=== PATIENT | male | born 1980 | race African-American/Black ===

== ENCOUNTER 2016-05-26 17:02 | Inpatient (IN) | payer OTHER ==
[~2016-05-26] VITALS: Ht 180.3 cm; Wt 86.1 kg
[~2016-05-26 17:02] MED LIST: ALBU6.7H INH
[2016-05-26 17:09] VITALS: BP 123/69; PULSE 118; RESP 18; TEMP 100.9; O2SAT 99
[2016-05-26] MEDS ORDERED: ALBU6.7H INH (17:20)
--- NOTE | 2016-05-26 17:27 | PD ---
HPI Chief Complaint: Injury Time Seen by Provider: 17:26 Travel History International Travel<30 days: No Contact w/Intl Traveler<30days: No Traveled to known affect area: No History of Present Illness HPI 35-year-old male presents to the emergency Department under [place] act by local police. According to the [place] act, the patient has been hallucinating and refuses to get care for his broken right arm. Patient left the hospital yesterday AGAINST MEDICAL ADVICE. He was in rhabdomyolysis with a CK of 9,146, troponin was 0.06. Patient was going to have surgery on the right humerus by Dr. Sams. However, Dr. Sams was waiting for medical clearance. The patient has a fever upon arrival in the emergency department. He is unaware that he has been running a fever. He denies any chest pain or shortness of breath. He does complain of chronic low back pain. He denies any current abdominal pain. No vomiting. Patient does report history of seizures, asthma, bipolar disorder , schizophrenia. He states his only current medication is albuterol. Patient states that he does not usually hallucinate. He has been talking to people that aren't there. During my exam, he states he believes he is smoking a cigarette when he is not. However, he does answer questions appropriately. Patient does say he had a sore throat last week. PFSH Past Medical History Asthma: Yes Bipolar Disorder: Yes (non compliant with meds) Anxiety: No Depression: No Cancer: No Cardiovascular Problems: No Chemotherapy: No Diminished Hearing: No Endocrine: No Genitourinary: No Neurologic: Yes (head injury and bleed 2016) Psychiatric: Yes Reproductive: No Respiratory: Yes Radiation Therapy: No Schizophrenia: Yes Seizures: Yes Past Surgical History Thoracic Surgery: Yes (LEFT INGUNIAL HERNIA) Social History Alcohol Use: Yes Tobacco Use: Yes Substance Use: No Allergies-Medications (Allergen,Severity, Reaction): Coded Allergies: No Known Allergies (Verified , 05/26/16) Reported Meds & Prescriptions Reported Meds & Active Scripts Active Proventil Hfa (Albuterol Sulfate) 6.7 Gm Aero 2 Puff INH Q4HR NEEDED FOR SHORTNESS OF BREATH Reported Proventil Hfa 6.7 GM Inh (Albuterol Sulfate) 90 Mcg/Act Aer 2 Puff INH Q4-6H PRN Review of Systems Except as stated in HPI: all other systems reviewed are Neg Physical Exam Narrative GENERAL: Well-developed well-nourished male patient, temp of 100.9. SKIN: Warm and dry. Large ecchymosis and swelling noted to the right shoulder down to the right mid forearm. Patient also has ecchymosis noted to the anterior chest. HEAD: Normocephalic. Atraumatic. ENT: Mucosa pink and moist. Erythema but no exudates. No uvular edema. No uvular , palatal, or tonsillar deviation. Airway patent. Nasal turbinates appear normal without nasal blood, purulent drainage or septal hematoma. Bilateral tympanic membranes are clear without erythema or perforation. EYES: No scleral icterus. No injection or drainage. NECK: Supple, trachea midline. No JVD or lymphadenopathy. CARDIOVASCULAR: Regular rate and rhythm without murmurs, gallops, or rubs. Right radial pulse is 2+. RESPIRATORY: Breath sounds equal bilaterally. No accessory muscle use. Lungs sound clear to auscultation. GASTROINTESTINAL: Abdomen soft, non-tender, nondistended. MUSCULOSKELETAL: No cyanosis. BACK: Nontender without obvious deformity. No CVA tenderness. Data Data Last Documented VS Vital Signs Date Time Temp Pulse Resp B/P Pulse Ox O2 Delivery O2 Flow Rate FiO2 05/26/16 18:19 97 Room Air 05/26/16 17:09 100.9 118 18 123/69 Orders Comprehensive Metabolic Panel (05/26/16 17:08) Troponin I (05/26/16 17:08) Creatine Kinase (Cpk) (05/26/16 17:08) Electrocardiogram (05/26/16 17:23) Complete Blood Count With Diff (05/26/16 17:23) Lactic Acid Sepsis Protocol (05/26/16 17:23) Urinalysis - C+S If Indicated (05/26/16 17:23) Influenzae A/B Antigen (05/26/16 17:23) Blood Culture (05/26/16 17:23) Chest, Single Ap (05/26/16 17:23) Blood Glucose (05/26/16 17:23) Ecg Monitoring (05/26/16 17:23) Iv Access Insert/Monitor (05/26/16 17:23) Oximetry (05/26/16 17:23) Oxygen Administration (05/26/16 17:23) Acetaminophen (Tylenol) (05/26/16 17:30) Us Arm Venous Doppler (05/26/16 ) Sodium Chlor 0.9% 1000 Ml Inj (Ns 1000 M (05/26/16 17:30) Drug Screen, Random Urine (05/26/16 17:26) Group A Rapid Strep Screen (05/26/16 17:38) Alcohol (Ethanol) (05/26/16 17:08) Magnesium (Mg) (05/26/16 17:08) Strep Culture (Group A) (05/26/16 17:51) CKMB (05/26/16 17:30) CKMB% (05/26/16 17:30) Sodium Chlor 0.9% 1... W/Sodium Bicarbon (05/26/16 18:45) Sodium Chlor 0.9% 1000 Ml Inj (Ns 1000 M (05/26/16 18:45) Support Splint (05/26/16 18:40) Consult Orthopedic (05/26/16 ) (Hub Use Only)Inp Phy Cons/Ref (05/26/16 ) Labs Laboratory Tests Test 05/26/16 05/26/16 05/26/16 17:30 17:31 17:51 Sodium Level 136 MEQ/L Potassium Level 3.7 MEQ/L Chloride Level 100 MEQ/L Carbon Dioxide Level 24.2 MEQ/L Anion Gap 12 MEQ/L Blood Urea Nitrogen 17 MG/DL Creatinine 1.00 MG/DL Estimat Glomerular Filtration 102 ML/MIN Rate Random Glucose 85 MG/DL Calcium Level 8.6 MG/DL Magnesium Level 1.5 MG/DL Total Bilirubin 1.6 MG/DL Aspartate Amino Transf 226 U/L (AST/SGOT) Alanine Aminotransferase 106 U/L (ALT/SGPT) Alkaline Phosphatase 78 U/L Total Creatine Kinase 30128 U/L Creatine Kinase MB 7.2 NG/ML Creatine Kinase MB % 0.1 % Troponin I 0.08 NG/ML Total Protein 7.9 GM/DL Albumin 3.6 GM/DL Ethyl Alcohol Level LESS THAN 3 MG/DL White Blood Count 9.0 TH/MM3 Red Blood Count 2.56 MIL/MM3 Hemoglobin 8.7 GM/DL Hematocrit 24.8 % Mean Corpuscular Volume 96.8 FL Mean Corpuscular Hemoglobin 34.1 PG Mean Corpuscular Hemoglobin 35.2 % Concent Red Cell Distribution Width 15.2 % Platelet Count 171 TH/MM3 Mean Platelet Volume 7.3 FL Neutrophils (%) (Auto) 74.0 % Lymphocytes (%) (Auto) 10.1 % Monocytes (%) (Auto) 15.6 % Eosinophils (%) (Auto) 0.1 % Basophils (%) (Auto) 0.2 % Neutrophils # (Auto) 6.6 TH/MM3 Lymphocytes # (Auto) 0.9 TH/MM3 Monocytes # (Auto) 1.4 TH/MM3 Eosinophils # (Auto) 0.0 TH/MM3 Basophils # (Auto) 0.0 TH/MM3 CBC Comment DIFF FINAL Differential Comment Lactic Acid Level 0.7 mmol/L Urine Color YELLOW Urine Turbidity CLEAR Urine pH 5.5 Urine Specific [place] 1.020 Urine Protein 30 mg/dL Urine Glucose (UA) NEG mg/dL Urine Ketones 40 mg/dL Urine Occult Blood SMALL Urine Nitrite NEG Urine Bilirubin NEG Urine Urobilinogen 4.0 MG/DL Urine Leukocyte Esterase NEG Urine RBC LESS THAN 1 /hpf Urine WBC LESS THAN 1 /hpf Urine Squamous Epithelial 1 /hpf Cells Urine Hyaline Casts 11 /lpf Urine Mucus FEW /lpf Microscopic Urinalysis Comment CULT NOT INDICATED Urine Opiates Screen NEG Urine Barbiturates Screen NEG Urine Amphetamines Screen NEG Urine Benzodiazepines Screen NEG Urine Cocaine Screen NEG Urine Cannabinoids Screen NEG MDM Medical Decision Making Medical Screen Exam Complete: Yes Emergency Medical Condition: Yes Medical Record Reviewed: Yes Interpretation(s) Chest x-ray - CONCLUSION: No evidence of acute cardiopulmonary disease. Differential Diagnosis Rhabdomyolysis versus ACS versus pericarditis versus humeral fracture versus electrolyte abnormality versus sepsis Narrative Course 35-year-old male presents to the emergency department under [place] act. Patient has a fever upon arrival of 100.9. EKG is ordered and pending. CBC, CMP, magnesium, CK, troponin, lactic acid, alcohol level, urine drug screen, UA, influenza, strep, blood cultures 2, lactic acid are ordered and pending. Chest x-ray is ordered and pending. Venous Doppler ultrasound of the right upper extremity is ordered and pending. EKG shows sinus rhythm, heart rate 94, no acute ST changes. CBC shows normal WBC count of 9.0, hemoglobin 8.7, hematocrit 24.8. CMP shows elevated AST, LT of 226/106. Magnesium is 1.5. CK is 12,279. Troponin is 0.08. Lactic acid is 0.7. Alcohol level is less than 3. UDS is negative. UA shows no acute infection. Influenza is negative. Strep is negative. Chest x-ray shows no evidence of acute cardiopulmonary disease. US [-]. [facility] is paged for admission. Dr. Pepe accepted admission. Diagnosis Primary Impression: Rhabdomyolysis Qualified Code: T79.6XXA - Traumatic rhabdomyolysis, initial encounter Additional Impression: Right humeral fracture Qualified Code: S42.201D - Closed fracture of proximal end of right humerus with routine healing, unspecified fracture morphology, subsequent encounter Admitting Information Admitting Physician Requests: Admit Aziza Briscoe May 26, 2016 17:27
[2016-05-26] MEDS ORDERED: ACETAMINOPHEN 325 MG TAB PO ONE (17:30)
[2016-05-26] MEDS ORDERED: SODIUM CHLOR 0.9% 1000 ML INJ 1,000 ML IV ONE ×2 (17:30→18:45)
--- NOTE | 2016-05-26 17:37 | PD ---
Data Data Last Documented VS Vital Signs Date Time Temp Pulse Resp B/P Pulse Ox O2 Delivery O2 Flow Rate FiO2 05/26/16 18:19 97 Room Air 05/26/16 17:09 100.9 118 18 123/69 Orders Comprehensive Metabolic Panel (05/26/16 17:08) Troponin I (05/26/16 17:08) Creatine Kinase (Cpk) (05/26/16 17:08) Electrocardiogram (05/26/16 17:23) Complete Blood Count With Diff (05/26/16 17:23) Lactic Acid Sepsis Protocol (05/26/16 17:23) Urinalysis - C+S If Indicated (05/26/16 17:23) Influenzae A/B Antigen (05/26/16 17:23) Blood Culture (05/26/16 17:23) Chest, Single Ap (05/26/16 17:23) Blood Glucose (05/26/16 17:23) Ecg Monitoring (05/26/16 17:23) Iv Access Insert/Monitor (05/26/16 17:23) Oximetry (05/26/16 17:23) Oxygen Administration (05/26/16 17:23) Acetaminophen (Tylenol) (05/26/16 17:30) Us Arm Venous Doppler (05/26/16 ) Sodium Chlor 0.9% 1000 Ml Inj (Ns 1000 M (05/26/16 17:30) Drug Screen, Random Urine (05/26/16 17:26) Group A Rapid Strep Screen (05/26/16 17:38) Alcohol (Ethanol) (05/26/16 17:08) Magnesium (Mg) (05/26/16 17:08) Strep Culture (Group A) (05/26/16 17:51) CKMB (05/26/16 17:30) CKMB% (05/26/16 17:30) Labs Laboratory Tests Test 05/26/16 05/26/16 05/26/16 17:30 17:31 17:51 Sodium Level 136 MEQ/L Potassium Level 3.7 MEQ/L Chloride Level 100 MEQ/L Carbon Dioxide Level 24.2 MEQ/L Anion Gap 12 MEQ/L Blood Urea Nitrogen 17 MG/DL Creatinine 1.00 MG/DL Estimat Glomerular Filtration 102 ML/MIN Rate Random Glucose 85 MG/DL Calcium Level 8.6 MG/DL Magnesium Level 1.5 MG/DL Total Bilirubin 1.6 MG/DL Aspartate Amino Transf 226 U/L (AST/SGOT) Alanine Aminotransferase 106 U/L (ALT/SGPT) Alkaline Phosphatase 78 U/L Total Creatine Kinase 40051 U/L Troponin I 0.08 NG/ML Total Protein 7.9 GM/DL Albumin 3.6 GM/DL Ethyl Alcohol Level LESS THAN 3 MG/DL White Blood Count 9.0 TH/MM3 Red Blood Count 2.56 MIL/MM3 Hemoglobin 8.7 GM/DL Hematocrit 24.8 % Mean Corpuscular Volume 96.8 FL Mean Corpuscular Hemoglobin 34.1 PG Mean Corpuscular Hemoglobin 35.2 % Concent Red Cell Distribution Width 15.2 % Platelet Count 171 TH/MM3 Mean Platelet Volume 7.3 FL Neutrophils (%) (Auto) 74.0 % Lymphocytes (%) (Auto) 10.1 % Monocytes (%) (Auto) 15.6 % Eosinophils (%) (Auto) 0.1 % Basophils (%) (Auto) 0.2 % Neutrophils # (Auto) 6.6 TH/MM3 Lymphocytes # (Auto) 0.9 TH/MM3 Monocytes # (Auto) 1.4 TH/MM3 Eosinophils # (Auto) 0.0 TH/MM3 Basophils # (Auto) 0.0 TH/MM3 CBC Comment DIFF FINAL Differential Comment Lactic Acid Level 0.7 mmol/L Urine Color YELLOW Urine Turbidity CLEAR Urine pH 5.5 Urine Specific [place] 1.020 Urine Protein 30 mg/dL Urine Glucose (UA) NEG mg/dL Urine Ketones 40 mg/dL Urine Occult Blood SMALL Urine Nitrite NEG Urine Bilirubin NEG Urine Urobilinogen 4.0 MG/DL Urine Leukocyte Esterase NEG Urine RBC LESS THAN 1 /hpf Urine WBC LESS THAN 1 /hpf Urine Squamous Epithelial 1 /hpf Cells Urine Hyaline Casts 11 /lpf Urine Mucus FEW /lpf Microscopic Urinalysis Comment CULT NOT INDICATED Urine Opiates Screen NEG Urine Barbiturates Screen NEG Urine Amphetamines Screen NEG Urine Benzodiazepines Screen NEG Urine Cocaine Screen NEG Urine Cannabinoids Screen NEG MDM Supervised Visit with MELISSA: Yes Narrative Course I, Dr. Whitaker, have reviewed the advance practice practioner's documentation and am in agreement, met with the patient face to face, made the diagnosis, and the medical decision making was done by me. *My assessment and Findings: Patient is a 35-year-old male presents the emergency department for hallucinations. Patient has history of seizure disorder and apparently had a seizure recently resulting in a right proximal humerus fracture. Patient was hospitalized. During this hospitalization he was due to have orthopedic evaluation but had rhabdomyolysis, felt to be from his seizures. His CPK and troponin were actually still uptrending when he signed out AMA yesterday. He had not yet had his operative intervention of his humerus fracture but is not medically cleared for surgery. Patient apparently has been doing poorly since he's been home and has been having visual hallucinations, talking people that are not there. Apparently this is new and he has not had this from his underlying psychiatric disorders previously. No documented fevers at home, but patient is febrile here and tachycardic. On exam his neurologic exam is nonfocal but is limited due to evaluation of the right upper extremity. Patient has ecchymotic area and warmth from the glenohumeral joint to the elbow. There is no obvious fluctuance. No track bedolla to suggest IV drug abuse. Differential includes rhabdomyolysis, elevated troponin, dehydration, electrolyte abnormality, renal dysfunction, alcohol intoxication, delirium, pneumonia, UTI, influenza, bacteremia, right upper extremity DVT, psychosis, drug-induced mood disorder, schizophrenia. Laboratory results show CPK continues to increase to 12,000+. Troponin still slightly increasing, I suspect that this is from his rhabdomyolysis. He was given 2 L normal saline bolus as well as sodium bicarbonate for renal protection. Thankfully his renal function continues to remain normal. Shortly admitted for further IV fluid resuscitation and management of her's rhabdomyolysis pending ultrasound of the right upper extremity. His examination shows soft compartments in his pain is certainly not out of proportion to exam. This is not consistent with compartment syndrome. Diagnosis Primary Impression: Rhabdomyolysis Qualified Code: T79.6XXA - Traumatic rhabdomyolysis, initial encounter Additional Impressions: Fracture dislocation of right shoulder joint Qualified Code: S42.91XA - Fracture dislocation of right shoulder joint, closed, initial encounter Hallucinations Admitting Information Admitting Physician Requests: Admit Florecita Whitaker MD May 26, 2016 17:37
[2016-05-26 17:48] LABS: AUTOMATED NEUTROPHIL # 6.6 TH/MM3 (1.8-7.7); BASOPHIL % 0.2 % (0.0-2.0); EOSINOPHIL % 0.1 % (0.0-4.0); HEMATOCRIT 24.8 % (39.0-51.0); HEMO FLAGS DIFF FINAL; LYMPH % 10.1 % (9.0-44.0); LYMPHOCYTE # 0.9 TH/MM3 (1.0-4.8); MEAN CELL VOLUME 96.8 FL (80.0-100.0); MEAN CORPUSCULAR HEMOGLOBIN 34.1 PG (27.0-34.0); MEAN CORPUSCULAR HGB CONC 35.2 % (32.0-36.0); MONO % 15.6 % (0.0-8.0); PLATELET COUNT 171 TH/MM3 (150-450); RED BLOOD COUNT 2.56 MIL/MM3 (4.50-5.90); RED CELL DISTRIBUTION WIDTH 15.2 % (11.6-17.2)
--- NOTE | 2016-05-26 17:53 | RADRPT ---
EXAM DATE/TIME: 05/26/2016 17:36 [facility] COMPARISON: No previous studies available for comparison. INDICATIONS : Fever MEDICAL HISTORY : Seizures. SURGICAL HISTORY : Inguinal hernia repair. ENCOUNTER: Initial ACUITY: 1 day PAIN SCORE: 0/10 LOCATION: Bilateral chest FINDINGS: A single view of the chest demonstrates the lungs to be symmetrically aerated without evidence of mas s, infiltrate or effusion. The cardiomediastinal contours are unremarkable. Osseous structures are intact. CONCLUSION: No evidence of acute cardiopulmonary disease. Van Johnston MD on May 26, 2016 at 17:51 Board Certified Radiologist. This report was verified electronically.
[2016-05-26 18:06] LABS: ANION GAP 12 MEQ/L (5-15); AST (GOT) 226 U/L (15-37); BICARBONATE 24.2 MEQ/L (21.0-32.0); BLOOD UREA NITROGEN 17 MG/DL (7-18); CHLORIDE 100 MEQ/L (98-107); GLOMERULAR FILTRATION RATE 102 ML/MIN (>89); MAGNESIUM 1.5 MG/DL (1.5-2.5); POTASSIUM 3.7 MEQ/L (3.5-5.1); SODIUM (NA) 136 MEQ/L (136-145)
[2016-05-26 18:08] LABS: BLOOD, URINE SMALL (NEG); COMMENT (UR) CULT NOT INDICATED; CULTURE IF INDICATED CULT NOT INDICATED; GLUCOSE,URINE NEG (NEG); HYALINE CAST, URINE 11 /lpf (RARE); KETONE, URINE 40 mg/dL (NEG); MUCUS URINE FEW /lpf (OCC); NITRITE,URINE NEG (NEG); PH, URINE 5.5 (5.0-8.5); SQUAMOUS EPITHELIAL CELL URINE 1 /hpf (0-5); URINE COLOR YELLOW (YELLW/STRAW)
[2016-05-26 18:12] LABS: AMPHETAMINE, URINE NEG (NEG); BARBITURATES, URINE NEG (NEG); COCAINE, URINE NEG (NEG)
[2016-05-26 18:19] VITALS: O2SAT 97
[2016-05-26 18:33] LABS: ALKALINE PHOSPHATASE 78 U/L (45-117); ALT (GPT) 106 U/L (12-78); CREATINE KINASE 12279 U/L (39-308); TOTAL BILIRUBIN ADULT 1.6 MG/DL (0.2-1.0)
[2016-05-26 18:46] LABS: CKMB 7.2 NG/ML (0.5-3.6)
[2016-05-26] MEDS: SODIUM BICARBONATE 8.4% INJ 100 MEQ in SODIUM CHLOR 0.9% 1000 ML INJ 1,000 ML IV SCH (19:10)
[2016-05-26] MEDS ORDERED: LORazepam 2 MG/ML VIAL IV PUSH PRN (19:30)
[2016-05-26] MEDS ORDERED: SODIUM CHLORIDE 0.9% FLUSH 5 ML FLUSH FLUSH PRN (19:30)
[2016-05-26] MEDS ORDERED: MORPHINE SULFATE 4 MG/ML INJ IV PRN (19:30)
[2016-05-26] MEDS ORDERED: BISACODYL 10 MG SUPP PR PRN (19:30)
[2016-05-26] MEDS ORDERED: ONDANSETRON HCL 4 MG/2 ML VIAL IVP PRN (19:30)
--- NOTE | 2016-05-26 19:31 | HHI.HP ---
[facility] No Primary Care Physician Admission Diagnosis rhabdomyolysis, right proximal humerus fracture dislocation Diagnoses: (1) Right humeral fracture Diagnosis: Principal (2) Rhabdomyolysis Diagnosis: Principal (3) Elevated troponin Diagnosis: Principal (4) Hallucinations Diagnosis: Principal (5) Seizure disorder Diagnosis: Principal (6) Alcohol abuse Diagnosis: Principal (7) Tobacco abuse Diagnosis: Principal Travel History International Travel<30 Days: No Contact w/Intl Traveler <30 Da: No Traveled to Known Affected Are: No History of Present Illness This is a 35 female with a PMH of Bipolar Disorder, Alcohol Abuse, Alcohol Related Seizure, h/o SDH and Tobacco Abuse who was brought to the ER by Police under [place] Act for hallucinations and refusing medical attention for right arm fracture. Recent admit 05/24/16 for Fall, suspected Seizure Activity and Right Proximal Humerus Fx, found to have rhabdomyolysis and elevated trop 0.06. S/p eval by Ortho w/ surgical intervention planned pending medical clearance, however pt left AMA on 05/26/16. Mother called EMS today as pt w/ hallucinations and not caring for himself. On arrival, BP 123/69, HR 118, O2 sat 99% on RA, Temp 100.9. CBC unremarkable. Chemistry at baseline. LFTs mildly increased from previous. CPK 12,279, previously 9146 on 05/25/16. Troponin 0.08. Urine Drug Screen negative. Alcohol negative. UA negative. CXR with no acute findings. Review of Systems Other ROS: 14 point review of systems otherwise negative. Past Family Social History Past Medical History PMH: Bipolar Disorder, Alcohol Abuse, Alcohol Related Seizure, h/o SDH and Tobacco Abuse Past Surgical History PAST SURGICAL HISTORY: Left Inguinal Hernia Allergies: Coded Allergies: No Known Allergies (Verified , 05/26/16) Family History PAST FAMILY HISTORY: Reviewed. No h/o DM or CAD Social History PAST SOCIAL HISTORY: Positive for alcohol abuse. Smokes 1ppd. Negative for drugs. Physical Exam Vital Signs Vital Signs Date Time Temp Pulse Resp B/P Pulse Ox O2 Delivery O2 Flow Rate FiO2 05/26/16 18:19 97 Room Air 05/26/16 18:19 99 Room Air 05/26/16 17:09 100.9 118 18 123/69 99 Physical Exam PE: GENERAL: Middle-aged black male in no acute distress. Responding to internal stimuli. + active hallucinations HEENT: PERRLA, EOMI. No scleral icterus or conjunctival pallor. No lid lag or facial droop. CARDIOVASCULAR: Regular rate and rhythm. No obvious murmurs to auscultation. No chest tenderness to palpation. RESPIRATORY: No obvious rhonchi or wheezing. Clear to auscultation. Breath sounds equal bilaterally. GASTROINTESTINAL: Abdomen soft, non-tender, nondistended. BS normal. MUSCULOSKELETAL: Extremities without clubbing, cyanosis, or edema. No obvious deformities. RUE in sling, +ecchymosis/edema. NEUROLOGICAL: Awake, alert and oriented x4. No focal neurologic deficits. Moving both upper and lower extremities spontaneously. Laboratory Laboratory Tests Test 05/26/16 05/26/16 05/26/16 17:30 17:31 17:51 Sodium Level 136 Potassium Level 3.7 Chloride Level 100 Carbon Dioxide Level 24.2 Anion Gap 12 Blood Urea Nitrogen 17 Creatinine 1.00 Estimat Glomerular Filtration 102 Rate Random Glucose 85 Calcium Level 8.6 Magnesium Level 1.5 Total Bilirubin 1.6 Aspartate Amino Transf 226 (AST/SGOT) Alanine Aminotransferase 106 (ALT/SGPT) Alkaline Phosphatase 78 Total Creatine Kinase 80399 Creatine Kinase MB 7.2 Creatine Kinase MB % 0.1 Troponin I 0.08 Total Protein 7.9 Albumin 3.6 Ethyl Alcohol Level LESS THAN 3 White Blood Count 9.0 Red Blood Count 2.56 Hemoglobin 8.7 Hematocrit 24.8 Mean Corpuscular Volume 96.8 Mean Corpuscular Hemoglobin 34.1 Mean Corpuscular Hemoglobin 35.2 Concent Red Cell Distribution Width 15.2 Platelet Count 171 Mean Platelet Volume 7.3 Neutrophils (%) (Auto) 74.0 Lymphocytes (%) (Auto) 10.1 Monocytes (%) (Auto) 15.6 Eosinophils (%) (Auto) 0.1 Basophils (%) (Auto) 0.2 Neutrophils # (Auto) 6.6 Lymphocytes # (Auto) 0.9 Monocytes # (Auto) 1.4 Eosinophils # (Auto) 0.0 Basophils # (Auto) 0.0 CBC Comment DIFF FINAL Differential Comment Lactic Acid Level 0.7 Urine Color YELLOW Urine Turbidity CLEAR Urine pH 5.5 Urine Specific [place] 1.020 Urine Protein 30 Urine Glucose (UA) NEG Urine Ketones 40 Urine Occult Blood SMALL Urine Nitrite NEG Urine Bilirubin NEG Urine Urobilinogen 4.0 Urine Leukocyte Esterase NEG Urine RBC LESS THAN 1 Urine WBC LESS THAN 1 Urine Squamous Epithelial 1 Cells Urine Hyaline Casts 11 Urine Mucus FEW Microscopic Urinalysis Comment CULT NOT INDICATED Urine Opiates Screen NEG Urine Barbiturates Screen NEG Urine Amphetamines Screen NEG Urine Benzodiazepines Screen NEG Urine Cocaine Screen NEG Urine Cannabinoids Screen NEG Date/Time Procedure Status Source Growth 05/26/16 18:00 Influenza Types A,B Antigen ([facility]) - Final Complete Nasal Aspirate NEGATIVE FOR FLU A AND B ANTIGEN.... 05/26/16 17:51 Group A Streptococcus Screen ([facility]) - Final Complete Throat 05/26/16 17:51 Group A Streptococcus Screen Received Throat Pending 05/26/16 15:57 Aerobic Blood Culture Received Blood Peripheral Pending 05/26/16 15:57 Anaerobic Blood Culture Received Blood Peripheral Pending Result Diagram: 05/26/16 1731 05/26/16 1730 Assessment and Plan Problem List: (1) Right humeral fracture ICD Code: S42.301A Status: Acute (2) Rhabdomyolysis ICD Code: M62.82 Status: Acute (3) Elevated troponin ICD Code: R79.89 Status: Acute (4) Hallucinations ICD Code: R44.3 Status: Acute (5) Seizure disorder ICD Code: G40.909 Status: Acute (6) Alcohol abuse ICD Code: F10.10 Status: Chronic (7) Tobacco abuse ICD Code: Z72.0 Status: Acute Assessment and Plan A/P: 1. Right Prox Humerus Fx: s/p injury after suspected seizure, recent admit for same, plan for surgical intervention pending medical clearance, however pt left AMA. Dr. Sams consulted by ER physician, plan is for surgical intervention in am. NPO, IVF, analgesics/antiemetics as needed. 2. Elevated Trop: Trop 0.08, EKG w/ no acute changes. Check serial cardiac enzymes for trend. 3. Hallucinations: Auditory/Visual hallucinations, brought to ER under [place] Act. Consult Psych 4. Seizure Disorder: Alcohol-Related. Seen by Dr. Morgan on last admit, however pt left AMA. Will re-consult. Seizure Precautions. 5. Alcohol Abuse: Drinks daily. Seizure Precautions, Ativan, MVT/Thiamine/ Folate 6. Tobacco Abuse: Counselled. Ativan prn. 7. DVT Prophylaxis: SCD/Teds. 8. Social work for d/c planning as needed. 9. Case discussed w/ ER physician at length. Physician Certification 2 Midnight Certification Type: Admission for Inpatient Services Order for Inpatient Services The services are ordered in accordance with Medicare regulations or non- Medicare payer requirements, as applicable. In the case of services not specified as inpatient-only, they are appropriately provided as inpatient services in accordance with the 2-midnight benchmark. Estimated LOS (days): 2 days is the estimated time the patient will need to remain in the hospital, assuming treatment plan goals are met and no additional complications. Post-Hospital Plan: Not yet determined Problem Qualifiers (1) Right humeral fracture: Qualified Code: S42.201D - Closed fracture of proximal end of right humerus with routine healing, unspecified fracture morphology, subsequent encounter (2) Rhabdomyolysis: Qualified Code: T79.6XXA - Traumatic rhabdomyolysis, initial encounter Melly Pepe MD May 26, 2016 19:31
--- NOTE | 2016-05-26 19:35 | RADRPT ---
EXAM DATE/TIME: 05/26/2016 18:02 [facility] COMPARISON: No previous studies available for comparison. INDICATIONS : Right arm swelling and pain. MEDICAL HISTORY : Head injury. Seizures. Asthma. Schizophrenia. Bipolar disorder. Fractured right humerus. SURGICAL HISTORY : Left inguinal hernia repair. ENCOUNTER: Initial ACUITY: 2 day PAIN SCORE: 5/10 LOCATION: Right arm. FINDINGS: There is spontaneous flow documented in the brachial, basilic, cephalic, axillary, and subclavian vei ns. The vessels are compressible and augmentation response is documented. No filling defects are se en. The flow is phasic with respiration. Direction of flow in the jugular vein is caudal. CONCLUSION: No DVT right upper extremity. Van Johnston MD on May 26, 2016 at 19:33 Board Certified Radiologist. This report was verified electronically.
[2016-05-26 19:58] VITALS: BP 145/77; PULSE 102; RESP 18; TEMP 98.9; O2SAT 98
[2016-05-26] MEDS: SODIUM CHLOR 0.9% 1000 ML INJ 1,000 ML IV SCH (20:00)
[2016-05-26 20:43] VITALS: BP 151/68; PULSE 103; RESP 18; O2SAT 98
[2016-05-26] MEDS ORDERED: SODIUM CHLORIDE 0.9% FLUSH 5 ML FLUSH FLUSH SCH (21:00)
[2016-05-26] MEDS: THIAMINE INJ 100 MG in SODIUM CHLORIDE 0.9% INJ 100 ML IV SCH (21:41)
[2016-05-26 22:00] VITALS: BP 153/85; PULSE 92; RESP 19; TEMP 98.6; O2SAT 99
[2016-05-26] MEDS: MULTIVITAMIN INJ 10 ML, FOLIC ACID INJ 1 MG in SODIUM CHLORID 0.9% 500 ML INJ 500 ML IV SCH (22:56)
[2016-05-27 01:23] LABS: CKMB 4.7 NG/ML (0.5-3.6)
[2016-05-27] MEDS: SODIUM BICARBONATE 8.4% INJ 100 MEQ in SODIUM CHLOR 0.9% 1000 ML INJ 1,000 ML IV SCH ×3 (02:05→18:37)
[2016-05-27] MEDS ORDERED: HALOPERIDOL LACTATE 5 MG/ML AMP IM ONE (04:45)
[2016-05-27] MEDS: SODIUM CHLOR 0.9% 1000 ML INJ 1,000 ML IV SCH ×2 (06:00→16:54)
--- NOTE | 2016-05-27 07:10 | PD.ORT.PN ---
Subjective Subjective Remarks s/p right shoulder injury. left AMA previously,. history of bipolar schizophrenia. quezada acted. restraints Objective Vitals Vital Signs Date Time Temp Pulse Resp B/P Pulse Ox O2 Delivery O2 Flow Rate FiO2 05/26/16 22:00 98.6 92 19 153/85 99 05/26/16 20:43 103 18 151/68 98 Room Air 05/26/16 19:58 98.9 102 18 145/77 98 Room Air 05/26/16 18:19 97 Room Air 05/26/16 18:19 99 Room Air 05/26/16 17:09 100.9 118 18 123/69 99 Result Diagram: 05/26/16 1731 05/26/16 1730 Imaging Last 24 hours Impressions Chest X-Ray 05/26/16 1723 Signed Impressions: Service Date/Time: Thursday, May 26, 2016 17:36 - CONCLUSION: No evidence of acute cardiopulmonary disease. Van Johnston MD Objective Remarks RUE: 3+ swelling of shoulder and arm. NVI. Assessment & Plan Assessment and Plan 1) Right proximal humerus fx dislocation -npo -consents -due to dislocation of shoulder, patient needs surgery today Steven Hui May 27, 2016 07:09
[2016-05-27] MEDS ORDERED: LORazepam 2 MG/ML VIAL IM/IV PRN (07:30)
[2016-05-27 08:00] VITALS: BP 136/87; PULSE 94; RESP 24; TEMP 99.4; O2SAT 100
--- NOTE | 2016-05-27 08:14 | RADRPT ---
EXAM DATE/TIME: 05/27/2016 07:47 [facility] COMPARISON: CTA UPPER EXTREMITY RIGHT W 3D RECON, May 24, 2016, 16:11. HUMERUS RIGHT (MIN 2VWS), April 272015, 15:07. INDICATIONS : Right shoulder pain, trauma. RADIATION DOSE: 24.18 CTDIvol (mGy) MEDICAL HISTORY : Seizures. SURGICAL HISTORY : None. ENCOUNTER: Initial ACUITY: 1 day PAIN SCALE: Non-responsive LOCATION: Right shoulder TECHNIQUE: Volumetric scanning of the shoulder was performed. Using automated exposure control and adjustment o f the mA and/or kV according to patient size, radiation dose was kept as low as reasonably achievable to obtain optimal diagnostic quality images. FINDINGS: There is a heavily undisplaced fracture of the right proximal humerus at the level of the humeral hea d which is dislocated posteriorly and abutting the posterior aspect of the glenoid, fracture involvin g the greater and lesser tuberosities, lesser tuberosity fragment displaced medially and fracture ext ending into the neck of the humerus. There is some amorphous calcific density in and about the fractu re sites. There are no other fractures seen. There is subcutaneous stranding identified. CONCLUSION: 1. Fracture dislocation at the shoulder as above. Jesus Peraza MD on May 27, 2016 at 8:10 Board Certified Radiologist. This report was verified electronically.
[2016-05-27] MEDS ORDERED: INSULIN HUMAN REGULAR 1,000 UNITS/10 ML VIAL SQ PRN (10:45)
[2016-05-27] MEDS ORDERED: METOPROLOL TARTRATE 25 MG TAB PO PRN (10:45)
[2016-05-27] MEDS: SODIUM CHLORID 0.9% 500 ML IV SCH (10:45)
[2016-05-27] MEDS ORDERED: ceFAZolin 2 GM PREMIX 50 ML ONE (11:10)
[2016-05-27] MEDS ORDERED: GENTAMICIN SULFATE 80 MG/2 ML VIAL ONE (11:10)
[2016-05-27] MEDS ORDERED: SODIUM CHLOR 0.9% 250 ML INJ 250 ML ONE (11:11)
[2016-05-27] MEDS ORDERED: KETAMINE HCL 500 MG/5 ML VIAL ONE (11:11)
[2016-05-27] MEDS ORDERED: VANCOMYCIN HCL 1000 MG VIAL ONE (11:11)
[2016-05-27] MEDS ORDERED: fentaNYL CITRATE 250 MCG/5 ML AMP ONE (11:12)
[2016-05-27] MEDS ORDERED: HYDROmorphone HCL PF 2 MG/ML VIAL ONE (11:12)
[2016-05-27] MEDS ORDERED: DEXMEDETOMIDINE INJ 50 ML ONE (11:47)
[2016-05-27] MEDS ORDERED: PHENYLEPH/NS 1000 MCG/10 ML SYR IV ONE (12:00)
[2016-05-27] MEDS ORDERED: LACTATED RINGER'S 1000 ML INJ 2,000 ML IV ONE (12:00)
[2016-05-27] MEDS ORDERED: PROPOFOL 200 MG/20 ML AMP IV ONE (12:00)
[2016-05-27] MEDS ORDERED: NEOSTIGMINE METHYLSULFATE 10 MG/10 ML VIAL IV PUSH ONE (12:00)
[2016-05-27] MEDS ORDERED: NORMOSOL R INJ 1,000 ML IV ONE (12:00)
[2016-05-27] MEDS ORDERED: KETOROLAC TROMETHAMINE 60 MG/2 ML (IM) VIAL IM ONE (12:00)
[2016-05-27] MEDS ORDERED: ONDANSETRON HCL 4 MG/2 ML VIAL IV PUSH ONE (12:00)
--- NOTE | 2016-05-27 12:04 | MB ---
cc: LUBA DUQUE M.D. DATE OF CONSULTATION: 05/27/2016 The patient was just seen by Dr. Morgan yesterday and then he left AMA. He has a long history of alcohol abuse. HISTORY OF PRESENT ILLNESS A 35-year-old man who is bipolar with alcohol abuse, alcohol-related seizure history, subdural hematoma, tobacco use, who came in with right arm pain after a tongue-biting seizure and fall. He had a seizure in November. He has had several seizures alcohol-related and alcohol withdrawal seizures, has been taking Keppra on and off but not regularly. Sounds like a grand mal seizure according to his friend from Dr. Morgan's notes. PAST MEDICAL HISTORY As above. ALLERGIES No known drug allergies. SOCIAL HISTORY Drinks every day. Smokes a pack of cigarettes a day. Denied any drug use to Dr. Morgan. PHYSICAL EXAMINATION On exam this morning he is moving all four extremities in bed. His toes are downgoing bilaterally. He awakens, is mumbling a lot but does tell me his name and follows some commands, others not. Neck was supple. He is afebrile. 92, 19, 153/85. MEDICATIONS Current medications: 1. Thiamine orally. 2. Ativan p.r.n., which was given at 6:00 this morning. 3. Multivitamin. 4. Zofran. 5. PRN morphine. 6. Roxicodone, given some yesterday due to a humerus fracture when he had his seizure. LABORATORY DATA Hematocrit 25. He has some chronic anemia. Platelet count 171,000. Urine drug screen was negative. Alcohol was less than 3, though his alcohol has been as high as 500 in November of this year. UA was negative. Basic metabolic profile normal. AST 226, ALT 106. CPK is 10,000. Troponin was negative. Albumin normal. TSH earlier this year was normal. IMAGING DATA Upper extremity CAT scan heavily undisplaced fracture of the right proximal humerus at the level of the humeral head. Chest x-ray negative. CT scan of the brain was read as normal. I reviewed those films and is essentially unremarkable. IMPRESSION/RECOMMENDATIONS Alcohol-related seizures. At this point no use putting him on a seizure med. I would have the med team treat him for alcohol withdrawal and continue the use of Librium or Ativan. Check an EEG and an MRI of the brain, some additional blood work, although it is likely that his seizures are from the alcohol. MD KARINE Newman/MORENO /9:24 AM /11:53 AM
--- NOTE | 2016-05-27 12:28 | MB ---
cc: TOSIN BURKS DATE OF CONSULTATION: 05/27/2016 REASON FOR CONSULTATION Right proximal humerus fracture-dislocation. HISTORY OF PRESENT ILLNESS Matthew is a 35-year-old male who has multiple medical problems. He has a history of bipolar disorder, possible schizophrenia, alcohol abuse, alcohol-related seizures and tobacco abuse. The patient initially had a seizure on 05/24/2016. He presented to the emergency room where x-rays revealed a fracture-dislocation of his right shoulder. The patient left against medical advice before being seen by orthopedics. He returned today for his right shoulder. He presents as a Solano Act for hallucinations and refusing medical attention. He is currently awake on the orthopedic floor. He is mildly combative. He does not appear to understand the severity of the injury to his arm. He complains of right shoulder pain. Pain is worse with movement. PAST MEDICAL HISTORY ILLNESSES 1. Bipolar disorder. 2. Alcohol abuse. 3. Seizure disorder. 4. Substance abuse. SURGERIES Left inguinal hernia repair. ALLERGIES None. MEDICATIONS Please see EMR for complete list of inpatient medications. FAMILY HISTORY Unobtainable. SOCIAL HISTORY Positive for alcohol and drug use. REVIEW OF SYSTEMS Unobtainable secondary to confusion. PHYSICAL EXAMINATION GENERAL: The patient is a well-developed, well-nourished 35-year-old male in no acute distress. He is awake and alert. He is alert and oriented x3. VITAL SIGNS: Temperature 98.6, pulse 92, respirations 18, blood pressure 153/85, O2 sat is 99% on room air. HEAD: The patient is normocephalic. Pupils are equal. NECK: Soft, nontender. Trachea is midline. ABDOMEN: Soft, nontender, nondistended. EXTREMITIES: Examination of the right upper extremity reveals significant swelling around the shoulder. He has pain with any shoulder motion. He has no pain with elbow, wrist or hand motion. Skin is intact. He has good capillary refill in his fingers. Radial pulse is palpable. Examination of the left arm reveals no obvious pain or deformity with shoulder, elbow or wrist motion. Skin is intact. Radial pulse is palpable. Examination of the bilateral lower extremities reveals no significant pain with hip, knee or ankle motion bilaterally. Skin is intact. Dorsalis pedis pulses are palpable. X-RAYS X-rays of the right shoulder were reviewed. The patient has a proximal humerus fracture. There is posterior dislocation of the humeral head. IMPRESSION 1. Alcohol abuse. 2. Bipolar disorder. 3. Seizure disorder. 4. Fracture-dislocation of right proximal humerus. PLAN At this point the patient will need surgical intervention for his right shoulder for attempted closed reduction versus open reduction, internal fixation. The risks of surgery include bleeding, infection, injuries to arteries, nerves and blood vessels, nonunion, malunion, recurrent dislocations as well as medical complications including blood clot, stroke, heart attack and . At this point the patient does not fully understand the severity of his injury. Because of his delay in care secondary to the fact that he left the hospital previously against medical advice, the surgery will be more difficult to get the shoulder reduced. The patient likely has a large defect of the humeral head and may have recurrent dislocations. A mid-level provider in my office, nurse practitioner or PA, may see this patient on a follow-up basis and continue to implement the objective of this plan including: Starting or adjusting medications, injections of muscle, tendon, bursa or joints, cast application, orthotic or brace application, physical therapy, further radiographic studies including x-ray, MRI, CT, ultrasounds or bone scan, vascular studies, neurologic studies, or other specialist consultations, and proceeding with surgical management as appropriate. MD GEORGE Piper/MORENO /10:13 AM /9:30 AM
[2016-05-27] MEDS ORDERED: ACETAMINOPHEN/HYDROcodone 325 MG/10 MG TAB PO PRN (14:30)
[2016-05-27] MEDS ORDERED: HYDROmorphone HCL PF 2 MG/ML VIAL IV PUSH PRN (14:30)
[2016-05-27] MEDS ORDERED: diphenhydrAMINE HCL 25 MG CAP PO PRN (14:30)
--- NOTE | 2016-05-27 15:16 | PD.CONS ---
Provisional Diagnosis Admission Date May 26, 2016 at 19:15 History of Present Illness Service Psychiatry Consult Requested By Primary Care Physician No Primary Care Physician Past Family Social History Coded Allergies: No Known Allergies (Verified , 05/26/16) Active Scripts Albuterol Sulfate (Proventil Hfa)6.7 Gm Aero2 Puff INH Q4HR #1 BOX NEEDED FOR SHORTNESS OF BREATH Prov:Yunier Cordova MD 12/17/15 Reported Medications Albuterol 6.7 GM Inh (Proventil Hfa 6.7 GM Inh)90 Mcg/Act Aer2 Puff INH Q4-6H PRN (SHORTNESS OF BREATH) #1 INHALER Ref 0 05/26/16 Current Medications Medications (Trade) Dose Ordered Sig/Nader Route Start Time Stop Time Status Last Admin Sodium Bicarbonate 100 meq/Sodium Chloride 1,100 ml @ 150 mls/hr Q7H20M IV 05/26/16 18:45 05/26/16 19:10 (NS 1000 ml Inj) 1,000 ml @ 100 mls/hr Q10H IV 05/26/16 20:00 (NS Flush) 2 ml UNSCH PRN FLUSH 05/26/16 19:30 (NS Flush) 2 ml BID FLUSH 05/26/16 21:00 (Zofran Inj) 4 mg Q6H PRN IVP 05/26/16 19:30 (Dulcolax Supp) 10 mg DAILY PRN WV 05/26/16 19:30 Acetaminophen 650 mg 650 mg Q6H PRN PO 05/26/16 19:30 Multivitamins 10 ml/Folic Acid 1 mg/Sodium Chloride 510.2 ml @ 125 mls/hr Q24H IV 05/26/16 20:00 05/31/16 19:59 05/26/16 22:56 (Thiamine Inj/NS Inj) 101 ml @ 100 mls/hr Q24H IV 05/26/16 21:00 05/29/16 20:59 05/26/16 21:41 (Vitamin B1) 100 mg DAILY PO 05/30/16 09:00 Lorazepam 1 mg 1 mg Q3H PRN IM/IV 05/27/16 07:30 05/27/16 06:36 Lactated Ringer's 1,000 ml @ 30 mls/hr Q24H IV 05/27/16 10:45 (NS 500 ml Inj) 500 ml @ 30 mls/hr [id number] IV 05/27/16 10:45 05/28/16 10:44 (NS Flush) 2 ml UNSCH PRN IVF 05/27/16 14:30 IV Flush 2 ml 2 ml BID IVF 05/27/16 21:00 (Ancef 2 Gm Premix) 50 ml @ 100 mls/hr Q8H IV 05/27/16 20:00 05/28/16 12:29 ([place] 10-325 Mg) 1 tab Q3H PRN PO 05/27/16 14:30 ([place] 10-325 Mg) 2 tab Q6H PRN PO 05/27/16 14:30 (Oscal-D 250-125) 250 mg TID PO 05/27/16 18:00 (Benadryl) 25 mg Q6H PRN PO 05/27/16 14:30 (Dilaudid Pf Inj) 2 mg Q2H PRN IV PUSH 05/27/16 14:30 Physical Exam Vital Signs Vital Signs Date Time Temp Pulse Resp B/P Pulse Ox O2 Delivery O2 Flow Rate FiO2 05/27/16 08:00 99.4 94 24 136/87 100 05/26/16 20:43 Room Air Assessment & Plan Problem List: (1) Hallucinations Assessment & Plan: Patient was unable to be seen because he was having surgery , he will be revisited tomorrow for psychiatric evaluation. ICD Code: R44.3 Assessment & Plan Estimated LOS: Дмитрий Jose MD May 27, 2016 15:15
[2016-05-27] MEDS ORDERED: DO NOT ADM ANY ANTICOAGULANT DRUGS XX PRN (15:30)
[2016-05-27 16:00] VITALS: BP 112/67; PULSE 82; RESP 20; TEMP 96.8; O2SAT 97
[2016-05-27] MEDS: SODIUM CHLORIDE 0.9% FLUSH 5 ML FLUSH IVF PRN ×2 (16:53→18:37)
--- NOTE | 2016-05-27 17:28 | MP ---
cc: LIAM BURKS DATE OF SURGERY: 05/27/2016 PREOPERATIVE DIAGNOSIS: Comminuted right proximal humerus fracture-dislocation. POSTOPERATIVE DIAGNOSIS: Comminuted right proximal humerus fracture-dislocation. SURGEON: Liam Burks MD. COATING MACHINE HELPER: JAIME Clark PAC. The surgical procedure was assisted by my physician assistants. My PAs presence was necessary throughout this case for the manipulation and positioning of the surgical extremity. My PAs were assisting me throughout the duration of this procedure. The skill set of a physician patent legal assistant was medically necessary to complete this procedure. During the surgical case the surgical technologist was working at the back table and the physician patent legal assistant was directly assisting me. PROCEDURE 1. Open treatment of right shoulder dislocation. 2. Open reduction fixation of right proximal humerus fracture. ESTIMATED BLOOD LOSS 600 cc ANESTHESIA General. PLAN OF ACTIVITY: Abduction, external rotation orthosis to right arm at all times. No internal rotation of right shoulder. INDICATIONS FOR PROCEDURE: Matthew is a 35-year male who had an injury several days ago resulting in right proximal humerus fracture-dislocation. He initially left the hospital against medical advice. He returned back to the hospital under Solano Act. Informed consent was obtained both secondary to patient's psychiatric history and confusion. No other history or family was available. At this point the case was medically necessary and medically urgent due to the nature of the dislocation of his shoulder. I discussed this with Dr. Ordoñez of anesthesia. We both agreed that this was medically necessary as well as medically urgent to proceed with surgery. DETAILS OF PROCEDURE: He was brought to the operating room, placed on the OR table. He was given IV sedation and GETA. The right arm and shoulder were prepped with alcohol, followed by Hibiclens, prepped and draped in the usual sterile fashion. He received IV antibiotics. Time-out procedure was performed. The procedure began with an 8-inch incision over the anterior shoulder. Subcutaneous tissue was dissected with Bovie. He did have moderate to severe swelling of the shoulder. The deltopectoral interval was opened. A standard anterior approach to the shoulder was utilized. At this point the proximal humerus was visualized. #5 FiberWire sutures were placed in the greater tuberosity and lesser tuberosity fragments. The joint was distracted. The humeral head was dislocated posteriorly. At this point attention was turned to reduction of the humeral head to the glenoid. This was extremely difficult. There was fracture callous formation. This appeared to be a subacute fracture-dislocation. At this point the glenohumeral joint was visualized. The head was visualized posteriorly. Three Steinmann pins were now placed into the humeral head. A joker elevator was placed between the glenoid and the humeral head. The humeral head was manipulated. Multiple manipulations were required to eventually achieve reduction of the humeral joint. At this point the humeral head was pinned to the glenoid with K-wires. Fluoroscopy confirmed that the glenohumeral joint was reduced. Attention was turned to the proximal humerus fracture. The proximal humeral shaft was reduced to the humeral head. Fracture was manipulated to achieve appropriate reduction. Multiple K-wires were used to hold provisional fixation. Next the greater and lesser tuberosities were reduced. Fluoroscopy confirmed well-aligned fractures. A Synthes proximal humerus plate was selected. The plate was provisionally held with K-wires, 3.5 cortical screws used to compress plate to bone. Next multiple 3.5 locking screws were placed in the humeral head. All screws were pre-drilled and measured for appropriate lengths. The FiberWire sutures were passed through the plate. The tuberosities were now sutured down to the plate. Final fluoroscopy revealed well-aligned fracture with well-placed hardware. Incision was thoroughly irrigated. Fascia was closed with #1 Vicryl. Subcutaneous tissue was closed with 3-0 Vicryl. Skin was closed with maryan. Sterile dressings were applied. Attention was turned to a shoulder orthosis. He was maintained at approximately 5 degrees of external rotation of the shoulder. The patient was transferred to recovery in stable condition. MD GEORGE Piper/CHANELLE /2:23 PM /5:11 PM
--- NOTE | 2016-05-27 17:54 | RADRPT ---
EXAM DATE/TIME: 05/27/2016 14:04 [facility] COMPARISON: CT SHOULDER RIGHT W/O CONTRAST, May 27, 2016, 7:47. INDICATIONS : Right proximal humerus fracture repair. OR. MEDICAL HISTORY : Seizures. SURGICAL HISTORY : None. ENCOUNTER: Initial ACUITY: 1 day PAIN SCORE: Non-responsive. LOCATION: Right proximal humerus FINDINGS: The extremely comminuted tuberosity and neck fracture of the right humerus has undergone open reducti on internal fixation. There is a lateral plate with multiple screws. There is a mildly angulated padmini ply fracture fragment of the medial neck region and a mildly superiorly displaced fracture of the gre ater tuberosity. Otherwise, near-anatomic alignment CONCLUSION: Interim screw and plate fixation of the proximal humeral fracture as above. Major fracture fragments are in near-anatomic alignment. Van Johnston MD on May 27, 2016 at 17:51 Board Certified Radiologist. This report was verified electronically.
[2016-05-27] MEDS: CALCIUM/VITAMIN D 250 MG/125 U TAB PO SCH (18:00)
[2016-05-27 18:23] VITALS: O2SAT 96
--- NOTE | 2016-05-27 18:24 | EKG ---
Date Performed: 05/26/2016 Time Performed: 17:56:24 PTAGE: 35 years EKG: Sinus rhythm POSSIBLE RIGHT VENTRICULAR CONDUCTION DELAY Since previous tracing, no significant change noted [facility] ECG PREVIOUS TRACING : 05/26/2016 17.45 DOCTOR: Rosa Isela Rivas Interpretating Date/Time 05/27/2016 18:22:49
--- NOTE | 2016-05-27 18:24 | EKG ---
Date Performed: 05/26/2016 Time Performed: 17:45:44 PTAGE: 35 years EKG: Sinus rhythm POSSIBLE RIGHT VENTRICULAR CONDUCTION DELAY NONSPECIFIC ST ELEVATION Since previous tracing, no sign ificant change noted BORDERLINE ECG PREVIOUS TRACING : 05/24/2016 14.17 DOCTOR: Rosa Isela Rivas Interpretating Date/Time 05/27/2016 18:22:23
[2016-05-27 20:00] VITALS: BP 125/80; PULSE 107; RESP 18; TEMP 100.7; O2SAT 94
[2016-05-27] MEDS: ceFAZolin 2 GM PREMIX 50 ML IV SCH (20:20)
[2016-05-27] MEDS: SODIUM CHLORIDE 0.9% FLUSH 5 ML FLUSH IVF SCH (21:00)
[2016-05-27] MEDS: MULTIVITAMIN INJ 10 ML, FOLIC ACID INJ 1 MG in SODIUM CHLORID 0.9% 500 ML INJ 500 ML IV SCH (23:16)
[2016-05-27] MEDS: THIAMINE INJ 100 MG in SODIUM CHLORIDE 0.9% INJ 100 ML IV SCH (23:17)
[2016-05-27] MEDS: ACETAMINOPHEN/HYDROcodone 325 MG/10 MG TAB PO PRN (23:17)
[2016-05-28] VITALS (12 sets, daily range): BP systolic 110–155; BP diastolic 56–94; PULSE 64–109; RESP 16–20; TEMP 97.4–101.7; O2SAT 95–100
[2016-05-28] MEDS: ACETAMINOPHEN 325 MG TAB PO PRN ×2 (01:44→13:13)
[2016-05-28] MEDS: SODIUM CHLOR 0.9% 1000 ML INJ 1,000 ML IV SCH ×2 (02:00→12:00)
--- NOTE | 2016-05-28 02:05 | HHI.PR ---
Subjective Remarks Late entry patient seen earlier at 7:50 pm on 05/27/16 after surgical procedure tried to see earlier but patient out to OR Patient is sp surgical procedures patient is lethargic but arousable still on soft restraints patient denies cp/sob stable vital signs Objective Vitals Vital Signs Date Time Temp Pulse Resp B/P Pulse Ox O2 Delivery O2 Flow Rate FiO2 05/28/16 01:36 101.7 64 16 118/64 98 05/27/16 20:00 100.7 107 18 125/80 94 05/27/16 18:23 96 21 05/27/16 16:10 Room Air 05/27/16 16:00 97.8 74 16 103/76 96 Room Air 05/27/16 16:00 96.8 82 20 112/67 97 05/27/16 15:45 78 16 104/70 95 Room Air 05/27/16 15:30 79 16 99/68 94 Room Air 05/27/16 15:15 80 16 100/69 99 Simple Mask 8 05/27/16 15:05 98.3 84 15 106/65 97 Simple Mask 8 05/27/16 08:00 99.4 94 24 136/87 100 I/O 05/27/16 05/27/16 05/27/16 05/28/16 05/28/16 05/28/16 07:00 15:00 23:00 07:00 15:00 23:00 Intake Total 0 ml 2924 ml Output Total 1000 ml 900 ml Balance -1000 ml 2024 ml Intake Oral 0 ml 480 ml IV Total 444 ml Other 2000 ml Output Urine Total 1000 ml 300 ml Estimated Blood Loss 600 ml # Voids 2 3 1 # Bowel Movements 1 0 Result Diagram: 05/26/16 1731 05/26/16 1730 Imaging Last Impressions Upper Extremity CT 05/27/16 0527 Signed Impressions: Service Date/Time: Friday, May 27, 2016 07:47 - CONCLUSION: 1. Fracture dislocation at the shoulder as above. Jesus Peraza MD Chest X-Ray 05/26/16 1723 Signed Impressions: Service Date/Time: Thursday, May 26, 2016 17:36 - CONCLUSION: No evidence of acute cardiopulmonary disease. Van Johnston MD Upper Extremity Ultrasound 05/26/16 0000 Signed Impressions: Service Date/Time: Thursday, May 26, 2016 18:02 - CONCLUSION: No DVT right upper extremity. Van Johnston MD Objective Remarks GENERAL: Middle-aged black male in no acute distress. Responding to internal stimuli. + active hallucinations HEENT: PERRLA, EOMI. No scleral icterus or conjunctival pallor. No lid lag or facial droop. CARDIOVASCULAR: Regular rate and rhythm. No obvious murmurs to auscultation. No chest tenderness to palpation. RESPIRATORY: No obvious rhonchi or wheezing. Clear to auscultation. Breath sounds equal bilaterally. GASTROINTESTINAL: Abdomen soft, non-tender, nondistended. BS normal. MUSCULOSKELETAL: Extremities without clubbing, cyanosis, or edema. No obvious deformities. RUE in sling, +ecchymosis/edema. NEUROLOGICAL: Awake, alert and oriented x4. No focal neurologic deficits. Moving both upper and lower extremities spontaneously. Medications and IVs Current Medications Medications (Trade) Dose Ordered Sig/Nader Route Start Time Stop Time Status Last Admin Sodium Bicarbonate 100 meq/Sodium Chloride 1,100 ml @ 150 mls/hr Q7H20M IV 05/26/16 18:45 05/27/16 18:37 (NS 1000 ml Inj) 1,000 ml @ 100 mls/hr Q10H IV 05/26/16 20:00 05/27/16 16:54 (Zofran Inj) 4 mg Q6H PRN IVP 05/26/16 19:30 (Dulcolax Supp) 10 mg DAILY PRN MD 05/26/16 19:30 Acetaminophen 650 mg 650 mg Q6H PRN PO 05/26/16 19:30 05/28/16 01:44 Multivitamins 10 ml/Folic Acid 1 mg/Sodium Chloride 510.2 ml @ 125 mls/hr Q24H IV 05/26/16 20:00 05/31/16 19:59 05/27/16 23:16 (Thiamine Inj/NS Inj) 101 ml @ 100 mls/hr Q24H IV 05/26/16 21:00 05/29/16 20:59 05/27/16 23:17 (Vitamin B1) 100 mg DAILY PO 05/30/16 09:00 Lorazepam 1 mg 1 mg Q3H PRN IM/IV 05/27/16 07:30 05/27/16 06:36 Lactated Ringer's 1,000 ml @ 30 mls/hr Q24H IV 05/27/16 10:45 (NS 500 ml Inj) 500 ml @ 30 mls/hr [id number] IV 05/27/16 10:45 05/28/16 10:44 (NS Flush) 2 ml UNSCH PRN IVF 05/27/16 14:30 05/27/16 18:37 IV Flush 2 ml 2 ml BID IVF 05/27/16 21:00 (Ancef 2 Gm Premix) 50 ml @ 100 mls/hr Q8H IV 05/27/16 20:00 05/28/16 12:29 05/27/16 20:20 ([place] 10-325 Mg) 1 tab Q3H PRN PO 05/27/16 14:30 ([place] 10-325 Mg) 2 tab Q6H PRN PO 05/27/16 14:30 05/27/16 23:17 (Oscal-D 250-125) 250 mg TID PO 05/27/16 18:00 (Benadryl) 25 mg Q6H PRN PO 05/27/16 14:30 (Dilaudid Pf Inj) 2 mg Q2H PRN IV PUSH 05/27/16 14:30 Miscellaneous Information ALL NURSING DEPARTME... UNSCH PRN XX 05/27/16 15:30 05/28/16 15:29 A/P Problem List: (1) Right humeral fracture ICD Code: S42.301A Status: Acute (2) Rhabdomyolysis ICD Code: M62.82 Status: Acute (3) Elevated troponin ICD Code: R79.89 Status: Acute (4) Hallucinations ICD Code: R44.3 Status: Acute (5) Seizure disorder ICD Code: G40.909 Status: Acute (6) Alcohol abuse ICD Code: F10.10 Status: Chronic (7) Tobacco abuse ICD Code: Z72.0 Status: Acute Assessment and Plan A/P: 1. Right Prox Humerus Fx: s/p injury after suspected seizure, recent admit for same, plan for surgical intervention pending medical clearance, however pt left AMA. Dr. Sams consulted by ER physician. 05/27/16 Patient is sp ORIF of the proximal humerus fracture. Continue pain control. 2. Elevated Trop: Trop 0.08, EKG w/ no acute changes likely due to traumatic rhabdomyolysis.Check serial cardiac enzymes for trend. 3. Hallucinations: Auditory/Visual hallucinations, brought to ER under Solano Act. Consult Psych 4. Seizure Disorder: Alcohol-Related. Seen by Dr. Morgan on last admit, however pt left AMA. Neurology reconsulted. 5. Alcohol Abuse: Drinks daily. Seizure Precautions, Ativan, MVT/Thiamine/ Folate. CIWA Protocol. 6. Tobacco Abuse: Counselled. Ativan prn. 7. DVT Prophylaxis: SCD/Teds. 8. Rhabdomyolysis: Secondary to seizure episode and traumatism. Continue IV fluids, CK trending down. 9. Social work for d/c planning as needed. Problem Qualifiers (1) Right humeral fracture: Qualified Code: S42.201D - Closed fracture of proximal end of right humerus with routine healing, unspecified fracture morphology, subsequent encounter (2) Rhabdomyolysis: Qualified Code: T79.6XXA - Traumatic rhabdomyolysis, initial encounter Deric Atwood MD May 28, 2016 02:05
[2016-05-28] MEDS: SODIUM CHLORID 0.9% 500 ML IV SCH (03:25)
[2016-05-28] MEDS: ceFAZolin 2 GM PREMIX 50 ML IV SCH ×2 (04:17→12:51)
[2016-05-28 06:39] LABS: AUTOMATED NEUTROPHIL # 3.6 TH/MM3 (1.8-7.7); BASOPHIL % 0.7 % (0.0-2.0); EOSINOPHIL # 0.1 TH/MM3 (0-0.4); EOSINOPHIL % 0.9 % (0.0-4.0); LYMPH % 19.6 % (9.0-44.0); LYMPHOCYTE # 1.2 TH/MM3 (1.0-4.8); MEAN CELL VOLUME 97.9 FL (80.0-100.0); MEAN CORPUSCULAR HEMOGLOBIN 34.3 PG (27.0-34.0); MEAN CORPUSCULAR HGB CONC 35.1 % (32.0-36.0); MONO % 18.4 % (0.0-8.0); NEUT % 60.4 % (16.0-70.0); PLATELET COUNT 209 TH/MM3 (150-450); RED BLOOD COUNT 1.98 MIL/MM3 (4.50-5.90); RED CELL DISTRIBUTION WIDTH 14.9 % (11.6-17.2)
[2016-05-28 06:46] LABS: HEMO FLAGS AUTO DIFF
[2016-05-28 06:52] LABS: HEMATOCRIT 19.4 % (39.0-51.0)
--- NOTE | 2016-05-28 06:58 | PD.ORT.PN ---
Subjective Subjective Remarks POD 1 s/p ORIF right proximal humerus doing well. resting comfortably. sitter at bedside reports he was stable and calm all night patient reports that brace is uncomfortable Objective Vitals Vital Signs Date Time Temp Pulse Resp B/P Pulse Ox O2 Delivery O2 Flow Rate FiO2 05/28/16 04:00 98.8 101 17 110/69 95 05/28/16 02:44 16 05/28/16 01:36 101.7 64 16 118/64 98 05/27/16 20:00 100.7 107 18 125/80 94 05/27/16 18:23 96 21 05/27/16 16:10 Room Air 05/27/16 16:00 97.8 74 16 103/76 96 Room Air 05/27/16 16:00 96.8 82 20 112/67 97 05/27/16 15:45 78 16 104/70 95 Room Air 05/27/16 15:30 79 16 99/68 94 Room Air 05/27/16 15:15 80 16 100/69 99 Simple Mask 8 05/27/16 15:05 98.3 84 15 106/65 97 Simple Mask 8 05/27/16 08:00 99.4 94 24 136/87 100 I/O 05/27/16 05/27/16 05/27/16 05/28/16 05/28/16 05/28/16 07:00 15:00 23:00 07:00 15:00 23:00 Intake Total 0 ml 3644 ml 480 ml Output Total 1000 ml 900 ml Balance -1000 ml 2744 ml 480 ml Intake Oral 0 ml 1200 ml 480 ml IV Total 444 ml Other 2000 ml Output Urine Total 1000 ml 300 ml Estimated Blood Loss 600 ml # Voids 2 3 2 1 # Bowel Movements 1 0 0 Result Diagram: 05/28/16 0557 05/26/16 1730 Imaging Last 24 hours Impressions Chest X-Ray 05/26/16 1723 Signed Impressions: Service Date/Time: Thursday, May 26, 2016 17:36 - CONCLUSION: No evidence of acute cardiopulmonary disease. Van Johnston MD Objective Remarks RUE: dressing clean and dry. intact. NVI distally. +gunslinger brace Assessment & Plan Assessment and Plan 1) Right proximal humerus fx dislocation s/p ORIF - POD 1 -NWB -maintain gunslinger brace at all times -daily dressing changes POD 2 Steven Hui May 28, 2016 06:58
[2016-05-28] MEDS ORDERED: HYDR-3366 PO (07:01)
[2016-05-28 07:18] LABS: BICARBONATE 26.6 MEQ/L (21.0-32.0); CALCIUM-PROTEIN CORRECTED 8.2 MG/DL (8.5-10.1); MAGNESIUM 1.6 MG/DL (1.5-2.5); POTASSIUM 3.3 MEQ/L (3.5-5.1); TOTAL BILIRUBIN ADULT 0.7 MG/DL (0.2-1.0)
[2016-05-28 07:33] LABS: CKMB 2.1 NG/ML (0.5-3.6)
--- NOTE | 2016-05-28 08:04 | HHI.PR ---
Objective Vital Signs Date Time Temp Pulse Resp B/P Pulse Ox O2 Delivery O2 Flow Rate FiO2 05/28/16 04:00 98.8 101 17 110/69 95 05/28/16 02:44 16 05/28/16 01:36 101.7 64 16 118/64 98 05/27/16 20:00 100.7 107 18 125/80 94 05/27/16 18:23 96 21 05/27/16 16:10 Room Air 05/27/16 16:00 97.8 74 16 103/76 96 Room Air 05/27/16 16:00 96.8 82 20 112/67 97 05/27/16 15:45 78 16 104/70 95 Room Air 05/27/16 15:30 79 16 99/68 94 Room Air 05/27/16 15:15 80 16 100/69 99 Simple Mask 8 05/27/16 15:05 98.3 84 15 106/65 97 Simple Mask 8 I/O 05/27/16 05/27/16 05/27/16 05/28/16 05/28/16 05/28/16 07:00 15:00 23:00 07:00 15:00 23:00 Intake Total 0 ml 3644 ml 480 ml Output Total 1000 ml 900 ml Balance -1000 ml 2744 ml 480 ml Intake Oral 0 ml 1200 ml 480 ml IV Total 444 ml Other 2000 ml Output Urine Total 1000 ml 300 ml Estimated Blood Loss 600 ml # Voids 2 3 2 1 # Bowel Movements 1 0 0 Result Diagram: 05/28/16 0557 05/28/16 0557 Objective Remarks awake alert moves all well x rue in brace speech clear vff face sym Assessment and Plan Assessment and Plan imp etoh sz fu mri and eeg labs ok so far needs dc etoh no aed while drinking ?detox? Mario Hutchison MD May 28, 2016 08:04
[2016-05-28 08:29] LABS: PLATELET ESTIMATE SMEAR NORMAL (NORMAL); PLATELET MORPHOLOGY NORMAL (NORMAL); POLYCHROMASIA 2.3 % (0.0-1.9); SCAN/DIFF AUTO DIFF CONFIRMED
[2016-05-28] MEDS: SODIUM CHLORIDE 0.9% FLUSH 5 ML FLUSH IVF SCH ×2 (09:00→21:00)
[2016-05-28] MEDS: CALCIUM/VITAMIN D 250 MG/125 U TAB PO SCH ×3 (09:44→18:30)
[2016-05-28] MEDS: LACTATED RINGER'S 1000 ML IV SCH (10:45)
[2016-05-28 10:59] LABS: RAPID PLASMA REAGIN SCREEN NON-REACTIVE (NON-REACTVE)
--- NOTE | 2016-05-28 11:57 | PD.CONS ---
Provisional Diagnosis Admission Date May 26, 2016 at 19:15 Stanton I. Unspecified psychosis Stanton II. Deferred Stanton III. Right proximal humeral fracture Stanton IV. History of incarcerations, alcohol use disorder Stanton V. 55 History of Present Illness Service Psychiatry Consult Requested By Primary Care Physician No Primary Care Physician HPI The patient is a 35-year-old man, domiciled with a friend in [place], single, unemployed, without any previous psychiatric history, no previous psychiatric hospitalizations, no previous suicide attempts, history of incarcerations, alcohol use disorder, who presents to the emergency Department under [place] act by local police. According to the [place] act, the patient was hallucinating and refuses to get care for his broken right arm. Initially the patient refuses medical care, and left the hospital against his medical advice. Patient yesterday had surgery of his humeral fracture. Patient was consulted to psychiatry due to visual hallucinations and disorganized behavior. Chart was reviewed, case discussed with nurse in charge, no collateral information available, patient was seen and evaluated at bedside in the medical floor. On evaluation patient was calm, cooperative, irritable at the beginning, reticent and oppositional to provide information for the psychiatric assessment, but redirectable. Patient is states that in the last 6 months he has had about 3 or 4 episodes of visual hallucinations, he describes these hallucinations as seeing people talking and interacting among themself. He is unable to hear them. These hallucinations are never distressing to him. He had no have any visual hallucinations since last Friday. This hallucinations happens usually at night and mostly under the influence of alcohol. Patient states that he drinks alcohol everyday, usually 6-10 beers, he denies history of withdrawal. He denies the use of illicit drugs, such as heroine, cocaine, marijuana and others. At this moment the patient denies depressive symptoms, denies anxiety, denies nancy, denies perceptual disturbances, denies suicidal or homicidal. Patient is fully oriented 3. No deficits in attention or fluctuation of consciousness observed. Review of Systems Constitutional: DENIES: Diaphoretic episodes, Fatigue, Fever, Weight gain, Weight loss, Chills, Dizziness, Change in appetite, Night Sweats Endocrine: DENIES: Heat/cold intolerance, Polydipsia, Polyuria, Polyphagia Eyes: DENIES: Blurred vision, Diplopia, Eye inflammation, Eye pain, Vision loss , Photosensitivity, Double Vision Respiratory: DENIES: Apneas, Cough, Snoring, Wheezing, Hemoptysis, Sputum production, Shortness of breath Cardiovascular: DENIES: Chest pain, Palpitations, Syncope, Dyspnea on Exertion , PND, Lower Extremity Edema, Orthopnea, Claudication Gastrointestinal: DENIES: Abdominal pain, Black stools, Bloody stools, Constipation, Diarrhea, Nausea, Vomiting, Difficulty Swallowing, Anorexia Musculoskeletal: COMPLAINS OF: Joint pain, Muscle aches Integumentary: DENIES: Abnormal pigmentation, Nail changes, Pruritus, Rash Neurologic: DENIES: Abnormal gait, Headache, Localized weakness, Paresthesias, Seizures, Speech Problems, Tremor, Poor Balance Psychiatric: DENIES: Anxiety, Confusion, Mood changes, Depression, Hallucinations, Agitation, Suicidal Ideation, Homicidal Ideation, Delusions Past Family Social History Coded Allergies: No Known Allergies (Verified , 05/26/16) Active Scripts Hydrocodone-Acetaminophen ([place])10-325 Mg Tab1 Tab PO Q4H PRN (PAIN) #60 TAB Ref 0 Prov:Steven Hui 05/28/16 Albuterol Sulfate (Proventil Hfa)6.7 Gm Aero2 Puff INH Q4HR #1 BOX NEEDED FOR SHORTNESS OF BREATH Prov:Yunier Cordova MD 12/17/15 Reported Medications Albuterol 6.7 GM Inh (Proventil Hfa 6.7 GM Inh)90 Mcg/Act Aer2 Puff INH Q4-6H PRN (SHORTNESS OF BREATH) #1 INHALER Ref 0 05/26/16 Current Medications Medications (Trade) Dose Ordered Sig/Nader Route Start Time Stop Time Status Last Admin (NS 1000 ml Inj) 1,000 ml @ 100 mls/hr Q10H IV 05/26/16 20:00 05/27/16 16:54 (Zofran Inj) 4 mg Q6H PRN IVP 05/26/16 19:30 (Dulcolax Supp) 10 mg DAILY PRN GA 05/26/16 19:30 Acetaminophen 650 mg 650 mg Q6H PRN PO 05/26/16 19:30 05/28/16 01:44 Multivitamins 10 ml/Folic Acid 1 mg/Sodium Chloride 510.2 ml @ 125 mls/hr Q24H IV 05/26/16 20:00 05/31/16 19:59 05/27/16 23:16 (Thiamine Inj/NS Inj) 101 ml @ 100 mls/hr Q24H IV 05/26/16 21:00 05/29/16 20:59 05/27/16 23:17 (Vitamin B1) 100 mg DAILY PO 05/30/16 09:00 Lorazepam 1 mg 1 mg Q3H PRN IM/IV 05/27/16 07:30 05/27/16 06:36 (Lr 1000 ml Inj) 1,000 ml @ 30 mls/hr Q24H IV 05/27/16 10:45 (NS Flush) 2 ml UNSCH PRN IVF 05/27/16 14:30 05/27/16 18:37 IV Flush 2 ml 2 ml BID IVF 05/27/16 21:00 (Ancef 2 Gm Premix) 50 ml @ 100 mls/hr Q8H IV 05/27/16 20:00 05/28/16 12:29 05/28/16 04:17 ([place] 10-325 Mg) 1 tab Q3H PRN PO 05/27/16 14:30 ([place] 10-325 Mg) 2 tab Q6H PRN PO 05/27/16 14:30 05/27/16 23:17 (Oscal-D 250-125) 250 mg TID PO 05/27/16 18:00 05/28/16 09:44 (Benadryl) 25 mg Q6H PRN PO 05/27/16 14:30 (Dilaudid Pf Inj) 2 mg Q2H PRN IV PUSH 05/27/16 14:30 Miscellaneous Information ALL NURSING DEPARTME... UNSCH PRN XX 05/27/16 15:30 05/28/16 15:29 (Zosyn 4.5 Gm Premix) 100 ml @ 200 mls/hr Q8H IV 05/28/16 11:00 (KCl) 30 meq ONCE ONCE PO 05/28/16 12:00 05/28/16 12:01 (SEROquel) 50 mg BID PO 05/28/16 21:00 UNV Family History He denies Social History Patient was born and raised in [place], he lives with a friend, he is single, he is unemployed, he has been incarcerated about 6 time for different reasons, his highest level of education is high school Physical Exam Vital Signs Vital Signs Date Time Temp Pulse Resp B/P Pulse Ox O2 Delivery O2 Flow Rate FiO2 05/28/16 10:15 96 21 05/28/16 08:08 97.4 96 19 155/94 05/27/16 16:10 Room Air 05/27/16 15:15 8 I/O 05/27/16 05/27/16 05/28/16 08:00 16:00 00:00 Intake Total 2100 ml 1544 ml Output Total 1900 ml Balance 200 ml 1544 ml Mental Status Examination Appearance athletic man, age appearing, good hygiene, cooperative, but irritable and distant Speech: Unremarkable Orientation: x3 Memory: Unremarkable Thought Process: Logical Thought Content: Unremarkable Hallucination Type: None Suicidal Ideation: No Previous Suicide Attempts: No Homicidal Ideation: No Previous Homicide Attempts: No Insight: Fair Affect: Irritable Mood: Irritable Motor Activity: Normal gait Assessment & Plan Problem List: (1) Hallucinations ICD Code: R44.3 (2) Alcohol-induced psychosis Assessment & Plan: Psychiatric evaluation today patient is superficially cooperative, irritable, but redirectable. He reports 3-4 episodes of visual hallucinations in the last months mostly in the context of acute alcohol intoxication. He is able to describe this hallucination has people talking and interacting among themself. These visual hallucinations are never anxiety provoking or distressing to the patient. He denies auditory hallucinations. He denies depressive symptoms, he denies anxiety, he denies psychosis. Patient denies suicidal or homicidal ideation. No gross cognitive impairment, attention deficit, fluctuation of consciousness is observed or reported. Is highly probable that these reported visual hallucinations are secondary to alcohol intoxication and maybe other drugs that the patient is denying at this moment. At the time of this evaluation the patient does not meet criteria for psychiatric admission. We will start Seroquel 50 mg twice a day to prevent visual hallucinations and to help the patient with sleep and irritability. [place] act will be lifted. We will follow-up. ICD Code: F10.959 Assessment & Plan Estimated LOS: Дмитрий Jose MD May 28, 2016 11:57
[2016-05-28] MEDS ORDERED: POTASSIUM CHLORIDE 10 MEQ CONTROLLED RELEASE TAB PO ONE (12:00)
[2016-05-28] MEDS: PIPERACIL-TAZO 4.5 GM PREMIX 100 ML IV SCH ×2 (12:50→23:56)
--- NOTE | 2016-05-28 14:31 | HHI.PR ---
Subjective Remarks low potassium patient had fever of 101.7 tachycardic patient more awake, following commands not agitated patient denies cp/sob (+) coughing low calcium hemoglobin 6.8 Objective Vitals Vital Signs Date Time Temp Pulse Resp B/P Pulse Ox O2 Delivery O2 Flow Rate FiO2 05/28/16 11:33 100.8 103 18 133/76 96 05/28/16 10:15 96 21 05/28/16 08:08 97.4 96 19 155/94 97 05/28/16 04:00 98.8 101 17 110/69 95 05/28/16 02:44 16 05/28/16 01:36 101.7 64 16 118/64 98 05/27/16 20:00 100.7 107 18 125/80 94 05/27/16 18:23 96 21 05/27/16 16:10 Room Air 05/27/16 16:00 97.8 74 16 103/76 96 Room Air 05/27/16 16:00 96.8 82 20 112/67 97 05/27/16 15:45 78 16 104/70 95 Room Air 05/27/16 15:30 79 16 99/68 94 Room Air 05/27/16 15:15 80 16 100/69 99 Simple Mask 8 05/27/16 15:05 98.3 84 15 106/65 97 Simple Mask 8 I/O 05/27/16 05/27/16 05/27/16 05/28/16 05/28/16 05/28/16 07:00 15:00 23:00 07:00 15:00 23:00 Intake Total 0 ml 3644 ml 480 ml Output Total 1000 ml 900 ml Balance -1000 ml 2744 ml 480 ml Intake Oral 0 ml 1200 ml 480 ml IV Total 444 ml Other 2000 ml Output Urine Total 1000 ml 300 ml Estimated Blood Loss 600 ml # Voids 2 3 2 1 # Bowel Movements 1 0 0 Result Diagram: 05/28/16 0557 05/28/16 0557 Imaging Last Impressions Upper Extremity CT 05/27/1627 Signed Impressions: Service Date/Time: Friday, May 27, 2016 07:47 - CONCLUSION: 1. Fracture dislocation at the shoulder as above. Jesus Peraza MD Shoulder X-Ray 05/27/16 0000 Signed Impressions: Service Date/Time: Friday, May 27, 2016 14:04 - CONCLUSION: Interim screw and plate fixation of the proximal humeral fracture as above. Major fracture fragments are in near-anatomic alignment. Van Johnston MD Chest X-Ray 05/26/16 1723 Signed Impressions: Service Date/Time: Thursday, May 26, 2016 17:36 - CONCLUSION: No evidence of acute cardiopulmonary disease. Van Johnston MD Upper Extremity Ultrasound 05/26/16 0000 Signed Impressions: Service Date/Time: Thursday, May 26, 2016 18:02 - CONCLUSION: No DVT right upper extremity. Van Johnston MD Objective Remarks GENERAL: Middle-aged black male in no acute distress. Responding to internal stimuli. + active hallucinations HEENT: PERRLA, EOMI. No scleral icterus or conjunctival pallor. No lid lag or facial droop. CARDIOVASCULAR: Regular rate and rhythm. No obvious murmurs to auscultation. No chest tenderness to palpation. RESPIRATORY: No obvious rhonchi or wheezing. Clear to auscultation. Breath sounds equal bilaterally. GASTROINTESTINAL: Abdomen soft, non-tender, nondistended. BS normal. MUSCULOSKELETAL: Extremities without clubbing, cyanosis, or edema. No obvious deformities. RUE in sling, +ecchymosis/edema. NEUROLOGICAL: Awake, alert and oriented x4. No focal neurologic deficits. Moving both upper and lower extremities spontaneously. Procedures sp RAGHAVENDRA right proximal humerus fracture sp opentreatment of right shoulder dislocation Medications and IVs Current Medications Medications (Trade) Dose Ordered Sig/Nader Route Start Time Stop Time Status Last Admin (NS 1000 ml Inj) 1,000 ml @ 100 mls/hr Q10H IV 05/26/16 20:00 05/27/16 16:54 (Zofran Inj) 4 mg Q6H PRN IVP 05/26/16 19:30 (Dulcolax Supp) 10 mg DAILY PRN [place] 05/26/16 19:30 Acetaminophen 650 mg 650 mg Q6H PRN PO 05/26/16 19:30 05/28/16 13:13 Multivitamins 10 ml/Folic Acid 1 mg/Sodium Chloride 510.2 ml @ 125 mls/hr Q24H IV 05/26/16 20:00 05/31/16 19:59 05/27/16 23:16 (Thiamine Inj/NS Inj) 101 ml @ 100 mls/hr Q24H IV 05/26/16 21:00 05/29/16 20:59 05/27/16 23:17 (Vitamin B1) 100 mg DAILY PO 05/30/16 09:00 Lorazepam 1 mg 1 mg Q3H PRN IM/IV 05/27/16 07:30 05/27/16 06:36 (Lr 1000 ml Inj) 1,000 ml @ 30 mls/hr Q24H IV 05/27/16 10:45 (NS Flush) 2 ml UNSCH PRN IVF 05/27/16 14:30 05/27/16 18:37 (NS Flush) 2 ml BID IVF 05/27/16 21:00 ([place] 10-325 Mg) 1 tab Q3H PRN PO 05/27/16 14:30 ([place] 10-325 Mg) 2 tab Q6H PRN PO 05/27/16 14:30 05/27/16 23:17 (Oscal-D 250-125) 250 mg TID PO 05/27/16 18:00 05/28/16 18:30 (Benadryl) 25 mg Q6H PRN PO 05/27/16 14:30 Hydromorphone HCl 2 mg 2 mg Q2H PRN IV PUSH 05/27/16 14:30 (Zosyn 4.5 Gm Premix) 100 ml @ 200 mls/hr Q8H IV 05/28/16 11:00 05/28/16 23:56 (SEROquel) 50 mg BID PO 05/28/16 21:00 05/28/16 21:00 Urinary Catheter: No Vascular Central Line Catheter: No A/P Problem List: (1) Right humeral fracture ICD Code: S42.301A Status: Acute (2) Rhabdomyolysis ICD Code: M62.82 Status: Acute (3) Elevated troponin ICD Code: R79.89 Status: Acute (4) Hallucinations ICD Code: R44.3 Status: Acute (5) Seizure disorder ICD Code: G40.909 Status: Acute (6) Alcohol abuse ICD Code: F10.10 Status: Chronic (7) Tobacco abuse ICD Code: Z72.0 Status: Acute (8) SIRS (systemic inflammatory response syndrome) ICD Code: R65.10 Status: Acute (9) Sepsis ICD Code: A41.9 Status: Acute Assessment and Plan A/P: 1. Right Prox Humerus Fx: s/p injury after suspected seizure, recent admit for same, plan for surgical intervention pending medical clearance, however pt left AMA. Dr. Sams consulted by ER physician. 05/27/16 Patient is sp ORIF of the proximal humerus fracture. Continue pain control. 2. Elevated Trop: Trop 0.08, EKG w/ no acute changes likely due to traumatic rhabdomyolysis.Check serial cardiac enzymes for trend. 05/28/16 last trop trending down to 0.04. 3. Hallucinations: Auditory/Visual hallucinations, brought to ER under [place] Act. Consult Psych appreciated. Patient does not meet criteria for inpatient admission. Patient has been started on Seroquel. [place] act lifted. 4. Seizure Disorder: Alcohol-Related. Seen by Dr. Morgan on last admit, however pt left AMA. Neurology reconsulted. 5. Alcohol Abuse: Drinks daily. Seizure Precautions, Ativan, MVT/Thiamine/ Folate. [place] Protocol. 6. Tobacco Abuse: Counselled. Ativan prn. 7. DVT Prophylaxis: SCD/Teds. 8. Rhabdomyolysis: Secondary to seizure episode and traumatism. Continue IV fluids, CK trending down. 9. Sepsis: Present on admission, patient meets SIRS criteria temp of 100.6 and heart rate of 118. ua negative, cxr no acute disease, possible aspiration pna after seizure episode. Start the patient on IV zosyn, continue Iv fluids and continue to monitor vital signs. 10. Hypocalcemia: Replace with Calcium Chlorida and monitor. 11. Hypokalemia: replace and monitor. 12. Anemia: acute postop anemia. Suspect for acute blood loss. Transfuse 2 untis of PRBC's now. 9. Social work for d/c planning as needed. Discharge Planning Continue to monitor in the medical floor. Problem Qualifiers (1) Right humeral fracture: Qualified Code: S42.201D - Closed fracture of proximal end of right humerus with routine healing, unspecified fracture morphology, subsequent encounter (2) Rhabdomyolysis: Qualified Code: T79.6XXA - Traumatic rhabdomyolysis, initial encounter Deric Atwood MD May 28, 2016 14:31
[2016-05-28] MEDS: QUEtiapine FUMARATE 25 MG TAB PO SCH (21:00)
[2016-05-28] MEDS: THIAMINE INJ 100 MG in SODIUM CHLORIDE 0.9% INJ 100 ML IV SCH (21:00)
[2016-05-29] VITALS (10 sets, daily range): BP systolic 74–139; BP diastolic 11–92; PULSE 78–109; RESP 16–20; TEMP 97.7–102.3; O2SAT 97–100
[2016-05-29] MEDS: MULTIVITAMIN INJ 10 ML, FOLIC ACID INJ 1 MG in SODIUM CHLORID 0.9% 500 ML INJ 500 ML IV SCH (01:15)
[2016-05-29] MEDS ORDERED: CALCIUM CHLORIDE INJ 2 GM in SODIUM CHLORIDE 0.9% INJ 100 ML IV ONE (01:30)
[2016-05-29] MEDS: ACETAMINOPHEN/HYDROcodone 325 MG/10 MG TAB PO PRN ×2 (03:39→20:27)
[2016-05-29] MEDS: PIPERACIL-TAZO 4.5 GM PREMIX 100 ML IV SCH ×3 (05:19→19:00)
--- NOTE | 2016-05-29 06:51 | PD.ORT.PN ---
Subjective Subjective Remarks POD 2 s/p ORIF right proximal humerus doing well. resting comfortably. sitting at bedside. states that gunslinger brace is very uncomfortable Objective Vitals Vital Signs Date Time Temp Pulse Resp B/P Pulse Ox O2 Delivery O2 Flow Rate FiO2 05/29/16 03:52 101.2 05/29/16 03:51 102.3 100 20 74/ 98 05/29/16 01:04 97 21 05/29/16 00:02 97.9 109 20 123/66 99 05/28/16 23:15 98.9 109 20 123/66 99 05/28/16 20:30 99.7 101 18 124/73 98 05/28/16 19:35 99.7 101 18 124/73 98 05/28/16 19:20 101.1 108 18 124/77 99 05/28/16 16:00 99.2 99 18 129/69 99 05/28/16 15:24 100.2 98 18 112/63 99 05/28/16 15:00 100.8 100 18 114/56 100 05/28/16 11:33 100.8 103 18 133/76 96 05/28/16 10:15 96 21 05/28/16 08:08 97.4 96 19 155/94 97 I/O 05/28/16 05/28/16 05/28/16 05/29/16 05/29/16 05/29/16 07:00 15:00 23:00 07:00 15:00 23:00 Intake Total 480 ml 3120 ml 840 ml 1160 ml Output Total 1000 ml 500 ml 1500 ml Balance 480 ml 2120 ml 340 ml -340 ml Intake Oral 480 ml 960 ml 840 ml 1160 ml IV Total 2160 ml Output Urine Total 1000 ml 500 ml 1500 ml # Voids 1 1 # Bowel Movements 0 1 Result Diagram: 05/28/16 0557 05/28/16 0557 Imaging Last 24 hours Impressions Chest X-Ray 05/26/16 3253 Signed Impressions: Service Date/Time: Thursday, May 26, 2016 17:36 - CONCLUSION: No evidence of acute cardiopulmonary disease. Van Johnston MD Objective Remarks RUE: dressing clean and dry. intact. NVI distally. +gunslinger brace. Assessment & Plan Assessment and Plan 1) Right proximal humerus fx dislocation s/p ORIF - POD 2 -NWB -maintain gunslinger brace at all times -daily dressing changes -CM for rehab vs home with HHC -plan for possible discharge tomorrow -[employer] to adjust gunslinger brace today Steven Hui May 29, 2016 06:50
[2016-05-29 07:11] LABS: AUTOMATED NEUTROPHIL # 6.1 TH/MM3 (1.8-7.7); BASOPHIL # 0.1 TH/MM3 (0-0.2); EOSINOPHIL # 0.1 TH/MM3 (0-0.4); EOSINOPHIL % 1.2 % (0.0-4.0); HEMATOCRIT 26.9 % (39.0-51.0); HEMO FLAGS DIFF FINAL; LYMPH % 18.9 % (9.0-44.0); LYMPHOCYTE # 1.7 TH/MM3 (1.0-4.8); MEAN CELL VOLUME 94.8 FL (80.0-100.0); MEAN CORPUSCULAR HGB CONC 34.8 % (32.0-36.0); MONO % 12.5 % (0.0-8.0); NEUT % 66.4 % (16.0-70.0); PLATELET COUNT 328 TH/MM3 (150-450); RED BLOOD COUNT 2.84 MIL/MM3 (4.50-5.90); RED CELL DISTRIBUTION WIDTH 17.4 % (11.6-17.2); WHITE BLOOD COUNT 9.2 TH/MM3 (4.0-11.0)
[2016-05-29 07:44] LABS: ALKALINE PHOSPHATASE 54 U/L (45-117); ALT (GPT) 68 U/L (12-78); ANION GAP 8 MEQ/L (5-15); AST (GOT) 82 U/L (15-37); BICARBONATE 28.8 MEQ/L (21.0-32.0); BLOOD UREA NITROGEN 5 MG/DL (7-18); CHLORIDE 104 MEQ/L (98-107); GLOMERULAR FILTRATION RATE 114 ML/MIN (>89); MAGNESIUM 1.6 MG/DL (1.5-2.5); POTASSIUM 3.3 MEQ/L (3.5-5.1); SODIUM (NA) 141 MEQ/L (136-145); TOTAL BILIRUBIN ADULT 0.8 MG/DL (0.2-1.0)
[2016-05-29] MEDS: SODIUM CHLOR 0.9% 1000 ML INJ 1,000 ML IV SCH ×2 (08:00→18:00)
[2016-05-29] MEDS: CALCIUM/VITAMIN D 250 MG/125 U TAB PO SCH ×3 (08:17→18:00)
[2016-05-29] MEDS: QUEtiapine FUMARATE 25 MG TAB PO SCH ×2 (08:17→20:26)
[2016-05-29] MEDS: SODIUM CHLORIDE 0.9% FLUSH 5 ML FLUSH IVF SCH ×2 (08:22→20:27)
--- NOTE | 2016-05-29 08:28 | HHI.PR ---
Objective Vital Signs Date Time Temp Pulse Resp B/P Pulse Ox O2 Delivery O2 Flow Rate FiO2 05/29/16 08:04 97.7 80 16 122/86 99 05/29/16 03:52 101.2 05/29/16 03:51 102.3 100 20 74/ 98 05/29/16 01:04 97 21 05/29/16 00:02 97.9 109 20 123/66 99 05/28/16 23:15 98.9 109 20 123/66 99 05/28/16 20:30 99.7 101 18 124/73 98 05/28/16 19:35 99.7 101 18 124/73 98 05/28/16 19:20 101.1 108 18 124/77 99 05/28/16 16:00 99.2 99 18 129/69 99 05/28/16 15:24 100.2 98 18 112/63 99 05/28/16 15:00 100.8 100 18 114/56 100 05/28/16 11:33 100.8 103 18 133/76 96 05/28/16 10:15 96 21 I/O 05/28/16 05/28/16 05/28/16 05/29/16 05/29/16 05/29/16 07:00 15:00 23:00 07:00 15:00 23:00 Intake Total 480 ml 3120 ml 840 ml 1160 ml Output Total 1000 ml 500 ml 1500 ml Balance 480 ml 2120 ml 340 ml -340 ml Intake Oral 480 ml 960 ml 840 ml 1160 ml IV Total 2160 ml Output Urine Total 1000 ml 500 ml 1500 ml # Voids 1 1 # Bowel Movements 0 1 Result Diagram: 05/29/16 0647 05/29/16 0647 Objective Remarks awake alert moves all well x rue in brace speech clear vff face sym no tremor nad Assessment and Plan Assessment and Plan imp etoh sz fu mri cannot do with surgery ideally would get o/p in two months ct neg 05/24/16 and eeg pend labs ok so far needs dc etoh and sems ok w that no aed while drinking ?detox? i will sign off and fu labs and eeg Mario Hutchison MD May 29, 2016 08:28
--- NOTE | 2016-05-29 09:52 | MG ---
cc: LAUREL MONTANO Lab No: 17-10 Date: 05/28/2016 Age: __ Sex: M Race: __ TECHNIQUE 17 channel EEG. DESCRIPTION The background rhythm reveals a symmetrical alpha rhythm. The frequency is roughly 8-9 Hz and the amplitude is 10-20 microvolts. There is some slowing in the theta range as well probably related to drowsiness. There are some sleep spindles identified related to normal sleep. No lateralizing features are seen. No epileptic features are seen. There is some muscle artifact as well as eye movement artifact. Photic results in a normal driving response. Hyperventilation was not done. INTERPRETATION Normal EEG. MD CARMEN Page/DARA /9:36 AM /9:49 AM
[2016-05-29] MEDS: LACTATED RINGER'S 1000 ML IV SCH (10:45)
[2016-05-29] MEDS ORDERED: POTASSIUM CHLORIDE 10 MEQ CONTROLLED RELEASE TAB PO ONE (12:30)
--- NOTE | 2016-05-29 12:38 | HHI.PR ---
Subjective Remarks Follow-up hallucinations. No further hallucinations. He also denies depression and suicidal ideations. He wants to go home states his brother and aunt will be available to assist him. Discussed with RN and case management Objective Vitals Vital Signs Date Time Temp Pulse Resp B/P Pulse Ox O2 Delivery O2 Flow Rate FiO2 05/29/16 08:04 97.7 80 16 122/86 99 05/29/16 03:52 101.2 05/29/16 03:51 102.3 100 20 74/ 98 05/29/16 01:04 97 21 05/29/16 00:02 97.9 109 20 123/66 99 05/28/16 23:15 98.9 109 20 123/66 99 05/28/16 20:30 99.7 101 18 124/73 98 05/28/16 19:35 99.7 101 18 124/73 98 05/28/16 19:20 101.1 108 18 124/77 99 05/28/16 16:00 99.2 99 18 129/69 99 05/28/16 15:24 100.2 98 18 112/63 99 05/28/16 15:00 100.8 100 18 114/56 100 I/O 05/28/16 05/28/16 05/28/16 05/29/16 05/29/16 05/29/16 07:00 15:00 23:00 07:00 15:00 23:00 Intake Total 480 ml 3120 ml 840 ml 1160 ml Output Total 1000 ml 500 ml 1500 ml Balance 480 ml 2120 ml 340 ml -340 ml Intake Oral 480 ml 960 ml 840 ml 1160 ml IV Total 2160 ml Output Urine Total 1000 ml 500 ml 1500 ml # Voids 1 1 # Bowel Movements 0 1 Result Diagram: 05/29/16 0647 05/29/16 0647 Objective Remarks GENERAL: Well-developed, well-nourished in no distress SKIN: Warm and dry. HEAD: Atraumatic. Normocephalic. EYES: Pupils equal and round. No scleral icterus. No injection or drainage. ENT: No nasal bleeding or discharge. Mucous membranes pink and moist. NECK: Trachea midline. No JVD. CARDIOVASCULAR: Regular rate and rhythm. RESPIRATORY: No accessory muscle use. Clear to auscultation. Breath sounds equal bilaterally. GASTROINTESTINAL: Abdomen soft, non-tender, nondistended. MUSCULOSKELETAL: Extremities without clubbing, cyanosis, or edema. No obvious deformities. Right upper extremity in a gunslinger NEUROLOGICAL: Awake and alert. No obvious cranial nerve deficits. Motor grossly within normal limits. Five out of 5 muscle strength in the arms and legs. Normal speech. PSYCHIATRIC: Appropriate mood and affect; insight and judgment normal. Procedures sp ORIF right proximal humerus fracture sp open treatment of right shoulder dislocation A/P Problem List: (1) Right humeral fracture ICD Code: S42.301A Status: Acute (2) Rhabdomyolysis ICD Code: M62.82 Status: Acute (3) Elevated troponin ICD Code: R79.89 Status: Acute (4) Hallucinations ICD Code: R44.3 Status: Resolved (5) Seizure disorder ICD Code: G40.909 Status: Acute (6) Alcohol abuse ICD Code: F10.10 Status: Chronic (7) Tobacco abuse ICD Code: Z72.0 Status: Acute (8) SIRS (systemic inflammatory response syndrome) ICD Code: R65.10 Status: Resolved (9) Sepsis ICD Code: A41.9 Status: Resolved Assessment and Plan 1. Right Prox Humerus Fx: s/p injury after suspected seizure s/p ORIF of the proximal humerus fracture. Continue pain control. Stable continue postoperative care 2. Elevated Trop: Trop 0.08, EKG w/ no acute changes likely due to traumatic rhabdomyolysis. 3. Hallucinations: Auditory/Visual hallucinations, brought to ER under [place]. Consult Psych appreciated. Patient does not meet criteria for inpatient admission. Patient has been started on Seroquel. [place] act lifted. Improved 4. Seizure Disorder: Alcohol-Related. Seen by Dr. Morgan on last admit, however pt left AMA. Neurology reconsulted and cleared patient for discharge. EEG negative 5. Alcohol Abuse: Drinks daily. Seizure Precautions, Ativan, MVT/Thiamine/ Folate. CIWA Protocol. 6. Tobacco Abuse: Counselled. Ativan prn. 7. DVT Prophylaxis: SCD/Teds. 8. Rhabdomyolysis: Secondary to seizure episode and traumatism. Continue IV fluids, CK trending down. 9. Sepsis: Present on admission, patient meets SIRS criteria temp of 100.6 and heart rate of 118. ua negative, cxr no acute disease, possible aspiration pna after seizure episode. Still with fever continue IV zosyn switch to oral Levaquin in the morning 10. Hypocalcemia: Replace with Calcium Chlorida and monitor. 11. Hypokalemia: replace and monitor. 12. Anemia: acute postop anemia. Suspect for acute blood loss. Transfuse as needed. Improved Problem Qualifiers (1) Right humeral fracture: Qualified Code: S42.201D - Closed fracture of proximal end of right humerus with routine healing, unspecified fracture morphology, subsequent encounter (2) Rhabdomyolysis: Qualified Code: T79.6XXA - Traumatic rhabdomyolysis, initial encounter Kyle Escalante MD May 29, 2016 12:38
[2016-05-29] MEDS ORDERED: VITA100T2 PO (12:40)
[2016-05-29] MEDS ORDERED: QUET1TAB7 PO (12:40)
[2016-05-29] MEDS ORDERED: LEVA750T PO (12:40)
[2016-05-29] MEDS ORDERED: OYST250T4 PO (12:40)
--- NOTE | 2016-05-29 12:41 | HHI.DCPOC ---
Discharge Care Plan Diagnosis: (1) Sepsis (2) Hallucinations (3) Alcohol-induced psychosis Your Health Problems Are: Difficulty with ADL Exercise Tolerance Goals to Promote Your Health * To prevent worsening of your condition and complications * To maintain your health at the optimal level Directions to Meet Your Goals Take your medications as prescribed Follow your dietary instruction Follow activity as directed Keep your appointments as scheduled Take your immunizations and boosters as scheduled If your symptoms worsen call your PCP, if no PCP go to Urgent Care Center or Emergency Room Smoking is Dangerous to Your Health. Avoid second hand smoke Call the 24-hour hour crisis hotline for domestic abuse at Kyle Escalante MD May 29, 2016 12:40
[2016-05-29] MEDS: FOLIC ACID 1 MG TAB PO SCH (14:37)
[2016-05-29] MEDS: MULTIVITAMIN TAB PO SCH (14:37)
[2016-05-29 15:09] LABS: ANA SCREEN NEG (NEG)
[2016-05-30] MEDS: ACETAMINOPHEN/HYDROcodone 325 MG/10 MG TAB PO PRN ×2 (03:57→10:52)
[2016-05-30] MEDS: PIPERACIL-TAZO 4.5 GM PREMIX 100 ML IV SCH (03:57)
[2016-05-30] MEDS: SODIUM CHLOR 0.9% 1000 ML INJ 1,000 ML IV SCH (04:00)
[2016-05-30 04:10] VITALS: BP 144/69; PULSE 90; RESP 16; TEMP 97.5; O2SAT 100
--- NOTE | 2016-05-30 06:32 | PD.ORT.PN ---
Subjective Subjective Remarks No new complaints. Resting comfortably Objective Vitals Vital Signs Date Time Temp Pulse Resp B/P Pulse Ox O2 Delivery O2 Flow Rate FiO2 05/30/16 04:10 97.5 90 16 144/69 100 05/29/16 23:06 99.7 85 20 131/73 97 05/29/16 20:42 99.3 88 20 139/92 100 05/29/16 18:21 21 05/29/16 16:35 98.5 78 18 115/62 98 05/29/16 13:00 98.7 05/29/16 12:00 101.3 80 18 120/11 99 05/29/16 08:04 97.7 80 16 122/86 99 I/O 05/29/16 05/29/16 05/29/16 05/30/16 05/30/16 05/30/16 07:00 15:00 23:00 07:00 15:00 23:00 Intake Total 1160 ml 1080 ml 480 ml 240 ml Output Total 1500 ml Balance -340 ml 1080 ml 480 ml 240 ml Intake Oral 1160 ml 1080 ml 480 ml 240 ml Output Urine Total 1500 ml # Voids 4 3 4 # Bowel Movements 1 Result Diagram: 05/29/16 0647 05/29/16 0647 Imaging Last 24 hours Impressions Chest X-Ray 05/26/16 1723 Signed Impressions: Service Date/Time: Thursday, May 26, 2016 17:36 - CONCLUSION: No evidence of acute cardiopulmonary disease. Van Johnston MD Objective Remarks RUE: dressing clean and dry. intact. NVI distally. +gunslinger brace. Assessment & Plan Assessment and Plan 1) Right proximal humerus fx dislocation s/p ORIF - POD 3 -NWB -maintain gunslinger brace at all times -daily dressing changes -CM for rehab vs home with [facility] -plan for possible discharge tomorrow -orthotech to adjust gunslinger brace today J LUIS SIMMONS PA-C May 30, 2016 06:32
[2016-05-30 07:41] VITALS: BP 127/80; PULSE 76; RESP 16; TEMP 96.1; O2SAT 98
[2016-05-30] MEDS ORDERED: THIAMINE HCL 100 MG TAB PO SCH (09:00)
[2016-05-30] MEDS: CALCIUM/VITAMIN D 250 MG/125 U TAB PO SCH (09:16)
[2016-05-30] MEDS: QUEtiapine FUMARATE 25 MG TAB PO SCH (09:16)
[2016-05-30] MEDS: MULTIVITAMIN TAB PO SCH (09:16)
[2016-05-30] MEDS: FOLIC ACID 1 MG TAB PO SCH (09:16)
[2016-05-30] MEDS: SODIUM CHLORIDE 0.9% FLUSH 5 ML FLUSH IVF SCH (09:17)
--- NOTE | 2016-05-30 11:54 | HHI.DS ---
Discharge Summary Admission Date May 26, 2016 at 19:15 Discharge Date: May 30, 2016 Admitting Diagnosis rhabdomyolysis, right proximal humerus fracture dislocation (1) Right humeral fracture ICD Code: S42.301A Diagnosis: Principal (2) Rhabdomyolysis ICD Code: M62.82 Diagnosis: Principal (3) Elevated troponin ICD Code: R79.89 Diagnosis: Principal (4) Hallucinations ICD Code: R44.3 Diagnosis: Principal (5) Seizure disorder ICD Code: G40.909 (6) Alcohol abuse ICD Code: F10.10 Diagnosis: Principal (7) Tobacco abuse ICD Code: Z72.0 Diagnosis: Principal (8) SIRS (systemic inflammatory response syndrome) ICD Code: R65.10 Diagnosis: Principal (9) Sepsis ICD Code: A41.9 Diagnosis: Principal Procedures sp ORIF right proximal humerus fracture sp open treatment of right shoulder dislocation Brief History - From Admission This is a 35 female with a PMH of Bipolar Disorder, Alcohol Abuse, Alcohol Related Seizure, h/o SDH and Tobacco Abuse who was brought to the ER by Police under [place] for hallucinations and refusing medical attention for right arm fracture. Recent admit 05/24/16 for Fall, suspected Seizure Activity and Right Proximal Humerus Fx, found to have rhabdomyolysis and elevated trop 0.06. S/p eval by Ortho w/ surgical intervention planned pending medical clearance, however pt left AMA on 05/26/16. Mother called EMS today as pt w/ hallucinations and not caring for himself. On arrival, BP 123/69, HR 118, O2 sat 99% on RA, Temp 100.9. CBC unremarkable. Chemistry at baseline. LFTs mildly increased from previous. CPK 12,279, previously 9146 on 05/25/16. Troponin 0.08. Urine Drug Screen negative. Alcohol negative. UA negative. CXR with no acute findings. CBC/BMP: 05/29/16 0647 05/29/16 0647 Significant Findings Laboratory Tests Test 05/28/16 05/29/16 05/29/16 05:57 06:47 14:38 Red Blood Count 1.98 MIL/MM3 2.84 MIL/MM3 (4.50-5.90) (4.50-5.90) Hemoglobin 6.8 GM/DL 9.4 GM/DL (13.0-17.0) (13.0-17.0) Hematocrit 19.4 % 26.9 % (39.0-51.0) (39.0-51.0) Mean Corpuscular Hemoglobin 34.3 PG (27.0-34.0) Mean Platelet Volume 6.9 FL 6.8 FL (7.0-11.0) (7.0-11.0) Monocytes (%) (Auto) 18.4 % 12.5 % (0.0-8.0) (0.0-8.0) Monocytes # (Auto) 1.1 TH/MM3 1.1 TH/MM3 (0-0.9) (0-0.9) Polychromasia 2.3 % (0.0-1.9) Erythrocyte Sedimentation Rate 78 mm/hr (0-15) Sodium Level 135 MEQ/L (136-145) Potassium Level 3.3 MEQ/L 3.3 MEQ/L (3.5-5.1) (3.5-5.1) Random Glucose 118 MG/DL 126 MG/DL (74-106) (74-106) Calcium Level 7.4 MG/DL 8.4 MG/DL (8.5-10.1) (8.5-10.1) Protein Corrected Calcium 8.2 MG/DL (8.5-10.1) Aspartate Amino Transf 97 U/L (15-37) 82 U/L (15-37) (AST/SGOT) Total Creatine Kinase 3645 U/L 1352 U/L (39-308) (39-308) Total Protein 5.7 GM/DL (6.4-8.2) Albumin 2.4 GM/DL 2.3 GM/DL (3.4-5.0) (3.4-5.0) Red Cell Distribution Width 17.4 % (11.6-17.2) Blood Urea Nitrogen 5 MG/DL (7-18) Imaging Last Impressions Upper Extremity CT 05/27/16 0527 Signed Impressions: Service Date/Time: Friday, May 27, 2016 07:47 - CONCLUSION: 1. Fracture dislocation at the shoulder as above. Jesus Peraza MD Shoulder X-Ray 05/27/16 0000 Signed Impressions: Service Date/Time: Friday, May 27, 2016 14:04 - CONCLUSION: Interim screw and plate fixation of the proximal humeral fracture as above. Major fracture fragments are in near-anatomic alignment. Van Johnston MD Chest X-Ray 05/26/16 1723 Signed Impressions: Service Date/Time: Thursday, May 26, 2016 17:36 - CONCLUSION: No evidence of acute cardiopulmonary disease. Van Johnston MD Upper Extremity Ultrasound 05/26/16 0000 Signed Impressions: Service Date/Time: Thursday, May 26, 2016 18:02 - CONCLUSION: No DVT right upper extremity. Van Johnston MD PE at Discharge GENERAL: Well-developed, well-nourished in no distress SKIN: Warm and dry. HEAD: Atraumatic. Normocephalic. EYES: Pupils equal and round. No scleral icterus. No injection or drainage. ENT: No nasal bleeding or discharge. Mucous membranes pink and moist. NECK: Trachea midline. No JVD. CARDIOVASCULAR: Regular rate and rhythm. RESPIRATORY: No accessory muscle use. Clear to auscultation. Breath sounds equal bilaterally. GASTROINTESTINAL: Abdomen soft, non-tender, nondistended. MUSCULOSKELETAL: Extremities without clubbing, cyanosis, or edema. No obvious deformities. Right upper extremity in a gunslinger NEUROLOGICAL: Awake and alert. No obvious cranial nerve deficits. Motor grossly within normal limits. Five out of 5 muscle strength in the arms and legs. Normal speech. PSYCHIATRIC: Appropriate mood and affect; insight and judgment normal. Hospital Course 1. Right Prox Humerus Fx: s/p injury after suspected seizure s/p ORIF of the proximal humerus fracture. Continue pain control. Stable continue postoperative care 2. Elevated Trop: Trop 0.08, EKG w/ no acute changes likely due to traumatic rhabdomyolysis. 3. Hallucinations: Auditory/Visual hallucinations, brought to ER under [place]. Consult Psych appreciated. Patient does not meet criteria for inpatient admission. Patient has been started on Seroquel. [place] act lifted. Improved 4. Seizure Disorder: Alcohol-Related. Seen by Dr. Morgan on last admit, however pt left AMA. Neurology reconsulted and cleared patient for discharge. EEG negative 5. Alcohol Abuse: Drinks daily. Seizure Precautions, Ativan, MVT/Thiamine/ Folate. [place] Protocol. 6. Tobacco Abuse: Counselled. Ativan prn. 7. DVT Prophylaxis: SCD/Teds. 8. Rhabdomyolysis: Secondary to seizure episode and traumatism. Continue IV fluids, CK trending down. 9. Sepsis: Present on admission, patient meets SIRS criteria temp of 100.6 and heart rate of 118. ua negative, cxr no acute disease, possible aspiration pna after seizure episode. Still with fever continue IV zosyn switch to oral Levaquin in the morning 10. Hypocalcemia: Replace with Calcium Chlorida and monitor. 11. Hypokalemia: replace and monitor. 12. Anemia: acute postop anemia. Suspect for acute blood loss. Transfuse as needed. Improved Pt Condition on Discharge: Stable Discharge Disposition: Discharge Home Discharge Time: <= 30 minutes Discharge Instructions DIET: Follow Instructions for: As Tolerated, No Restrictions Activities you can perform: Regular-No Restrictions, Non Weight Bearing Activities to Avoid: Driving Other Activity Instructions: ZACK ROSA Follow up Referrals: Orthopedics - 06/11/16 @ [facility] with Liam Rivera MD PCP Follow-up - 1 Week New Medications: Hydrocodone-Acetaminophen ([place]) 10-325 Mg Tab 1 TAB PO Q4H PRN PAIN #60 Ref 0 TAB Levofloxacin (Levaquin) 750 Mg Tab 750 MG PO DAILY Infection #7 Ref 0 TAB Calcium Carbonate-Cholecalciferol (Oyster Shell Calcium/Vitamin D) 250-125 Mg- Unit Tab 250 MG PO TID Electrolyte Replacement #90 TAB Quetiapine (Quetiapine) 25 Mg Tab 50 MG PO BID hallucinations #60 TAB Thiamine (Vitamin B-1) 100 Mg Tab 100 MG PO DAILY Alcohol Detox #30 TAB Continued Medications: Albuterol 6.7 GM Inh (Proventil Hfa 6.7 GM Inh) 90 Mcg/Act Aer 2 PUFF INH Q4-6H PRN SHORTNESS OF BREATH #1 Ref 0 INHALER Albuterol Sulfate (Proventil Hfa) 6.7 Gm Aero 2 PUFF INH Q4HR NEEDED FOR SHORTNESS OF BREATH Shortness of Breath #1 Kyle Cheney MD May 30, 2016 11:54
== END 2016-05-30 11:09 | disposition home or self-care (01) | DRG 492 ==
LOC: NEPC 17:02 → NEDA 19:15 → N06B 21:57 → N06A 05-28 17:40
PROVIDERS: ADMIT Internal Medicine; ATTEND Internal Medicine
PROC: 0PSC04Z Reposition Right Humeral Head with Internal Fixation Device, Open Approach (ICD-10-PCS; principal; 2016-05-27 11:31)
PROC: 30233N1 Transfusion of Nonautologous Red Blood Cells into Peripheral Vein, Percutaneous Approach (ICD-10-PCS; 2016-05-28)
DX: S42.201D Unspecified fracture of upper end of right humerus, subsequent encounter for fracture with routine healing (principal); A41.9 Sepsis, unspecified organism; J69.0 Pneumonitis due to inhalation of food and vomit; D62 Acute posthemorrhagic anemia; E83.51 Hypocalcemia; F10.239 Alcohol dependence with withdrawal, unspecified; F10.259 Alcohol dependence with alcohol-induced psychotic disorder, unspecified; S43.004D Unspecified dislocation of right shoulder joint, subsequent encounter; F20.9 Schizophrenia, unspecified; T79.6XXD Traumatic ischemia of muscle, subsequent encounter; X58.XXXD Exposure to other specified factors, subsequent encounter; F31.9 Bipolar disorder, unspecified; Z91.14 Patient's other noncompliance with medication regimen; J45.909 Unspecified asthma, uncomplicated; G40.909 Epilepsy, unspecified, not intractable, without status epilepticus; F17.210 Nicotine dependence, cigarettes, uncomplicated; R74.8 Abnormal levels of other serum enzymes; E87.6 Hypokalemia
CPT/HCPCS: 36430; 71010; 73030; 73200; 76000; 76937; 80053; 80307; 80320; 81001; 82550; 82552; 82607; 83605; 83735; 84100; 84425; 84484; 85025; 85652; 86038; 86592; 86850; 86900; 86901; 86920; 87040; 87081; 87804; 87880; 93005; 93971; 95819; 96374; C1713; C9399; J0690; J1170; J1580; J1630; J1885; J2060; J2370; J2405; J2543; J2710; J3010; J3370; J3411; J7030; J7040; J7050; J7120; P9016

== ENCOUNTER 2016-06-07 15:20 | Emergency (ER) | payer OTHER ==
[~2016-06-07] VITALS: Ht 180.3 cm; Wt 80.0 kg
[~2016-06-07 15:20] MED LIST changes: +HYDR-3366 PO; +LEVA750T PO; +OYST250T4 PO; +QUET1TAB7 PO; +VITA100T2 PO
[2016-06-07 15:24] VITALS: BP 169/89; PULSE 84; RESP 16; TEMP 98.3; O2SAT 99
--- NOTE | 2016-06-07 16:04 | PD ---
HPI Chief Complaint: Pain: Acute or Chronic Time Seen by Provider: 16:01 Travel History International Travel<30 days: No Contact w/Intl Traveler<30days: No Traveled to known affect area: No History of Present Illness HPI 36-year-old Afro-[place] male coming in status post seizure with right humeral fracture with open reduction and internal fixation by Dr. Newman. Surgery was on May 27, the patient was discharged home on May 30 with a prescription for oxycodone 10 #60 which he filled on May 31, 2016. Patient states he is having some drainage from the wound site, but she complains of pain, and he is requesting refill of his oxycodone. Patient denies fever, chills or other symptoms patient performing wound dressing changes once a day. Patient has been wearing his splint as prescribed. Patient has a follow with Dr. Newman scheduled for June 11. The patient has no known drug allergies. PFSH Past Medical History Asthma: Yes Bipolar Disorder: Yes (non compliant with meds) Anxiety: No Depression: No Cancer: No Cardiovascular Problems: No Chemotherapy: No Diminished Hearing: No Endocrine: No Genitourinary: No Neurologic: Yes (head injury and bleed 2016) Psychiatric: Yes Reproductive: No Respiratory: Yes Radiation Therapy: No Schizophrenia: Yes Seizures: Yes Past Surgical History Thoracic Surgery: Yes (LEFT INGUNIAL HERNIA) Social History Alcohol Use: Yes Tobacco Use: Yes Substance Use: No Allergies-Medications (Allergen,Severity, Reaction): Coded Allergies: No Known Allergies (Verified , 05/26/16) Reported Meds & Prescriptions Reported Meds & Active Scripts Active Levaquin (Levofloxacin) 750 Mg Tab 750 Mg PO DAILY Vitamin B-1 (Thiamine HCl) 100 Mg Tab 100 Mg PO DAILY Quetiapine (Quetiapine Fumarate) 25 Mg Tab 50 Mg PO BID Oyster Shell Calcium/Vitamin D (Calcium Carbonate-Cholecalciferol) 250-125 Mg- Unit Tab 250 Mg PO TID [place] (Hydrocodone-Acetaminophen) 10-325 Mg Tab 1 Tab PO Q4H PRN Proventil Hfa (Albuterol Sulfate) 6.7 Gm Aero 2 Puff INH Q4HR NEEDED FOR SHORTNESS OF BREATH Reported Proventil Hfa 6.7 GM Inh (Albuterol Sulfate) 90 Mcg/Act Aer 2 Puff INH Q4-6H PRN Review of Systems Except as stated in HPI: all other systems reviewed are Neg General / Constitutional: No: Fever Eyes: No: Visual changes HENT: No: Headaches Cardiovascular: No: Chest Pain or Discomfort Respiratory: No: Shortness of Breath Gastrointestinal: No: Abdominal Pain Genitourinary: No: Dysuria Musculoskeletal: No: Pain Skin: No Rash Neurologic: No: Weakness Psychiatric: No: Depression Endocrine: No: Polydipsia Hematologic/Lymphatic: No: Easy Bruising Physical Exam Narrative GENERAL: Patient appears in mild distress. SKIN: Warm and dry. Normal color. Normal turgor. Wound site appears well healing with mild serous drainage noted. There is no erythema, warmth, or lymphangitis. There is no wound dehiscence. Wound recover with a bulky bandage. HEAD: Atraumatic. Normocephalic. EYES: Pupils equal and round. No scleral icterus. No injection or drainage. ENT: No nasal bleeding or discharge. Mucous membranes pink and moist. NECK: Trachea midline. No JVD. CARDIOVASCULAR: Regular rate and rhythm. RESPIRATORY: No accessory muscle use. Clear to auscultation. Breath sounds equal bilaterally. MUSCULOSKELETAL: Extremities without clubbing, cyanosis, or edema. No obvious deformities. NEUROLOGICAL: Awake and alert. No obvious cranial nerve deficits. Motor grossly within normal limits. Five out of 5 muscle strength in the arms and legs. Normal speech. PSYCHIATRIC: Appropriate mood and affect; insight and judgment normal. Data Data Last Documented VS Vital Signs Date Time Temp Pulse Resp B/P Pulse Ox O2 Delivery O2 Flow Rate FiO2 06/07/16 15:24 98.3 84 16 169/89 99 Room Air MDM Medical Decision Making Medical Screen Exam Complete: Yes Emergency Medical Condition: No Differential Diagnosis Status post right humeral fracture. Wound check. Pain. Requesting refill. Narrative Course Patient is felt to be medically stable at time of exam. Wound site appears to be well healing with no signs of wound dehiscence or cellulitis. Patient is recommended frequent icing to the area which she has not been doing. Explained the patient that he needs to call Dr. Newman's office for any further pain management refills. No further medical treatment is felt warranted at this time. Diagnosis Primary Impression: Right humeral fracture Qualified Code: S42.201D - Closed fracture of proximal end of right humerus with routine healing, unspecified fracture morphology, subsequent encounter Additional Impression: Encounter for postoperative wound check Referrals: Liam Newman MD Patient Instructions: General Instructions Med/Other Pt SpecificInfo: Wound Care Disposition: 01 DISCHARGE HOME Condition: Maurilio Roca Jun 07, 2016 16:04
== END 2016-06-07 17:00 | disposition home or self-care (01) ==
LOC: NEPE 15:20
DX: S42.201D Unspecified fracture of upper end of right humerus, subsequent encounter for fracture with routine healing (principal); Z72.0 Tobacco use; X58.XXXA Exposure to other specified factors, initial encounter
CPT/HCPCS: 99283

== ENCOUNTER 2016-08-01 18:46 | Emergency (ER) | payer OTHER ==
[~2016-08-01] VITALS: Ht 182.9 cm; Wt 85.0 kg
[~2016-08-01 18:46] MED LIST changes: -HYDR-3366 PO; -LEVA750T PO; -OYST250T4 PO; -QUET1TAB7 PO; -VITA100T2 PO
[2016-08-01 18:55] VITALS: BP 130/77; PULSE 83; RESP 18; TEMP 97.7; O2SAT 98
[2016-08-01] MEDS ORDERED: SODIUM CHLOR 0.9% 1000 ML INJ 1,000 ML IV ONE (19:00)
[2016-08-01] MEDS ORDERED: LORazepam 2 MG/ML VIAL IV PUSH ONE (19:00)
[2016-08-01] MEDS ORDERED: FOSPHENYTOIN INJ 1,000 MGPE in SODIUM CHLORIDE 0.9% INJ 50 ML IV ONE (19:00)
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
--- NOTE | 2016-08-01 19:48 | RADRPT ---
EXAM DATE/TIME: 08/01/2016 19:18 [facility] COMPARISON: CHEST SINGLE AP, January 13, 2016, 21:37. INDICATIONS : [place] in the park unresponsive. RADIATION DOSE: 56.36 CTDIvol (mGy) MEDICAL HISTORY : Seizures.Head injury in 2005 SURGICAL HISTORY : None. ENCOUNTER: Initial ACUITY: 1 day PAIN SCALE: 0/10 LOCATION: cranial TECHNIQUE: Multiple contiguous axial images were obtained of the head. Using automated exposure control and adj ustment of the mA and/or kV according to patient size, radiation dose was kept as low as reasonably a chievable to obtain optimal diagnostic quality images. FINDINGS: No intracranial hemorrhage or hematoma. No mass, mass effect or midline shift. No evidence of an acut e ischemic event. 19 mm low density lesion seen in the left maxillary air cell, most likely a mucocele. It is erod ing through the lateral wall, series 301 image 2. CONCLUSION: 1. No bleed or other acute intracranial abnormality. 2. 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 Van Johnston MD on August 01, 2016 at 19:44 Board Certified Radiologist. This report was verified electronically.
[2016-08-01 21:10] VITALS: BP 134/78; PULSE 110; RESP 18; O2SAT 97
[2016-08-01 21:29] LABS: BASOPHIL % 0.8 % (0.0-2.0); EOSINOPHIL % 0.3 % (0.0-4.0); HEMATOCRIT 40.2 % (39.0-51.0); LYMPH % 10.4 % (9.0-44.0); LYMPHOCYTE # 0.5 TH/MM3 (1.0-4.8); MEAN CELL VOLUME 97.1 FL (80.0-100.0); MONO % 6.9 % (0.0-8.0); NEUT % 81.6 % (16.0-70.0); PLATELET COUNT 78 TH/MM3 (150-450); RED BLOOD COUNT 4.14 MIL/MM3 (4.50-5.90); RED CELL DISTRIBUTION WIDTH 14.2 % (11.6-17.2); WHITE BLOOD COUNT 4.9 TH/MM3 (4.0-11.0)
[2016-08-01 21:32] LABS: HEMO FLAGS AUTO DIFF
[2016-08-01 21:37] LABS: ALKALINE PHOSPHATASE 90 U/L (45-117); ALT (GPT) 140 U/L (12-78); ANION GAP 15 MEQ/L (5-15); AST (GOT) 155 U/L (15-37); BICARBONATE 22.4 MEQ/L (21.0-32.0); BLOOD UREA NITROGEN 8 MG/DL (7-18); CHLORIDE 104 MEQ/L (98-107); GLOMERULAR FILTRATION RATE 86 ML/MIN (>89); POTASSIUM 4.3 MEQ/L (3.5-5.1); SODIUM (NA) 141 MEQ/L (136-145); TOTAL BILIRUBIN ADULT 0.3 MG/DL (0.2-1.0)
[2016-08-01] MEDS ORDERED: PHEN100C PO (21:46)
[2016-08-01 21:58] LABS: PLATELET ESTIMATE SMEAR LOW (NORMAL); PLATELET MORPHOLOGY NORMAL (NORMAL); SCAN/DIFF AUTO DIFF CONFIRMED; TEARDROP RBCS 1+ (NORMAL)
== END 2016-08-01 22:09 | disposition home or self-care (01) ==
LOC: NEPA 18:46
DX: G40.501 Epileptic seizures related to external causes, not intractable, with status epilepticus (principal); J45.909 Unspecified asthma, uncomplicated; F17.210 Nicotine dependence, cigarettes, uncomplicated
CPT/HCPCS: 70450; 80053; 85025; 96361; 96365; 96375; 99285; J2060; J7030; Q2009

== ENCOUNTER 2016-10-07 16:34 | Emergency (ER) | payer SELFPAY ==
[~2016-10-07 16:34] MED LIST changes: +PHEN100C PO
[2016-10-07 16:35] VITALS: BP 153/100; PULSE 72; RESP 20; TEMP 98.4; O2SAT 98
--- NOTE | 2016-10-07 21:57 | PD ---
HPI Chief Complaint: Medical Clearance Time Seen by Provider: 21:56 Travel History International Travel<30 days: No Contact w/Intl Traveler<30days: No Traveled to known affect area: No History of Present Illness HPI 36-year-old male came to the emergency room with history of multiple unrelated complains. At first he said he has history of chest pain and headache that has been going on since 8:00 this morning. Upon asking he said he has had these complains in the past and been seen in the emergency room. I looked up at his past medical record in [place] he was seen for similar complains in July and had a head CT done which was within normal limits. And patient said that he ran out of his seizure medications which is Keppra. He hasn't taken it in past 2 months. He does not have a primary care and is waiting for patient assistance. Vital signs were stable in triage. Patient is an alcoholic and he drank last 8 hours ago he said. He does not appear to be in any distress currently. [facility] Past Medical History Narrative Medical List of his past medical, surgical, social and family history from the nursing note. Asthma: Yes Bipolar Disorder: Yes (non compliant with meds) Anxiety: No Depression: No Cancer: No Cardiovascular Problems: No Chemotherapy: No Cerebrovascular Accident: No (SEIZURES) Diminished Hearing: No Endocrine: No Gastrointestinal Disorders: No Genitourinary: No Implanted Vascular Access Dvce: No Neurologic: Yes (head injury and bleed 2016, seizures) Psychiatric: Yes Reproductive: No Respiratory: Yes Radiation Therapy: No Schizophrenia: Yes Seizures: Yes Past Surgical History Thoracic Surgery: Yes (LEFT INGUNIAL HERNIA) Social History Alcohol Use: Yes (daily) Tobacco Use: Yes (1/2 ppd) Substance Use: No Allergies-Medications (Allergen,Severity, Reaction): Coded Allergies: No Known Allergies (Verified , 10/07/16) Comments No known drug allergies. Reported Meds & Prescriptions Reported Meds & Active Scripts Active Keppra (Levetiracetam) 500 Mg Tab 500 Mg PO BID Phenytoin Extended 100 Mg Cap 100 Mg PO TID Reported Proventil Hfa 6.7 GM Inh (Albuterol Sulfate) 90 Mcg/Act Aer 2 Puff INH Q4-6H PRN Narrative Medication List of his home medications reviewed from the nursing note. Review of Systems Except as stated in HPI: all other systems reviewed are Neg Physical Exam Narrative GENERAL: Awake, alert, no obvious distress SKIN: Focused skin assessment warm/dry. HEAD: Atraumatic. Normocephalic. EYES: Pupils equal and round. No scleral icterus. No injection or drainage. ENT: No nasal bleeding or discharge. Mucous membranes pink and moist. NECK: Trachea midline. No JVD. CARDIOVASCULAR: Regular rate and rhythm. No murmur appreciated. RESPIRATORY: No accessory muscle use. Clear to auscultation. Breath sounds equal bilaterally. GASTROINTESTINAL: Abdomen soft, non-tender, nondistended. Hepatic and splenic margins not palpable. MUSCULOSKELETAL: No obvious deformities. No clubbing. No cyanosis. No edema. NEUROLOGICAL: Awake and alert. No obvious cranial nerve deficits. Motor grossly within normal limits. Normal speech. PSYCHIATRIC: Appropriate mood and affect; insight and judgment normal. Data Data Last Documented VS Vital Signs Date Time Temp Pulse Resp B/P Pulse Ox O2 Delivery O2 Flow Rate FiO2 10/07/16 16:35 98.4 72 20 153/100 98 Room Air Orders Levetiracetam (Keppra) (10/07/16 22:15) MDM Medical Decision Making Medical Screen Exam Complete: Yes Emergency Medical Condition: Yes Medical Record Reviewed: Yes Differential Diagnosis Prescription refill Narrative Course 10:08 PM patient was given a dose of by mouth Keppra in the ER any prescription to go home with. I've encouraged him to find a primary care for himself who can refer him to a neurologist for proper outpatient care of his seizure disorder. Procedures EKG Prior to Arrival: No Diagnosis Primary Impression: Medication refill Referrals: Primary Care Physician 1 week Additional Instructions: Done to the ER if the condition worsens. You need to find a primary care for yourselves who can refer you to a neurologist. You need to be on your seizure medications on a regular basis. Not be driving. Med/Other Pt SpecificInfo: Prescription(s) given Scripts Levetiracetam (Keppra)500 Mg Lyp635 Mg PO BID #60 TAB Ref 0 Prov:Mayo Le MD 10/07/16 Disposition: 01 DISCHARGE HOME Condition: Stable Mayo Le MD October 07, 2016 21:56
[2016-10-07] MEDS ORDERED: LEVE500 PO (22:05)
[2016-10-07] MEDS ORDERED: levETIRAcetam 500 MG TAB PO ONE (22:15)
== END 2016-10-07 22:24 | disposition home or self-care (01) ==
LOC: NEPD 16:34
DX: R51 Headache (principal); F20.9 Schizophrenia, unspecified; F31.9 Bipolar disorder, unspecified; R56.9 Unspecified convulsions; Z91.14 Patient's other noncompliance with medication regimen
CPT/HCPCS: 99283

== ENCOUNTER 2016-12-04 05:30 | Emergency (ER) | payer SELFPAY ==
[~2016-12-04] VITALS: Ht 182.9 cm; Wt 80.0 kg
[~2016-12-04 05:30] MED LIST changes: +LEVE500 PO
[2016-12-04 05:31] VITALS: BP 126/89; PULSE 120; RESP 16; TEMP 98.5; O2SAT 99
[2016-12-04] MEDS ORDERED: LEVE500 PO (05:47)
--- NOTE | 2016-12-04 05:56 | PD ---
HPI Chief Complaint: Seizure Time Seen by Provider: 05:50 Travel History International Travel<30 days: No Contact w/Intl Traveler<30days: No Traveled to known affect area: No History of Present Illness HPI 36-year-old black male presents to emergency department requesting refill of his Keppra. He states that he does not have a primary care doctor. He typically comes to the ER to get his refills. Patient has a history of recurrent seizure disorder and alcohol abuse. He has been out of his medication now for the last 2 months. He had a breakthrough seizure today. He also has been drinking alcohol. He denies any injury from the seizure. Patient denies any fever or chills. No chest pain or shortness of breath. No nausea vomiting. No focal extremity injury PFSH Past Medical History Asthma: Yes Bipolar Disorder: Yes (non compliant with meds) Anxiety: No Depression: No Cancer: No Cardiovascular Problems: No Chemotherapy: No Cerebrovascular Accident: No (SEIZURES) Diminished Hearing: No Endocrine: No Gastrointestinal Disorders: No Genitourinary: No Implanted Vascular Access Dvce: No Neurologic: Yes (head injury and bleed 2016, seizures) Psychiatric: Yes Reproductive: No Respiratory: Yes Radiation Therapy: No Schizophrenia: Yes Seizures: Yes Past Surgical History Thoracic Surgery: Yes (LEFT INGUNIAL HERNIA) Social History Alcohol Use: Yes (EVERY OTHER DAY) Tobacco Use: Yes (1/2-1 ppd) Substance Use: No Allergies-Medications (Allergen,Severity, Reaction): Coded Allergies: No Known Allergies (Verified , 12/04/16) Reported Meds & Prescriptions Reported Meds & Active Scripts Active Keppra (Levetiracetam) 500 Mg Tab 500 Mg PO BID Phenytoin Extended 100 Mg Cap 100 Mg PO TID Reported Proventil Hfa 6.7 GM Inh (Albuterol Sulfate) 90 Mcg/Act Aer 2 Puff INH Q4-6H PRN Physical Exam Narrative GENERAL: Well-developed, well-nourished in no apparent distress. Nontoxic appearing. Smells of EtOH HEAD: Normocephalic, atraumatic. EYES: Pupils equal round and reactive. Extraocular motions intact. No scleral icterus. No injection or drainage. ENT: Nose clear. Throat without erythema, tonsillar hypertrophy or exudate. Uvula midline. Airway patent. NECK: Trachea midline. Supple, nontender, moves head freely. No central bony tenderness or spasm. CARDIOVASCULAR: Regular rate and rhythm without murmurs, gallops, or rubs. RESPIRATORY: Clear to auscultation. Breath sounds equal bilaterally. No wheezes , rales, or rhonchi. GASTROINTESTINAL: Abdomen soft, non-tender, nondistended. No hepato-splenomegaly , or palpable masses. No guarding. EXTREMITIES: No clubbing, cyanosis, or edema. No joint tenderness. BACK: Nontender without deformity. No flank tenderness. NEUROLOGICAL: Awake, alert and oriented x 3 .Cranial nerves grossly intact. Motor and sensory grossly within normal limits. Normal speech. Data Data Last Documented VS Vital Signs Date Time Temp Pulse Resp B/P Pulse Ox O2 Delivery O2 Flow Rate FiO2 12/04/16 05:31 98.5 120 16 126/89 99 Room Air Orders Levetiracetam (Keppra) (12/04/16 06:00) Lorazepam (Ativan) (12/04/16 06:00) [facility] Medical Decision Making Medical Screen Exam Complete: Yes Emergency Medical Condition: Yes Medical Record Reviewed: Yes Differential Diagnosis Differential diagnoses: Noncompliance, seizure disorder, breakthrough seizure, electrolyte abnormality Narrative Course The patient is resting comfortable in examination room. He smells of EtOH. He has not had his Keppra and some time now. He is given a dose of Keppra this evening. He is also given 1 mg of Ativan by mouth Diagnosis Primary Impression: Seizure disorder Additional Impressions: Medication refill Alcohol abuse Patient Instructions: General Instructions Additional Instructions: Rest. Increase fluids. Avoid alcohol. Avoid illegal substances. Take her medications as directed. Follow-up with [facility] for detox. Do not operate a car or any heavy machinery under the influence of alcohol or drugs. Follow-up with a medical doctor this week. Return to the ER for emergencies Med/Other Pt SpecificInfo: Prescription(s) given Scripts Levetiracetam (Keppra)500 Mg Qfp374 Mg PO BID #60 TAB Ref 0 Prov:Rashaad Sharma MD 12/04/16 Disposition: 03 DISCHARGE TO SNF Condition: Stable Lg Boyle Dec 04, 2016 05:56
[2016-12-04] MEDS ORDERED: LORazepam 1 MG TAB PO ONE (06:00)
[2016-12-04] MEDS ORDERED: levETIRAcetam 500 MG TAB PO ONE (06:00)
== END 2016-12-04 06:41 ==
LOC: NEPD 05:30
DX: G40.909 Epilepsy, unspecified, not intractable, without status epilepticus (principal); F10.10 Alcohol abuse, uncomplicated; F20.9 Schizophrenia, unspecified; J45.909 Unspecified asthma, uncomplicated; F31.9 Bipolar disorder, unspecified; Z76.0 Encounter for issue of repeat prescription; Z79.899 Other long term (current) drug therapy
CPT/HCPCS: 99283

== ENCOUNTER 2017-01-19 17:55 | Inpatient (IN) | payer SELFPAY ==
[~2017-01-19] VITALS: Ht 180.3 cm; Wt 85.7 kg
[2017-01-19 17:59] VITALS: BP 177/111; PULSE 86; RESP 24; TEMP 99.9; O2SAT 98
[2017-01-19 18:00] VITALS: BP 164/108
[2017-01-19] MEDS ORDERED: SODIUM CHLOR 0.9% 1000 ML INJ 1,000 ML IV ONE (19:18)
[2017-01-19] MEDS ORDERED: SODIUM CHLORIDE 0.9% FLUSH 10 ML FLUSH IVF PRN (19:30)
[2017-01-19] MEDS ORDERED: LORazepam 2 MG/ML VIAL IVS ONE (19:30)
--- NOTE | 2017-01-19 19:32 | PD ---
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 His half brother states that usually he recovers back to baseline by now but he has not. Patient admits she has been trying to cut down on alcohol but did have a drink this morning. He denies any fevers, vomiting, or any other symptoms. However, he admits to active hallucinations. He denies any homicidal or suicidal ideation. Modifying Factors: None Associated Signs & Symptoms: Hallucinations, disorientation, seizure Risk Factors: History of alcohol abuse, seizures, TBI PFSH Past Medical History Asthma: Yes Bipolar Disorder: Yes (non compliant with meds) Anxiety: No Depression: No Cancer: No Cardiovascular Problems: No Chemotherapy: No Cerebrovascular Accident: No (SEIZURES) Diminished Hearing: No Endocrine: No Gastrointestinal Disorders: No Genitourinary: No Implanted Vascular Access Dvce: No Neurologic: Yes (head injury and bleed 2016, seizures) Psychiatric: Yes Reproductive: No Respiratory: Yes Radiation Therapy: No Schizophrenia: Yes Seizures: Yes ?: Not Past Surgical History Thoracic Surgery: Yes (LEFT INGUNIAL HERNIA) Social History Alcohol Use: Yes (7-8 beers weekly) Tobacco Use: Yes (1 PPD) Substance Use: No Allergies-Medications (Allergen,Severity, Reaction): Coded Allergies: No Known Allergies (Verified , 01/19/17) Reported Meds & Prescriptions Reported Meds & Active Scripts Active Keppra (Levetiracetam) 500 Mg Tab 500 Mg PO BID Reported Proventil Hfa 6.7 GM Inh (Albuterol Sulfate) 90 Mcg/Act Aer 2 Puff INH Q4-6H PRN Review of Systems Except as stated in HPI: all other systems reviewed are Neg Physical Exam Narrative GENERAL: Well-developed middle age -[place] male patient currently mild distress. Awake, alert, oriented 3. SKIN: Focused skin assessment warm/diaphoretic. HEAD: Atraumatic. Normocephalic. EYES: Pupils equal and round. No scleral icterus. No injection or drainage. ENT: No nasal bleeding or discharge. Mucous membranes pink and moist. NECK: Trachea midline. No JVD. CARDIOVASCULAR: Regular rate and rhythm. No murmur appreciated. RESPIRATORY: No accessory muscle use. Clear to auscultation. Breath sounds equal bilaterally. GASTROINTESTINAL: Abdomen soft, non-tender, nondistended. Hepatic and splenic margins not palpable. MUSCULOSKELETAL: No obvious deformities. No clubbing. No cyanosis. No edema. NEUROLOGICAL: Awake and alert. No obvious cranial nerve deficits. Motor grossly within normal limits. Normal speech. PSYCHIATRIC: Appropriate mood and affect; insight and judgment normal. Data Data Last Documented VS Vital Signs Date Time Temp Pulse Resp B/P (MAP) Pulse Ox O2 Delivery O2 Flow Rate FiO2 01/19/17 19:42 74 16 180/100 (126) 100 Room Air 01/19/17 17:59 99.9 Orders Orders Complete Blood Count With Diff (01/19/17 19:18) Alcohol (Ethanol) (01/19/17 19:18) Drug Screen, Random Urine (01/19/17 19:18) Electrocardiogram (01/19/17 ) Ct Brain W/O Iv Contrast(Rout) (01/19/17 ) Blood Glucose (01/19/17 19:18) Ecg Monitoring (01/19/17 19:18) Iv Access Insert/Monitor (01/19/17 19:18) Oximetry (01/19/17 19:18) Comprehensive Metabolic Panel (01/19/17 19:18) Sodium Chlor 0.9% 1000 Ml Inj (Ns 1000 M (01/19/17 19:18) Sodium Chloride 0.9% Flush (Ns Flush) (01/19/17 19:30) Lorazepam Inj (Ativan Inj) (01/19/17 19:30) Lorazepam Inj (Ativan Inj) (01/19/17 20:45) Admit Order (Ed Use Only) (01/19/17 20:52) Labs Laboratory Tests Test 01/19/17 19:30 White Blood Count 7.0 TH/MM3 Red Blood Count 3.60 MIL/MM3 Hemoglobin 12.4 GM/DL Hematocrit 36.4 % Mean Corpuscular Volume 101.2 FL Mean Corpuscular Hemoglobin 34.5 PG Mean Corpuscular Hemoglobin Concent 34.1 % Red Cell Distribution Width 12.4 % Platelet Count 120 TH/MM3 Mean Platelet Volume 8.4 FL Neutrophils (%) (Auto) 75.2 % Lymphocytes (%) (Auto) 14.6 % Monocytes (%) (Auto) 9.8 % Eosinophils (%) (Auto) 0.1 % Basophils (%) (Auto) 0.3 % Neutrophils # (Auto) 5.3 TH/MM3 Lymphocytes # (Auto) 1.0 TH/MM3 Monocytes # (Auto) 0.7 TH/MM3 Eosinophils # (Auto) 0.0 TH/MM3 Basophils # (Auto) 0.0 TH/MM3 CBC Comment DIFF FINAL Differential Comment Blood Urea Nitrogen 8 MG/DL Creatinine 0.69 MG/DL Random Glucose 73 MG/DL Total Protein 8.1 GM/DL Albumin 3.7 GM/DL Calcium Level 8.4 MG/DL Alkaline Phosphatase 86 U/L Aspartate Amino Transf (AST/SGOT) 31 U/L Alanine Aminotransferase (ALT/SGPT) 30 U/L Total Bilirubin 0.6 MG/DL Sodium Level 131 MEQ/L Potassium Level 3.5 MEQ/L Chloride Level 95 MEQ/L Carbon Dioxide Level 23.3 MEQ/L Anion Gap 13 MEQ/L Estimat Glomerular Filtration Rate 156 ML/MIN Ethyl Alcohol Level LESS THAN 3 MG/DL MDM Medical Decision Making Medical Screen Exam Complete: Yes Emergency Medical Condition: Yes Medical Record Reviewed: Yes Interpretation(s) EKG shows NSR, no ST elevation or depression, and no arrhythmias. No significant T-wave inversions. Laboratory Tests Test 01/19/17 19:30 Red Blood Count 3.60 MIL/MM3 (4.50-5.90) Hemoglobin 12.4 GM/DL (13.0-17.0) Hematocrit 36.4 % (39.0-51.0) Mean Corpuscular Volume 101.2 FL (80.0-100.0) Mean Corpuscular Hemoglobin 34.5 PG (27.0-34.0) Platelet Count 120 TH/MM3 (150-450) Neutrophils (%) (Auto) 75.2 % (16.0-70.0) Monocytes (%) (Auto) 9.8 % (0.0-8.0) Random Glucose 73 MG/DL (74-106) Calcium Level 8.4 MG/DL (8.5-10.1) Sodium Level 131 MEQ/L (136-145) Chloride Level 95 MEQ/L (98-107) Last [address] 01/19/17 0000 Signed Impressions: Service Date/Time: Thursday, January 19, 2017 19:38 - CONCLUSION: No acute disease. Arsen Briseno MD Differential Diagnosis Seizure, disorientation, hallucinations: Breakthrough seizures versus acute intracranial injuries versus metabolic issues versus DTs Narrative Course EKG did not show dysrhythmias. Lab work did not show significant metabolic issues. CT of the brain was unremarkable. Symptoms are worrisome for underlying DTs. Ativan was given in the ER. Patient remains fairly disoriented intermittently. At this point, my plan would be to admit the patient for further treatment and evaluation. Case was discussed with Dr. Pepe for admission. Diagnosis Primary Impression: Seizure disorder Additional Impression: Alcohol withdrawal Admitting Information Admitting Physician Requests: Admit Laith Perez MD Jan 19, 2017 19:32
[2017-01-19 19:42] VITALS: BP 180/100; PULSE 74; RESP 16; O2SAT 100
--- NOTE | 2017-01-19 19:49 | RADRPT ---
EXAM DATE/TIME: 01/19/2017 19:38 [facility] COMPARISON: CT BRAIN W/O CONTRAST, August 01, 2016, 19:18. INDICATIONS : Altered mental status. Possible seizure yesterday. RADIATION DOSE: 34.35 CTDIvol (mGy) MEDICAL HISTORY : Seizures. Hernia, inguinal. SURGICAL HISTORY : Hernia surgery. ENCOUNTER: Initial ACUITY: 1 day PAIN SCALE: 0/10 LOCATION: cranial TECHNIQUE: Multiple contiguous axial images were obtained of the head. Using automated exposure control and adj ustment of the mA and/or kV according to patient size, radiation dose was kept as low as reasonably a chievable to obtain optimal diagnostic quality images. DICOM format image data is available electro nically for review and comparison. FINDINGS: CEREBRUM: The ventricles are normal for age. No evidence of midline shift, mass lesion, hemorrhage or acute in farction. No extra-axial fluid collections are seen. POSTERIOR FOSSA: The cerebellum and brainstem are intact. The 4th ventricle is midline. The cerebellopontine angle i s unremarkable. EXTRACRANIAL: The visualized portion of the orbits is intact. SKULL: The calvaria is intact. No evidence of skull fracture. CONCLUSION: No acute disease. Arsen Briseno MD on January 19, 2017 at 19:46 Board Certified Radiologist. This report was verified electronically.
[2017-01-19 19:51] LABS: AUTOMATED NEUTROPHIL # 5.3 TH/MM3 (1.8-7.7); BASOPHIL % 0.3 % (0.0-2.0); EOSINOPHIL % 0.1 % (0.0-4.0); HEMATOCRIT 36.4 % (39.0-51.0); HEMO FLAGS DIFF FINAL; LYMPH % 14.6 % (9.0-44.0); MEAN CELL VOLUME 101.2 FL (80.0-100.0); MEAN CORPUSCULAR HEMOGLOBIN 34.5 PG (27.0-34.0); MEAN CORPUSCULAR HGB CONC 34.1 % (32.0-36.0); MONO % 9.8 % (0.0-8.0); NEUT % 75.2 % (16.0-70.0); PLATELET COUNT 120 TH/MM3 (150-450); RED CELL DISTRIBUTION WIDTH 12.4 % (11.6-17.2)
[2017-01-19 20:00] LABS: ALT (GPT) 30 U/L (12-78); ANION GAP 13 MEQ/L (5-15); BICARBONATE 23.3 MEQ/L (21.0-32.0); BLOOD UREA NITROGEN 8 MG/DL (7-18); CHLORIDE 95 MEQ/L (98-107); GLOMERULAR FILTRATION RATE 156 ML/MIN (>89); POTASSIUM 3.5 MEQ/L (3.5-5.1); SODIUM (NA) 131 MEQ/L (136-145)
[2017-01-19 20:04] LABS: ALKALINE PHOSPHATASE 86 U/L (45-117); AST (GOT) 31 U/L (15-37); TOTAL BILIRUBIN ADULT 0.6 MG/DL (0.2-1.0)
[2017-01-19 20:05] LABS: ALCOHOL LESS THAN 3 MG/DL (0-5)
[2017-01-19] MEDS ORDERED: LORazepam 2 MG/ML VIAL IV PUSH ONE (20:45)
[2017-01-19] MEDS ORDERED: MAGNESIUM HYDROXIDE SUSP 30 ML CUP PO PRN (21:00)
[2017-01-19] MEDS ORDERED: LORazepam 2 MG/ML VIAL IV PUSH PRN ×2 (21:00→21:30)
[2017-01-19] MEDS ORDERED: ACETAMINOPHEN 325 MG TAB PO PRN (21:00)
[2017-01-19] MEDS ORDERED: levETIRAcetam 500 MG TAB PO SCH (21:00)
[2017-01-19] MEDS ORDERED: levETIRAcetam INJ 500 MG in SODIUM CHLORIDE 0.9% INJ 100 ML IV ONE (21:00)
[2017-01-19] MEDS ORDERED: SODIUM CHLORIDE 0.9% FLUSH 10 ML FLUSH IV FLUSH PRN (21:00)
[2017-01-19] MEDS: SODIUM CHLORIDE 0.9% FLUSH 10 ML FLUSH IV FLUSH SCH (21:00)
[2017-01-19] MEDS ORDERED: LACTULOSE SYRUP 20 GM/30 ML CUP PO PRN (21:00)
[2017-01-19] MEDS ORDERED: FLUMAZENIL 0.5 MG/5 ML VIAL IV PUSH PRN (21:00)
[2017-01-19] MEDS ORDERED: BISACODYL 10 MG SUPP RECTAL PRN (21:00)
[2017-01-19] MEDS ORDERED: ONDANSETRON HCL 4 MG/2 ML VIAL IVP PRN (21:00)
[2017-01-19] MEDS ORDERED: THIAMINE HCL 100 MG TAB PO SCH (21:00)
[2017-01-19] MEDS ORDERED: LORazepam 2 MG TAB PO PRN (21:00)
[2017-01-19] MEDS ORDERED: SENNOSIDES 8.6 MG TAB PO PRN (21:00)
[2017-01-19] MEDS: DOCUSATE SODIUM 50 MG/SENNA 8.6 MG TAB PO SCH (21:00)
--- NOTE | 2017-01-19 21:36 | HHI.HP ---
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 Per brother, pt w/ episode of seizure last night. Today, brother noted him to be increasingly confused and having hallucinations. On Keppra 500mg po bid, reports compliance w/ meds however has no PCP or Neurology follow up, obtains prescriptions in the ER. Normally drinks 8-10 beers/day, had only 1 beer today per patient. On arrival, BP 177/111, HR 86, O2 sat 98% on RA, Temp 99.9. CBC essentially at baseline. Platelets 120, previously 78 on 08/01/16. Chemistry essentially unremarkable. Urine Drug Screen pending. Alcohol less than 3. CT Evidence acute findings. S /p Ativan IV in ER x2 w/ some improvement. Review of Systems Except as stated in HPI: all other systems reviewed are Neg ROS: 14 point review of systems otherwise negative. Past Family Social History Past Medical History PMH: Alcohol Abuse, Seizure Disorder, h/o TBI Past Surgical History PAST SURGICAL HISTORY: Left Inguinal Hernia Allergies: Coded Allergies: No Known Allergies (Verified , 01/19/17) Family History PAST FAMILY HISTORY: Reviewed. No h/o DM or CAD Social History PAST SOCIAL HISTORY: Drinks 8-10 beers per day. Smokes 1ppd. Denies drug use. Physical Exam Vital Signs Vital Signs Date Time Temp Pulse Resp B/P (MAP) Pulse Ox O2 Delivery O2 Flow Rate FiO2 01/19/17 19:42 74 16 180/100 (126) 100 Room Air 01/19/17 18:00 164/108 (126) 01/19/17 17:59 99.9 86 24 177/111 (133) 98 Room Air Physical Exam PE: GENERAL: Pleasant young black male in no acute distress. Brother at bedside. HEENT: PERRLA, EOMI. No scleral icterus or conjunctival pallor. No lid lag or facial droop. CARDIOVASCULAR: Regular rate and rhythm. No obvious murmurs to auscultation. No chest tenderness to palpation. RESPIRATORY: No obvious rhonchi or wheezing. Clear to auscultation. Breath sounds equal bilaterally. GASTROINTESTINAL: Abdomen soft, non-tender, nondistended. BS normal. MUSCULOSKELETAL: Extremities without clubbing, cyanosis, or edema. No obvious deformities. NEUROLOGICAL: Mildly lethargic but alert and oriented x4. No focal neurologic deficits. Moving both upper and lower extremities spontaneously. Laboratory Laboratory Tests Test 01/19/17 19:30 01/19/17 20:55 White Blood Count 7.0 Red Blood Count 3.60 Hemoglobin 12.4 Hematocrit 36.4 Mean Corpuscular Volume 101.2 Mean Corpuscular Hemoglobin 34.5 Mean Corpuscular Hemoglobin Concent 34.1 Red Cell Distribution Width 12.4 Platelet Count 120 Mean Platelet Volume 8.4 Neutrophils (%) (Auto) 75.2 Lymphocytes (%) (Auto) 14.6 Monocytes (%) (Auto) 9.8 Eosinophils (%) (Auto) 0.1 Basophils (%) (Auto) 0.3 Neutrophils # (Auto) 5.3 Lymphocytes # (Auto) 1.0 Monocytes # (Auto) 0.7 Eosinophils # (Auto) 0.0 Basophils # (Auto) 0.0 CBC Comment DIFF FINAL Differential Comment Blood Urea Nitrogen 8 Creatinine 0.69 Random Glucose 73 Total Protein 8.1 Albumin 3.7 Calcium Level 8.4 Alkaline Phosphatase 86 Aspartate Amino Transf (AST/SGOT) 31 Alanine Aminotransferase (ALT/SGPT) 30 Total Bilirubin 0.6 Sodium Level 131 Potassium Level 3.5 Chloride Level 95 Carbon Dioxide Level 23.3 Anion Gap 13 Estimat Glomerular Filtration Rate 156 Ethyl Alcohol Level LESS THAN 3 Result Diagram: 01/19/17192901/19/171929 Caprini VTE Risk Assessment Caprini VTE Risk Assessment: No/Low Risk (score <= 1) Caprini Risk Assessment Model Point Value = 1 Point Value = 2 Point Value = 3 Point Value = 5 Age 41-60 Minor surgery BMI > 25 kg/m2 Swollen legs Varicose veins or History of unexplained or recurrent spontaneous Oral contraceptives or hormone replacement Sepsis (< 1 month) Serious lung disease, including pneumonia (< 1 month) Abnormal pulmonary function Acute myocardial infarction Congestive heart failure (< 1 month) History of inflammatory bowel disease Medical patient at bed rest Age 61-74 Arthroscopic surgery Major open surgery (> 45 min) Laparoscopic surgery (> 45 min) Malignancy Confined to bed (> 72 hours) Immobilizing plaster cast Central venous access Age >= 75 History of VTE Family history of VTE Factor V Leiden Prothrombin [id number] Lupus anticoagulant Anticardiolipin antibodies Elevated serum homocysteine Heparin-induced thrombocytopenia Other congenital or acquired thrombophilia Stroke (< 1 month) Elective arthroplasty Hip, pelvis, or leg fracture Acute spinal cord injury (< 1 month) Prophylaxis Regimen Total Risk Factor Score Risk Level Prophylaxis Regimen 0-1 Low Early ambulation 2 Moderate Order ONE of the following: *Sequential Compression Device (SCD) *Heparin 5000 units SQ BID 3-4 Higher Order ONE of the following medications: *Heparin 5000 units SQ TID *Enoxaparin/Lovenox 40 mg SQ daily (WT < 150 kg, CrCl > 30 mL/min) *Enoxaparin/Lovenox 30 mg SQ daily (WT < 150 kg, CrCl > 10-29 mL/min) *Enoxaparin/Lovenox 30 mg SQ BID (WT < 150 kg, CrCl > 30 mL/min) AND/OR *Sequential Compression Device (SCD) 5 or more Highest Order ONE of the following medications: *Heparin 5000 units SQ TID (Preferred with Epidurals) *Enoxaparin/Lovenox 40 mg SQ daily (WT < 150 kg, CrCl > 30 mL/min) *Enoxaparin/Lovenox 30 mg SQ daily (WT < 150 kg, CrCl > 10-29 mL/min) *Enoxaparin/Lovenox 30 mg SQ BID (WT < 150 kg, CrCl > 30 mL/min) AND *Sequential Compression Device (SCD) Assessment and Plan Problem List: (1) Alcohol abuse ICD Code: F10.10 - Alcohol abuse, uncomplicated Status: Chronic (2) Seizure disorder ICD Code: G40.909 - Epilepsy, unspecified, not intractable, without status epilepticus Status: Acute (3) Thrombocytopenia ICD Code: D69.6 - Thrombocytopenia, unspecified (4) HTN (hypertension) ICD Code: I10 - Essential (primary) hypertension (5) Tobacco abuse ICD Code: Z72.0 - Tobacco use Status: Acute Assessment and Plan A/P: 1. Alcohol Abuse: w/ Acute Alcohol Withdrawal, normally drinks 8-10 beers/day , today had only 1 beer in attempts to quit. Alcohol negative. S/p Ativan IV x2 in ER w/ some improvement, start CIWA, Seizure Precautions, MVT/Thiamine/ Folate replacement. 2. Seizure Disorder: Likely combination of Alcohol -Related Seizure and h/o TBI from Head Trauma, on Keppra 500mg po bid, reports compliance w/ meds, no PCP /Neurology follow up-pending referrals per Brother, obtains scripts via ER. CT Head w/ no acute findings, images reviewed by me. Continue w/ home Keppra, Ativan prn, Neurology for further eval. 3. Thrombocytopenia: Chronic. Platelets 120, previously 78 on 08/01/16. No active bleeding. Will monitor. Repeat labs in am. 4. HTN: BP 160-180's systolic, likely related to Alcohol Withdrawal, start Clonidine PO, monitor BP. 5. Tobacco Abuse: Pt counselled. Ativan/NicoDerm prn if needed. 6. DVT Prophylaxis: SCD/Teds. 7. Social work for d/c planning as needed. 8. Case discussed w/ ER physician at length. Physician Certification 2 Midnight Certification Type: Admission for Inpatient Services Order for Inpatient Services The services are ordered in accordance with Medicare regulations or non- Medicare payer requirements, as applicable. In the case of services not specified as inpatient-only, they are appropriately provided as inpatient services in accordance with the 2-midnight benchmark. Estimated LOS (days): 2 days is the estimated time the patient will need to remain in the hospital, assuming treatment plan goals are met and no additional complications. Post-Hospital Plan: Not yet determined Melly Pepe MD Jan 19, 2017 21:36
[2017-01-19] MEDS: cloNIDine HCL 0.2 MG TAB PO SCH (22:00)
[2017-01-19] MEDS ORDERED: METOPROLOL TARTRATE 5 MG/5 ML VIAL IV PUSH ONE (22:15)
[2017-01-19 22:17] VITALS: BP 192/112; PULSE 100; RESP 20; O2SAT 98
[2017-01-19] MEDS: SODIUM CHLOR 0.9% 1000 ML INJ 1,000 ML IV SCH (22:27)
[2017-01-19] MEDS: LORazepam 2 MG/ML VIAL IV PUSH PRN ×2 (22:28→23:33)
[2017-01-19] MEDS: HALOPERIDOL LACTATE 5 MG/ML AMP IM PRN (23:02)
[2017-01-19] MEDS: THIAMINE INJ 100 MG in SODIUM CHLORIDE 0.9% INJ 100 ML IV SCH (23:02)
[2017-01-19 23:22] VITALS: BP 167/89; PULSE 65; RESP 18; O2SAT 96
[2017-01-19 23:49] VITALS: BP 165/89; PULSE 65; RESP 16; O2SAT 95
[2017-01-20] MEDS: LORazepam 2 MG/ML VIAL IV PUSH PRN (02:12)
[2017-01-20 02:54] VITALS: BP 164/94; PULSE 64; RESP 18; TEMP 96.8; O2SAT 100
[2017-01-20 04:39] VITALS: BP 169/67; PULSE 61; RESP 18; TEMP 97.9; O2SAT 100
[2017-01-20] MEDS: cloNIDine HCL 0.2 MG TAB PO SCH ×3 (05:38→20:19)
[2017-01-20] MEDS: SODIUM CHLOR 0.9% 1000 ML INJ 1,000 ML IV SCH ×2 (05:41→16:56)
[2017-01-20 08:37] VITALS: BP 143/83; PULSE 56; RESP 18; TEMP 97.8; O2SAT 98
[2017-01-20] MEDS: DOCUSATE SODIUM 50 MG/SENNA 8.6 MG TAB PO SCH ×2 (09:00→20:19)
[2017-01-20] MEDS ORDERED: levETIRAcetam 500 MG TAB PO SCH (09:00)
[2017-01-20] MEDS: SODIUM CHLORIDE 0.9% FLUSH 10 ML FLUSH IV FLUSH SCH ×2 (10:59→20:19)
[2017-01-20] MEDS: MULTIVITAMINS/MINERALS THERAPEUTIC TAB PO SCH (10:59)
[2017-01-20] MEDS: FOLIC ACID 1 MG TAB PO SCH (10:59)
--- NOTE | 2017-01-20 11:37 | MB ---
cc: SATISH TARANGO M.D. DATE OF CONSULTATION 01/20/2017 HISTORY OF PRESENT ILLNESS He is [id number] with a history of apparent traumatic brain injury 3 months ago, seizures, alcohol abuse and he was brought in by his family members apparently with a seizure on the night before last and yesterday he was more confused with hallucinations and brought to the hospital. The patient reportedly had 1 beer yesterday while he normally drinks 10 beers per day but was trying to quit. The exam shows a poor historian, a gentleman who is resting and did not seem to want to participate on the exam. He was in no distress. Ocular movements and visual smith grossly intact. No facial weakness. He moves all four extremities on the bedside exam with the reflexes being 1-2+. Plantar responses flexor. The CT head was negative for acute abnormality. WBCs 7.0, hemoglobin 12.4, platelets 120. Sodium 131, potassium 3.5, BUN and creatinine normal with glucose 73. Negative urine toxicology. ASSESSMENT 1. Seizure recurrence, apparently the day before yesterday along with alcohol withdrawal syndrome. 2. History of a previous traumatic brain injury, though details on this as not promptly available. I am going to check and see about previous medical records here. He normally takes Keppra 750 mg twice a day as per the patient though the H&P the indicates 500 twice a day and the patient says he has been taking the medication. DISCHARGE INSTRUCTIONS 1. Continue on thiamine, folic acid, vitamins. 2. Keppra 500 twice a day will be increased to 1000 mg twice a day for the time being. 3. P.r.n. Lorazepam. I will follow the neurological course. Thank you for asking us to assist in his care. Satish Tarango MD [facility]/SS[facility] /10:14 AM /11:27 AM
--- NOTE | 2017-01-20 11:59 | HHI.PR ---
Subjective Remarks Follow-up for possible seizures Patient found sitting in bed talking on the phone. He stated that he was talking to his brother. Patient stated that he has no complaints. When I asked patient if he knew why he was here he stated that due to seizures. Patient has had no witness seizure while hospitalized. Early on he was agitated but he is not agitated now. Patient seems to be as baseline. When I asked patient to sit up he started adjusting his bed. When I asked patient that he need to lean forward so that I can listen to his lungs he did not lean forward. When I was on my way leaving the bed he leaned forward to adjust himself in the bed. Objective Vitals Vital Signs Date Time Temp Pulse Resp B/P (MAP) Pulse Ox O2 Delivery O2 Flow Rate FiO2 01/20/17 08:37 97.8 56 18 143/83 (103) 98 01/20/17 04:39 97.9 61 18 169/67 (101) 100 01/20/17 02:54 96.8 64 18 164/94 (117) 100 01/20/17 02:20 01/19/17 23:49 65 16 165/89 (114) 95 Room Air 01/19/17 23:22 65 18 167/89 (115) 96 Room Air 01/19/17 22:17 100 20 192/112 (138) 98 Room Air 01/19/17 19:42 74 16 180/100 (126) 100 Room Air 01/19/17 18:00 164/108 (126) 01/19/17 17:59 99.9 86 24 177/111 (133) 98 Room Air I/O 01/19/17 01/19/17 01/19/17 01/20/17 01/20/17 01/20/17 07:00 15:00 23:00 07:00 15:00 23:00 Intake Total 1000 ml 926 ml Output Total 500 ml Balance 1000 ml 426 ml Intake Oral 0 ml IV Total 1000 ml 926 ml Output Urine Total 500 ml # Bowel Movements 0 Result Diagram: 01/19/17192901/19/171929 Objective Remarks GENERAL: in NAD and laying in bed. SKIN: Warm and dry. HEAD: Normocephalic. EYES: No scleral icterus. No injection or drainage. NECK: Supple, trachea midline. No JVD or lymphadenopathy. CARDIOVASCULAR: Regular rate and rhythm without murmurs, gallops, or rubs. RESPIRATORY: Breath sounds equal bilaterally. No accessory muscle use. GASTROINTESTINAL: Abdomen soft, non-tender, nondistended. MUSCULOSKELETAL: No cyanosis, or edema. BACK: Nontender without obvious deformity. No CVA tenderness. Medications and IVs Current Medications Sodium Chloride 1,000 ml @ 1,000 mls/hr Q1H ONCE IV Last administered on 19:41; Start 01/19/17 at 19:18; Stop 01/19/17 at 20:17; Status DC Sodium Chloride (NS Flush) 2 ml UNSCH PRN IVF FLUSH AFTER USING IV ACCESS; Start 01/19/17 at 19:30 Lorazepam (Ativan Inj) 1 mg ONCE ONCE IVS Last administered on 01/19/17 19:42 ; Start 01/19/17 at 19:30; Stop 01/19/17 at 19:31; Status DC Lorazepam (Ativan Inj) 1 mg ONCE ONCE IV PUSH Last administered on 01/19/17 21:22; Start 01/19/17 at 20:45; Stop 01/19/17 at 20:46; Status DC Folic Acid (Folate) 1 mg DAILY PO Last administered on 01/20/17 10:59; Start 01/20/17 at 09:00; Stop 01/25/17 at 08:59 Thiamine HCl (Vitamin B1) 100 mg DAILY PO ; Start 01/19/17 at 21:00; Stop at 22:14; Status DC Multivitamins/ Minerals Therapeutic (Theragran M Tab) 1 tab DAILY PO Last administered on 01/20/17 10:59; Start 01/20/17 at 09:00; Stop 01/25/17 at 08:59 Flumazenil (Romazicon Inj) 0.2 mg Q1M PRN IV PUSH SEE LABEL COMMENTS; Start at 21:00 Lorazepam (Ativan) 1 mg Q4H PRN PO CIWA 8 - 10; Start 01/19/17 at 21:00 Lorazepam (Ativan Inj) 1 mg Q4H PRN IV PUSH CIWA 8 - 10; Start 01/19/17 at 21: 00 Lorazepam (Ativan) 2 mg Q2H PRN PO CIWA 11-14; Start 01/19/17 at 21:00 Lorazepam (Ativan Inj) 2 mg Q2H PRN IV PUSH CIWA 11-14 Last administered on 02:12; Start 01/19/17 at 21:00 Lorazepam (Ativan Inj) 2 mg Q1H PRN IV PUSH CIWA 15-20 Last administered on 23:33; Start 01/19/17 at 21:00 Lorazepam (Ativan Inj) 2 mg Q15M PRN IV PUSH CIWA > 20; Start 01/19/17 at 21:00 Haloperidol Lactate (Haldol Inj) 2 mg Q15M PRN IM SEE LABEL COMMENTS Last administered on 01/19/17 23:02; Start 01/19/17 at 21:00 Levetriacetam 500 mg/Sodium Chloride 105 ml @ 420 mls/hr BOLUS ONCE IV Last administered on 01/19/17 22:27; Start 01/19/17 at 21:00; Stop 01/19/17 at 21:14 ; Status DC Sodium Chloride 1,000 ml @ 100 mls/hr Q10H IV Last administered on 01/20/17 05:41; Start 01/19/17 at 20:56 Sodium Chloride (NS Flush) 2 ml UNSCH PRN IV FLUSH FLUSH AFTER USING IV ACCESS ; Start 01/19/17 at 21:00 Sodium Chloride (NS Flush) 2 ml BID IV FLUSH Last administered on 01/20/17 10: 59; Start 01/19/17 at 21:00 Ondansetron HCl (Zofran Inj) 4 mg Q6H PRN IVP NAUSEA OR VOMITING; Start at 21:00 Acetaminophen (Tylenol) 650 mg Q6H PRN PO FEVER; Start 01/19/17 at 21:00 Oxycodone HCl (Roxicodone) 10 mg Q4H PRN PO PAIN SCALE 6 TO 10; Start 01/19/17 at 21:00 Oxycodone HCl (Roxicodone) 5 mg Q4H PRN PO PAIN SCALE 3 TO 5; Start 01/19/17 at 21:00 Senna/Docusate Sodium (Jonna-Colace) 1 tab BID PO ; Start 01/19/17 at 21:00 Magnesium Hydroxide (Milk Of Magnesia Liq) 30 ml Q12H PRN PO MILD - MODERATE CONSTIPATION; Start 01/19/17 at 21:00 Sennosides (Senokot) 17.2 mg Q12H PRN PO MODERATE - SEVERE CONSTIPATION; Start 01/19/17 at 21:00 Bisacodyl (Dulcolax Supp) 10 mg DAILY PRN RECTAL SEVERE CONSITIPATION; Start at 21:00 Lactulose (Lactulose Liq) 30 ml DAILY PRN PO SEVERE CONSITIPATION; Start at 21:00 Levetriacetam (Keppra) 500 mg BID PO ; Start 01/19/17 at 21:00; Status Cancel Clonidine (Catapres) 0.2 mg Q8HR PO Last administered on 01/20/17 05:38; Start 01/19/17 at 22:00 Levetriacetam (Keppra) 500 mg BID PO ; Start 01/20/17 at 09:00; Stop 01/20/17 at 10:19; Status DC Lorazepam (Ativan Inj) 1 mg Q5M PRN IV PUSH SEIZURE; Start 01/19/17 at 21:30 Metoprolol Tartrate (Lopressor Inj) 5 mg ONCE ONCE IV PUSH Last administered on 01/19/17 23:02; Start 01/19/17 at 22:15; Stop 01/19/17 at 22:21; Status DC Thiamine HCl 100 mg/Sodium Chloride 101 ml @ 100 mls/hr Q24H IV Last administered on 01/19/17 23:02; Start 01/19/17 at 22:45; Stop 01/22/17 at 22:44 Thiamine HCl (Vitamin B1) 100 mg DAILY PO ; Start 01/22/17 at 09:00 Levetriacetam (Keppra) 1,000 mg BID PO ; Start 01/20/17 at 21:00 A/P Problem List: (1) Alcohol abuse ICD Code: F10.10 - Alcohol abuse, uncomplicated Status: Chronic (2) Seizure disorder ICD Code: G40.909 - Epilepsy, unspecified, not intractable, without status epilepticus Status: Acute (3) Thrombocytopenia ICD Code: D69.6 - Thrombocytopenia, unspecified (4) HTN (hypertension) ICD Code: I10 - Essential (primary) hypertension (5) Tobacco abuse ICD Code: Z72.0 - Tobacco use Status: Acute Assessment and Plan Alcohol Abuse: - w/ Acute Alcohol Withdrawal, normally drinks 8-10 beers/day, today had only 1 beer in attempts to quit. Alcohol negative. S/p Ativan IV x2 in ER w/ some improvement, start CIWA, Seizure Precautions, MVT/Thiamine/Folate replacement. -At the moment no signs withdrawals. 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 CT Head w/ no acute findings. Continue w/ home Keppra, Ativan prn. -Most likely secondary to alcoholism. -Neurologist consulted and following and increase his Keppra. Continue to monitor. Thrombocytopenia: Chronic. Platelets 120, previously 78 on 08/01/16. No active bleeding. -Need to stop drinking if he does not want this to worsen. Patient aware. HTN: BP 160-180's systolic, likely related to Alcohol Withdrawal, -Continue clonidine. Tobacco Abuse: Pt counselled. Ativan/NicoDerm prn if needed. DVT Prophylaxis: SCD/Teds. Discharge Planning Once cleared by neurologist patient can be discharged to home. Leah Goodson MD Jan 20, 2017 11:59
[2017-01-20 12:00] VITALS: BP 130/75; PULSE 82; RESP 17; TEMP 97.7; O2SAT 98
--- NOTE | 2017-01-20 15:13 | EKG ---
Date Performed: 01/19/2017 Time Performed: 19:31:43 PTAGE: 36 years EKG: Sinus rhythm MODERATE INTRAVENTRICULAR CONDUCTION DELAY ST ELEVATION CONSISTENT WITH INJURY, PERICARDITIS, OR EAR LY REPOLARIZATION ABNORMAL ECG PREVIOUS TRACING : 05/26/2016 17.56 Since previous tracing, no significant change noted DOCTOR: Tripp Morrison Interpretating Date/Time 01/20/2017 15:11:16
[2017-01-20 16:00] VITALS: BP 157/100; PULSE 66; RESP 18; TEMP 99.2; O2SAT 98
[2017-01-20 20:15] VITALS: BP 153/96; PULSE 65; RESP 18; TEMP 97.1; O2SAT 99
[2017-01-20] MEDS: levETIRAcetam 500 MG TAB PO SCH (20:19)
[2017-01-21] VITALS (7 sets, daily range): BP systolic 129–199; BP diastolic 77–115; PULSE 50–89; RESP 17–18; TEMP 96.3–98.3; O2SAT 96–100
[2017-01-21] MEDS: THIAMINE INJ 100 MG in SODIUM CHLORIDE 0.9% INJ 100 ML IV SCH ×2 (01:53→22:09)
[2017-01-21] MEDS: LORazepam 2 MG/ML VIAL IV PUSH PRN ×2 (01:54→18:23)
[2017-01-21] MEDS: SODIUM CHLOR 0.9% 1000 ML INJ 1,000 ML IV SCH ×3 (02:56→22:56)
[2017-01-21] MEDS: cloNIDine HCL 0.2 MG TAB PO SCH (05:32)
[2017-01-21] MEDS: DOCUSATE SODIUM 50 MG/SENNA 8.6 MG TAB PO SCH ×2 (09:00→20:25)
[2017-01-21] MEDS: SODIUM CHLORIDE 0.9% FLUSH 10 ML FLUSH IV FLUSH SCH ×2 (09:00→20:24)
[2017-01-21] MEDS: MULTIVITAMINS/MINERALS THERAPEUTIC TAB PO SCH (09:51)
[2017-01-21] MEDS: FOLIC ACID 1 MG TAB PO SCH (09:51)
[2017-01-21] MEDS: levETIRAcetam 500 MG TAB PO SCH ×2 (09:52→20:25)
--- NOTE | 2017-01-21 13:48 | HHI.PR ---
Subjective Remarks Follow-up for seizure and hypertension Patient continues to be hypertensive. No seizure activity since patient was hospitalized. His brothers at the bedside. Patient does not have a primary care physician. He stated that he could not take his Keppra because it cost too much. His brother at the bedside stated that they're trying to obtain Keppra. Patient stated that he has never seen a PCP. [facility] Objective Vitals Vital Signs Date Time Temp Pulse Resp B/P (MAP) Pulse Ox O2 Delivery O2 Flow Rate FiO2 01/21/17 12:00 97.9 50 18 184/108 (133) 97 01/21/17 08:00 96.3 67 18 129/87 (101) 96 01/21/17 04:30 98.1 56 17 186/105 (132) 98 01/21/17 01:00 199/109 (139) 01/21/17 00:20 98.3 17 196/115 (142) 98 01/20/17 20:15 97.1 65 18 153/96 (115) 99 01/20/17 16:00 99.2 66 18 157/100 (119) 98 I/O 01/20/17 01/20/17 01/20/17 01/21/17 01/21/17 01/21/17 07:00 15:00 23:00 07:00 15:00 23:00 Intake Total 926 ml 240 ml 480 ml 480 ml Output Total 500 ml Balance 426 ml 240 ml 480 ml 480 ml Intake Oral 0 ml 240 ml 480 ml 480 ml IV Total 926 ml Output Urine Total 500 ml # Voids 3 3 6 # Bowel Movements 0 2 1 1 Result Diagram: 01/19/17192901/19/171929 Objective Remarks GENERAL: in NAD and laying in bed. CARDIOVASCULAR: Regular rate and rhythm without murmurs, gallops, or rubs. RESPIRATORY: Breath sounds equal bilaterally. No accessory muscle use. GASTROINTESTINAL: Abdomen soft, non-tender, nondistended. MUSCULOSKELETAL: No cyanosis, or edema. BACK: Nontender without obvious deformity. No CVA tenderness. NEURO: AAO X 3. Motor and sensation grossly intact. Medications and IVs Current Medications Sodium Chloride 1,000 ml @ 1,000 mls/hr Q1H ONCE IV Last administered on t 19:41; Start 01/19/17 at 19:18; Stop 01/19/17 at 20:17; Status DC Sodium Chloride (NS Flush) 2 ml UNSCH PRN IVF FLUSH AFTER USING IV ACCESS; Start 01/19/17 at 19:30 Lorazepam (Ativan Inj) 1 mg ONCE ONCE IVS Last administered on 01/19/17 19:42 ; Start 01/19/17 at 19:30; Stop 01/19/17 at 19:31; Status DC Lorazepam (Ativan Inj) 1 mg ONCE ONCE IV PUSH Last administered on 01/19/17 21:22; Start 01/19/17 at 20:45; Stop 01/19/17 at 20:46; Status DC Folic Acid (Folate) 1 mg DAILY PO Last administered on 01/21/17 09:51; Start 01/20/17 at 09:00; Stop 01/25/17 at 08:59 Thiamine HCl (Vitamin B1) 100 mg DAILY PO ; Start 01/19/17 at 21:00; Stop at 22:14; Status DC Multivitamins/ Minerals Therapeutic (Theragran M Tab) 1 tab DAILY PO Last administered on 01/21/17 09:51; Start 01/20/17 at 09:00; Stop 01/25/17 at 08:59 Flumazenil (Romazicon Inj) 0.2 mg Q1M PRN IV PUSH SEE LABEL COMMENTS; Start at 21:00 Lorazepam (Ativan) 1 mg Q4H PRN PO CIWA 8 - 10; Start 01/19/17 at 21:00 Lorazepam (Ativan Inj) 1 mg Q4H PRN IV PUSH CIWA 8 - 10 Last administered on 01:54; Start 01/19/17 at 21:00 Lorazepam (Ativan) 2 mg Q2H PRN PO CIWA 11-14; Start 01/19/17 at 21:00 Lorazepam (Ativan Inj) 2 mg Q2H PRN IV PUSH CIWA 11-14 Last administered on 02:12; Start 01/19/17 at 21:00 Lorazepam (Ativan Inj) 2 mg Q1H PRN IV PUSH CIWA 15-20 Last administered on 23:33; Start 01/19/17 at 21:00 Lorazepam (Ativan Inj) 2 mg Q15M PRN IV PUSH CIWA > 20; Start 01/19/17 at 21:00 Haloperidol Lactate (Haldol Inj) 2 mg Q15M PRN IM SEE LABEL COMMENTS Last administered on 01/19/17 23:02; Start 01/19/17 at 21:00 Levetriacetam 500 mg/Sodium Chloride 105 ml @ 420 mls/hr BOLUS ONCE IV Last administered on 01/19/17 22:27; Start 01/19/17 at 21:00; Stop 01/19/17 at 21:14 ; Status DC Sodium Chloride 1,000 ml @ 100 mls/hr Q10H IV Last administered on 01/20/17 05:41; Start 01/19/17 at 20:56 Sodium Chloride (NS Flush) 2 ml UNSCH PRN IV FLUSH FLUSH AFTER USING IV ACCESS ; Start 01/19/17 at 21:00 Sodium Chloride (NS Flush) 2 ml BID IV FLUSH Last administered on 01/21/17 09: 00; Start 01/19/17 at 21:00 Ondansetron HCl (Zofran Inj) 4 mg Q6H PRN IVP NAUSEA OR VOMITING; Start at 21:00 Acetaminophen (Tylenol) 650 mg Q6H PRN PO FEVER; Start 01/19/17 at 21:00 Oxycodone HCl (Roxicodone) 10 mg Q4H PRN PO PAIN SCALE 6 TO 10; Start 01/19/17 at 21:00 Oxycodone HCl (Roxicodone) 5 mg Q4H PRN PO PAIN SCALE 3 TO 5 Last administered on 01/21/17 11:28; Start 01/19/17 at 21:00 Senna/Docusate Sodium (Jonna-Colace) 1 tab BID PO Last administered on 20:19; Start 01/19/17 at 21:00 Magnesium Hydroxide (Milk Of Magnesia Liq) 30 ml Q12H PRN PO MILD - MODERATE CONSTIPATION; Start 01/19/17 at 21:00 Sennosides (Senokot) 17.2 mg Q12H PRN PO MODERATE - SEVERE CONSTIPATION; Start 01/19/17 at 21:00 Bisacodyl (Dulcolax Supp) 10 mg DAILY PRN RECTAL SEVERE CONSITIPATION; Start at 21:00 Lactulose (Lactulose Liq) 30 ml DAILY PRN PO SEVERE CONSITIPATION; Start at 21:00 Levetriacetam (Keppra) 500 mg BID PO ; Start 01/19/17 at 21:00; Status Cancel Clonidine (Catapres) 0.2 mg Q8HR PO Last administered on 01/21/17 05:32; Start 01/19/17 at 22:00; Status Future Hold Levetriacetam (Keppra) 500 mg BID PO ; Start 01/20/17 at 09:00; Stop 01/20/17 at 10:19; Status DC Lorazepam (Ativan Inj) 1 mg Q5M PRN IV PUSH SEIZURE; Start 01/19/17 at 21:30 Metoprolol Tartrate (Lopressor Inj) 5 mg ONCE ONCE IV PUSH Last administered on 01/19/17 23:02; Start 01/19/17 at 22:15; Stop 01/19/17 at 22:21; Status DC Thiamine HCl 100 mg/Sodium Chloride 101 ml @ 100 mls/hr Q24H IV Last administered on 01/21/17 01:53; Start 01/19/17 at 22:45; Stop 01/22/17 at 22:44 Thiamine HCl (Vitamin B1) 100 mg DAILY PO ; Start 01/22/17 at 09:00 Levetriacetam (Keppra) 1,000 mg BID PO Last administered on 01/21/17 09:52; Start 01/20/17 at 21:00 Amlodipine Besylate (Norvasc) 10 mg DAILY PO ; Start 01/21/17 at 14:00 Enalaprilat (Vasotec Inj) 1.25 mg Q6H PRN IV PUSH SBP>180 or DBP>100; Start at 14:00 A/P Problem List: (1) Alcohol abuse ICD Code: F10.10 - Alcohol abuse, uncomplicated Status: Chronic (2) Seizure disorder ICD Code: G40.909 - Epilepsy, unspecified, not intractable, without status epilepticus Status: Acute (3) Thrombocytopenia ICD Code: D69.6 - Thrombocytopenia, unspecified (4) HTN (hypertension) ICD Code: I10 - Essential (primary) hypertension (5) Tobacco abuse ICD Code: Z72.0 - Tobacco use Status: Acute Assessment and Plan Alcohol Abuse: - w/ Acute Alcohol Withdrawal, normally drinks 8-10 beers/day, today had only 1 beer in attempts to quit. Alcohol negative. S/p Ativan IV x2 in ER w/ some improvement, start CIWA, Seizure Precautions, MVT/Thiamine/Folate replacement. -At the moment no signs withdrawals. 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 CT Head w/ no acute findings. Continue w/ home Keppra, Ativan prn. -Most likely secondary to alcoholism. -Neurologist consulted and following and increase his Keppra. Continue to monitor. -Patient is noncompliant. He stated that he could not afford his Keppra. Dealt with case management in regards to patient receiving some chronic financial support in obtaining his medication. Thrombocytopenia: Chronic. Platelets 120, previously 78 on 08/01/16. No active bleeding. -Need to stop drinking if he does not want this to worsen. Patient aware. HTN urgency: -Continues to be elevated. Will start amlodipine. Will stop clonidine since heart rates went down to the 50s. Continue to monitor and adjust accordingly. Tobacco Abuse: Pt counselled. Ativan/NicoDerm prn if needed. DVT Prophylaxis: SCD/Teds. Discharge Planning Will need better control blood pressure for discharge. Anticipate discharge tomorrow. Leah Goodson MD Jan 21, 2017 13:48
[2017-01-21] MEDS ORDERED: ENALAPRILAT 1.25 MG/ML VIAL IV PUSH PRN (14:00)
[2017-01-22 00:30] VITALS: BP 151/100; PULSE 87; RESP 19; TEMP 98.6; O2SAT 100
[2017-01-22] MEDS: LORazepam 1 MG TAB PO PRN ×2 (00:57→05:18)
[2017-01-22 01:15] VITALS: BP 167/87
[2017-01-22 05:03] LABS: AUTOMATED NEUTROPHIL # 2.7 TH/MM3 (1.8-7.7); BASOPHIL % 0.7 % (0.0-2.0); EOSINOPHIL # 0.1 TH/MM3 (0-0.4); HEMATOCRIT 35.1 % (39.0-51.0); HEMO FLAGS DIFF FINAL; LYMPH % 33.5 % (9.0-44.0); LYMPHOCYTE # 1.8 TH/MM3 (1.0-4.8); MEAN CELL VOLUME 100.1 FL (80.0-100.0); MEAN CORPUSCULAR HEMOGLOBIN 35.1 PG (27.0-34.0); MEAN CORPUSCULAR HGB CONC 35.1 % (32.0-36.0); MONO % 12.1 % (0.0-8.0); NEUT % 51.7 % (16.0-70.0); PLATELET COUNT 146 TH/MM3 (150-450); RED BLOOD COUNT 3.51 MIL/MM3 (4.50-5.90); RED CELL DISTRIBUTION WIDTH 12.5 % (11.6-17.2); WHITE BLOOD COUNT 5.3 TH/MM3 (4.0-11.0)
[2017-01-22 05:29] LABS: ALKALINE PHOSPHATASE 77 U/L (45-117); TOTAL BILIRUBIN ADULT 0.3 MG/DL (0.2-1.0)
[2017-01-22 05:30] LABS: ALT (GPT) 34 U/L (12-78); ANION GAP 10 MEQ/L (5-15); AST (GOT) 30 U/L (15-37); BICARBONATE 25.5 MEQ/L (21.0-32.0); BLOOD UREA NITROGEN 5 MG/DL (7-18); CHLORIDE 102 MEQ/L (98-107); GLOMERULAR FILTRATION RATE 147 ML/MIN (>89); POTASSIUM 3.1 MEQ/L (3.5-5.1); SODIUM (NA) 137 MEQ/L (136-145)
[2017-01-22 08:00] VITALS: BP 142/94; PULSE 84; RESP 18; TEMP 98; O2SAT 99
[2017-01-22] MEDS: SODIUM CHLOR 0.9% 1000 ML INJ 1,000 ML IV SCH (08:56)
[2017-01-22] MEDS: SODIUM CHLORIDE 0.9% FLUSH 10 ML FLUSH IV FLUSH SCH ×2 (09:00→22:16)
[2017-01-22] MEDS: levETIRAcetam 500 MG TAB PO SCH ×2 (09:22→19:35)
[2017-01-22] MEDS: THIAMINE HCL 100 MG TAB PO SCH (09:23)
[2017-01-22] MEDS: DOCUSATE SODIUM 50 MG/SENNA 8.6 MG TAB PO SCH ×2 (09:23→21:00)
[2017-01-22] MEDS: MULTIVITAMINS/MINERALS THERAPEUTIC TAB PO SCH (09:23)
[2017-01-22] MEDS: FOLIC ACID 1 MG TAB PO SCH (09:23)
[2017-01-22] MEDS: LISINOPRIL 10 MG TAB PO SCH (09:30)
[2017-01-22] MEDS ORDERED: POTASSIUM CHLORIDE 20 MEQ CONTROLLED RELEASE TAB PO ONE (10:45)
[2017-01-22] MEDS ORDERED: AMLO10 PO (11:08)
[2017-01-22] MEDS ORDERED: LISI10TA3 PO (11:08)
[2017-01-22] MEDS ORDERED: LEVE500 PO (11:08)
[2017-01-22] MEDS: LORazepam 2 MG/ML VIAL IV PUSH PRN ×3 (11:36→18:44)
[2017-01-22 12:00] VITALS: BP 142/97; PULSE 78; RESP 18; TEMP 98.1; O2SAT 100
--- NOTE | 2017-01-22 15:15 | HHI.PR ---
Subjective Remarks Follow-up for seizure disorder in hypertensive urgency Concerns for patient's nurse that he seems to be behaving oddly. She stated that last night and this morning he turned on all the sinks. He also thought that his food was in the shower. He shouldn't also seemed to have a little pressured speech during interview. He is able to tell me his name, location, date. He denies any depression, suicidal homicidal ideation. Deny any hallucination. When I asked about his food being in the shower he stated that he thought someone put it in the shower because he saw a plate so was wondering. Patient is able to have an appropriate conversation but does have some pressured speech. He did follow the nurse and I out of the room and stated that he needs his number updated to us. Patient does follow commands. Objective Vitals Vital Signs Date Time Temp Pulse Resp B/P (MAP) Pulse Ox O2 Delivery O2 Flow Rate FiO2 01/22/17 08:00 98.0 84 18 142/94 (110) 99 01/22/17 01:15 167/87 (113) 01/22/17 00:30 98.6 87 19 151/100 (117) 100 01/21/17 19:20 97.9 89 18 142/86 (104) 98 01/21/17 16:00 97.0 78 18 140/77 (98) 100 I/O 01/21/17 01/21/17 01/21/17 01/22/17 01/22/17 01/22/17 07:00 15:00 23:00 07:00 15:00 23:00 Intake Total 480 ml 600 ml 480 ml 341 ml Balance 480 ml 600 ml 480 ml 341 ml Intake Oral 480 ml 600 ml 480 ml 240 ml IV Total 101 ml # Voids 6 3 4 1 # Bowel Movements 1 0 3 0 Result Diagram: 01/22/17 0400 01/22/17 0400 Objective Remarks GENERAL: in NAD CARDIOVASCULAR: Regular rate and rhythm without murmurs, gallops, or rubs. RESPIRATORY: Breath sounds equal bilaterally. No accessory muscle use. GASTROINTESTINAL: Abdomen soft, non-tender, nondistended. MUSCULOSKELETAL: No cyanosis, or edema. BACK: Nontender without obvious deformity. No CVA tenderness. NEURO: AAO X 3. Motor and sensation grossly intact. Psych: pressure speech Medications and IVs Current Medications Sodium Chloride 1,000 ml @ 1,000 mls/hr Q1H ONCE IV Last administered on 19:41; Start 01/19/17 at 19:18; Stop 01/19/17 at 20:17; Status DC Sodium Chloride (NS Flush) 2 ml UNSCH PRN IVF FLUSH AFTER USING IV ACCESS; Start 01/19/17 at 19:30 Lorazepam (Ativan Inj) 1 mg ONCE ONCE IVS Last administered on 01/19/17 19:42 ; Start 01/19/17 at 19:30; Stop 01/19/17 at 19:31; Status DC Lorazepam (Ativan Inj) 1 mg ONCE ONCE IV PUSH Last administered on 01/19/17 21:22; Start 01/19/17 at 20:45; Stop 01/19/17 at 20:46; Status DC Folic Acid (Folate) 1 mg DAILY PO Last administered on 01/22/17 09:23; Start 01/20/17 at 09:00; Stop 01/25/17 at 08:59 Thiamine HCl (Vitamin B1) 100 mg DAILY PO ; Start 01/19/17 at 21:00; Stop at 22:14; Status DC Multivitamins/ Minerals Therapeutic (Theragran M Tab) 1 tab DAILY PO Last administered on 01/22/17 09:23; Start 01/20/17 at 09:00; Stop 01/25/17 at 08:59 Flumazenil (Romazicon Inj) 0.2 mg Q1M PRN IV PUSH SEE LABEL COMMENTS; Start at 21:00 Lorazepam (Ativan) 1 mg Q4H PRN PO CIWA 8 - 10 Last administered on 01/22/17 05:18; Start 01/19/17 at 21:00 Lorazepam (Ativan Inj) 1 mg Q4H PRN IV PUSH CIWA 8 - 10 Last administered on 11:36; Start 01/19/17 at 21:00 Lorazepam (Ativan) 2 mg Q2H PRN PO CIWA 11-14; Start 01/19/17 at 21:00 Lorazepam (Ativan Inj) 2 mg Q2H PRN IV PUSH CIWA 11-14 Last administered on 02:12; Start 01/19/17 at 21:00 Lorazepam (Ativan Inj) 2 mg Q1H PRN IV PUSH CIWA 15-20 Last administered on 23:33; Start 01/19/17 at 21:00 Lorazepam (Ativan Inj) 2 mg Q15M PRN IV PUSH CIWA > 20; Start 01/19/17 at 21:00 Haloperidol Lactate (Haldol Inj) 2 mg Q15M PRN IM SEE LABEL COMMENTS Last administered on 01/19/17 23:02; Start 01/19/17 at 21:00 Levetriacetam 500 mg/Sodium Chloride 105 ml @ 420 mls/hr BOLUS ONCE IV Last administered on 01/19/17 22:27; Start 01/19/17 at 21:00; Stop 01/19/17 at 21:14 ; Status DC Sodium Chloride 1,000 ml @ 100 mls/hr Q10H IV Last administered on 01/20/17 05:41; Start 01/19/17 at 20:56; Stop 01/22/17 at 10:39; Status DC Sodium Chloride (NS Flush) 2 ml UNSCH PRN IV FLUSH FLUSH AFTER USING IV ACCESS ; Start 01/19/17 at 21:00 Sodium Chloride (NS Flush) 2 ml BID IV FLUSH Last administered on 01/22/17 09: 00; Start 01/19/17 at 21:00 Ondansetron HCl (Zofran Inj) 4 mg Q6H PRN IVP NAUSEA OR VOMITING; Start at 21:00 Acetaminophen (Tylenol) 650 mg Q6H PRN PO FEVER; Start 01/19/17 at 21:00 Oxycodone HCl (Roxicodone) 10 mg Q4H PRN PO PAIN SCALE 6 TO 10; Start 01/19/17 at 21:00 Oxycodone HCl (Roxicodone) 5 mg Q4H PRN PO PAIN SCALE 3 TO 5 Last administered on 01/22/17 04:01; Start 01/19/17 at 21:00 Senna/Docusate Sodium (Jonna-Colace) 1 tab BID PO Last administered on 09:23; Start 01/19/17 at 21:00 Magnesium Hydroxide (Milk Of Magnesia Liq) 30 ml Q12H PRN PO MILD - MODERATE CONSTIPATION; Start 01/19/17 at 21:00 Sennosides (Senokot) 17.2 mg Q12H PRN PO MODERATE - SEVERE CONSTIPATION; Start 01/19/17 at 21:00 Bisacodyl (Dulcolax Supp) 10 mg DAILY PRN RECTAL SEVERE CONSITIPATION; Start at 21:00 Lactulose (Lactulose Liq) 30 ml DAILY PRN PO SEVERE CONSITIPATION; Start at 21:00 Levetriacetam (Keppra) 500 mg BID PO ; Start 01/19/17 at 21:00; Status Cancel Clonidine (Catapres) 0.2 mg Q8HR PO Last administered on 01/21/17 05:32; Start 01/19/17 at 22:00; Status Future Hold Levetriacetam (Keppra) 500 mg BID PO ; Start 01/20/17 at 09:00; Stop 01/20/17 at 10:19; Status DC Lorazepam (Ativan Inj) 1 mg Q5M PRN IV PUSH SEIZURE; Start 01/19/17 at 21:30 Metoprolol Tartrate (Lopressor Inj) 5 mg ONCE ONCE IV PUSH Last administered on 01/19/17 23:02; Start 01/19/17 at 22:15; Stop 01/19/17 at 22:21; Status DC Thiamine HCl 100 mg/Sodium Chloride 101 ml @ 100 mls/hr Q24H IV Last administered on 01/21/17 22:09; Start 01/19/17 at 22:45; Stop 01/22/17 at 22:44 Thiamine HCl (Vitamin B1) 100 mg DAILY PO Last administered on 01/22/17 09:23 ; Start 01/22/17 at 09:00 Levetriacetam (Keppra) 1,000 mg BID PO Last administered on 01/22/17 09:22; Start 01/20/17 at 21:00 Amlodipine Besylate (Norvasc) 10 mg DAILY PO Last administered on 01/22/17 09: 22; Start 01/21/17 at 14:00 Enalaprilat (Vasotec Inj) 1.25 mg Q6H PRN IV PUSH SBP>180 or DBP>100; Start at 14:00 Lisinopril (Prinivil) 10 mg DAILY PO Last administered on 01/22/17 09:30; Start 01/22/17 at 09:00 Potassium Chloride (KCl) 40 meq ONCE ONCE PO Last administered on 01/22/17 11 :34; Start 01/22/17 at 10:45; Stop 01/22/17 at 11:10; Status DC A/P Problem List: (1) Alcohol abuse ICD Code: F10.10 - Alcohol abuse, uncomplicated Status: Chronic (2) Seizure disorder ICD Code: G40.909 - Epilepsy, unspecified, not intractable, without status epilepticus Status: Acute (3) Thrombocytopenia ICD Code: D69.6 - Thrombocytopenia, unspecified (4) HTN (hypertension) ICD Code: I10 - Essential (primary) hypertension (5) Tobacco abuse ICD Code: Z72.0 - Tobacco use Status: Acute Assessment and Plan Alcohol Abuse: - w/ Acute Alcohol Withdrawal, normally drinks 8-10 beers/day, today had only 1 beer in attempts to quit. Alcohol negative. S/p Ativan IV x2 in ER w/ some improvement, start CIWA, Seizure Precautions, MVT/Thiamine/Folate replacement. -At the moment no signs withdrawals. Continue current regimen Odd behavior/pressure speech -Unsure if patient has a psych disorder. He is AAO X 4. He does not display any signs or symptoms of any harm to himself or others and denies this. He is able to understands my directions and he is able to follow them. -will consult psych, but at the moment he does not meet [place] criteria. 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 CT Head w/ no acute findings. Continue w/ home Keppra, Ativan prn. -Most likely secondary to alcoholism. -Neurologist consulted and following and increase his Keppra. Continue to monitor. -Patient is noncompliant. He stated that he could not afford his Keppra. Patient qualify for blue car so Keppra is covered. Thrombocytopenia: Chronic. Platelets 120, previously 78 on 08/01/16. No active bleeding. -Need to stop drinking if he does not want this to worsen. Patient aware. HTN urgency: -Improved with amlodipine. Lisinopril added this morning. Tobacco Abuse: Pt counselled. Ativan/NicoDerm prn if needed. DVT Prophylaxis: SCD/Teds. Dealt with patient's nurse. Leah Goodson MD Jan 22, 2017 15:15
[2017-01-22] MEDS: NICOTINE 21 MG/24 HR PATCH T-DERMAL SCH (15:30)
[2017-01-22 16:00] VITALS: BP 129/76; PULSE 107; RESP 18; TEMP 96.8; O2SAT 100
[2017-01-22] MEDS: HALOPERIDOL LACTATE 5 MG/ML AMP IM PRN ×2 (16:36→19:38)
[2017-01-22] MEDS ORDERED: HALOPERIDOL LACTATE 5 MG/ML AMP IV PUSH ONE (19:30)
[2017-01-22] MEDS ORDERED: LORazepam 2 MG/ML VIAL IV PUSH ONE (19:30)
[2017-01-22 20:45] VITALS: BP_SYST 128; BP_SYST 154; BP_DIAS 62; BP_DIAS 97; PULSE 74; PULSE 79; RESP 18; TEMP 97.2; TEMP 97.8; O2SAT 98; O2SAT 99
[2017-01-22] MEDS ORDERED: REMOVE OLD PATCH T-DERMAL SCH (21:00)
[2017-01-23 01:30] VITALS: BP 164/92; PULSE 85; RESP 18; TEMP 97.4; O2SAT 98
[2017-01-23 08:00] VITALS: BP 157/98; PULSE 72; RESP 18; TEMP 97.5; O2SAT 100
[2017-01-23] MEDS: NICOTINE 21 MG/24 HR PATCH T-DERMAL SCH (08:37)
[2017-01-23] MEDS: MULTIVITAMINS/MINERALS THERAPEUTIC TAB PO SCH (08:37)
[2017-01-23] MEDS: FOLIC ACID 1 MG TAB PO SCH (08:37)
[2017-01-23] MEDS: LORazepam 1 MG TAB PO PRN ×2 (08:37→18:36)
[2017-01-23] MEDS: levETIRAcetam 500 MG TAB PO SCH (08:37)
[2017-01-23] MEDS: THIAMINE HCL 100 MG TAB PO SCH (08:37)
[2017-01-23] MEDS: SODIUM CHLORIDE 0.9% FLUSH 10 ML FLUSH IV FLUSH SCH (08:38)
[2017-01-23] MEDS: DOCUSATE SODIUM 50 MG/SENNA 8.6 MG TAB PO SCH (08:38)
[2017-01-23] MEDS: LISINOPRIL 10 MG TAB PO SCH (08:38)
[2017-01-23] MEDS ORDERED: LISINOPRIL 10 MG TAB PO ONE (10:45)
[2017-01-23] MEDS ORDERED: LISI-515 PO (10:58)
--- NOTE | 2017-01-23 11:00 | HHI.DS ---
Discharge Summary Admission Date Jan 19, 2017 at 20:54 Discharge Date: Jan 23, 2017 Admitting Diagnosis altered mental status/alcohol withdrawal/seizures (1) Delirium ICD Code: R41.0 - Disorientation, unspecified (2) Alcohol abuse ICD Code: F10.10 - Alcohol abuse, uncomplicated Diagnosis: Secondary Status: Chronic (3) Seizure disorder ICD Code: G40.909 - Epilepsy, unspecified, not intractable, without status epilepticus Status: Acute (4) Thrombocytopenia ICD Code: D69.6 - Thrombocytopenia, unspecified Diagnosis: Secondary (5) HTN (hypertension) ICD Code: I10 - Essential (primary) hypertension (6) Tobacco abuse ICD Code: Z72.0 - Tobacco use Status: Acute Procedures none Brief History - From Admission This is a 36-year-old male with a PMH of Alcohol Abuse, Seizure Disorder, h/o TBI after head trauma while intoxicated and Tobacco Abuse who was brought to the ER by his brother secondary to seizure. Per brother, pt w/ episode of seizure last night. Today, brother noted him to be increasingly confused and having hallucinations. On Keppra 500mg po bid, reports compliance w/ meds however has no PCP or Neurology follow up, obtains prescriptions in the ER. Normally drinks 8-10 beers/day, had only 1 beer today per patient. On arrival, BP 177/111, HR 86, O2 sat 98% on RA, Temp 99.9. CBC essentially at baseline. Platelets 120, previously 78 on 08/01/16. Chemistry essentially unremarkable. Urine Drug Screen pending. Alcohol less than 3. CT Evidence acute findings. S /p Ativan IV in ER x2 w/ some improvement. CBC/BMP: 01/22/17 0400 01/22/17 0400 Significant Findings Laboratory Tests Test 01/22/17 04:00 Red Blood Count 3.51 MIL/MM3 (4.50-5.90) Hemoglobin 12.3 GM/DL (13.0-17.0) Hematocrit 35.1 % (39.0-51.0) Mean Corpuscular Volume 100.1 FL (80.0-100.0) Mean Corpuscular Hemoglobin 35.1 PG (27.0-34.0) Platelet Count 146 TH/MM3 (150-450) Monocytes (%) (Auto) 12.1 % (0.0-8.0) Blood Urea Nitrogen 5 MG/DL (7-18) Potassium Level 3.1 MEQ/L (3.5-5.1) Imaging Last Impressions Head CT 01/19/17 0000 Signed Impressions: Service Date/Time: Thursday, January 19, 2017 19:38 - CONCLUSION: No acute disease. Arsen Briseno MD PE at Discharge GENERAL: in NAD laying in bed CARDIOVASCULAR: Regular rate and rhythm without murmurs, gallops, or rubs. RESPIRATORY: Breath sounds equal bilaterally. No accessory muscle use. GASTROINTESTINAL: Abdomen soft, non-tender, nondistended. MUSCULOSKELETAL: No cyanosis, or edema. BACK: Nontender without obvious deformity. No CVA tenderness. NEURO: AAO X 3. Motor and sensation grossly intact. Psych: seems to be tired. Pt update on day of discharge Follow-up for seizure and hypertension Overnight patient became more agitated and was hallucinating. Psychiatrist saw patient this morning and stated patient to be transferred to [facility]. He schedule Haldol. When I saw patient he was laying in bed. He was AAO 3. I asked patient if he remember what happened yesterday. He stated yes that he was sleeping all day. Otherwise he has no other complaints. 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 CT Head w/ no acute findings. Continue w/ home Keppra, Ativan prn. -Most likely secondary to alcoholism. -Neurologist consulted and his Keppra. -Patient is noncompliant. He stated that he could not afford his Keppra. Patient qualify for blue car so Keppra is covered. Alcohol Abuse: - w/ Acute Alcohol Withdrawal, normally drinks 8-10 beers/day, today had only 1 beer in attempts to quit. Alcohol negative. S/p Ativan IV x2 in ER w/ some improvement, start CIWA, Seizure Precautions, MVT/Thiamine/Folate replacement. -At the moment no signs withdrawals. Continue current regimen Delirium -Unsure if patient has a psych disorder versus DVT. Hallucination did worsen since yesterday. I just was consulted. Please refer to his note. Per psychiatrist patient will need to be [place] act and transfer to psych med. He also stated that symptoms could be due to side effects with Keppra and wants neurologist to consider changing patient anti-epileptic medication. Thrombocytopenia: Chronic. Platelets 120, previously 78 on 08/01/16. No active bleeding. -Need to stop drinking if he does not want this to worsen. Patient aware. HTN urgency: -Improved with amlodipine and lisinopril. Continue current regimen. Tobacco Abuse: Pt counselled. Ativan/NicoDerm prn if needed. Pt Condition on Discharge: Stable Discharge Disposition: Disc to Psych Care Fac Discharge Time: <= 30 minutes Discharge Instructions DIET: Follow Instructions for: Heart Healthy Diet Activities you can perform: Regular-No Restrictions Follow up Referrals: Neurology - 2 Weeks with Che Ortega MD PCP Follow-up - 1 Week New Medications: Amlodipine (Norvasc) 10 Mg Tab 10 MG PO DAILY for hypertension, #30 TAB 0 Refills Levetiracetam (Keppra) 500 Mg Tab 1000 MG PO BID for seizure, #60 TAB 0 Refills Lisinopril (Lisinopril) 20 Mg Tab 20 MG PO DAILY for hypertension, #30 TAB 0 Refills Continued Medications: Albuterol 6.7 GM Inh (Proventil Hfa 6.7 GM Inh) 90 Mcg/Act Aer 2 PUFF INH Q4-6H PRN for SHORTNESS OF BREATH, #1 INHALER 0 Refills Discontinued Medications: Levetiracetam (Keppra) 500 Mg Tab 500 MG PO BID for Control Seizures, #60 TAB 0 Refills Leah Goodson MD Jan 23, 2017 11:00
[2017-01-23 12:00] VITALS: BP 132/86; PULSE 74; RESP 18; TEMP 96.9; O2SAT 99
[2017-01-23] MEDS ORDERED: HALOPERIDOL LACTATE 5 MG/ML AMP IM PRN (12:15)
--- NOTE | 2017-01-23 12:33 | PD.PSY.CON ---
Provisional Diagnosis Admission Date Jan 19, 2017 at 20:54 [place] I. Unspecified psychosis [place] II. Deferred [place] III. 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 Per brother, pt w/ episode of seizure last night. Today , brother noted him to be increasingly confused and having hallucinations. On Keppra 500mg po bid, reports compliance w/ meds however has no PCP or Neurology follow up, obtains prescriptions in the ER. Normally drinks 8-10 beers/day, had only 1 beer today per patient. On arrival, BP 177/111, HR 86, O2 sat 98% on RA, Temp 99.9. CBC essentially at baseline. Platelets 120, previously 78 on 08/01/16. Chemistry essentially unremarkable. Urine Drug Screen pending. Alcohol less than 3. CT Evidence acute findings. S/p Ativan IV in ER x2 w/ some improvement. Patient was seen by neurology the increased Keppra 1000 mg twice a day. She was consulted to psychiatry due to odd behavior in the floor. As per nurses patient has been acting very bizarre since yesterday, talking to himself, walking in the floor, getting into others' patient unit stating that they are his family members. Internally preoccupied, at times agitating is stating that there are snakes in the floor. Nurse in charge stated that yesterday was a very difficult day with the patient, was very difficult to handle and had to be medicated several times with Ativan and Haldol to calm him down. Today a psychiatric evaluation patient continues to be confused, his oriented in person time and place. He seems to be internally preoccupied and guarded, but no agitation or aggressive behavior are evident. Patient reports good mood, denies depressive symptoms, he denies anhedonia, he denies helplessness, he denies hopelessness, denies problems with appetite or with concentration, he denies suicidal and homicidal ideation. He does report hearing voices "of people talking about me and against me"and also reports visual hallucinations of animals in the floor. Patient does not seems to be distressed by perceptual disturbances at this moment. Patient is oriented 3. No fluctuation of consciousness, no attention deficit present at this moment. He reports daily use of alcohol, he takes 5-8 beers per day. He denies the use of illicit drugs. Review of Systems Constitutional: DENIES: Diaphoretic episodes, Fatigue, Fever, Weight gain, Weight loss, Chills, Dizziness, Change in appetite, Night Sweats Endocrine: DENIES: Heat/cold intolerance, Polydipsia, Polyuria, Polyphagia Eyes: DENIES: Blurred vision, Diplopia, Eye inflammation, Eye pain, Vision loss , Photosensitivity, Double Vision Ears, nose, mouth, throat: DENIES: Tinnitus, Hearing loss, Vertigo, Nasal discharge, Oral lesions, Throat pain, Hoarseness, Ear Pain, Running Nose, Epistaxis, Sinus Pain, Toothache, Odynophagia Respiratory: DENIES: Apneas, Cough, Snoring, Wheezing, Hemoptysis, Sputum production, Shortness of breath Gastrointestinal: DENIES: Abdominal pain, Black stools, Bloody stools, Constipation, Diarrhea, Nausea, Vomiting, Difficulty Swallowing, Anorexia Musculoskeletal: DENIES: Joint pain, Muscle aches, Stiffness, Joint Swelling, Back pain, Neck pain Integumentary: DENIES: Abnormal pigmentation, Nail changes, Pruritus, Rash Hematologic/lymphatic: DENIES: Bruising, Lymphadenopathy Immunologic/allergic: DENIES: Eczema, Urticaria Neurologic: DENIES: Abnormal gait, Headache, Localized weakness, Paresthesias, Seizures, Speech Problems, Tremor, Poor Balance Psychiatric: COMPLAINS OF: Hallucinations, Agitation, Delusions, DENIES: Anxiety, Confusion, Mood changes, Depression, Suicidal Ideation, Homicidal Ideation Past Family Social History Coded Allergies: No Known Allergies (Verified , 01/19/17) Active Scripts Levetiracetam (Keppra) 500 Mg Tab, 1000 MG PO BID for seizure, #60 TAB 0 Refills Prov:Leah Goodson MD 01/22/17 Amlodipine (Norvasc) 10 Mg Tab, 10 MG PO DAILY for hypertension, #30 TAB 0 Refills Prov:Leah Goodson MD 01/22/17 Levetiracetam (Keppra) 500 Mg Tab, 500 MG PO BID for Control Seizures, #60 TAB 0 Refills Prov:Rashaad Sharma MD 12/04/16 Reported Medications Albuterol 6.7 GM Inh (Proventil Hfa 6.7 GM Inh) 90 Mcg/Act Aer, 2 PUFF INH Q4- 6H Y for SHORTNESS OF BREATH, #1 INHALER 0 Refills 05/26/16 Discontinued Scripts Phenytoin Extended (Phenytoin Extended) 100 Mg Cap, 100 MG PO TID for Control Seizures, #90 CAP 0 Refills Prov:Aixa Mckeon MD 08/01/16 Current Medications Medications (Trade) Dose Ordered Sig/Nader Route Start Time Stop Time Status Last Admin (NS Flush) 2 ml UNSCH PRN IVF 01/19/17 19:30 (Folate) 1 mg DAILY PO 01/20/17 09:00 01/25/17 08:59 01/23/17 08:37 (Theragran M Tab) 1 tab DAILY PO 01/20/17 09:00 01/25/17 08:59 01/23/17 08:37 (Romazicon Inj) 0.2 mg Q1M PRN IV PUSH 01/19/17 21:00 (Ativan) 1 mg Q4H PRN PO 01/19/17 21:00 01/23/17 08:37 (Ativan Inj) 1 mg Q4H PRN IV PUSH 01/19/17 21:00 01/22/17 11:36 (Ativan) 2 mg Q2H PRN PO 01/19/17 21:00 (Ativan Inj) 2 mg Q2H PRN IV PUSH 01/19/17 21:00 01/22/17 16:35 (Ativan Inj) 2 mg Q1H PRN IV PUSH 01/19/17 21:00 01/22/17 18:44 (Ativan Inj) 2 mg Q15M PRN IV PUSH 01/19/17 21:00 01/22/17 19:54 (Haldol Inj) 2 mg Q15M PRN IM 01/19/17 21:00 01/22/17 19:38 (NS Flush) 2 ml UNSCH PRN IV FLUSH 01/19/17 21:00 (NS Flush) 2 ml BID IV FLUSH 01/19/17 21:00 01/23/17 08:38 (Zofran Inj) 4 mg Q6H PRN IVP 01/19/17 21:00 (Tylenol) 650 mg Q6H PRN PO 01/19/17 21:00 (Roxicodone) 10 mg Q4H PRN PO 01/19/17 21:00 (Roxicodone) 5 mg Q4H PRN PO 01/19/17 21:00 01/22/17 04:01 (Jonna-Colace) 1 tab BID PO 01/19/17 21:00 01/23/17 08:38 (Milk Of Magnesia Liq) 30 ml Q12H PRN PO 01/19/17 21:00 (Senokot) 17.2 mg Q12H PRN PO 01/19/17 21:00 (Dulcolax Supp) 10 mg DAILY PRN RECTAL 01/19/17 21:00 (Lactulose Liq) 30 ml DAILY PRN PO 01/19/17 21:00 (Catapres) 0.2 mg Q8HR PO 01/19/17 22:00 Future Hold 01/21/17 05:32 (Ativan Inj) 1 mg Q5M PRN IV PUSH 01/19/17 21:30 (Vitamin B1) 100 mg DAILY PO 01/22/17 09:00 01/23/17 08:37 (Keppra) 1,000 mg BID PO 01/20/17 21:00 01/23/17 08:37 (Norvasc) 10 mg DAILY PO 01/21/17 14:00 01/23/17 08:38 (Vasotec Inj) 1.25 mg Q6H PRN IV PUSH 01/21/17 14:00 (Habitrol 21 Mg Patch.24 Hr) 1 patch DAILY T-DERMAL 01/22/17 15:30 01/23/17 08:37 Miscellaneous Information 1 HS T-DERMAL 01/22/17 21:00 01/22/17 21:00 (Prinivil) 20 mg DAILY PO 01/24/17 09:00 Family History Denies family psychiatric history Social History Patient was born and raised in [place], he lives with friends, he is unemployed, never , highest level of education is some college Patient's Strengths (min. 2) Verbal communication Physical Exam There is no tremors, no withdrawal symptoms, no psychomotor retardation or agitation at this moment, no pupillaries abnormalities, no EPS Vital Signs Vital Signs Date Time Temp Pulse Resp B/P (MAP) Pulse Ox O2 Delivery O2 Flow Rate FiO2 01/23/17 08:00 97.5 72 18 157/98 (117) 100 01/19/17 23:49 Room Air I/O 01/23/17 01/23/17 01/24/17 08:00 16:00 00:00 Intake Total 360 ml Output Total 1100 ml Balance -740 ml Lab Results Labs reviewed Result Diagram: 01/22/1739901/22/17399 Mental Status Examination Appearance man, disheveled, poor hygiene, poorly cooperative, guarded Speech: Hesitant, Slow Orientation: x3 Memory: Unremarkable Thought Process: Loose Association, Thought Blocking Thought Content: Bizarre thinking, Paranoid Language Limited due to level of psychosis Fund of Knowledge Limited due to level of psychosis Hallucination Type: Auditory, Visual Attention and Concentration: Good Suicidal Ideation: No Previous Suicide Attempts: No Homicidal Ideation: No Previous Homicide Attempts: No Insight: Fair Judgment: Impulsive Affect: Irritable, Oppositional Mood: Irritable Motor Activity: Normal gait Assessment & Plan Problem List: (1) Unspecified psychosis ICD Codes: F29 - Unspecified psychosis not due to a substance or known physiological condition Assessment & Plan: Patient presents with was seen to be new-onset progressive agitation, bizarre and aggressive behavior in the floor, internal preoccupation , visual and auditory hallucinations, confusion or disorientation, disorganized patient in the last 2 days. At this moment is unclear if current presentation is secondary to post ictal state after seizures, Keppra-induced aggressive behavior and psychosis, alcohol withdrawal or primary major psychiatric conditions. However, patient seems to be distressed by perceptual disturbances and he seems to represent an increased danger to self and others due to level of psychosis. Patient needs psychiatric hospitalization for stabilization. I will [place] act the patient for involuntary commitment. We'll start Haldol 5 mg twice a day. Haldol 5 mg IM every 8 hours when necessary aggressive behavior and agitation. Patient might benefit of switching Keppra to Depakote, but this is a neurology decision. Transfer patient to [facility]. Assessment & Plan Estimated LOS: Дмитрий Jose MD Jan 23, 2017 12:33
[2017-01-23] MEDS ORDERED: HALOPERIDOL 5 MG TAB PO SCH (14:00)
[2017-01-23 16:00] VITALS: BP 141/91; PULSE 81; RESP 18; TEMP 97.1; O2SAT 100
[2017-01-24] MEDS ORDERED: LISINOPRIL 20 MG TAB PO SCH (09:00)
== END 2017-01-23 19:51 | DRG 897 ==
LOC: NEPC 17:55 → NEDA 20:54 → N06A 01-20 02:30
PROVIDERS: ADMIT Family Medicine; ATTEND Family Medicine
DX: F10.231 Alcohol dependence with withdrawal delirium (principal); D69.6 Thrombocytopenia, unspecified; G40.909 Epilepsy, unspecified, not intractable, without status epilepticus; I10 Essential (primary) hypertension; T42.6X6A Underdosing of other antiepileptic and sedative-hypnotic drugs, initial encounter; I16.0 Hypertensive urgency; F29 Unspecified psychosis not due to a substance or known physiological condition; Y90.0 Blood alcohol level of less than 20 mg/100 ml; Z72.0 Tobacco use; Z87.820 Personal history of traumatic brain injury; Z91.120 Patient's intentional underdosing of medication regimen due to financial hardship; Z91.14 Patient's other noncompliance with medication regimen
CPT/HCPCS: 70450; 80053; 80307; 82948; 85025; 93005; 96361; 96374; J1630; J1953; J2060; J2405; J3411; J7030

== ENCOUNTER 2017-01-23 19:56 | Inpatient (IN) | payer SELFPAY ==
[2017-01-23 19:50] VITALS: BP 161/104; PULSE 73; RESP 18; TEMP 98.2; O2SAT 99
[~2017-01-23 19:56] MED LIST changes: +AMLO10 PO; +LISI-515 PO; +LISI10TA3 PO; -PHEN100C PO
--- NOTE | 2017-01-23 21:41 | PD.CONS ---
[facility] Service [facility] Consult Requested By Dr. Sánchez Reason for Consult Possible alcohol withdrawal Primary Care Physician No Primary Care Physician Diagnoses: History of Present Illness History from patient, nursing staff, and medical records. I was called stat by psychiatrist Dr. Sánchez to evaluate this patient as patient was having high blood pressure and tremors. Dr. Sánchez has not seen this patient previously and patient was admitted to psychiatry by his partner Dr. Melara from [facility] service in the afternoon. Per nursing staff, patient was having elevated blood pressure with systolic of 180s upon his arrival to med psych floor. He was also noted to be tremulous for which the nursing staff had initially contacted Dr. Sánchez. Chart reviewed. Came to see patient at the bedside. Patient is awake, alert, oriented. He was actually quite home and denies any feelings of palpitations. Denies visual hallucinations or auditory hallucinations. Denies any tremors at present although during the interview he is noted to have some tremors. I do also note this patient from prior nursing staff reports last night. He was noted to be walking around and entering other patient's rooms in the middle of the night on medical floor. He was medicated with Ativan 2 mg IV, and Haldol 2 mg IV last night when the nursing staff called me and he actually responded very well to this medication combination and was calm and slept. Prior to this though, because of his behavior, his neighboring patients were quite worried and complaining of their safety. Which was the reason why patient was transferred to med psych unit as his main issue is that of psychiatry/behavioral problem rather than actual delirium tremens. Patient denies any prior history of hypertension. He stated he was only told of high blood pressure during this hospitalization. He has been on clonidine 0.2 mg 3 times a day, with Norvasc 10 mg daily, with lisinopril 10 mg daily while on medical floors. He admits to drinking alcohol about 6 beers a day. He also recently lost his sister who from cerebral aneurysm rupture. He and his children's mom has also has lost custody of their children to the state. For all the reasons above, he has been drinking alcohol heavily. Patient reports of history of seizures which was diagnosed sometime this year after having had a head injury. He reports he is on Keppra and Lamictal for seizures. He reports compliance with his medications although he states he was running out on Keppra and Lamictal has been out for a while. Apparently he initially came to hospital because he has had witnessed seizure by his brother. He has had no evidence of seizures while on medical floor since admission. Apart from the above, patient denies any recent fevers/nausea/vomiting/diarrhea/ urinary burning or pain on urination. Denies any hematemesis/hematochezia/melena/hematuria. Denies any chest pain/palpitations/shortness of breath/focal weakness. Of note though, patient was having some nausea at the time of my examination. He just did not have it previously at home or on medical wards. Review of Systems Except as stated in HPI: all other systems reviewed are Neg Past Family Social History Allergies: Coded Allergies: No Known Allergies (Verified , 01/19/17) Past Medical History Asthma Seizure disorder Hypertension- newly diagnosed Past Surgical History Some kind of small orthopedic surgery Reported Medications Patient's medications from medical floor reviewed Family History Younger sister with cerebral aneurysm rupture Social History Smokes about a pack a day. Drinks about 6 beers a day. Denies any drug abuse. Physical Exam Vital Signs Vital Signs Date Time Temp Pulse Resp B/P (MAP) Pulse Ox O2 Delivery O2 Flow Rate FiO2 01/23/17 19:50 98.2 73 18 161/104 (123) 99 Physical Exam GENERAL: This is a well-nourished, well-developed patient, in no apparent distress. SKIN: No rashes, ecchymoses or lesions. Cool and dry. HEAD: Atraumatic. Normocephalic. No temporal or scalp tenderness. EYES: No scleral icterus. No injection or drainage. ENT: Nose without bleeding, purulent drainage or septal hematoma. Airway patent. NECK: Trachea midline. No JVD CARDIOVASCULAR: Regular rate and rhythm without murmurs, gallops, or rubs. RESPIRATORY: Clear to auscultation. Breath sounds equal bilaterally. No wheezes , rales, or rhonchi. GASTROINTESTINAL: Abdomen soft, non-tender, nondistended. No guarding. MUSCULOSKELETAL: Extremities without clubbing, cyanosis, or edema. No calf tenderness. NEUROLOGICAL: Awake and alert. No focal deficits noted. Mood is appropriate. Laboratory Patient's lab while on medical floorreviewed Imaging Prior imaging studiesreviewed. Head CTno evidence of acute infarct/hemorrhage/ edema. Assessment and Plan Assessment and Plan Impression: Adjustment disorder Seizure disorder- on initial presentation on January 19, 2017.. Suspects this is breakthrough seizures from medications noncompliance rather than alcohol withdrawal seizures. Alcohol withdrawal while in hospital Elevated blood pressure/headaches/initial presentation of seizure- in a patient with family history of cerebral aneurysm. We'll need to rule out cerebral aneurysms. Hypertension- uncontrolled. Secondary to missing his scheduled medications during transfer from one service to another. Plan: I do believe that this patient has more behavior/psychiatry issues at this point. He definitely has adjustment disorder which would need to be addressed with his psychiatrist. He definitely is in danger of going into more serious alcohol withdrawal while in hospital. However he has been receiving appropriate benzodiazepines to prevent these alcohol withdrawals. He is at this point calm with no visual or auditory hallucinations. No tachycardia. We will continue Ativan at 1 mg IV every 2 hours when necessary for withdrawal symptoms and will give one dose now. We'll start him on scheduled Librium doses at 10 mg by mouth every 8 hours. Seizure precautions. Resume his home medications for seizure. Thiamine. Folic acid supplementation. Resume prior antihypertensive therapy. Please Vasotec 2.5 mg IV every 6 hours when necessary for blood pressure greater than 160/90 despite his scheduled doses of antihypertensives. Would also obtain CTA of the brain in the neck to rule out cerebral aneurysm due to family history. DVT prophylaxis with ambulation. Patient is medically stable to remain under psychiatry service on [facility] floor. We will follow closely and manage the medical aspects. Discussed Condition With Patient, his nurse, Chelly Le MD Jan 23, 2017 21:41
[2017-01-23] MEDS ORDERED: LORazepam 2 MG/ML VIAL IV PUSH PRN (21:45)
[2017-01-23] MEDS: LORazepam 2 MG/ML VIAL IV PUSH PRN (22:11)
[2017-01-23] MEDS ORDERED: ONDANSETRON HCL 4 MG/2 ML VIAL IVP PRN (22:30)
[2017-01-23] MEDS ORDERED: ENALAPRILAT 2.5 MG/2 ML VIAL IV PUSH PRN (22:30)
[2017-01-23] MEDS ORDERED: NALOXONE HCL 0.4 MG/ML AMP IV PRN (22:30)
[2017-01-23] MEDS ORDERED: levETIRAcetam 500 MG TAB PO ONE (22:30)
[2017-01-23] MEDS ORDERED: SODIUM CHLORIDE 0.9% FLUSH 10 ML FLUSH IV FLUSH PRN (22:30)
[2017-01-24 00:55] VITALS: BP 146/96; PULSE 84; RESP 18; TEMP 98.2; O2SAT 100
[2017-01-24] MEDS ORDERED: IOHEXOL 350 MG/ML 10 ML VIAL (for RAD DIAG) IVCONTRAST ONE (01:50)
--- NOTE | 2017-01-24 02:15 | RADRPT ---
EXAM DATE/TIME: 01/24/2017 01:37 [facility] COMPARISON: CT BRAIN W/O CONTRAST, January 19, 2017, 19:38. INDICATIONS : Headaches and seizures. Possible aneurysm. IV CONTRAST: 90 cc Omnipaque 350 (iohexol) IV ; Cumulative dose for multiple exams. RADIATION DOSE: 28.54 CTDIvol (mGy) ; Combined studies MEDICAL HISTORY : Seizures. SURGICAL HISTORY : Inguinal hernia repair. ENCOUNTER: Initial ACUITY: 1 day PAIN SCALE: 0/10 LOCATION: cranial TECHNIQUE: Volumetric scanning was performed using a multi-row detector CT scanner. The data was post processed with a variety of visualization algorithms including full volume maximum intensity projection, multi -planar sliding thin slab reformation, curved planar reformation, and surface rendering techniques. Using automated exposure control and adjustment of the mA and/or kV according to patient size, radiat ion dose was kept as low as reasonably achievable to obtain optimal diagnostic quality images. DICO M format image data is available electronically for review and comparison. FINDINGS: Anterior circulation: The internal carotid arteries demonstrate no abnormality or atherosclerotic change. A1 segments and m ore distal anterior cerebral arteries are symmetric and within normal limits. The middle cerebral art alex branches demonstrate symmetric enhancement. No aneurysm or high-grade stenosis is identified. Posterior circulation: There are patent posterior cerebral arteries bilaterally. Vertebral arteries are codominant. The basi lar artery and posterior cerebral arteries demonstrate no significant stenosis or abnormality. No ane urysm is visualized. CONCLUSION: No acute intracranial vascular abnormality is identified. No aneurysm is visualized. Van Candelaria MD on January 24, 2017 at 2:11 Board Certified Radiologist. This report was verified electronically.
[2017-01-24] MEDS ORDERED: ALUMINUM/MAGNESIUM/SIMETH 30 ML CUP PO PRN (02:30)
[2017-01-24] MEDS ORDERED: ACETAMINOPHEN 325 MG TAB PO PRN (02:30)
[2017-01-24] MEDS: LORazepam 2 MG/ML VIAL IV PUSH PRN (02:30)
[2017-01-24] MEDS ORDERED: MAGNESIUM HYDROXIDE SUSP 30 ML CUP PO PRN (02:30)
--- NOTE | 2017-01-24 02:34 | RADRPT ---
EXAM DATE/TIME: 01/24/2017 01:37 [facility] COMPARISON: No previous studies available for comparison. INDICATIONS : Headaches and seizures. Possible anuersym. IV CONTRAST: 90 cc Omnipaque 350 (iohexol) IV ; Cumulative dose for multiple exams. RADIATION DOSE: 25.54 CTDIvol (mGy) ; Combined studies MEDICAL HISTORY : Seizures. SURGICAL HISTORY : Inguinal hernia repair. ENCOUNTER: Initial ACUITY: 1 day PAIN SCALE: 0/10 LOCATION: carotids Elevated flow velocities and ICA/CCA ratios have been found to correlate with increased degrees of vessel stenosis, calculated as percentage of diameter relative to a normal segment of distal ICA/CCA. TECHNIQUE: Volumetric scanning was performed using a multirow detector CT scanner. The data was post processed with a variety of visualization algorithms including full-volume maximum intensity projection, multip lanar sliding thin-slab reformation, curved-planar reformation, and surface-rendering techniques. Us ing automated exposure control and adjustment of the mA and/or kV according to patient size, radiatio n dose was kept as low as reasonably achievable to obtain optimal diagnostic quality images. DICOM f ormat image data is available electronically for review and comparison. FINDINGS: AORTIC ARCH: Within normal limits. RIGHT CAROTID: Common carotid artery is within normal limits. No atherosclerotic disease. Bifurcation is normal. Int ernal carotid artery demonstrates no significant narrowing. LEFT CAROTID: Common carotid artery is within normal limits. No atherosclerotic disease. Bifurcation is normal. Int ernal carotid artery demonstrates no significant narrowing. VERTEBRALS: Vertebral arteries demonstrate no significant abnormality. There is an incidental 8 mm hypodense right thyroid nodule. Lucency is present adjacent to one o f the left posterior mandibular molars. A mucous retention cyst measuring approximately 2 cm is prese nt in the left maxillary antrum and causes remodeling of the left posterior maxillary sinus wall. CONCLUSION: 1. The neck arterial vasculature demonstrates no abnormality. 2. Dental disease associated with one of the left posterior mandibular molars. Van Candelaria MD on January 24, 2017 at 2:28 Board Certified Radiologist. This report was verified electronically.
[2017-01-24 06:00] VITALS: BP 125/79; PULSE 79; RESP 18; TEMP 97.3; O2SAT 99
[2017-01-24] MEDS ORDERED: cloNIDine HCL 0.2 MG TAB PO SCH (06:00)
--- NOTE | 2017-01-24 08:58 | HHI.HP ---
Provisional Diagnosis Admission Date Jan 23, 2017 at 19:56 [place] I. Unspecified psychosis,r/o post ictal psychosis, history of bipolar disorder [place] II. Deferred [place] III. Seizures, hypertension, TBI Certification of Person's Competence To Provide Express and Informed Consent I have personally examined Matthew Ponce , a person being served at [facility] on, Jan 24, 2017 08:42. Express and informed consent means consent voluntarily given in writing, by a competent person, after sufficient explanation and disclosure of the subject matter involved to enable the person to make a knowing and willful decision without any element of force, fraud, deceit, duress, or other form of constraint or coercion. This person is 18 years of age or older, is not now known to be incompetent to consent to treatment with a guardian advocate, and does not have a health care surrogate or proxy currently making medical treatment decisions. I have found this person to be one of the following: [] Competent to provide express and informed consent, as defined above, for voluntary admission to this facility and is competent to provide express and informed consent for treatment. He/she has the consistent capacity to make well reasoned, willful, and knowing decisions concerning his or her medical or mental health treatment. The person fully and consistently understands the purpose of the admission for examination/placement and is fully capable of personally exercising all rights assured under [place] Incompetent to provide express and informed consent to voluntary admission, and this is incompetent to provide express and informed consent to treatment. The person must be transferred to involuntary status and a petition for a guardian advocate filed with the Circuit Court. [X] Refusing to provide express and informed consent to voluntary admission but is competent to provide express and informed consent for treatment. The person must be discharged or transferred to involuntary status. Form shall be completed within 24 hours of a person's arrival at the receiving facility and filed in the clinical record of each person: 1. Admitted on a voluntary basis 2. Permitted to provide express and informed consent to his/her own treatment 3. Allowed to transfer from involuntary to voluntary status 4. Prior to permitting a person to consent to his or her own treatment after having been previously found incompetent to consent to treatment. 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 Per brother, pt w/ episode of seizure last night. Today, brother noted him to be increasingly confused and having hallucinations. On Keppra 500mg po bid, reports compliance w/ meds however has no PCP or Neurology follow up, obtains prescriptions in the ER. Normally drinks 8-10 beers/day, had only 1 beer today per patient. On arrival, BP 177/ 111, HR 86, O2 sat 98% on RA, Temp 99.9. CBC essentially at baseline. Platelets 120, previously 78 on 08/01/16. Chemistry essentially unremarkable. Urine Drug Screen pending. Alcohol less than 3. CT Evidence acute findings. S /p Ativan IV in ER x2 w/ some improvement. Patient was seen by neurology the increased Keppra 1000 mg twice a day. She was consulted to psychiatry due to odd behavior in the floor. As per nurses patient has been acting very bizarre since yesterday, talking to himself, walking in the floor, getting into others' patient unit stating that they are his family members. Internally preoccupied, at times agitating is stating that there are snakes in the floor. Nurse in charge stated that yesterday was a very difficult day with the patient, was very difficult to handle and had to be medicated several times with Ativan and Haldol to calm him down. Today a psychiatric evaluation patient continues to be confused, his oriented in person time and place. He seems to be internally preoccupied and guarded, but no agitation or aggressive behavior are evident. Patient reports good mood, denies depressive symptoms, he denies anhedonia, he denies helplessness, he denies hopelessness, denies problems with appetite or with concentration, he denies suicidal and homicidal ideation. He does report hearing voices "of people talking about me and against me"and also reports visual hallucinations of animals in the floor. Patient does not seems to be distressed by perceptual disturbances at this moment. Patient is oriented 3. No fluctuation of consciousness, no attention deficit present at this moment. He reports daily use of alcohol, he takes 5-8 beers per day. He denies the use of illicit drugs. 01/24/2017 Patient is [facility] for [facility] along with nurse in charge Delisa, long term care social worker Alana, patient was sleeping, but easily arousable. Once awake, the patient explains that he feels much better. He was able to tell us where he is, the correct date, who was the public information relations manager, he was able to explain the reason of his hospitalization. Patient also says that the reason he is in the psychiatric unit is because in the last 2 days he has been having "very nasty visual hallucinations and paranoia, but I am much better now. He she explains that for the last 24 hours he has a half visual hallucinations, he has been with a clear mind, not feeling paranoid, he explains that he understand that he is in the hospital and people want to help him. At this moment the patient denies depressive symptoms, he denies anhedonia, he denies helplessness, hopelessness, he denies problems with concentration, sleeping or with energy. He denies suicidal and homicidal ideation. He denies visual and auditory hallucinations. No gross cognitive impairment is observed at this moment. No attention deficit, no fluctuation of consciousness. At times patient seems to be a little bit internally preoccupied and kind of guarded, but he definitely doesn't seem to be psychotic. Patient reports daily use of alcohol, he says 4-6 beers every day. He denies the use of illicit drugs. Review of Systems Constitutional: DENIES: Diaphoretic episodes, Fatigue, Fever, Weight gain, Weight loss, Chills, Dizziness, Change in appetite, Night Sweats Endocrine: DENIES: Heat/cold intolerance, Polydipsia, Polyuria, Polyphagia Eyes: DENIES: Blurred vision, Diplopia, Eye inflammation, Eye pain, Vision loss , Photosensitivity, Double Vision Ears, nose, mouth, throat: DENIES: Tinnitus, Hearing loss, Vertigo, Nasal discharge, Oral lesions, Throat pain, Hoarseness, Ear Pain, Running Nose, Epistaxis, Sinus Pain, Toothache, Odynophagia Cardiovascular: DENIES: Chest pain, Palpitations, Syncope, Dyspnea on Exertion , PND, Lower Extremity Edema, Orthopnea, Claudication Gastrointestinal: DENIES: Abdominal pain, Black stools, Bloody stools, Constipation, Diarrhea, Nausea, Vomiting, Difficulty Swallowing, Anorexia Musculoskeletal: DENIES: Joint pain, Muscle aches, Stiffness, Joint Swelling, Back pain, Neck pain Integumentary: DENIES: Abnormal pigmentation, Nail changes, Pruritus, Rash Hematologic/lymphatic: DENIES: Bruising, Lymphadenopathy Immunologic/allergic: DENIES: Eczema, Urticaria Neurologic: DENIES: Abnormal gait, Headache, Localized weakness, Paresthesias, Seizures, Speech Problems, Tremor, Poor Balance Substance Abuse History Drugs/Alcohol past 12 months 4-6 beers everyday Past Family Social History Coded Allergies: No Known Allergies (Verified , 01/19/17) Active Scripts Levetiracetam (Keppra) 500 Mg Tab, 1000 MG PO BID for seizure, #60 TAB 0 Refills Prov:Leah Goodson MD 01/22/17 Amlodipine (Norvasc) 10 Mg Tab, 10 MG PO DAILY for hypertension, #30 TAB 0 Refills Prov:Leah Goodson MD 01/22/17 Levetiracetam (Keppra) 500 Mg Tab, 500 MG PO BID for Control Seizures, #60 TAB 0 Refills Prov:Rashaad Sharma MD 12/04/16 Reported Medications Albuterol 6.7 GM Inh (Proventil Hfa 6.7 GM Inh) 90 Mcg/Act Aer, 2 PUFF INH Q4- 6H Y for SHORTNESS OF BREATH, #1 INHALER 0 Refills 05/26/16 Discontinued Scripts Phenytoin Extended (Phenytoin Extended) 100 Mg Cap, 100 MG PO TID for Control Seizures, #90 CAP 0 Refills Prov:Aixa Mckeon MD 08/01/16 Current Medications Medications (Trade) Dose Ordered Sig/Nader Route Start Time Stop Time Status Last Admin (Ativan Inj) 1 mg Q2H PRN IV PUSH 01/23/17 21:45 01/24/17 02:30 (Ativan Inj) 1 mg Q15M PRN IV PUSH 01/23/17 21:45 (Librium) 10 mg TID PO 01/24/17 09:00 (NS Flush) 2 ml UNSCH PRN IV FLUSH 01/23/17 22:30 (NS Flush) 2 ml BID IV FLUSH 01/24/17 09:00 01/24/17 08:37 (Zofran Inj) 4 mg Q6H PRN IVP 01/23/17 22:30 (Narcan Inj) 0.4 mg UNSCH PRN IV 01/23/17 22:30 (Prinivil) 20 mg DAILY PO 01/24/17 09:00 (Vasotec Inj) 2.5 mg Q6H PRN IV PUSH 01/23/17 22:30 (Norvasc) 10 mg DAILY PO 01/24/17 09:00 (Habitrol 21 Mg Patch.24 Hr) 1 patch DAILY T-DERMAL 01/24/17 09:00 Miscellaneous Information 1 DAILY T-DERMAL 01/24/17 09:00 (Vitamin B1) 100 mg DAILY PO 01/24/17 09:00 (Keppra) 1,000 mg Q12HR PO 01/24/17 09:00 (Folate) 1 mg DAILY PO 01/24/17 09:00 (Catapres) 0.2 mg Q8HR PO 01/24/17 06:00 01/24/17 06:34 (Tylenol) 650 mg Q4H PRN PO 01/24/17 02:30 (Milk Of Magnesia Liq) 30 ml DAILY PRN PO 01/24/17 02:30 (Mag-Al Plus Susp Liq) 30 ml Q6H PRN PO 01/24/17 02:30 Family History Patient denies family psychiatric history Social History Patient was born and raised in [place], he lives with friends, he is unemployed, never , highest level of education is some college Physical Exam Vital Signs Vital Signs Date Time Temp Pulse Resp B/P (MAP) Pulse Ox O2 Delivery O2 Flow Rate FiO2 01/24/17 06:00 97.3 79 18 125/79 (94) 99 Mental Status Examination Appearance man, disheveled, poor hygiene, calm, cooperative Speech: Unremarkable Orientation: x3 Memory: Unremarkable Thought Process: Logical Thought Content: Unremarkable Hallucination Type: None Attention and Concentration: Good Suicidal Ideation: No Previous Suicide Attempts: No Homicidal Ideation: No Previous Homicide Attempts: No Judgment: WNL Affect: Good Mood: Appropriate Motor Activity: Normal gait Assessment & Plan Problem List: (1) Unspecified psychosis ICD Codes: F29 - Unspecified psychosis not due to a substance or known physiological condition Assessment & Plan: At the moment of this evaluation the patient does not present any significant, acute, or concerning symptomatology of depression, nancy, anxiety or psychosis. Patient denies suicidal and homicidal ideation, patient denies visual and auditory hallucinations. In the last 24 hours no episodes of agitation, aggressive behavior, erratic behavior in the floor, hostility have been reported. Patient has been compliant with his medications, without significant side effects reported. Is my impression that the psychosis displayed in the medical floor was most probably secondary to post ictal state and no to a primary psychiatric illness decompensation. Patient was widely educated about the importance of avoiding alcohol and trying to keep sobriety. We will observe the patient for the morning, monitoring psychotic behavior, and most probably will discharge the patient this afternoon after safe discharge planning is coordinated. Case was discussed with nurse and long term care social worker. Patient seems to be in agreement with this plan. Assessment & Plan Estimated LOS: Дмитрий Jose MD Jan 24, 2017 08:58
[2017-01-24] MEDS ORDERED: NICOTINE 21 MG/24 HR PATCH T-DERMAL SCH (09:00)
[2017-01-24] MEDS ORDERED: REMOVE OLD PATCH T-DERMAL SCH (09:00)
[2017-01-24] MEDS ORDERED: THIAMINE HCL 100 MG TAB PO SCH (09:00)
[2017-01-24] MEDS ORDERED: SODIUM CHLORIDE 0.9% FLUSH 10 ML FLUSH IV FLUSH SCH (09:00)
[2017-01-24] MEDS ORDERED: FOLIC ACID 1 MG TAB PO SCH (09:00)
[2017-01-24] MEDS ORDERED: LISINOPRIL 20 MG TAB PO SCH (09:00)
[2017-01-24] MEDS ORDERED: levETIRAcetam 500 MG TAB PO SCH (09:00)
[2017-01-24 10:30] LABS: AUTOMATED NEUTROPHIL # 2.1 TH/MM3 (1.8-7.7); EOSINOPHIL # 0.2 TH/MM3 (0-0.4); EOSINOPHIL % 4.6 % (0.0-4.0); HEMATOCRIT 36.8 % (39.0-51.0); HEMO FLAGS DIFF FINAL; LYMPH % 34.5 % (9.0-44.0); LYMPHOCYTE # 1.4 TH/MM3 (1.0-4.8); MEAN CELL VOLUME 101.1 FL (80.0-100.0); MEAN CORPUSCULAR HEMOGLOBIN 34.8 PG (27.0-34.0); MEAN CORPUSCULAR HGB CONC 34.4 % (32.0-36.0); MONO % 10.9 % (0.0-8.0); PLATELET COUNT 209 TH/MM3 (150-450); RED BLOOD COUNT 3.64 MIL/MM3 (4.50-5.90); RED CELL DISTRIBUTION WIDTH 12.7 % (11.6-17.2); WHITE BLOOD COUNT 4.2 TH/MM3 (4.0-11.0)
[2017-01-24 11:01] LABS: BICARBONATE 27.2 MEQ/L (21.0-32.0); POTASSIUM 3.1 MEQ/L (3.5-5.1)
== END 2017-01-24 14:15 | disposition home or self-care (01) | DRG 885 ==
LOC: H4EA 19:56
PROVIDERS: ADMIT Psychiatry & Neurology Psychiatry; ATTEND Psychiatry & Neurology Psychiatry
DX: F29 Unspecified psychosis not due to a substance or known physiological condition (principal); G40.909 Epilepsy, unspecified, not intractable, without status epilepticus; I10 Essential (primary) hypertension; F17.210 Nicotine dependence, cigarettes, uncomplicated; J45.909 Unspecified asthma, uncomplicated; Z87.820 Personal history of traumatic brain injury
CPT/HCPCS: 70496; 70498; 80048; 85025; J2060; Q9967

== ENCOUNTER 2017-02-03 20:29 | Emergency (ER) | payer SELFPAY ==
[~2017-02-03] VITALS: Ht 177.8 cm; Wt 80.5 kg
[~2017-02-03 20:29] MED LIST changes: -LISI10TA3 PO
[2017-02-03 20:36] VITALS: BP 159/98; PULSE 120; RESP 16; TEMP 98.9; O2SAT 97
[2017-02-03 20:45] VITALS: PULSE 96
--- NOTE | 2017-02-03 20:45 | PD ---
HPI Chief Complaint: Medical Clearance Time Seen by Provider: 20:45 Travel History International Travel<30 days: No Contact w/Intl Traveler<30days: No Traveled to known affect area: No History of Present Illness HPI 36-year-old male presents to the emergency department by [facility] for evaluation of hiccups. Patient states he was having hiccups really bad this evening after drinking some beer. He called 911 because of hiccups would not go away and he has never had hiccups like that before. Prior to [facility] arriving, the patient vomited one time in the hiccups resolved. Patient states now he has no hiccups but would like to make sure he is okay. Denies any fever or chills. No recent illnesses. Does admit to drinking alcohol this evening. No abdominal pain. No chest pain or tightness. No other symptoms to report. History Past Medical Histgory Medical History: Denies Significant Hx Hx Cancer: No Hx Chemotherapy: No Hx Radiation Therapy: No Social History Alcohol Use: Yes (7-8 beers weekly) Tobacco Use: Yes (1 PPD) Allergies-Medications (Allergen,Severity, Reaction): Coded Allergies: No Known Allergies (Verified , 02/03/17) Reported Meds & Prescriptions Reported Meds & Active Scripts Active Review of Systems Except as stated in HPI: all other systems reviewed are Neg Physical Exam Narrative GENERAL: Well-nourished, well-developed male patient, ambulatory and in no acute distress SKIN: Focused skin assessment warm/dry. HEAD: Normocephalic. Atraumatic EYES: No scleral icterus. No injection or drainage. NECK: Supple, trachea midline. No JVD or lymphadenopathy. CARDIOVASCULAR: Regular rate and rhythm without murmurs, gallops, or rubs. RESPIRATORY: Breath sounds equal bilaterally. No accessory muscle use. GASTROINTESTINAL: Abdomen soft, non-tender, nondistended. MUSCULOSKELETAL: No cyanosis, or edema. BACK: Nontender without obvious deformity. No CVA tenderness. Data Data Last Documented VS Vital Signs Date Time Temp Pulse Resp B/P (MAP) Pulse Ox O2 Delivery O2 Flow Rate FiO2 02/03/17 20:47 02/03/17 20:45 96 02/03/17 20:36 98.9 16 97 Room Air MDM Medical Screen Exam Complete: Yes Emergency Medical Condition: No Differential Diagnosis hiccups; resolved Narrative Course 36-year-old male presents to emergency department for evaluation. Patient states that his hiccups have resolved after he vomited one time and that is why he called [facility] ambulance. He now has no nausea or vomiting. He is not having any hiccups. He appears well. He is tachycardic initially but his heart rate has normalized on its own after sitting in the chair. I have offered the patient reassurance but at this time there is no further need for medical intervention identified. A medical screening exam was performed: At the time of evaluation the presenting medical condition was determined not to be of an emergent nature. The patient was given the option of receiving additional care, but declined. Patient was given options for additional community resources from which to obtain care. The Patient Has Been advised to seek medical attention for their presenting complaint. The patient has been advised to return to the ER at any time if an emergent condition develops. Primary Impression: Encounter for medical screening examination Condition: Stable Ly Govea Feb 03, 2017 20:45
== END 2017-02-03 20:57 | disposition left against medical advice (07) ==
LOC: NETRI 20:29
DX: R06.6 Hiccough (principal); Z72.0 Tobacco use
CPT/HCPCS: 99281

== ENCOUNTER 2017-02-23 21:42 | Emergency (ER) | payer SELFPAY ==
[2017-02-23 22:00] VITALS: BP 152/90; PULSE 84; RESP 18; TEMP 98.1; O2SAT 98
[2017-02-23] MEDS ORDERED: KEPP10002 PO (22:32)
[2017-02-23 23:10] LABS: AUTOMATED NEUTROPHIL # 1.9 TH/MM3 (1.8-7.7); BASOPHIL % 0.6 % (0.0-2.0); EOSINOPHIL # 0.1 TH/MM3 (0-0.4); EOSINOPHIL % 2.1 % (0.0-4.0); HEMATOCRIT 40.3 % (39.0-51.0); HEMO FLAGS DIFF FINAL; LYMPH % 43.1 % (9.0-44.0); LYMPHOCYTE # 1.8 TH/MM3 (1.0-4.8); MEAN CORPUSCULAR HEMOGLOBIN 35.7 PG (27.0-34.0); MEAN CORPUSCULAR HGB CONC 35.3 % (32.0-36.0); MONO % 8.9 % (0.0-8.0); NEUT % 45.3 % (16.0-70.0); PLATELET COUNT 251 TH/MM3 (150-450); RED BLOOD COUNT 3.99 MIL/MM3 (4.50-5.90); RED CELL DISTRIBUTION WIDTH 13.5 % (11.6-17.2); WHITE BLOOD COUNT 4.1 TH/MM3 (4.0-11.0)
--- NOTE | 2017-02-23 23:17 | RADRPT ---
EXAM DATE/TIME: 02/23/2017 22:58 [place] COMPARISON: No previous studies available for comparison. INDICATIONS : Chest pain. Short of breath. MEDICAL HISTORY : None. SURGICAL HISTORY : None. ENCOUNTER: Initial ACUITY: 1 day PAIN SCORE: 0/10 LOCATION: Bilateral chest FINDINGS: A single view of the chest demonstrates the lungs to be symmetrically aerated without evidence of mas s, infiltrate or effusion. The cardiomediastinal contours are unremarkable. No acute bony abnormality demonstrated. There is an old fracture of the proximal right humerus status post screw and plate fixation with hypertrophic bone and degenerative changes of the glenohumeral nasir int. CONCLUSION: No evidence of acute cardiopulmonary disease. Van Johnston MD on February 23, 2017 at 23:14 Board Certified Radiologist. This report was verified electronically.
[2017-02-23 23:27] LABS: ANION GAP 6 MEQ/L (5-15); BICARBONATE 27.9 MEQ/L (21.0-32.0); BLOOD UREA NITROGEN 4 MG/DL (7-18); CHLORIDE 107 MEQ/L (98-107); GLOMERULAR FILTRATION RATE 118 ML/MIN (>89); SODIUM (NA) 141 MEQ/L (136-145)
[2017-02-23 23:30] LABS: CREATINE KINASE 415 U/L (39-308)
[2017-02-23 23:42] LABS: CKMB 2.1 NG/ML (0.5-3.6)
[2017-02-24 01:17] VITALS: BP 135/88; PULSE 71; RESP 16; O2SAT 100
--- NOTE | 2017-02-24 02:46 | PD ---
HPI Chief Complaint: Chest Pain Time Seen by Provider: 02:39 Travel History International Travel<30 days: No Contact w/Intl Traveler<30days: No Traveled to known affect area: No History of Present Illness HPI 36-year-old male presents to the complaint of left-sided numbness and weakness 2 weeks or greater. Patient states he was seen approximately a month ago for same complaint at that time he thinks he was told he had a small stroke or TIA. Patient also reports that he is out of his Keppra which she takes for seizure. Patient denies recent seizure. Patient denies any sudden onset worst ever headache visual disturbance swallowing speech disturbance gait disturbance change in mentation and states intermittent chest pain that at times a sharp or dull in nature none now no associated shortness of breath sweats nausea vomiting referred neck jaw back shoulder arm pain. Patient states that at times his left side of his face feels swollen but he notes it's not. Patient's had no fever or chills. Patient has history of seizure disorder bipolar disorder schizophrenia asthma headaches and tobaccoism. Patient isn't to identify exacerbating or alleviating factors. Pain at time of arrival was 6/10 intensity pain at this time is 0 10 in intensity PFSH Past Medical History Narrative Medical Bipolar disorder schizophrenia seizure disorder tobacco use nursing notes reviewed Asthma: Yes Bipolar Disorder: Yes (non compliant with meds) Anxiety: No Depression: No Cancer: No Cardiovascular Problems: Yes Chemotherapy: No Cerebrovascular Accident: No Diminished Hearing: No Endocrine: No Gastrointestinal Disorders: No Genitourinary: No Headaches: Yes Immune Disorder: No Implanted Vascular Access Dvce: No Musculoskeletal: No Neurologic: Yes Psychiatric: Yes Reproductive: No Respiratory: No Migraines: No Radiation Therapy: No Schizophrenia: Yes Seizures: Yes (started a few months ago when he fell, hit his head and had a cranial bleed) Past Surgical History Abdominal Surgery: No Cardiac Surgery: No Ear Surgery: No Endocrine Surgery: No Eye Surgery: No Genitourinary Surgery: No Gynecologic Surgery: No Oral Surgery: No Thoracic Surgery: No Other Surgery: Yes (R humerus) Social History Alcohol Use: Yes (7-8 beers weekly) Tobacco Use: Yes (1 PPD) Substance Use: No Allergies-Medications (Allergen,Severity, Reaction): Coded Allergies: No Known Allergies (Verified , 02/23/17) Reported Meds & Prescriptions Reported Meds & Active Scripts Active Reported Keppra (Levetiracetam) 1,000 Mg Tab 1,000 Mg PO BID Review of Systems Except as stated in HPI: all other systems reviewed are Neg General / Constitutional: No: Fever, Chills Eyes: No: Visual changes HENT: No: Headaches, Vertigo, Neck Pain Cardiovascular: Positive: Chest Pain or Discomfort (intermittent), No: Diaphoresis, Dyspnea on exertion Respiratory: No: Shortness of Breath Gastrointestinal: No: Nausea, Vomiting, Abdominal Pain Genitourinary: No: Flank Pain Musculoskeletal: No: Myalgias, Arthralgias Skin: No Rash Neurologic: Positive: Weakness, Paresthesia (left-sided intermittent feels swollen), No: Dizziness, Syncope (generalized), Focal Abnormalities, Coordination Problem, Tremor, Ataxia, Headache, Change in Mentation, Slurred Speech Psychiatric: No: Anxiety Hematologic/Lymphatic: No: Lymph Node Enlargement Physical Exam Narrative GENERAL: Well-developed well-nourished male in acute distress no respiratory distress cervical GCS 15 SKIN: Warm and dry. HEAD: Atraumatic. Normocephalic. EYES: Pupils equal and round. No scleral icterus. No injection or drainage. ENT: No nasal bleeding or discharge. Mucous membranes pink and moist. NECK: Trachea midline. No JVD. CARDIOVASCULAR: Regular rate and rhythm. Chest wall: Tender to palpation reproducible consistent with intermittent pain of presentation RESPIRATORY: No accessory muscle use. Clear to auscultation. Breath sounds equal bilaterally. GASTROINTESTINAL: Abdomen soft, non-tender, nondistended. Hepatic and splenic margins not palpable. MUSCULOSKELETAL: Extremities without clubbing, cyanosis, or edema. No obvious deformities. NEUROLOGICAL: Awake and alert. No obvious cranial nerve deficits. Motor grossly within normal limits. Five out of 5 muscle strength in the arms and legs. No limb ataxia. No pronator drift. Sensory exam intact. Normal speech. PSYCHIATRIC: Appropriate mood and affect; insight and judgment normal. Data Data Last Documented VS Vital Signs Date Time Temp Pulse Resp B/P (MAP) Pulse Ox O2 Delivery O2 Flow Rate FiO2 02/24/17 01:19 100 Room Air 02/24/17 01:17 71 16 135/88 (104) 02/23/17 22:00 98.1 Orders Orders Electrocardiogram (02/23/17 22:46) Complete Blood Count With Diff (02/23/17 22:46) Basic Metabolic Panel (Bmp) (02/23/17 22:46) Ckmb (Isoenzyme) Profile (02/23/17 22:46) Troponin I (02/23/17 22:46) Chest, Single Ap (02/23/17 22:46) Iv Access Insert/Monitor (02/23/17 22:46) Ecg Monitoring (02/23/17 22:46) Oxygen Administration (02/23/17 22:46) Oximetry (02/23/17 22:46) CKMB (02/23/17 23:01) CKMB% (02/23/17 23:01) Electrocardiogram (02/24/17 ) Ct Brain W/O Iv Contrast(Rout) (02/24/17 ) Levetiracetam (Keppra) (02/24/17 03:45) Ketorolac Inj (Toradol Inj) (02/24/17 03:45) Labs Laboratory Tests Test 02/23/17 23:01 White Blood Count 4.1 TH/MM3 Red Blood Count 3.99 MIL/MM3 Hemoglobin 14.2 GM/DL Hematocrit 40.3 % Mean Corpuscular Volume 101.0 FL Mean Corpuscular Hemoglobin 35.7 PG Mean Corpuscular Hemoglobin Concent 35.3 % Red Cell Distribution Width 13.5 % Platelet Count 251 TH/MM3 Mean Platelet Volume 6.6 FL Neutrophils (%) (Auto) 45.3 % Lymphocytes (%) (Auto) 43.1 % Monocytes (%) (Auto) 8.9 % Eosinophils (%) (Auto) 2.1 % Basophils (%) (Auto) 0.6 % Neutrophils # (Auto) 1.9 TH/MM3 Lymphocytes # (Auto) 1.8 TH/MM3 Monocytes # (Auto) 0.4 TH/MM3 Eosinophils # (Auto) 0.1 TH/MM3 Basophils # (Auto) 0.0 TH/MM3 CBC Comment DIFF FINAL Differential Comment Blood Urea Nitrogen 4 MG/DL Creatinine 0.88 MG/DL Random Glucose 89 MG/DL Calcium Level 8.7 MG/DL Sodium Level 141 MEQ/L Potassium Level 4.0 MEQ/L Chloride Level 107 MEQ/L Carbon Dioxide Level 27.9 MEQ/L Anion Gap 6 MEQ/L Estimat Glomerular Filtration Rate 118 ML/MIN Total Creatine Kinase 415 U/L Creatine Kinase MB 2.1 NG/ML Creatine Kinase MB % 0.5 % Troponin I LESS THAN 0.02 NG/ML MDM Medical Decision Making Medical Screen Exam Complete: Yes Emergency Medical Condition: Yes Medical Record Reviewed: Yes Interpretation(s) CBC & BMP Diagram 02/23/17 23:01 Calcium Level 8.7 Vital Signs Date Time Temp Pulse Resp B/P (MAP) Pulse Ox O2 Delivery O2 Flow Rate FiO2 02/24/17 01:19 100 Room Air 02/24/17 01:17 71 16 135/88 (104) 100 Room Air 02/23/17 22:00 98.1 84 18 152/90 (110) 98 Chest x-ray: No acute process per reading radiologist Dr. Johnston EKG: Sinus rhythm rate 81 incomplete right bundle branch block Differential Diagnosis Chest pain, atypical chest pain, NE, TIA, CVA, seizure, medication refill, noncompliance Narrative Course Patient placed on cardiac monitor technician IV access obtained specimen collected and sent for resulting Chest x-ray reveals no acute abnormalities EKG is sinus rhythm with incomplete right bundle-branch pattern Lab values are found to be grossly within normal range for elevated CK total of 415 but MB percent is 0.2%; troponin I less than 0.02 CT brain noncontrast reveals no acute abnormality Patient is presently asymptomatic and stable for outpatient management Patient will be given refill of Her and given first dose of Keppra because he's been out of his medication for 7-10 days. Diagnosis Primary Impression: Paresthesias Additional Impressions: Seizure disorder Medication refill Atypical chest pain Referrals: Primary Care Physician call for appointment Patient Instructions: General Instructions Med/Other Pt SpecificInfo: Prescription(s) given Scripts Levetiracetam (Keppra) 1,000 Mg Tab 1000 MG PO BID for Control Seizures, #60 TAB 0 Refills Prov: Rocío Preciado MD 02/24/17 Rocío Preciado MD Feb 24, 2017 02:46
--- NOTE | 2017-02-24 03:10 | RADRPT ---
EXAM DATE/TIME: 02/24/2017 02:58 [place] COMPARISON: CTA BRAIN W 3D RECON, January 24, 2017, 1:37. CT BRAIN W/O CONTRAST, January 19, 2017, 19:38. INDICATIONS : General weakness. RADIATION DOSE: 35.08 CTDIvol (mGy) MEDICAL HISTORY : Seizures. Cardiovascular disease SURGICAL HISTORY : None. ENCOUNTER: Initial ACUITY: 1 day PAIN SCALE: 0/10 LOCATION: cranial TECHNIQUE: Multiple contiguous axial images were obtained of the head. Using automated exposure control and adj ustment of the mA and/or kV according to patient size, radiation dose was kept as low as reasonably a chievable to obtain optimal diagnostic quality images. DICOM format image data is available electro nically for review and comparison. FINDINGS: CEREBRUM: The ventricles are normal for age. No evidence of midline shift, mass lesion, hemorrhage or acute in farction. No extra-axial fluid collections are seen. POSTERIOR FOSSA: The cerebellum and brainstem are intact. The 4th ventricle is midline. The cerebellopontine angle i s unremarkable. EXTRACRANIAL: The visualized portion of the orbits is intact. SKULL: The calvaria is intact. No evidence of skull fracture. CONCLUSION: No acute intracranial abnormality. Van Johnston MD on February 24, 2017 at 3:07 Board Certified Radiologist. This report was verified electronically.
[2017-02-24] MEDS ORDERED: levETIRAcetam 500 MG TAB PO ONE (03:45)
[2017-02-24] MEDS ORDERED: KETOROLAC TROMETHAMINE 30 MG/ML (IVP) VIAL IV PUSH ONE (03:45)
[2017-02-24] MEDS ORDERED: KEPP10002 PO (04:13)
--- NOTE | 2017-02-24 19:29 | EKG ---
Date Performed: 02/23/2017 Time Performed: 21:57:02 PTAGE: 36 years EKG: Sinus rhythm INCOMPLETE RIGHT BUNDLE BRANCH BLOCK BORDERLINE ECG PREVIOUS TRACING : 01/19/2017 19.31 Compared to prior tracing no significant change DOCTOR: Sebas Raygoza Interpretating Date/Time 02/24/2017 19:27:42
== END 2017-02-24 04:34 | disposition home or self-care (01) ==
LOC: NEPC 21:42
DX: R20.2 Paresthesia of skin (principal); G40.909 Epilepsy, unspecified, not intractable, without status epilepticus; R07.89 Other chest pain; R94.31 Abnormal electrocardiogram [ECG] [EKG]; R53.1 Weakness; Z72.0 Tobacco use
CPT/HCPCS: 70450; 71010; 80048; 82550; 82552; 84484; 85025; 93005; 96374; 99285; J1885

== ENCOUNTER 2017-03-29 17:57 | Emergency (ER) | payer SELFPAY ==
[~2017-03-29] VITALS: Ht 180.3 cm; Wt 80.0 kg
[~2017-03-29 17:57] MED LIST changes: -ALBU6.7H INH; -AMLO10 PO; +KEPP10002 PO; -LEVE500 PO; -LISI-515 PO
[2017-03-29 17:59] VITALS: BP 166/109; PULSE 61; RESP 12; TEMP 97.9; O2SAT 99
--- NOTE | 2017-03-29 19:33 | PD ---
HPI Chief Complaint: General Weakness Time Seen by Provider: 19:21 Travel History International Travel<30 days: No Contact w/Intl Traveler<30days: No Traveled to known affect area: No History of Present Illness HPI pt has hx of seizures for 1 year since head trauma with head bleed and the seizure began related usually to etoh withdrawal , this AM had tingling weird taste and got confused and walked into the wall and stubbed his toe hard enough that it bled , no obvious injury to head and there is obvious great toe bleed left foot. pt still drinks 3 beers and vodka shots at night PFSH Past Medical History Asthma: Yes Bipolar Disorder: Yes (non compliant with meds) Anxiety: No Depression: No Cancer: No Cardiovascular Problems: Yes Chemotherapy: No Cerebrovascular Accident: No Diminished Hearing: No Endocrine: No Gastrointestinal Disorders: No Genitourinary: No Headaches: Yes Immune Disorder: No Implanted Vascular Access Dvce: No Musculoskeletal: No Neurologic: Yes Psychiatric: Yes Reproductive: No Respiratory: No Migraines: No Radiation Therapy: No Schizophrenia: Yes Seizures: Yes (started a few months ago when he fell, hit his head and had a cranial bleed) Past Surgical History Abdominal Surgery: No Cardiac Surgery: No Ear Surgery: No Endocrine Surgery: No Eye Surgery: No Genitourinary Surgery: No Gynecologic Surgery: No Oral Surgery: No Thoracic Surgery: No Other Surgery: Yes (R humerus) Social History Alcohol Use: Yes (7-8 beers weekly) Tobacco Use: Yes (1 PPD) Substance Use: No Allergies-Medications (Allergen,Severity, Reaction): Coded Allergies: No Known Allergies (Verified Adverse Reaction, Unknown, 03/29/17) Reported Meds & Prescriptions Reported Meds & Active Scripts Active Ativan (Lorazepam) 0.5 Mg Tab 0.5 Mg PO Q8H PRN Reported Keppra (Levetiracetam) 1,000 Mg Tab 1,000 Mg PO BID Review of Systems Except as stated in HPI: all other systems reviewed are Neg Neurologic: Positive: Seizures Physical Exam Narrative GENERAL: aOX3 pt has no obvious head trauma no seizure activity in ER SKIN: Warm and dry. minimal lac to matrix nail not bleeding non suturable great toe left foot HEAD: Atraumatic. Normocephalic. EYES: Pupils equal and round. No scleral icterus. No injection or drainage. ENT: No nasal bleeding or discharge. Mucous membranes pink and moist. NECK: Trachea midline. No JVD. CARDIOVASCULAR: Regular rate and rhythm. RESPIRATORY: No accessory muscle use. Clear to auscultation. Breath sounds equal bilaterally. GASTROINTESTINAL: Abdomen soft, non-tender, nondistended. Hepatic and splenic margins not palpable. MUSCULOSKELETAL: Extremities without clubbing, cyanosis, or edema. No obvious deformities. NEUROLOGICAL: Awake and alert. No obvious cranial nerve deficits. Motor grossly within normal limits. Five out of 5 muscle strength in the arms and legs. Normal speech. PSYCHIATRIC: Appropriate mood and affect; insight and judgment normal. Data Data Last Documented VS Vital Signs Date Time Temp Pulse Resp B/P (MAP) Pulse Ox O2 Delivery O2 Flow Rate FiO2 03/29/17 17:59 97.9 61 12 166/109 (128) 99 Orders Orders Complete Blood Count With Diff (03/29/17 19:33) Comprehensive Metabolic Panel (03/29/17 19:33) Lipase (03/29/17 19:33) Magnesium (Mg) (03/29/17 19:33) Phosphorus (Po4) (03/29/17 19:33) Levetiracetam (03/29/17 19:33) Alcohol (Ethanol) (03/29/17 19:33) Lorazepam Inj (Ativan Inj) (03/29/17 19:45) Ondansetron Inj (Zofran Inj) (03/29/17 19:54) Ketorolac Inj (Toradol Inj) (03/29/17 20:45) Levetiracetam (Keppra) (03/29/17 20:45) Bacitracin Oint (Baciguent Oint) (03/29/17 21:45) Labs Laboratory Tests Test 03/29/17 19:35 03/29/17 20:25 White Blood Count 5.0 TH/MM3 Red Blood Count 4.04 MIL/MM3 Hemoglobin 14.2 GM/DL Hematocrit 41.2 % Mean Corpuscular Volume 101.9 FL Mean Corpuscular Hemoglobin 35.1 PG Mean Corpuscular Hemoglobin Concent 34.5 % Red Cell Distribution Width 14.5 % Platelet Count 93 TH/MM3 Mean Platelet Volume 7.6 FL Neutrophils (%) (Auto) 84.7 % Lymphocytes (%) (Auto) 8.6 % Monocytes (%) (Auto) 6.0 % Eosinophils (%) (Auto) 0.0 % Basophils (%) (Auto) 0.7 % Neutrophils # (Auto) 4.3 TH/MM3 Lymphocytes # (Auto) 0.4 TH/MM3 Monocytes # (Auto) 0.3 TH/MM3 Eosinophils # (Auto) 0.0 TH/MM3 Basophils # (Auto) 0.0 TH/MM3 CBC Comment AUTO DIFF Differential Comment AUTO DIFF CONFIRMED Platelet Estimate LOW Platelet Morphology Comment NORMAL Blood Urea Nitrogen 6 MG/DL Creatinine 0.80 MG/DL Random Glucose 108 MG/DL Total Protein 8.9 GM/DL Albumin 4.2 GM/DL Calcium Level 8.5 MG/DL Phosphorus Level 4.1 MG/DL Magnesium Level 1.2 MG/DL Alkaline Phosphatase 90 U/L Aspartate Amino Transf (AST/SGOT) 117 U/L Alanine Aminotransferase (ALT/SGPT) 75 U/L Total Bilirubin 0.7 MG/DL Sodium Level 132 MEQ/L Potassium Level 4.0 MEQ/L Chloride Level 96 MEQ/L Carbon Dioxide Level 24.0 MEQ/L Anion Gap 12 MEQ/L Estimat Glomerular Filtration Rate 132 ML/MIN Lipase 221 U/L Ethyl Alcohol Level 13 MG/DL [facility] Medical Decision Making Medical Screen Exam Complete: Yes Emergency Medical Condition: Yes Medical Record Reviewed: Yes Differential Diagnosis seizure vs etoh withdrawal Narrative Course keppra 1000mg given ativan given fluid given and safe for d/c with outpt follow up with his PCP Diagnosis Primary Impression: Alcohol abuse Additional Impression: Seizure Patient Instructions: Abuse of Alcohol (ED), General Instructions, Seizures After Traumatic Brain Injury (ED) Scripts Lorazepam (Ativan) 0.5 Mg Tab 0.5 MG PO Q8H Y for ANXIETY AND/OR AGITATION, #10 TAB 0 Refills Prov: Zane Flaherty MD 03/29/17 Disposition: 01 DISCHARGE HOME Condition: Good Zane Flaherty MD Mar 29, 2017 19:33
[2017-03-29] MEDS ORDERED: LORazepam 2 MG/ML VIAL IV PUSH ONE (19:45)
[2017-03-29] MEDS ORDERED: ONDANSETRON HCL 4 MG/2 ML VIAL ONE (19:54)
[2017-03-29 20:14] LABS: AUTOMATED NEUTROPHIL # 4.3 TH/MM3 (1.8-7.7); BASOPHIL % 0.7 % (0.0-2.0); HEMATOCRIT 41.2 % (39.0-51.0); LYMPH % 8.6 % (9.0-44.0); LYMPHOCYTE # 0.4 TH/MM3 (1.0-4.8); MEAN CELL VOLUME 101.9 FL (80.0-100.0); MEAN CORPUSCULAR HEMOGLOBIN 35.1 PG (27.0-34.0); MEAN CORPUSCULAR HGB CONC 34.5 % (32.0-36.0); NEUT % 84.7 % (16.0-70.0); PLATELET COUNT 93 TH/MM3 (150-450); RED BLOOD COUNT 4.04 MIL/MM3 (4.50-5.90); RED CELL DISTRIBUTION WIDTH 14.5 % (11.6-17.2)
[2017-03-29 20:18] LABS: HEMO FLAGS AUTO DIFF
[2017-03-29 20:41] LABS: ANION GAP 12 MEQ/L (5-15); AST (GOT) 117 U/L (15-37); BLOOD UREA NITROGEN 6 MG/DL (7-18); CHLORIDE 96 MEQ/L (98-107); GLOMERULAR FILTRATION RATE 132 ML/MIN (>89); MAGNESIUM 1.2 MG/DL (1.5-2.5); SODIUM (NA) 132 MEQ/L (136-145)
[2017-03-29 20:43] LABS: ALT (GPT) 75 U/L (12-78)
[2017-03-29 20:44] LABS: ALCOHOL 13 MG/DL (0-5)
[2017-03-29] MEDS ORDERED: levETIRAcetam 500 MG TAB PO ONE (20:45)
[2017-03-29] MEDS ORDERED: KETOROLAC TROMETHAMINE 30 MG/ML (IVP) VIAL IV PUSH ONE (20:45)
[2017-03-29 20:46] LABS: ALKALINE PHOSPHATASE 90 U/L (45-117); TOTAL BILIRUBIN ADULT 0.7 MG/DL (0.2-1.0)
[2017-03-29 20:57] LABS: PLATELET ESTIMATE SMEAR LOW (NORMAL); PLATELET MORPHOLOGY NORMAL (NORMAL); SCAN/DIFF AUTO DIFF CONFIRMED
[2017-03-29] MEDS ORDERED: BACITRACIN TOP OINT 15 GM TUBE TOPICAL ONE (21:45)
[2017-03-29] MEDS ORDERED: LORA-392 PO (21:53)
== END 2017-03-29 22:27 | disposition home or self-care (01) ==
LOC: NEPC 17:57
DX: F10.10 Alcohol abuse, uncomplicated (principal); R56.9 Unspecified convulsions; J45.909 Unspecified asthma, uncomplicated; Z72.0 Tobacco use
CPT/HCPCS: 80053; 80177; 80307; 83690; 83735; 84100; 85025; 96374; 96375; 99284; J1885; J2060; J2405

== ENCOUNTER 2017-04-11 13:51 | Emergency (ER) | payer SELFPAY ==
[~2017-04-11] VITALS: Ht 180.3 cm; Wt 80.0 kg
[~2017-04-11 13:51] MED LIST changes: +LORA-392 PO
[2017-04-11 14:00] VITALS: BP 144/84; PULSE 75; RESP 12; TEMP 98.2; O2SAT 99
--- NOTE | 2017-04-11 14:03 | PD ---
HPI Chief Complaint: Seizure Time Seen by Provider: 14:01 Travel History International Travel<30 days: No Contact w/Intl Traveler<30days: No History of Present Illness HPI Patient is a 36-year-old male presents emergency department for evaluation of recurrent seizure. Patient states she's on Keppra 1000 mg twice a day but hasn' t had it in 4 days because he ran out. Review the patient's records show that he's been here multiple times for his medication refill is does not have a primary care physician. Denies any focalized weakness at this time, denies any headache denies any tongue laceration. Per EMS the patient was minimally confusedly got there he's had gradual return of consciousness consistent with postictal state. Symptoms are moderate, recurrent, resolved, context as above, so she is signs symptoms as above. PFSH Past Medical History Asthma: Yes Bipolar Disorder: Yes (non compliant with meds) Anxiety: No Depression: No Cancer: No Cardiovascular Problems: Yes Chemotherapy: No Cerebrovascular Accident: No Diminished Hearing: No Endocrine: No Gastrointestinal Disorders: No Genitourinary: No Headaches: Yes Immune Disorder: No Implanted Vascular Access Dvce: No Musculoskeletal: No Neurologic: Yes Psychiatric: Yes Reproductive: No Respiratory: No Migraines: No Radiation Therapy: No Schizophrenia: Yes Seizures: Yes (started a few months ago when he fell, hit his head and had a cranial bleed) Past Surgical History Abdominal Surgery: No Cardiac Surgery: No Ear Surgery: No Endocrine Surgery: No Eye Surgery: No Genitourinary Surgery: No Gynecologic Surgery: No Oral Surgery: No Thoracic Surgery: No Other Surgery: Yes (R humerus) Social History Alcohol Use: Yes (7-8 beers weekly) Tobacco Use: Yes (1 PPD) Substance Use: No Allergies-Medications (Allergen,Severity, Reaction): Coded Allergies: No Known Allergies (Verified Adverse Reaction, Unknown, 04/11/17) Reported Meds & Prescriptions Reported Meds & Active Scripts Active Keppra (Levetiracetam) 1,000 Mg Tab 1,000 Mg PO BID Ativan (Lorazepam) 0.5 Mg Tab 0.5 Mg PO Q8H PRN Review of Systems Except as stated in HPI: all other systems reviewed are Neg Physical Exam Narrative GENERAL: Well-developed well-nourished no obvious distress SKIN: Focused skin assessment warm/dry. HEAD: Atraumatic. Normocephalic. EYES: Pupils equal and round. No scleral icterus. No injection or drainage. ENT: No nasal bleeding or discharge. Mucous membranes pink and moist. No tongue laceration. NECK: Trachea midline. No JVD. CARDIOVASCULAR: Regular rate and rhythm. No murmur appreciated. RESPIRATORY: No accessory muscle use. Clear to auscultation. Breath sounds equal bilaterally. GASTROINTESTINAL: Abdomen soft, non-tender, nondistended. Hepatic and splenic margins not palpable. MUSCULOSKELETAL: No obvious deformities. No clubbing. No cyanosis. No edema. NEUROLOGICAL: Awake and alert. Cranial nerves II through XII are grossly intact and nonfocal, 5 out of 5 strength in all 4 extremity's, and relates with an even narrow based gait, Romberg negative, PSYCHIATRIC: Appropriate mood and affect; insight and judgment normal. Data Data Last Documented VS Vital Signs Date Time Temp Pulse Resp B/P (MAP) Pulse Ox O2 Delivery O2 Flow Rate FiO2 04/11/17 14:00 98.2 75 12 144/84 (104) 99 Orders Orders Levetiracetam (Keppra) (04/11/17 14:15) Ed Discharge Order (04/11/17 15:12) [facility] Medical Decision Making Medical Screen Exam Complete: Yes Emergency Medical Condition: Yes Differential Diagnosis Recurrent seizure, medication noncompliance, head injury and likely, neck injury unlikely. Narrative Course Patient roomed in the emergency department after recurrent seizure, there is no evidence of significant injury and therefore no indication for further workup at this time. Was given Keppra loading dose in the emergency department wash for 90 minutes and had no recurrent epileptiform activity. He is stable for discharge, month supply of his Keppra was written form and recommended following up these daily health clinic neurologist. Diagnosis Primary Impression: Recurrent seizures Referrals: Mario Hutchison MD [facility] Med/Other Pt SpecificInfo: Prescription(s) given Scripts Levetiracetam (Keppra) 1,000 Mg Tab 1000 MG PO BID for Control Seizures, #60 TAB 0 Refills Prov: Arsen Adams MD 04/11/17 Disposition: 01 DISCHARGE HOME Condition: Stable Arsen Adams MD Apr 11, 2017 14:03
[2017-04-11] MEDS ORDERED: levETIRAcetam 500 MG TAB PO ONE (14:15)
[2017-04-11] MEDS ORDERED: KEPP10002 PO (15:06)
== END 2017-04-11 15:40 | disposition home or self-care (01) ==
LOC: NEPE 13:51
DX: G40.909 Epilepsy, unspecified, not intractable, without status epilepticus (principal); F17.200 Nicotine dependence, unspecified, uncomplicated; Z91.14 Patient's other noncompliance with medication regimen
CPT/HCPCS: 99283

== ENCOUNTER 2017-04-23 15:27 | Emergency (ER) | payer SELFPAY ==
[2017-04-23 16:27] VITALS: BP 153/88; PULSE 96; RESP 18; TEMP 98.8; O2SAT 97
[2017-04-23] MEDS ORDERED: ONDANSETRON HCL 4 MG/2 ML VIAL ONE (16:36)
--- NOTE | 2017-04-23 16:39 | PD ---
HPI Chief Complaint: Medical Clearance Time Seen by Provider: 16:40 Travel History International Travel<30 days: No Contact w/Intl Traveler<30days: No Traveled to known affect area: No History of Present Illness HPI 36 YO M with PMH of seizure presents to the ED via EMS for evaluation of aura symptoms since "this afternoon sometime." The patient endorses metallic taste in his mouth, left arm numbness. He states that these are typical of his normal aura. He states his last seizure was approximately 2 weeks ago. He states that he lost the prescription that was provided to him in the emergency room after that seizure. He states that he's been out of Keppra for approximately one month. Normal dose 2 g daily. He denies any other somatic complaints. Endorses chronic alcoholism. Last alcoholic drink, last night. PFSH Past Medical History Asthma: Yes Bipolar Disorder: Yes (non compliant with meds) Anxiety: No Depression: No Cancer: No Cardiovascular Problems: Yes Chemotherapy: No Cerebrovascular Accident: No Diminished Hearing: No Endocrine: No Gastrointestinal Disorders: No Genitourinary: No Headaches: Yes Immune Disorder: No Implanted Vascular Access Dvce: No Musculoskeletal: No Neurologic: Yes Psychiatric: Yes Reproductive: No Respiratory: No Migraines: No Radiation Therapy: No Schizophrenia: Yes Seizures: Yes Past Surgical History Abdominal Surgery: No Cardiac Surgery: No Ear Surgery: No Endocrine Surgery: No Eye Surgery: No Genitourinary Surgery: No Gynecologic Surgery: No Oral Surgery: No Thoracic Surgery: No Other Surgery: Yes (R humerus) Social History Alcohol Use: Yes (3-4 beers a day ) Tobacco Use: Yes (1 PPD) Substance Use: No Allergies-Medications (Allergen,Severity, Reaction): Coded Allergies: No Known Allergies (Verified Adverse Reaction, Unknown, 04/23/17) Reported Meds & Prescriptions Reported Meds & Active Scripts Active Keppra (Levetiracetam) 1,000 Mg Tab 1,000 Mg PO BID Keppra (Levetiracetam) 1,000 Mg Tab 1,000 Mg PO BID Ativan (Lorazepam) 0.5 Mg Tab 0.5 Mg PO Q8H PRN Review of Systems Except as stated in HPI: all other systems reviewed are Neg Physical Exam Narrative GENERAL: Well-nourished, well-developed mildly tremulous black male in no acute distress. A and O 4. SKIN: Focused skin assessment warm/dry. HEAD: Normocephalic. EYES: No scleral icterus. No injection or drainage. NECK: Supple, trachea midline. No JVD or lymphadenopathy. CARDIOVASCULAR: Regular rate and rhythm without murmurs, gallops, or rubs. RESPIRATORY: Breath sounds equal bilaterally. No accessory muscle use. GASTROINTESTINAL: Abdomen soft, non-tender, nondistended. MUSCULOSKELETAL: No cyanosis, or edema. NEUROLOGICAL: Awake and alert. Cranial nerves II through XII intact. Motor and sensory grossly within normal limits. Five out of 5 muscle strength in all muscle groups. Normal speech. BACK: Nontender without obvious deformity. No CVA tenderness. Data Data Last Documented VS Vital Signs Date Time Temp Pulse Resp B/P (MAP) Pulse Ox O2 Delivery O2 Flow Rate FiO2 04/23/17 18:43 87 20 115/68 (84) 100 04/23/17 16:27 98.8 Room Air Orders Orders Complete Blood Count With Diff (04/23/17 16:33) Basic Metabolic Panel (Bmp) (04/23/17 16:33) Ondansetron Inj (Zofran Inj) (04/23/17 16:36) Lorazepam Inj (Ativan Inj) (04/23/17 16:45) Levetiracetam Inj (Keppra Inj) (04/23/17 16:45) Drug Screen, Random Urine (04/23/17 17:04) Alcohol (Ethanol) (04/23/17 17:04) Ondansetron Inj (Zofran Inj) (04/23/17 17:45) Ed Discharge Order (04/23/17 18:19) Labs Laboratory Tests Test 04/23/17 16:34 04/23/17 18:10 White Blood Count 3.7 TH/MM3 Red Blood Count 3.93 MIL/MM3 Hemoglobin 14.2 GM/DL Hematocrit 40.3 % Mean Corpuscular Volume 102.5 FL Mean Corpuscular Hemoglobin 36.1 PG Mean Corpuscular Hemoglobin Concent 35.2 % Red Cell Distribution Width 13.5 % Platelet Count 97 TH/MM3 Mean Platelet Volume 8.2 FL Neutrophils (%) (Auto) 68.1 % Lymphocytes (%) (Auto) 23.0 % Monocytes (%) (Auto) 6.2 % Eosinophils (%) (Auto) 0.8 % Basophils (%) (Auto) 1.9 % Neutrophils # (Auto) 2.5 TH/MM3 Lymphocytes # (Auto) 0.8 TH/MM3 Monocytes # (Auto) 0.2 TH/MM3 Eosinophils # (Auto) 0.0 TH/MM3 Basophils # (Auto) 0.1 TH/MM3 CBC Comment AUTO DIFF Differential Comment AUTO DIFF CONFIRMED Platelet Estimate LOW Platelet Morphology Comment NORMAL Blood Urea Nitrogen 7 MG/DL Creatinine 0.84 MG/DL Random Glucose 160 MG/DL Calcium Level 8.9 MG/DL Sodium Level 137 MEQ/L Potassium Level 3.8 MEQ/L Chloride Level 102 MEQ/L Carbon Dioxide Level 23.5 MEQ/L Anion Gap 12 MEQ/L Estimat Glomerular Filtration Rate 125 ML/MIN Ethyl Alcohol Level 109 MG/DL Urine Opiates Screen NEG Urine Barbiturates Screen NEG Urine Amphetamines Screen NEG Urine Benzodiazepines Screen NEG Urine Cocaine Screen NEG Urine Cannabinoids Screen NEG MDM Medical Decision Making Medical Screen Exam Complete: Yes Emergency Medical Condition: Yes Differential Diagnosis Recurrent seizure versus medication refill versus noncompliance versus other Narrative Course 36 YO M with PMH of seizure presents to the ED via EMS for evaluation of aura symptoms since "this afternoon sometime." The patient endorses metallic taste in his mouth, left arm numbness. He states that these are typical of his normal aura. He states his last seizure was approximately 2 weeks ago. He states that he lost the prescription that was provided to him in the emergency room after that seizure. He states that he's been out of Keppra for approximately one month. Normal dose 2 g daily. He denies any other somatic complaints. Endorses chronic alcoholism. Last alcoholic drink, last night. Vitals reviewed. On exam the patient is jealous but there is no focal neuro deficits. He is administered 1 mg Ativan IM and 4 mg Zofran IV. Keppra level was ordered. However this was not drawn before administration of bolus of 1 g IV Keppra. On recheck the patient reports improvement of his symptoms. He is prescribed Keppra 1 g twice a day, instructed to follow-up with the neurologist. He is instructed to seek outpatient treatment for his chronic alcoholism, warned not to try to quit drinking on his own. He indicated understanding of the instructions and is agreeable to care plan. He is stable and discharged home. Diagnosis Primary Impression: Medication refill Additional Impressions: Seizure disorder Noncompliance Referrals: [facility] (Out patient) Neurologist Additional Instructions: Fill your prescription and begin taking it as prescribed today. Seek outpatient treatment for your chronic alcoholism. Follow-up with a neurologist. Scripts Levetiracetam (Keppra) 1,000 Mg Tab 1000 MG PO BID for Control Seizures, #60 TAB 0 Refills Prov: Mayo Le MD 04/23/17 Disposition: 01 DISCHARGE HOME Condition: Stable Ce Chung Apr 23, 2017 16:39
[2017-04-23] MEDS ORDERED: LORazepam 2 MG/ML VIAL IM ONE (16:45)
[2017-04-23] MEDS ORDERED: levETIRAcetam INJ 1,000 MG in SODIUM CHLORIDE 0.9% INJ 100 ML IV ONE (16:45)
[2017-04-23] MEDS ORDERED: ONDANSETRON ODT 4 MG TAB PO ONE (17:30)
[2017-04-23 17:32] LABS: AUTOMATED NEUTROPHIL # 2.5 TH/MM3 (1.8-7.7); BASOPHIL # 0.1 TH/MM3 (0-0.2); BASOPHIL % 1.9 % (0.0-2.0); EOSINOPHIL % 0.8 % (0.0-4.0); HEMATOCRIT 40.3 % (39.0-51.0); LYMPHOCYTE # 0.8 TH/MM3 (1.0-4.8); MEAN CELL VOLUME 102.5 FL (80.0-100.0); MEAN CORPUSCULAR HEMOGLOBIN 36.1 PG (27.0-34.0); MEAN CORPUSCULAR HGB CONC 35.2 % (32.0-36.0); MONO % 6.2 % (0.0-8.0); NEUT % 68.1 % (16.0-70.0); PLATELET COUNT 97 TH/MM3 (150-450); RED BLOOD COUNT 3.93 MIL/MM3 (4.50-5.90); RED CELL DISTRIBUTION WIDTH 13.5 % (11.6-17.2); WHITE BLOOD COUNT 3.7 TH/MM3 (4.0-11.0)
[2017-04-23 17:33] LABS: HEMO FLAGS AUTO DIFF
[2017-04-23] MEDS ORDERED: ONDANSETRON HCL 4 MG/2 ML VIAL IV PUSH ONE (17:45)
[2017-04-23 17:48] LABS: BICARBONATE 23.5 MEQ/L (21.0-32.0); POTASSIUM 3.8 MEQ/L (3.5-5.1)
[2017-04-23 18:17] LABS: PLATELET ESTIMATE SMEAR LOW (NORMAL); PLATELET MORPHOLOGY NORMAL (NORMAL); SCAN/DIFF AUTO DIFF CONFIRMED
[2017-04-23] MEDS ORDERED: KEPP10002 PO (18:18)
[2017-04-23 18:43] VITALS: BP 115/68
== END 2017-04-23 18:43 | disposition home or self-care (01) ==
LOC: NEDAMB 15:27 → NEPE 18:43
DX: Z76.0 Encounter for issue of repeat prescription (principal); G40.909 Epilepsy, unspecified, not intractable, without status epilepticus; F17.210 Nicotine dependence, cigarettes, uncomplicated; J45.909 Unspecified asthma, uncomplicated; F31.9 Bipolar disorder, unspecified; F20.9 Schizophrenia, unspecified; F17.200 Nicotine dependence, unspecified, uncomplicated; Z91.14 Patient's other noncompliance with medication regimen; Z79.899 Other long term (current) drug therapy
CPT/HCPCS: 80048; 80307; 85025; 96365; 96372; 96375; 99284; J1953; J2060; J2405

== ENCOUNTER 2017-04-29 23:44 | Emergency (ER) | payer SELFPAY ==
[~2017-04-29] VITALS: Ht 180.3 cm; Wt 80.0 kg
[2017-04-29 23:50] VITALS: BP 160/88; PULSE 73; RESP 22; TEMP 99.1; O2SAT 100
--- NOTE | 2017-04-30 00:02 | PD ---
HPI Chief Complaint: Seizure Time Seen by Provider: 23:57 Travel History International Travel<30 days: No Contact w/Intl Traveler<30days: No Traveled to known affect area: No History of Present Illness HPI The patient is a 36 year old male who presents to the [facility] emergency department with a history of having an aura similar to when he is about to have a seizure. The patient reports that he was first diagnosed with seizure 6 months ago. He reports that he believes that it is related to a head injury. The patient reports that approximately a month ago he was started on Keppra. He reports that he has been taking it regularly. He denies having a neurologist or her primary care physician. He reports that he last took Keppra 7 PM. The patient is noted to be anxious and tremulous on examination. On further questioning, the patient does report that he drinks alcohol on a daily basis. He reports that he normally drinks 3-4 beers daily. He reports that he did not drink any beer today as he could not afford any. The patient reports that he has gone tremulous in the past when he did not drink alcohol. He denies using any other drugs. On review of systems otherwise, the patient denies having any known fevers, cough, congestion, neck pain, chest pain, shortness of breath, abdominal pain, vomiting, diarrhea, urinary symptoms, or other neurologic symptoms. The patient denies ever going into a detox program in the past. He denies wanting to quit drinking alcohol at this time. FORMERLY [facility], [facility] Past Medical History Narrative Medical The patient's past medical history is significant for bipolar disorder, seizure disorder, alcohol abuse, tobacco abuse Asthma: Yes Bipolar Disorder: Yes (non compliant with meds) Anxiety: No Depression: No Cancer: No Cardiovascular Problems: Yes Chemotherapy: No Cerebrovascular Accident: No Diminished Hearing: No Endocrine: No Gastrointestinal Disorders: No Genitourinary: No Headaches: Yes Immune Disorder: No Implanted Vascular Access Dvce: No Musculoskeletal: No Neurologic: Yes ("BLEED IN BRAIN" 2015) Psychiatric: Yes Reproductive: No Respiratory: No Migraines: No Radiation Therapy: No Schizophrenia: Yes Seizures: Yes Influenza Vaccination: No Past Surgical History Abdominal Surgery: No Cardiac Surgery: No Ear Surgery: No Endocrine Surgery: No Eye Surgery: No Genitourinary Surgery: No Gynecologic Surgery: No Oral Surgery: No Thoracic Surgery: No Other Surgery: Yes (LEFT GROIN HERNIA REPAIR WITH MESH) Social History Alcohol Use: Yes (DRANK BEER LAST NIGHT) Tobacco Use: Yes (1 PPD) Substance Use: No Allergies-Medications (Allergen,Severity, Reaction): Coded Allergies: No Known Allergies (Verified Adverse Reaction, Unknown, 04/29/17) Reported Meds & Prescriptions Reported Meds & Active Scripts Active Keppra (Levetiracetam) 1,000 Mg Tab 1,000 Mg PO BID Ativan (Lorazepam) 0.5 Mg Tab 0.5 Mg PO Q8H PRN Review of Systems Except as stated in HPI: all other systems reviewed are Neg General / Constitutional: No: Fever Eyes: No: Visual changes HENT: No: Headaches Cardiovascular: No: Chest Pain or Discomfort Respiratory: No: Shortness of Breath Gastrointestinal: No: Abdominal Pain Genitourinary: No: Dysuria Musculoskeletal: No: Pain Skin: No Rash Neurologic: Positive: Tremor, Other (he reports experiencing an aura similar to when he has had seizures), No: Weakness Psychiatric: Positive: Substance Abuse, No: Depression Endocrine: No: Polydipsia Hematologic/Lymphatic: No: Easy Bruising Physical Exam Narrative General: The patient is a well-developed well-nourished male in no acute distress, slightly anxious appearing on exam, slightly tremulous. Head and Neck exam: Head is normocephalic atraumatic. Eyes: EOMI, pupils are equal round and reactive to light. Nose: Midline septum with pink mucous membranes Mouth: Dentition unremarkable. Moist mucus membranes. Posterior oropharynx is not erythematous. No tonsillar hypertrophy. Uvula midline. Airway patent. Neck: No palpable lymphadenopathy. No nuchal rigidity. No thyromegaly. Cardiovascular: Regular rate and rhythm without murmurs, gallops, or rubs. Lungs: Clear to auscultation bilaterally. No wheezes, rhonchi, or rales. Abdomen: Soft, without tenderness to palpation in all 4 quadrants of the abdomen. No guarding, rebound, or rigidity. Normal bowel sounds are audible. No tenderness on palpation of McBurney's point. Extremities: No clubbing, cyanosis, or edema. 2+ pulses in all 4 extremities. Back: No spinous process tenderness to palpation. No costovertebral angle tenderness to palpation. Neurologic Exam: Cranial nerves 2-12 were intact on exam. Strength is 5/5 in all 4 extremities. No sensory deficits noted. The patient is mildly tremulous on examination. No asterixis. Skin Exam: No rash noted. Intact skin that is warm and dry. Data Data Last Documented VS Vital Signs Date Time Temp Pulse Resp B/P (MAP) Pulse Ox O2 Delivery O2 Flow Rate FiO2 04/29/17 23:50 99.1 73 22 160/88 (112) 100 Orders Orders Complete Blood Count With Diff (04/30/17) Comprehensive Metabolic Panel (04/30/17:) Lipase (04/30/17) Urinalysis - C+S If Indicated (04/30/17) Magnesium (Mg) (04/30/17) Iv Access Insert/Monitor (04/30/17) Ecg Monitoring (04/30/17) Oximetry (04/30/17) Drug Screen, Random Urine (04/30/17) Alcohol (Ethanol) (04/30/17) Salicylates (Aspirin) (04/30/17) Tylenol (Acetaminophen) (04/30/17) Sodium Chlor 0.9% 1000 Ml Inj (Ns 1000 M (04/30/17 00:30) Thiamine Inj (Thiamine Inj) (04/30/17 00:30) Lorazepam Inj (Ativan Inj) (04/30/17 00:30) Ed Discharge Order (04/30/17 02:24) Labs Laboratory Tests Test 04/30/17 00:30 White Blood Count 4.0 TH/MM3 Red Blood Count 3.92 MIL/MM3 Hemoglobin 13.7 GM/DL Hematocrit 40.1 % Mean Corpuscular Volume 102.4 FL Mean Corpuscular Hemoglobin 34.9 PG Mean Corpuscular Hemoglobin Concent 34.1 % Red Cell Distribution Width 12.5 % Platelet Count 108 TH/MM3 Mean Platelet Volume 7.9 FL Neutrophils (%) (Auto) 56.1 % Lymphocytes (%) (Auto) 34.1 % Monocytes (%) (Auto) 8.0 % Eosinophils (%) (Auto) 0.9 % Basophils (%) (Auto) 0.9 % Neutrophils # (Auto) 2.2 TH/MM3 Lymphocytes # (Auto) 1.4 TH/MM3 Monocytes # (Auto) 0.3 TH/MM3 Eosinophils # (Auto) 0.0 TH/MM3 Basophils # (Auto) 0.0 TH/MM3 CBC Comment DIFF FINAL Differential Comment Blood Urea Nitrogen 5 MG/DL Creatinine 0.83 MG/DL Random Glucose 86 MG/DL Total Protein 8.5 GM/DL Albumin 4.2 GM/DL Calcium Level 9.0 MG/DL Magnesium Level 1.0 MG/DL Alkaline Phosphatase 81 U/L Aspartate Amino Transf (AST/SGOT) 89 U/L Alanine Aminotransferase (ALT/SGPT) 96 U/L Total Bilirubin 0.7 MG/DL Sodium Level 137 MEQ/L Potassium Level 3.9 MEQ/L Chloride Level 101 MEQ/L Carbon Dioxide Level 26.5 MEQ/L Anion Gap 10 MEQ/L Estimat Glomerular Filtration Rate 126 ML/MIN Lipase 121 U/L Salicylates Level 3.5 MG/DL Acetaminophen Level LESS THAN 2.0 MCG/ML Ethyl Alcohol Level 4 MG/DL [facility] Medical Decision Making Medical Screen Exam Complete: Yes Emergency Medical Condition: Yes Medical Record Reviewed: Yes Differential Diagnosis Medication noncompliance, versus lowered seizure threshold related to substance use, versus lowered seizure threshold related to alcohol withdrawal, versus electrolyte abnormality Narrative Course During the course of the patients emergency department visit, the patients history, examination, and differential diagnosis were reviewed with the patient. The patient was placed on a starch factory laborer with oximetry and frequent blood pressure monitoring. The patient had IV access obtained and blood work sent for analysis. The patient was initially provided Ativan 1 mg IV, normal saline IV fluids, thiamine 100 mg IV The patients laboratory studies were reviewed and remarkable for a white count of 4, hemoglobin 13.7, platelets 108 with a normal differential. CMP is remarkable for a BUN of 5, magnesium 1.0, AST 89, ALT 96, total protein 8.5, lipase 121, alcohol level IV, and acetaminophen less than 2, salicylate 3.5. The patient's magnesium was supplemented with 1 g IV over one hour. The patient will be discharged home with a prescription for magnesium oxide. The patient will be information regarding following up with the [facility], [place] if he desires detox in the future. The patient is resting comfortably and feels better, is alert and in no distress. The patients results and examination findings were discussed with the patient. The repeat examination is unremarkable and benign. The history, exam, diagnostic testing, and current condition do not suggest any significant pathology to warrant further testing, continued ED treatment, admission, or surgical evaluation at this point. The vital signs have been stable. The patient does not have uncontrollable pain, intractable vomiting, or other significant symptoms. The patient's condition is stable and appropriate for discharge. The patient will pursue further outpatient evaluation with a primary care physician or other designated or consulting physician as indicated in the discharge instructions. The patient expressed understanding and was agreeable with this plan. Diagnosis Primary Impression: Tremor Referrals: [facility] 2 days [facility] 1 day Patient Instructions: General Instructions, Tremors (ED) Med/Other Pt SpecificInfo: No Change to Meds Disposition: 01 DISCHARGE HOME Condition: Stable Azra Nelson MD Apr 30, 2017 00:02
[2017-04-30] MEDS ORDERED: SODIUM CHLOR 0.9% 1000 ML INJ 1,000 ML IV ONE (00:30)
[2017-04-30] MEDS ORDERED: THIAMINE INJ 100 MG in SODIUM CHLORIDE 0.9% INJ 100 ML IV ONE (00:30)
[2017-04-30] MEDS ORDERED: LORazepam 2 MG/ML VIAL IV PUSH ONE (00:30)
[2017-04-30 00:59] LABS: AUTOMATED NEUTROPHIL # 2.2 TH/MM3 (1.8-7.7); BASOPHIL % 0.9 % (0.0-2.0); EOSINOPHIL % 0.9 % (0.0-4.0); HEMATOCRIT 40.1 % (39.0-51.0); HEMO FLAGS DIFF FINAL; LYMPH % 34.1 % (9.0-44.0); LYMPHOCYTE # 1.4 TH/MM3 (1.0-4.8); MEAN CELL VOLUME 102.4 FL (80.0-100.0); MEAN CORPUSCULAR HEMOGLOBIN 34.9 PG (27.0-34.0); MEAN CORPUSCULAR HGB CONC 34.1 % (32.0-36.0); NEUT % 56.1 % (16.0-70.0); PLATELET COUNT 108 TH/MM3 (150-450); RED BLOOD COUNT 3.92 MIL/MM3 (4.50-5.90); RED CELL DISTRIBUTION WIDTH 12.5 % (11.6-17.2)
[2017-04-30 01:16] LABS: ALT (GPT) 96 U/L (12-78); ANION GAP 10 MEQ/L (5-15); AST (GOT) 89 U/L (15-37); BICARBONATE 26.5 MEQ/L (21.0-32.0); BLOOD UREA NITROGEN 5 MG/DL (7-18); CHLORIDE 101 MEQ/L (98-107); GLOMERULAR FILTRATION RATE 126 ML/MIN (>89); POTASSIUM 3.9 MEQ/L (3.5-5.1); SODIUM (NA) 137 MEQ/L (136-145)
[2017-04-30 01:19] LABS: ALKALINE PHOSPHATASE 81 U/L (45-117); TOTAL BILIRUBIN ADULT 0.7 MG/DL (0.2-1.0)
[2017-04-30 01:22] LABS: ACETAMINOPHEN LESS THAN 2.0 MCG/ML (10.0-30.0); ALCOHOL 4 MG/DL (0-5)
== END 2017-04-30 02:51 | disposition home or self-care (01) ==
LOC: NEPE 23:44
DX: R25.1 Tremor, unspecified (principal); R56.9 Unspecified convulsions; J45.909 Unspecified asthma, uncomplicated; F31.9 Bipolar disorder, unspecified; F20.9 Schizophrenia, unspecified; F17.200 Nicotine dependence, unspecified, uncomplicated; Z79.899 Other long term (current) drug therapy
CPT/HCPCS: 80053; 80307; 83690; 83735; 85025; 96374; 96375; 99284; J2060; J3411; J7030

== ENCOUNTER 2017-05-21 13:49 | Emergency (ER) | payer SELFPAY ==
[2017-05-21 14:00] VITALS: BP 138/96; PULSE 74; RESP 18; TEMP 99.2; O2SAT 98
[2017-05-21 14:58] VITALS: BP 123/87; PULSE 77; RESP 16; O2SAT 98
[2017-05-21] MEDS ORDERED: SODIUM CHLOR 0.9% 1000 ML INJ 1,000 ML IV ONE (15:14)
--- NOTE | 2017-05-21 15:14 | PD ---
HPI Chief Complaint: Medical Clearance Time Seen by Provider: 14:57 Travel History International Travel<30 days: No Contact w/Intl Traveler<30days: No Traveled to known affect area: No History of Present Illness HPI 36-year-old male presents emergency Department with complaint of left-sided headache and vomiting and onset at 1 PM today. Has history of seizures and takes Keppra. Says he can feel his aura preseizure onsetting; states he is getting numbness and tingling that starts in his left leg and goes to his left arm and then to the left side of his face; denies symptoms currently. Denies chest pain, shortness of breath, abdominal pain fevers. Denies focal deficits or weakness. Has not taken any medication or tried any treatments to alleviate his symptoms. No known relieving or aggravating factors. Rates headache 12/02. Describes it as a throbbing sensation. Denies recent illness to include cough , nasal congestion, sore throat. Denies illicit drug use. Denies alcohol use. Denies other significant past medical history. Does not have an established primary care provider or neurologist. Has no other medical complaints. No other modifying factors or associated signs and symptoms. PFSH Past Medical History Asthma: Yes Bipolar Disorder: Yes (non compliant with meds) Anxiety: No Depression: No Cancer: No Cardiovascular Problems: Yes Chemotherapy: No Cerebrovascular Accident: No Diminished Hearing: No Endocrine: No Gastrointestinal Disorders: No Genitourinary: No Headaches: Yes Immune Disorder: No Inguinal Hernia: Yes Implanted Vascular Access Dvce: No Musculoskeletal: No Neurologic: Yes ("BLEED IN BRAIN" 2015) Psychiatric: Yes Reproductive: No Respiratory: No Immunizations Current: No Migraines: No Radiation Therapy: No Schizophrenia: Yes Seizures: Yes Tetanus Vaccination: < 5 Years Influenza Vaccination: No Past Surgical History Abdominal Surgery: Yes (HERNIA SURGERY 2016 ) Cardiac Surgery: No Ear Surgery: No Endocrine Surgery: No Eye Surgery: No Genitourinary Surgery: No Gynecologic Surgery: No Oral Surgery: No Thoracic Surgery: No Other Surgery: Yes (LEFT GROIN HERNIA REPAIR WITH MESH) Social History Alcohol Use: Yes (DRANK BEER ) Tobacco Use: Yes (1 PPD) Substance Use: No Allergies-Medications (Allergen,Severity, Reaction): Coded Allergies: No Known Allergies (Verified Adverse Reaction, Unknown, 05/21/17) Reported Meds & Prescriptions Reported Meds & Active Scripts Active Zofran Odt (Ondansetron Odt) 4 Mg Tab 4 Mg SL Q8HR PRN Keppra (Levetiracetam) 1,000 Mg Tab 1,000 Mg PO BID Review of Systems Except as stated in HPI: all other systems reviewed are Neg Physical Exam Narrative GENERAL: Well-nourished, well-developed black male patient, in no acute distress SKIN: Warm and dry. HEAD: Atraumatic. Normocephalic. No facial droop noted. Tongue midline. Finger to nose test normal. EYES: Pupils equal and round at 3 mm with brisk reaction. No scleral icterus. No injection or drainage. PERRLA. EOMI. ENT: Mucosa pink and moist. Airway patent. NECK: Trachea midline. No lymphadenopathy. CARDIOVASCULAR: Regular rate and rhythm. No murmur appreciated. RESPIRATORY: No accessory muscle use. Clear to auscultation. Breath sounds equal bilaterally. GASTROINTESTINAL: Abdomen soft, non-tender, nondistended. Hepatic and splenic margins not palpable. Bowel sounds are active 4 quadrants. MUSCULOSKELETAL: No obvious deformities. No clubbing. No cyanosis. No edema. NEUROLOGICAL: Awake and alert. Oriented 3. No obvious cranial nerve deficits. Motor grossly within normal limits. Normal speech. No ataxia. No mid -line drift. No upper or lower extremity drift. Moves all extremities. 5/5 strength to all extremities. PSYCHIATRIC: Appropriate mood and affect; insight and judgment normal. Data Data Last Documented VS Vital Signs Date Time Temp Pulse Resp B/P (MAP) Pulse Ox O2 Delivery O2 Flow Rate FiO2 05/21/17 14:58 77 16 123/87 (99) 98 05/21/17 14:00 99.2 Room Air Orders Orders Ct Brain W/O Iv Contrast(Rout) (05/21/17 ) Sodium Chloride 0.9% Flush (Ns Flush) (05/21/17 15:15) Prochlorperazine Inj (Compazine Inj) (05/21/17 15:15) Diphenhydramine Inj (Benadryl Inj) (05/21/17 15:15) Sodium Chlor 0.9% 1000 Ml Inj (Ns 1000 M (05/21/17 15:14) Ondansetron Inj (Zofran Inj) (05/21/17 15:45) Ketorolac Inj (Toradol Inj) (05/21/17 17:00) Ed Discharge Order (05/21/17 17:50) [facility] Medical Decision Making Medical Screen Exam Complete: Yes Emergency Medical Condition: Yes Medical Record Reviewed: Yes Differential Diagnosis Cephalgia, seizure disorder, medical clearance Narrative Course 36-year-old male with history of seizure disorder and takes Keppra, with onset of left-sided headache and vomiting today at approximately 1 PM. IV AMS. Neuro exam is unremarkable. Patient has IV to left antecubital. Fluid bolus, Compazine, Benadryl, CT head ordered. 1539: Patient vomiting after Compazine. Zofran ordered. 1654: CT head concludes: Head CT 05/21/17 0000 Signed Impressions: Service Date/Time: Sunday, May 21, 2017 16:14 - CONCLUSION: Stable brain appearance with no acute intracranial findings. Van Horne MD Discuss CT findings with the patient. Toradol ordered. 1658: Reports improvement in headache. Rates headache 2/10. Denies continued nausea/vomiting. Toradol will be administered and plan for discharge. Patient tolerated oral fluids without vomiting prior to discharge. Zofran prescribed for home. Instructed patient to follow up with primary care provider. Patient verbalizes understanding and agreement with treatment plan. Patient is medically cleared and stable for discharge. Discussed reasons to return to the emergency department. Patient agrees with treatment plan. The patients vital signs are stable and the patient is stable for outpatient follow-up and treatment. Patient discharged home, stable and in no acute distress. Diagnosis Primary Impression: Cephalgia Qualified Codes: R51 - Headache Additional Impression: Vomiting Qualified Codes: R11.2 - Nausea with vomiting, unspecified Referrals: Neurologist Primary Care Physician Patient Instructions: Acute Headache (ED), Acute Nausea and Vomiting (ED), General Instructions Additional Instructions: Ibuprofen or Tylenol as directed and as needed to reduce headache Get plenty of rest: do not over sleep rest and relax in a dark, quiet room as needed Place an ice pack on the back of her neck to reduce head pain as needed Keep a headache diary of what triggers her headaches and what treatment is most effective Avoid identifiable triggers Avoid smoking, alcohol and caffeine consumption Reduce stress Follow-up with primary care provider within 1-2 days Follow-up with neurology Return immediately to the emergency department with worsening symptoms Med/Other Pt SpecificInfo: Prescription(s) given Scripts Ondansetron Odt (Zofran Odt) 4 Mg Tab 4 MG SL Q8HR Y for Nausea/Vomiting, #6 TAB 0 Refills Prov: Lizabeth Flores 05/21/17 Disposition: 01 DISCHARGE HOME Condition: Stable Lizabeth Flores May 21, 2017 15:14
[2017-05-21] MEDS ORDERED: PROCHLORPERAZINE INJ 10 MG/2 ML VIAL IVP ONE (15:15)
[2017-05-21] MEDS ORDERED: diphenhydrAMINE HCL 50 MG/ML VIAL IVP ONE (15:15)
[2017-05-21] MEDS ORDERED: SODIUM CHLORIDE 0.9% FLUSH 10 ML FLUSH IVF PRN (15:15)
[2017-05-21] MEDS ORDERED: ONDANSETRON HCL 4 MG/2 ML VIAL IVP ONE (15:45)
--- NOTE | 2017-05-21 16:27 | RADRPT ---
EXAM DATE/TIME: 05/21/2017 16:14 [place] COMPARISON: CT BRAIN W/O CONTRAST, January 19, 2017, 19:38. INDICATIONS : Headache RADIATION DOSE: 35.43 CTDIvol (mGy) MEDICAL HISTORY : Seizures. SURGICAL HISTORY : None. ENCOUNTER: Initial ACUITY: 1 day PAIN SCALE: 7/10 LOCATION: cranial TECHNIQUE: Multiple contiguous axial images were obtained of the head. Using automated exposure control and adj ustment of the mA and/or kV according to patient size, radiation dose was kept as low as reasonably a chievable to obtain optimal diagnostic quality images. DICOM format image data is available electro nically for review and comparison. FINDINGS: CEREBRUM: The ventricles are normal for age. No evidence of midline shift, mass lesion, hemorrhage or acute in farction. No extra-axial fluid collections are seen. POSTERIOR FOSSA: The cerebellum and brainstem are intact. The 4th ventricle is midline. The cerebellopontine angle i s unremarkable. EXTRACRANIAL: The visualized portion of the orbits is intact. SKULL: The calvaria is intact. No evidence of skull fracture. CONCLUSION: Stable brain appearance with no acute intracranial findings. Van Horne MD on May 21, 2017 at 16:23 Board Certified Radiologist. This report was verified electronically.
[2017-05-21] MEDS ORDERED: KETOROLAC TROMETHAMINE 30 MG/ML (IVP) VIAL IV PUSH ONE (17:00)
[2017-05-21] MEDS ORDERED: ZOFR4TAB3 SL (17:02)
[2017-05-22] MEDS ORDERED: LORA-475 PO (16:29)
[2017-05-22] MEDS ORDERED: KEPP10002 PO (16:42)
== END 2017-05-21 18:10 | disposition home or self-care (01) ==
LOC: NEPD 13:49
DX: R51 Headache (principal); R11.2 Nausea with vomiting, unspecified; G40.909 Epilepsy, unspecified, not intractable, without status epilepticus; F17.200 Nicotine dependence, unspecified, uncomplicated
CPT/HCPCS: 70450; 96361; 96374; 96375; 99284; J0780; J1200; J1885; J2405; J7030

== ENCOUNTER 2017-05-21 20:22 | Inpatient (IN) | payer SELFPAY ==
[~2017-05-21] VITALS: Ht 180.3 cm; Wt 80.8 kg
[~2017-05-21 20:22] MED LIST changes: +ZOFR4TAB3 SL
[2017-05-21 20:24] VITALS: BP 152/100; PULSE 88; RESP 16; TEMP 98.3; O2SAT 97
[2017-05-21 20:35] VITALS: BP 159/98; PULSE 79; RESP 18; O2SAT 100
[2017-05-21] MEDS ORDERED: SODIUM CHLOR 0.9% 1000 ML INJ 1,000 ML IV ONE (20:36)
[2017-05-21] MEDS ORDERED: SODIUM CHLORIDE 0.9% FLUSH 10 ML FLUSH IVF PRN (20:45)
[2017-05-21] MEDS ORDERED: LORazepam 2 MG/ML VIAL IVS ONE (20:45)
[2017-05-21 21:05] VITALS: O2SAT 100
[2017-05-21] MEDS ORDERED: levETIRAcetam INJ 100 ML IV ONE (21:15)
[2017-05-21 21:26] LABS: AUTOMATED NEUTROPHIL # 3.3 TH/MM3 (1.8-7.7); BASOPHIL # 0.1 TH/MM3 (0-0.2); BASOPHIL % 1.2 % (0.0-2.0); EOSINOPHIL # 0.1 TH/MM3 (0-0.4); EOSINOPHIL % 1.3 % (0.0-4.0); HEMATOCRIT 39.3 % (39.0-51.0); HEMOGLOBIN 13.4 GM/DL (13.0-17.0); LYMPH % 22.6 % (9.0-44.0); LYMPHOCYTE # 1.1 TH/MM3 (1.0-4.8); MEAN CELL VOLUME 102.8 FL (80.0-100.0); MEAN CORPUSCULAR HEMOGLOBIN 35.1 PG (27.0-34.0); MEAN CORPUSCULAR HGB CONC 34.1 % (32.0-36.0); MEAN PLATELET VOLUME 7.8 FL (7.0-11.0); MONO % 8.8 % (0.0-8.0); MONOCYTE # 0.4 TH/MM3 (0-0.9); NEUT % 66.1 % (16.0-70.0); PLATELET COUNT 71 TH/MM3 (150-450); RED BLOOD COUNT 3.82 MIL/MM3 (4.50-5.90); RED CELL DISTRIBUTION WIDTH 11.9 % (11.6-17.2)
[2017-05-21 21:29] LABS: BACTERIA, URINE RARE /hpf; BLOOD, URINE SMALL (NEG); GLUCOSE,URINE 70 mg/dL (NEG); HYALINE CAST, URINE 4 /lpf (RARE); KETONE, URINE 10 mg/dL (NEG); MUCUS URINE MANY /lpf (OCC); NITRITE,URINE NEG (NEG); SQUAMOUS EPITHELIAL CELL URINE <1 /hpf (0-5); URINE COLOR YELLOW (YELLW/STRAW); URINE LEUKOCYTE ESTERASE NEG (NEG)
[2017-05-21 21:30] LABS: ALBUMIN 3.9 GM/DL (3.4-5.0); AST (GOT) 176 U/L (15-37); BICARBONATE 21.5 MEQ/L (21.0-32.0); BLOOD UREA NITROGEN 8 MG/DL (7-18); CALCIUM 8.7 MG/DL (8.5-10.1); CHLORIDE 97 MEQ/L (98-107); CREATININE 1.06 MG/DL (0.60-1.30); GLOMERULAR FILTRATION RATE 95 ML/MIN (>89); GLUCOSE,RANDOM 134 MG/DL (74-106); SODIUM (NA) 132 MEQ/L (136-145)
[2017-05-21 21:31] LABS: ALT (GPT) 188 U/L (12-78)
[2017-05-21 21:32] LABS: BILIRUBIN, URINE NEG (NEG)
[2017-05-21 21:33] LABS: ALKALINE PHOSPHATASE 97 U/L (45-117); TOTAL BILIRUBIN ADULT 0.8 MG/DL (0.2-1.0); TOTAL PROTEIN 8.8 GM/DL (6.4-8.2)
[2017-05-21 21:56] VITALS: BP 124/59; PULSE 98; RESP 18; O2SAT 99
--- NOTE | 2017-05-21 21:59 | PD ---
HPI Chief Complaint: Seizure Time Seen by Provider: 20:38 Travel History International Travel<30 days: No Contact w/Intl Traveler<30days: No Traveled to known affect area: No History of Present Illness HPI 36-year-old male with PMH of seizures presents to the ED for evaluation of seizure. Patient was seen earlier today and discharged. He was brought in through triage by EMS after a witnessed seizure in the parking lot. He fell and hit his face. On presentation the patient states that he has been having more frequent auras- including tingling of the left extremities. He endorses compliance with Keppra. He denies drinking today. PFSH Past Medical History Asthma: Yes Bipolar Disorder: Yes (non compliant with meds) Anxiety: No Depression: No Cancer: No Cardiovascular Problems: Yes Chemotherapy: No Cerebrovascular Accident: No Diminished Hearing: No Endocrine: No Gastrointestinal Disorders: No Genitourinary: No Headaches: Yes Immune Disorder: No Inguinal Hernia: Yes Implanted Vascular Access Dvce: No Musculoskeletal: No Neurologic: Yes ("BLEED IN BRAIN" 2015) Psychiatric: Yes Reproductive: No Respiratory: No Immunizations Current: No Migraines: No Radiation Therapy: No Schizophrenia: Yes Seizures: Yes Influenza Vaccination: No Past Surgical History Abdominal Surgery: Yes (HERNIA SURGERY 2016 ) Cardiac Surgery: No Ear Surgery: No Endocrine Surgery: No Eye Surgery: No Genitourinary Surgery: No Gynecologic Surgery: No Oral Surgery: No Thoracic Surgery: No Other Surgery: Yes (LEFT GROIN HERNIA REPAIR WITH MESH) Social History Alcohol Use: Yes (DRANK BEER ) Tobacco Use: Yes (1 PPD) Substance Use: No Allergies-Medications (Allergen,Severity, Reaction): Coded Allergies: No Known Allergies (Verified Adverse Reaction, Unknown, 05/21/17) Reported Meds & Prescriptions Reported Meds & Active Scripts Active Zofran Odt (Ondansetron Odt) 4 Mg Tab 4 Mg SL Q8HR PRN Keppra (Levetiracetam) 1,000 Mg Tab 1,000 Mg PO BID Review of Systems Except as stated in HPI: all other systems reviewed are Neg Physical Exam Narrative GENERAL: Well-nourished, well-developed AA male in NAD. SKIN: Focused skin assessment warm/dry. HEAD: Normocephalic. Atraumatic. EYES: No scleral icterus. No injection or drainage. Left subconjunctival hemorrhage. NECK: Supple, trachea midline. No JVD or lymphadenopathy. CARDIOVASCULAR: Regular rate and rhythm without murmurs, gallops, or rubs. RESPIRATORY: Breath sounds clear and equal bilaterally. No accessory muscle use. GASTROINTESTINAL: Abdomen soft, non-tender, nondistended. Active bowel sounds. MUSCULOSKELETAL: No cyanosis, or edema. Moves extremities spontaneously. BACK: Nontender without obvious deformity. No CVA tenderness. Data Data Last Documented VS Vital Signs Date Time Temp Pulse Resp B/P (MAP) Pulse Ox O2 Delivery O2 Flow Rate FiO2 05/21/17 21:56 98 18 124/59 (80) 99 Nasal Cannula 2.00 05/21/17 20:24 98.3 Orders Orders Complete Blood Count With Diff (05/21/17 20:36) Alcohol (Ethanol) (05/21/17 20:36) Drug Screen, Random Urine (05/21/17 20:36) Electrocardiogram (05/21/17 ) Blood Glucose (05/21/17 20:36) Ecg Monitoring (05/21/17 20:36) Iv Access Insert/Monitor (05/21/17 20:36) Oximetry (05/21/17 20:36) Comprehensive Metabolic Panel (05/21/17 20:36) Sodium Chlor 0.9% 1000 Ml Inj (Ns 1000 M (05/21/17 20:36) Sodium Chloride 0.9% Flush (Ns Flush) (05/21/17 20:45) Lorazepam Inj (Ativan Inj) (05/21/17 20:45) Urinalysis - C+S If Indicated (05/21/17 20:36) Levetiracetam (05/21/17 20:39) Levetiracetam Inj (Keppra Inj) (05/21/17 21:15) Admit Order (Ed Use Only) (05/21/17 23:04) Labs Laboratory Tests Test 05/21/17 21:00 05/21/17 21:15 05/21/17 21:25 White Blood Count 5.0 TH/MM3 Red Blood Count 3.82 MIL/MM3 Hemoglobin 13.4 GM/DL Hematocrit 39.3 % Mean Corpuscular Volume 102.8 FL Mean Corpuscular Hemoglobin 35.1 PG Mean Corpuscular Hemoglobin Concent 34.1 % Red Cell Distribution Width 11.9 % Platelet Count 71 TH/MM3 Mean Platelet Volume 7.8 FL Neutrophils (%) (Auto) 66.1 % Lymphocytes (%) (Auto) 22.6 % Monocytes (%) (Auto) 8.8 % Eosinophils (%) (Auto) 1.3 % Basophils (%) (Auto) 1.2 % Neutrophils # (Auto) 3.3 TH/MM3 Lymphocytes # (Auto) 1.1 TH/MM3 Monocytes # (Auto) 0.4 TH/MM3 Eosinophils # (Auto) 0.1 TH/MM3 Basophils # (Auto) 0.1 TH/MM3 CBC Comment AUTO DIFF Differential Comment AUTO DIFF CONFIRMED Platelet Estimate LOW Platelet Morphology Comment NORMAL Blood Urea Nitrogen 8 MG/DL Creatinine 1.06 MG/DL Random Glucose 134 MG/DL Total Protein 8.8 GM/DL Albumin 3.9 GM/DL Calcium Level 8.7 MG/DL Alkaline Phosphatase 97 U/L Aspartate Amino Transf (AST/SGOT) 176 U/L Alanine Aminotransferase (ALT/SGPT) 188 U/L Total Bilirubin 0.8 MG/DL Sodium Level 132 MEQ/L Potassium Level 4.0 MEQ/L Chloride Level 97 MEQ/L Carbon Dioxide Level 21.5 MEQ/L Anion Gap 14 MEQ/L Estimat Glomerular Filtration Rate 95 ML/MIN Ethyl Alcohol Level LESS THAN 3 MG/DL Urine Color YELLOW Urine Turbidity CLEAR Urine pH 6.0 Urine Specific [place] 1.030 Urine Protein 300 mg/dL Urine Glucose (UA) 70 mg/dL Urine Ketones 10 mg/dL Urine Occult Blood SMALL Urine Nitrite NEG Urine Bilirubin NEG Urine Urobilinogen 4.0 MG/DL Urine Leukocyte Esterase NEG Urine RBC 5 /hpf Urine WBC 1 /hpf Urine Squamous Epithelial Cells <1 /hpf Urine Bacteria RARE /hpf Urine Hyaline Casts 4 /lpf Urine Mucus MANY /lpf Microscopic Urinalysis Comment CULT NOT INDICATED Urine Opiates Screen NEG Urine Barbiturates Screen NEG Urine Amphetamines Screen NEG Urine Benzodiazepines Screen NEG Urine Cocaine Screen NEG Urine Cannabinoids Screen NEG MDM Medical Decision Making Medical Screen Exam Complete: Yes Emergency Medical Condition: Yes Differential Diagnosis seizure versus subtherapeutic Keppra level versus alcohol withdrawal seizure versus Narrative Course 36-year-old male with PMH of seizures, chronic alcohol use presents to the ED for evaluation of seizure. Patient was seen earlier today and discharged. He was brought in through triage by EMS after a witnessed seizure in the parking lot. He fell and hit his face. On presentation the patient states that he has been having more frequent auras- including tingling of the left extremities. He endorses compliance with Keppra. He denies drinking today. During the course of examination the patient began to have a tonic-clonic seizure. He was administered 2 mg Ativan IV and 1 g of Keppra. EKG rate 108, sinus tachycardia. ID interval 144, QRS 132, QTc 382. Normal axis. No acute ST changes. Reviewed by Dr. Sharma. Elevation of the MCV and LFTs noted. No culture of the UA indicated. Tox screen negative. Alcohol less than 3. Patient is postictal, confused, sleeping on recheck. Dr. Sharma recommends admission for recurrent versus alcohol-related seizure. I spoke with who agrees to accept the patient to medicine service. Please see medicine notes for disposition. Ce Chung May 21, 2017 21:59
[2017-05-21 23:12] VITALS: BP 113/68; PULSE 81; RESP 18; O2SAT 98
[2017-05-21] MEDS ORDERED: RESP: ALBUTEROL 2.5 MG/IPRATROPIUM 0.5 MG NEB (PRN) NEB (23:30)
[2017-05-21] MEDS ORDERED: SODIUM CHLORIDE 0.9% FLUSH 10 ML FLUSH IV FLUSH PRN (23:30)
[2017-05-21] MEDS ORDERED: LORazepam 2 MG TAB PO PRN (23:30)
[2017-05-21] MEDS ORDERED: FLUMAZENIL 0.5 MG/5 ML VIAL IV PUSH PRN (23:30)
[2017-05-21] MEDS ORDERED: LORazepam 1 MG TAB PO PRN (23:30)
[2017-05-21] MEDS ORDERED: LORazepam 2 MG/ML VIAL IV PUSH PRN ×5 (23:30)
--- NOTE | 2017-05-21 23:41 | PD ---
Data Data Last Documented VS Vital Signs Date Time Temp Pulse Resp B/P (MAP) Pulse Ox O2 Delivery O2 Flow Rate FiO2 05/21/17 23:12 81 18 113/68 (83) 98 Nasal Cannula 2.00 05/21/17 20:24 98.3 Orders Orders Complete Blood Count With Diff (05/21/17 20:36) Alcohol (Ethanol) (05/21/17 20:36) Drug Screen, Random Urine (05/21/17 20:36) Electrocardiogram (05/21/17 ) Blood Glucose (05/21/17 20:36) Ecg Monitoring (05/21/17 20:36) Iv Access Insert/Monitor (05/21/17 20:36) Oximetry (05/21/17 20:36) Comprehensive Metabolic Panel (05/21/17 20:36) Sodium Chlor 0.9% 1000 Ml Inj (Ns 1000 M (05/21/17 20:36) Sodium Chloride 0.9% Flush (Ns Flush) (05/21/17 20:45) Lorazepam Inj (Ativan Inj) (05/21/17 20:45) Urinalysis - C+S If Indicated (05/21/17 20:36) Levetiracetam (05/21/17 20:39) Levetiracetam Inj (Keppra Inj) (05/21/17 21:15) Admit Order (Ed Use Only) (05/21/17 23:04) Place In Observation (05/21/17 ) Labs Laboratory Tests Test 05/21/17 21:00 05/21/17 21:15 05/21/17 21:25 White Blood Count 5.0 TH/MM3 Red Blood Count 3.82 MIL/MM3 Hemoglobin 13.4 GM/DL Hematocrit 39.3 % Mean Corpuscular Volume 102.8 FL Mean Corpuscular Hemoglobin 35.1 PG Mean Corpuscular Hemoglobin Concent 34.1 % Red Cell Distribution Width 11.9 % Platelet Count 71 TH/MM3 Mean Platelet Volume 7.8 FL Neutrophils (%) (Auto) 66.1 % Lymphocytes (%) (Auto) 22.6 % Monocytes (%) (Auto) 8.8 % Eosinophils (%) (Auto) 1.3 % Basophils (%) (Auto) 1.2 % Neutrophils # (Auto) 3.3 TH/MM3 Lymphocytes # (Auto) 1.1 TH/MM3 Monocytes # (Auto) 0.4 TH/MM3 Eosinophils # (Auto) 0.1 TH/MM3 Basophils # (Auto) 0.1 TH/MM3 CBC Comment AUTO DIFF Differential Comment AUTO DIFF CONFIRMED Platelet Estimate LOW Platelet Morphology Comment NORMAL Blood Urea Nitrogen 8 MG/DL Creatinine 1.06 MG/DL Random Glucose 134 MG/DL Total Protein 8.8 GM/DL Albumin 3.9 GM/DL Calcium Level 8.7 MG/DL Alkaline Phosphatase 97 U/L Aspartate Amino Transf (AST/SGOT) 176 U/L Alanine Aminotransferase (ALT/SGPT) 188 U/L Total Bilirubin 0.8 MG/DL Sodium Level 132 MEQ/L Potassium Level 4.0 MEQ/L Chloride Level 97 MEQ/L Carbon Dioxide Level 21.5 MEQ/L Anion Gap 14 MEQ/L Estimat Glomerular Filtration Rate 95 ML/MIN Ethyl Alcohol Level LESS THAN 3 MG/DL Urine Color YELLOW Urine Turbidity CLEAR Urine pH 6.0 Urine Specific [place] 1.030 Urine Protein 300 mg/dL Urine Glucose (UA) 70 mg/dL Urine Ketones 10 mg/dL Urine Occult Blood SMALL Urine Nitrite NEG Urine Bilirubin NEG Urine Urobilinogen 4.0 MG/DL Urine Leukocyte Esterase NEG Urine RBC 5 /hpf Urine WBC 1 /hpf Urine Squamous Epithelial Cells <1 /hpf Urine Bacteria RARE /hpf Urine Hyaline Casts 4 /lpf Urine Mucus MANY /lpf Microscopic Urinalysis Comment CULT NOT INDICATED Urine Opiates Screen NEG Urine Barbiturates Screen NEG Urine Amphetamines Screen NEG Urine Benzodiazepines Screen NEG Urine Cocaine Screen NEG Urine Cannabinoids Screen NEG MDM Supervised Visit with MELISSA: Yes Narrative Course The history, exam, and medical decision-making in the associated mid-level provider note were completed with my assistance. I reviewed and agree with the findings presented. I attest that I had a [id number] encounter with the patient on the same day, and personally performed and documented my assessment and findings in the medical record. *My assessment and Findings: 36-year-old man, history of seizure disorder, multiple seizures today. Patient seizing on my initial evaluation of the patient, tachycardic, somewhat hypoxic. Resolved following 2 of IV Ativan. We'll dose in additional dose of Breath. Symptoms resolved. We'll recommend admission for further evaluation and monitoring. Rashaad Sharma MD May 21, 2017 23:41
--- NOTE | 2017-05-21 23:51 | HHI.HP ---
[facility] Service [facility] Primary Care Physician No Primary Care Physician Admission Diagnosis recurrent seizure Diagnoses: Travel History International Travel<30 Days: No Contact w/Intl Traveler <30 Da: No Traveled to Known Affected Are: No History of Present Illness 36-year-old male with a known history of seizure disorder and alcohol abuse presents to the emergency department after a witnessed generalized tonic-clonic seizure in the ER parking lot. The patient was seen in the ED earlier today for increased aura and was discharged to home. In the parking lot he had a witnessed seizure. In the emergency department, the patient had another witnessed tonic-clonic seizure. He was administered 2 mg of Ativan and 1 g of Keppra. The patient reports that his last seizure was around Thanksgiving time. He reports compliance with his Keppra. He states he gets his Keppra from the emergency department and he does not have a neurologist or a primary care physician. He reports that he drinks 2-3 16 ounce cans of beer daily but denies drinking today. Review of Systems Denies fever or chills Denies blurry vision, otorrhea, rhinorrhea Denies sore throat and cough No chest pain, palpitations, shortness of breath No abdominal pain Denies constipation/diarrhea/nausea/vomiting Denies muscle pain/weakness No rashes Past Family Social History Past Medical History Seizure disorder Alcohol abuse Past Surgical History Hernia repair Right shoulder repair Reported Medications Reported Meds & Active Scripts Active Zofran Odt (Ondansetron Odt) 4 Mg Tab 4 Mg SL Q8HR PRN Keppra (Levetiracetam) 1,000 Mg Tab 1,000 Mg PO BID Allergies: Coded Allergies: No Known Allergies (Verified Adverse Reaction, Unknown, 05/21/17) Family History Denies family history of DM/CAD Social History Positive tobacco. Drinks approximately 2-3 16 ounce cans of beer daily. Denies marijuana or illicit drugs. Physical Exam Vital Signs Vital Signs Date Time Temp Pulse Resp B/P (MAP) Pulse Ox O2 Delivery O2 Flow Rate FiO2 05/21/17 23:31 75 18 98 Room Air 05/21/17 23:12 81 18 113/68 (83) 98 Nasal Cannula 2.00 05/21/17 21:56 98 18 124/59 (80) 99 Nasal Cannula 2.00 05/21/17 21:05 100 Non-Rebreather 15.00 05/21/17 20:35 79 18 159/98 (118) 100 Room Air 05/21/17 20:24 98.3 88 16 152/100 (117) 97 Room Air Physical Exam GENERAL: male lying in bed SKIN: No rashes, ecchymoses or lesions. Cool and dry. HEAD: Atraumatic. Normocephalic. No temporal or scalp tenderness. EYES: Pupils equal round and reactive. Extraocular motions intact. No scleral icterus. No injection or drainage. ENT: Nose without bleeding, purulent drainage or septal hematoma. Throat without erythema, tonsillar hypertrophy or exudate. Uvula midline. Airway patent. NECK: Trachea midline. No JVD or lymphadenopathy. Supple, nontender, no meningeal signs. CARDIOVASCULAR: Regular rate and rhythm without murmurs, gallops, or rubs. RESPIRATORY: Clear to auscultation. Breath sounds equal bilaterally. No wheezes , rales, or rhonchi. GASTROINTESTINAL: Abdomen soft, non-tender, nondistended. No hepato-splenomegaly , or palpable masses. No guarding. MUSCULOSKELETAL: Extremities without clubbing, cyanosis, or edema. No joint tenderness, effusion, or edema noted. No calf tenderness. NEUROLOGICAL: Sleepy but able to follow commands and answer questions. Cranial nerves II through XII intact. Motor and sensory grossly within normal limits. Normal speech. Laboratory Laboratory Tests Test 05/21/17 21:00 05/21/17 21:15 05/21/17 21:25 White Blood Count 5.0 Red Blood Count 3.82 Hemoglobin 13.4 Hematocrit 39.3 Mean Corpuscular Volume 102.8 Mean Corpuscular Hemoglobin 35.1 Mean Corpuscular Hemoglobin Concent 34.1 Red Cell Distribution Width 11.9 Platelet Count 71 Mean Platelet Volume 7.8 Neutrophils (%) (Auto) 66.1 Lymphocytes (%) (Auto) 22.6 Monocytes (%) (Auto) 8.8 Eosinophils (%) (Auto) 1.3 Basophils (%) (Auto) 1.2 Neutrophils # (Auto) 3.3 Lymphocytes # (Auto) 1.1 Monocytes # (Auto) 0.4 Eosinophils # (Auto) 0.1 Basophils # (Auto) 0.1 CBC Comment AUTO DIFF Differential Comment AUTO DIFF CONFIRMED Platelet Estimate LOW Platelet Morphology Comment NORMAL Blood Urea Nitrogen 8 Creatinine 1.06 Random Glucose 134 Total Protein 8.8 Albumin 3.9 Calcium Level 8.7 Alkaline Phosphatase 97 Aspartate Amino Transf (AST/SGOT) 176 Alanine Aminotransferase (ALT/SGPT) 188 Total Bilirubin 0.8 Sodium Level 132 Potassium Level 4.0 Chloride Level 97 Carbon Dioxide Level 21.5 Anion Gap 14 Estimat Glomerular Filtration Rate 95 Ethyl Alcohol Level LESS THAN 3 Urine Color YELLOW Urine Turbidity CLEAR Urine pH 6.0 Urine Specific [place] 1.030 Urine Protein 300 Urine Glucose (UA) 70 Urine Ketones 10 Urine Occult Blood SMALL Urine Nitrite NEG Urine Bilirubin NEG Urine Urobilinogen 4.0 Urine Leukocyte Esterase NEG Urine RBC 5 Urine WBC 1 Urine Squamous Epithelial Cells <1 Urine Bacteria RARE Urine Hyaline Casts 4 Urine Mucus MANY Microscopic Urinalysis Comment CULT NOT INDICATED Urine Opiates Screen NEG Urine Barbiturates Screen NEG Urine Amphetamines Screen NEG Urine Benzodiazepines Screen NEG Urine Cocaine Screen NEG Urine Cannabinoids Screen NEG Result Diagram: 05/21/17209905/21/172099 Caprini VTE Risk Assessment Caprini VTE Risk Assessment: No/Low Risk (score <= 1) Caprini Risk Assessment Model Point Value = 1 Point Value = 2 Point Value = 3 Point Value = 5 Age 41-60 Minor surgery BMI > 25 kg/m2 Swollen legs Varicose veins or History of unexplained or recurrent spontaneous Oral contraceptives or hormone replacement Sepsis (< 1 month) Serious lung disease, including pneumonia (< 1 month) Abnormal pulmonary function Acute myocardial infarction Congestive heart failure (< 1 month) History of inflammatory bowel disease Medical patient at bed rest Age 61-74 Arthroscopic surgery Major open surgery (> 45 min) Laparoscopic surgery (> 45 min) Malignancy Confined to bed (> 72 hours) Immobilizing plaster cast Central venous access Age >= 75 History of VTE Family history of VTE Factor V Leiden Prothrombin [id number] Lupus anticoagulant Anticardiolipin antibodies Elevated serum homocysteine Heparin-induced thrombocytopenia Other congenital or acquired thrombophilia Stroke (< 1 month) Elective arthroplasty Hip, pelvis, or leg fracture Acute spinal cord injury (< 1 month) Prophylaxis Regimen Total Risk Factor Score Risk Level Prophylaxis Regimen 0-1 Low Early ambulation 2 Moderate Order ONE of the following: *Sequential Compression Device (SCD) *Heparin 5000 units SQ BID 3-4 Higher Order ONE of the following medications: *Heparin 5000 units SQ TID *Enoxaparin/Lovenox 40 mg SQ daily (WT < 150 kg, CrCl > 30 mL/min) *Enoxaparin/Lovenox 30 mg SQ daily (WT < 150 kg, CrCl > 10-29 mL/min) *Enoxaparin/Lovenox 30 mg SQ BID (WT < 150 kg, CrCl > 30 mL/min) AND/OR *Sequential Compression Device (SCD) 5 or more Highest Order ONE of the following medications: *Heparin 5000 units SQ TID (Preferred with Epidurals) *Enoxaparin/Lovenox 40 mg SQ daily (WT < 150 kg, CrCl > 30 mL/min) *Enoxaparin/Lovenox 30 mg SQ daily (WT < 150 kg, CrCl > 10-29 mL/min) *Enoxaparin/Lovenox 30 mg SQ BID (WT < 150 kg, CrCl > 30 mL/min) AND *Sequential Compression Device (SCD) Assessment and Plan Assessment and Plan Assessment/plan: 1. Breakthrough seizures with known seizure disorder Patient reports compliance with his Keppra Keppra level pending Status post administration of 2 mg IV Ativan and 1 g Keppra EEG pending Neurology consulted, appreciate recommendations Patient does not follow with any primary care provider or neurologist, states he receives his Keppra through prescriptions given in the ED 2. Alcohol abuse [facility] protocol Thiamine/folate/multivitamin Monitor for signs of withdrawal FEN Regular diet Electrolytes: monitor and replete prn Case management consulted for assistance with outpatient follow-up Physician Certification 2 Midnight Certification Type: Admission for Inpatient Services Order for Inpatient Services The services are ordered in accordance with Medicare regulations or non- Medicare payer requirements, as applicable. In the case of services not specified as inpatient-only, they are appropriately provided as inpatient services in accordance with the 2-midnight benchmark. Estimated LOS (days): 2 2 days is the estimated time the patient will need to remain in the hospital, assuming treatment plan goals are met and no additional complications. Post-Hospital Plan: Not yet determined Bing Fuentes MD May 21, 2017 23:51
[2017-05-22 00:30] VITALS: BP 131/77; PULSE 70; RESP 18; TEMP 98.1; O2SAT 99
[2017-05-22 04:00] VITALS: BP 159/75; PULSE 59; RESP 18; TEMP 97.4; O2SAT 94
[2017-05-22 06:17] LABS: AUTOMATED NEUTROPHIL # 2.6 TH/MM3 (1.8-7.7); BASOPHIL % 0.4 % (0.0-2.0); EOSINOPHIL % 0.8 % (0.0-4.0); HEMATOCRIT 33.1 % (39.0-51.0); HEMOGLOBIN 11.6 GM/DL (13.0-17.0); LYMPH % 21.8 % (9.0-44.0); LYMPHOCYTE # 0.8 TH/MM3 (1.0-4.8); MEAN CELL VOLUME 102.1 FL (80.0-100.0); MEAN CORPUSCULAR HEMOGLOBIN 35.7 PG (27.0-34.0); MEAN PLATELET VOLUME 8.2 FL (7.0-11.0); MONOCYTE # 0.4 TH/MM3 (0-0.9); PLATELET COUNT 55 TH/MM3 (150-450); RED BLOOD COUNT 3.25 MIL/MM3 (4.50-5.90); RED CELL DISTRIBUTION WIDTH 11.8 % (11.6-17.2); WHITE BLOOD COUNT 3.8 TH/MM3 (4.0-11.0)
[2017-05-22 06:50] LABS: ALBUMIN 3.3 GM/DL (3.4-5.0); ALT (GPT) 142 U/L (12-78); AST (GOT) 126 U/L (15-37); BICARBONATE 23.5 MEQ/L (21.0-32.0); BLOOD UREA NITROGEN 8 MG/DL (7-18); CALCIUM 8.2 MG/DL (8.5-10.1); CHLORIDE 104 MEQ/L (98-107); CREATININE 0.82 MG/DL (0.60-1.30); GLOMERULAR FILTRATION RATE 128 ML/MIN (>89); GLUCOSE,RANDOM 69 MG/DL (74-106); SODIUM (NA) 138 MEQ/L (136-145)
[2017-05-22 06:53] LABS: ALKALINE PHOSPHATASE 80 U/L (45-117); TOTAL BILIRUBIN ADULT 1.1 MG/DL (0.2-1.0); TOTAL PROTEIN 7.2 GM/DL (6.4-8.2)
[2017-05-22 08:00] VITALS: BP 125/78; PULSE 72; RESP 16; TEMP 99.3; O2SAT 97
[2017-05-22] MEDS ORDERED: SODIUM CHLORIDE 0.9% FLUSH 10 ML FLUSH IV FLUSH SCH (09:00)
[2017-05-22] MEDS ORDERED: THIAMINE HCL 100 MG TAB PO SCH (09:00)
[2017-05-22] MEDS ORDERED: MULTIVITAMINS/MINERALS THERAPEUTIC TAB PO SCH (09:00)
[2017-05-22] MEDS ORDERED: FOLIC ACID 1 MG TAB PO SCH (09:00)
[2017-05-22] MEDS ORDERED: levETIRAcetam 500 MG TAB PO SCH (09:00)
[2017-05-22 12:00] VITALS: BP 134/90; PULSE 80; RESP 16; TEMP 98.5; O2SAT 99
--- NOTE | 2017-05-22 13:49 | MG ---
cc: TABITHA MENA M.D. Lab No: [id number] Date: 05/22/2017 Age: 36 Sex: M Race: DATE OF 1980 AGE [age] years old REFERRING PHYSICIAN MD Alfredo ROOM [id number]. NOTE With photic stimulation. Poor effort on hyperventilation stated per manufacturing test technician. Awake. CT shows stable appearance, nothing acute. INDICATIONS FOR PROCEDURE Admitted with seizures; fell and hit his face. History of a brain bleed in 2016. History of tobacco, alcohol, caffeine use. MEDICATIONS Keppra. Folic acid. DESCRIPTION OF RECORD There is somewhat low amplitude EEG with a lot of eye movement as well as head movement. There may be some mild background slowing; it is difficult to tell throughout all the movement. A washcloth was placed over the patient's eyes. No appreciable epileptic activity. Photic stimulation with a mild driving response. IMPRESSION No epileptiform features in this recording. Suboptimal EEG due to ongoing artifact but overall looks to have a normal background, lower amplitude without any epileptiform features. Clinical correlation. Tabitha Mena MD [id number]/ZHANG /1:08 PM /1:16 PM
--- NOTE | 2017-05-22 15:03 | HHI.PR ---
Subjective Remarks RN denies any deteriorations since last night; no further seizure activity. Patient himself denies having any seizures. He has a family member at the bedside who is very involved in his care. Patient does admit that he takes Keppra about twice a day and is overall quite compliant. He says he was also given Ativan to take at home she felt like a seizure was coming on. He does admit to drinking 2-4 beers a day for "a very long time" -when asked how long. Objective Vital Signs Date Time Temp Pulse Resp B/P (MAP) Pulse Ox O2 Delivery O2 Flow Rate FiO2 05/22/17 08:00 99.3 72 16 125/78 (94) 97 05/22/17 04:00 97.4 59 18 159/75 (103) 94 05/22/17 00:30 98.1 70 18 131/77 (95) 99 05/22/17 00:24 05/21/17 23:31 75 18 98 Room Air 05/21/17 23:12 81 18 113/68 (83) 98 Nasal Cannula 2.00 05/21/17 21:56 98 18 124/59 (80) 99 Nasal Cannula 2.00 05/21/17 21:05 100 Non-Rebreather 15.00 05/21/17 20:35 79 18 159/98 (118) 100 Room Air 05/21/17 20:24 98.3 88 16 152/100 (117) 97 Room Air I/O 05/21/17 05/21/17 05/21/17 05/22/17 05/22/17 05/22/17 07:00 15:00 23:00 07:00 15:00 23:00 Intake Total 2100 ml 600 ml Balance 2100 ml 600 ml Intake Oral 600 ml IV Total 2100 ml # Voids 1 # Bowel Movements 0 Result Diagram: 05/22/17 0552 05/22/17 0552 Objective Remarks Young well-nourished black male sitting in bed Has no facial droop, no slurred speech Alert and oriented 3, cooperative mood Is able to stand up and ambulate to the bathroom well with no deficits or gait abnormalities Adequate muscle bulk and tone in all 4 extremities for age and habitus A/P Assessment and Plan Breakthrough seizure - No further activity since last night after being loaded with IV Keppra and continuing with his by mouth dose of Keppra. Neurology consulted, I anticipate they will add on a second agent for better control and that the patient is likely to be discharged today as his EEG showing no active epileptiform activity and he had a CT head done which showed no acute abnormalities. His electrolytes look stable and are unlikely to be the cause of his breakthrough seizure. It is also possible that his alcohol use may be contributing to this as well. Acute transaminitis - improving since admission; likely secondary to alcohol use; patient counseled on the risks of hepatotoxicity from alcohol and he has affirmed that he wants to stop drinking now that he's been informed of this. His LFTs are not optimal for a course of Librium upon discharge. Discussed case with Dr. Brand from psychiatry - per his rec will use ativan taper over 4 days. Overall plan of ativan and new dose of keppra conveyed to patient verbally; pt also instructed to f/u with PCP to monitor liver levels and AED levels. Patient has met maximum benefit from hospitalization and is clinically stable for discharge. Over 30 minutes spent upon discharge and care. Stable for d/c from neurology standpoint. Ernesto Briggs MD May 22, 2017 15:02
[2017-05-22 16:00] VITALS: BP 153/96; PULSE 70; RESP 20; TEMP 98.3; O2SAT 100
[2017-05-22] MEDS ORDERED: LORA-475 PO (16:29)
--- NOTE | 2017-05-22 16:31 | HHI.DCPOC ---
Discharge Care Plan Diagnosis: (1) Seizure disorder (2) Alcohol abuse Goals to Promote Your Health * To prevent worsening of your condition and complications * To maintain your health at the optimal level Directions to Meet Your Goals Take your medications as prescribed Follow your dietary instruction Follow activity as directed Keep your appointments as scheduled Take your immunizations and boosters as scheduled If your symptoms worsen call your PCP, if no PCP go to Urgent Care Center or Emergency Room Smoking is Dangerous to Your Health. Avoid second hand smoke Call the 24-hour hour crisis hotline for domestic abuse at Ernesto Briggs MD May 22, 2017 16:31
[2017-05-22] MEDS ORDERED: KEPP10002 PO (16:42)
--- NOTE | 2017-05-22 18:11 | MB ---
cc: LAUREL MONTANO MD PHD DATE OF CONSULTATION 05/22/17 REASON FOR CONSULTATION Seizure. HISTORY OF PRESENT ILLNESS Mr. oPnce is a 36-year-old man admitted with two seizures over the past couple of days. She states it his seizures yesterday was a generalized tonic-clonic seizure with loss of consciousness and then a seizure before that. He takes Keppra 1000 mg b.i.d. He states he has a history of head injury two years ago with cerebral bleed requiring no surgical intervention. He does drink alcohol excessively. PAST MEDICAL HISTORY 1. History of seizure disorder, 2. Alcohol abuse. 3. He had a head trauma two years ago with cerebral hemorrhage MEDICATIONS At home Keppra 1000 mg b.i.d. ALLERGIES None known. NEUROLOGIC EXAMINATION Blood pressure is 125/78, pulse is 72, respirations 16, temperature 99 degrees. Higher cortical function - he is alert, oriented x3. Speech is normal. Cranial nerves intact. Motor exam - no focal deficits. He has some pain in the right arm limiting motion. Reflexes are symmetric. IMAGING STUDIES CT scan of the head is within normal limits. EEG - no epileptiform features are seen. There is some artifact present. LABORATORY DATA White count of 3800, hemoglobin 11.6, hematocrit 33%, platelet count 55,000. Sodium is 138, potassium 4.1, chloride 104, CO2 23.5, BUN is eight, creatinine 0.82, GFR 128, glucose 69, AST 126, ALT 142. Tox screen negative. IMPRESSION Recurrent seizures probably related to alcohol abuse and also history of head trauma. RECOMMENDATIONS I encouraged the patient to abstain from any alcohol. Recommend increasing Keppra to 1000 mg t.i.d. I told him no driving for at least six months. The patient is stable for discharge at the present time. I would recommend followup with me in my office in [id number] weeks. MD CARMEN Page/ /4:06 PM /5:20 PM
--- NOTE | 2017-05-22 23:01 | EKG ---
Date Performed: 05/21/2017 Time Performed: 21:02:59 PTAGE: 36 years EKG: SINUS TACHYCARDIA MODERATE INTRAVENTRICULAR CONDUCTION DELAY ABNORMAL RHYTHM ECG PREVIOUS TRACING : 02/23/2017 21.57 Compared to the previous tracing sinus tachycardia is new DOCTOR: Sebas Raygoza Interpretating Date/Time 05/22/2017 23:00:45
== END 2017-05-22 17:25 | disposition home or self-care (01) | DRG 101 ==
LOC: NEPC 20:22 → UNDOADMIN 23:06 → NEDA 23:06 → INTOOBSV 23:22 → NEDA 23:22 → OBSVTOIN 23:52 → N06B 05-22 00:16 → N06A 05-22 13:28
PROVIDERS: ADMIT Hospitalist; ATTEND Hospitalist
DX: G40.89 Other seizures (principal); G40.409 Other generalized epilepsy and epileptic syndromes, not intractable, without status epilepticus; F20.9 Schizophrenia, unspecified; F31.9 Bipolar disorder, unspecified; F10.10 Alcohol abuse, uncomplicated; F17.210 Nicotine dependence, cigarettes, uncomplicated; R09.02 Hypoxemia; J45.909 Unspecified asthma, uncomplicated; R00.0 Tachycardia, unspecified; R74.0 Nonspecific elevation of levels of transaminase and lactic acid dehydrogenase [LDH]; Z87.828 Personal history of other (healed) physical injury and trauma
CPT/HCPCS: 80053; 80177; 80307; 81001; 82948; 85025; 93005; 95819; 96361; 96365; J1953; J2060; J7030

== ENCOUNTER 2017-07-20 21:51 | Emergency (ER) | payer SELFPAY ==
[~2017-07-20] VITALS: Ht 180.3 cm; Wt 79.5 kg
[~2017-07-20 21:51] MED LIST changes: -LORA-392 PO; +LORA-475 PO
[2017-07-20 21:56] VITALS: BP 132/79; PULSE 90; RESP 19; TEMP 98.4; O2SAT 98
[2017-07-20] MEDS ORDERED: levETIRAcetam 500 MG TAB PO ONE (22:00)
[2017-07-20] MEDS ORDERED: LORazepam 2 MG TAB PO ONE (22:00)
[2017-07-20] MEDS ORDERED: ECASA81 PO (22:04)
--- NOTE | 2017-07-20 22:16 | PD ---
HPI Chief Complaint: Seizure Time Seen by Provider: 22:01 Travel History International Travel<30 days: No Contact w/Intl Traveler<30days: No Traveled to known affect area: No History of Present Illness HPI 37-year-old male with PMH of seizure disorder presents to the ED for evaluation of prodromal symptoms. Patient endorses a metallic taste in his mouth, tingling down the left extremities. Symptoms onset gradually this morning. He denies headache, dizziness, vision changes, chest pain, palpitations, shortness breath, abdominal pain, unilateral weakness. He endorses compliance with his Keppra, takes a significant 2 doses today. He endorses drinking a few beers today. He denies illicit drug use. States his last seizure was in April. He does not currently have a primary care doctor. He states that he receives refills through the emergency room. He states that he is not currently out of medications. Patient has been seen in this ED multiple times with similar complaint. PFSH Past Medical History Asthma: Yes Bipolar Disorder: Yes (non compliant with meds) Anxiety: No Depression: No Cancer: No Cardiovascular Problems: Yes Chemotherapy: No Cerebrovascular Accident: No Diminished Hearing: No Endocrine: No Gastrointestinal Disorders: No Genitourinary: No Headaches: Yes Immune Disorder: No Inguinal Hernia: Yes Implanted Vascular Access Dvce: No Musculoskeletal: No Neurologic: Yes ("BLEED IN BRAIN" 2015) Psychiatric: Yes Reproductive: No Respiratory: No Immunizations Current: No Migraines: No Radiation Therapy: No Schizophrenia: Yes Seizures: Yes Past Surgical History Abdominal Surgery: Yes (HERNIA SURGERY 2016 ) Cardiac Surgery: No Ear Surgery: No Endocrine Surgery: No Eye Surgery: No Genitourinary Surgery: No Gynecologic Surgery: No Oral Surgery: No Thoracic Surgery: No Other Surgery: Yes (LEFT GROIN HERNIA REPAIR WITH MESH) Social History Alcohol Use: Yes (DRANK BEER ) Tobacco Use: Yes (1 PPD) Substance Use: No Allergies-Medications (Allergen,Severity, Reaction): Coded Allergies: No Known Allergies (Verified Adverse Reaction, Unknown, 07/20/17) Reported Meds & Prescriptions Reported Meds & Active Scripts Active Keppra (Levetiracetam) 1,000 Mg Tab 1,000 Mg PO BID Keppra (Levetiracetam) 1,000 Mg Tab 1,000 Mg PO TID Reported Aspirin DR (Aspirin) 81 Mg Tabdr 81 Mg PO DAILY Review of Systems Except as stated in HPI: all other systems reviewed are Neg Physical Exam Narrative GENERAL: Well-nourished, well-developed male distress. SKIN: Focused skin assessment warm/dry. HEAD: Normocephalic. Atraumatic. EYES: No scleral icterus. No injection or drainage. PERRLA. EOMI. NECK: Supple, trachea midline. No JVD or lymphadenopathy. CARDIOVASCULAR: Regular rate and rhythm without murmurs, gallops, or rubs. RESPIRATORY: Breath sounds clear and equal bilaterally. No accessory muscle use. GASTROINTESTINAL: Abdomen soft, non-tender, nondistended. Active bowel sounds MUSCULOSKELETAL: No cyanosis, or edema. NEUROLOGICAL: Awake and alert. Cranial nerves II through XII intact. Motor and sensory grossly within normal limits. Five out of 5 muscle strength in all muscle groups. Normal speech. BACK: Nontender without obvious deformity. No CVA tenderness. Data Data Last Documented VS Vital Signs Date Time Temp Pulse Resp B/P (MAP) Pulse Ox O2 Delivery O2 Flow Rate FiO2 07/21/17 01:45 07/21/17 00:20 72 20 100 Room Air 07/20/17 21:56 98.4 Orders Orders Lorazepam (Ativan) (07/20/17 22:00) Levetiracetam (Keppra) (07/20/17 22:00) Complete Blood Count With Diff (07/20/17 22:16) Comprehensive Metabolic Panel (07/20/17 22:16) Urinalysis - C+S If Indicated (07/20/17 22:16) Drug Screen, Random Urine (07/20/17 22:16) Alcohol (Ethanol) (07/20/17 22:16) Lorazepam (Ativan) (07/21/17 00:30) Ed Discharge Order (07/21/17 01:21) Labs Laboratory Tests Test 07/20/17 22:20 07/20/17 23:15 White Blood Count 3.4 TH/MM3 Red Blood Count 3.58 MIL/MM3 Hemoglobin 12.5 GM/DL Hematocrit 36.0 % Mean Corpuscular Volume 100.7 FL Mean Corpuscular Hemoglobin 35.1 PG Mean Corpuscular Hemoglobin Concent 34.8 % Red Cell Distribution Width 13.1 % Platelet Count 77 TH/MM3 Mean Platelet Volume 8.4 FL Neutrophils (%) (Auto) 62.2 % Lymphocytes (%) (Auto) 26.7 % Monocytes (%) (Auto) 7.9 % Eosinophils (%) (Auto) 1.9 % Basophils (%) (Auto) 1.3 % Neutrophils # (Auto) 2.1 TH/MM3 Lymphocytes # (Auto) 0.9 TH/MM3 Monocytes # (Auto) 0.3 TH/MM3 Eosinophils # (Auto) 0.1 TH/MM3 Basophils # (Auto) 0.0 TH/MM3 CBC Comment AUTO DIFF Differential Comment AUTO DIFF CONFIRMED Platelet Estimate LOW Platelet Morphology Comment NORMAL Blood Urea Nitrogen 5 MG/DL Creatinine 0.79 MG/DL Random Glucose 85 MG/DL Total Protein 7.8 GM/DL Albumin 3.6 GM/DL Calcium Level 8.1 MG/DL Alkaline Phosphatase 81 U/L Aspartate Amino Transf (AST/SGOT) 125 U/L Alanine Aminotransferase (ALT/SGPT) 118 U/L Total Bilirubin 0.5 MG/DL Sodium Level 137 MEQ/L Potassium Level 3.9 MEQ/L Chloride Level 103 MEQ/L Carbon Dioxide Level 26.6 MEQ/L Anion Gap 7 MEQ/L Estimat Glomerular Filtration Rate 133 ML/MIN Ethyl Alcohol Level 156 MG/DL Urine Color YELLOW Urine Turbidity CLEAR Urine pH 5.5 Urine Specific Belva 1.009 Urine Protein NEG mg/dL Urine Glucose (UA) NEG mg/dL Urine Ketones NEG mg/dL Urine Occult Blood TRACE Urine Nitrite NEG Urine Bilirubin NEG Urine Urobilinogen LESS THAN 2.0 MG/DL Urine Leukocyte Esterase NEG Urine RBC LESS THAN 1 /hpf Urine WBC LESS THAN 1 /hpf Urine Squamous Epithelial Cells <1 /hpf Urine Mucus FEW /lpf Microscopic Urinalysis Comment CULT NOT INDICATED Urine Opiates Screen NEG Urine Barbiturates Screen NEG Urine Amphetamines Screen NEG Urine Benzodiazepines Screen NEG Urine Cocaine Screen NEG Urine Cannabinoids Screen NEG MDM Medical Decision Making Medical Screen Exam Complete: Yes Emergency Medical Condition: Yes Differential Diagnosis seizure disorder versus alcohol withdrawal versus medication refill versus drug seeking behavior versus other Narrative Course 37-year-old male with PMH of seizure disorder presents to the ED for evaluation of prodromal symptoms. Patient endorses a metallic taste in his mouth, tingling down the left extremities. Symptoms onset gradually this morning. Similar to previous prodromal symptoms. He endorses compliance with his Keppra, took 2 doses today. He endorses drinking a few beers today. He denies illicit drug use. States his last seizure was in April. No PCP. He states that he receives refills through the ED. He states that he is not currently out of medications. Patient has been seen in this ED multiple times with similar complaint. Vitals reviewed. On exam the patient's alert, oriented, sitting up in the bed. He is mildly tremulous. No focal neuro deficits. Chest CTAB. Abdomen soft and nontender. He was administered 2 mg Ativan by mouth and 1 g of Keppra by mouth. 07/20/17 22:20 Total Protein 7.8, Albumin 3.6, Calcium Level 8.1 L, Alkaline Phosphatase 81, Aspartate Amino Transf (AST/SGOT) 125 H, Alanine Aminotransferase (ALT/SGPT) 118 H, Total Bilirubin 0.5 UA: no culture indicated Tox screen negative. Alcohol: 156 Patient was monitored in the ED for a few hours. No evidence of seizure. He reports improvement of his symptoms on recheck. He was provided with a 30 day refill of Keppra and instructed to establish primary care at the [facility]. He is stable and discharged home. Diagnosis Primary Impression: Seizure disorder Additional Impression: Medication refill Referrals: [facility] Patient Instructions: General Instructions, Recurrent Seizures in Adults (ED) Additional Instructions: Rest, hydrate. Take Keppra as prescribed. Seek outpatient treatment for chronic alcohol use at [facility]. Follow up with the [facility] to establish care. Return to the ED for worsening symptoms or any urgent or emergent medical condition. Med/Other Pt SpecificInfo: Prescription(s) given Scripts Levetiracetam (Keppra) 1,000 Mg Tab 1000 MG PO BID for Control Seizures, #90 TAB 0 Refills Prov: Prosper Ellis MD 07/20/17 Disposition: 01 DISCHARGE HOME Condition: Stable Ce Chung Jul 20, 2017 22:16
[2017-07-20] MEDS ORDERED: KEPP10002 PO (22:23)
[2017-07-20 23:05] LABS: AUTOMATED NEUTROPHIL # 2.1 TH/MM3 (1.8-7.7); BASOPHIL % 1.3 % (0.0-2.0); EOSINOPHIL # 0.1 TH/MM3 (0-0.4); EOSINOPHIL % 1.9 % (0.0-4.0); HEMOGLOBIN 12.5 GM/DL (13.0-17.0); LYMPH % 26.7 % (9.0-44.0); LYMPHOCYTE # 0.9 TH/MM3 (1.0-4.8); MEAN CELL VOLUME 100.7 FL (80.0-100.0); MEAN CORPUSCULAR HEMOGLOBIN 35.1 PG (27.0-34.0); MEAN CORPUSCULAR HGB CONC 34.8 % (32.0-36.0); MEAN PLATELET VOLUME 8.4 FL (7.0-11.0); MONO % 7.9 % (0.0-8.0); MONOCYTE # 0.3 TH/MM3 (0-0.9); NEUT % 62.2 % (16.0-70.0); PLATELET COUNT 77 TH/MM3 (150-450); RED BLOOD COUNT 3.58 MIL/MM3 (4.50-5.90); RED CELL DISTRIBUTION WIDTH 13.1 % (11.6-17.2); WHITE BLOOD COUNT 3.4 TH/MM3 (4.0-11.0)
[2017-07-20 23:23] LABS: ALBUMIN 3.6 GM/DL (3.4-5.0); ALT (GPT) 118 U/L (12-78); AST (GOT) 125 U/L (15-37); BICARBONATE 26.6 MEQ/L (21.0-32.0); BLOOD UREA NITROGEN 5 MG/DL (7-18); CALCIUM 8.1 MG/DL (8.5-10.1); CHLORIDE 103 MEQ/L (98-107); CREATININE 0.79 MG/DL (0.60-1.30); GLOMERULAR FILTRATION RATE 133 ML/MIN (>89); GLUCOSE,RANDOM 85 MG/DL (74-106); SODIUM (NA) 137 MEQ/L (136-145)
[2017-07-20 23:25] LABS: ALKALINE PHOSPHATASE 81 U/L (45-117); TOTAL BILIRUBIN ADULT 0.5 MG/DL (0.2-1.0); TOTAL PROTEIN 7.8 GM/DL (6.4-8.2)
[2017-07-20 23:40] LABS: BILIRUBIN, URINE NEG (NEG); BLOOD, URINE TRACE (NEG); GLUCOSE,URINE NEG (NEG); KETONE, URINE NEG (NEG); MUCUS URINE FEW /lpf (OCC); NITRITE,URINE NEG (NEG); PH, URINE 5.5 (5.0-8.5); SQUAMOUS EPITHELIAL CELL URINE <1 /hpf (0-5); URINE COLOR YELLOW (YELLW/STRAW); URINE LEUKOCYTE ESTERASE NEG (NEG)
[2017-07-21 00:20] VITALS: BP 140/98; PULSE 72; RESP 20; O2SAT 100
[2017-07-21] MEDS ORDERED: LORazepam 2 MG TAB PO ONE (00:30)
== END 2017-07-21 01:50 | disposition home or self-care (01) ==
LOC: NEPC 21:51
DX: G40.909 Epilepsy, unspecified, not intractable, without status epilepticus (principal); J45.909 Unspecified asthma, uncomplicated; F31.9 Bipolar disorder, unspecified; F20.9 Schizophrenia, unspecified; F17.200 Nicotine dependence, unspecified, uncomplicated; Z91.14 Patient's other noncompliance with medication regimen; Z76.0 Encounter for issue of repeat prescription
CPT/HCPCS: 80053; 80307; 81001; 85025; 99283

== ENCOUNTER 2017-09-08 01:48 | Emergency (ER) | payer SELFPAY ==
[~2017-09-08 01:48] MED LIST changes: +ECASA81 PO; -LORA-475 PO; -ZOFR4TAB3 SL
[2017-09-08 02:00] VITALS: BP 120/78; PULSE 90; RESP 18; TEMP 98.1; O2SAT 98
--- NOTE | 2017-09-08 02:08 | PD ---
HPI . Seizure prodrome Chief Complaint: Medical Clearance Time Seen by Provider: 01:49 Travel History International Travel<30 days: No Contact w/Intl Traveler<30days: No Traveled to known affect area: No History of Present Illness HPI Patient presents by rescue with a chief complaint of feeling like he is going to have a seizure. Onset of symptoms was 30 minutes prior to presentation. He states that he has a metal taste in his mouth and feels numb on the left side. He states that this is his usual seizure program. He states that he has been compliant with his Keppra. He takes Keppra 1000 mg 3 times daily. He does state that he vomited the last dose at about 1 AM. He has had one episode of emesis. In addition, he is complaining with a throbbing occipital headache. He states that the symptoms are usually treated with Ativan. PFSH Past Medical History Asthma: Yes Bipolar Disorder: Yes (non compliant with meds) Anxiety: No Depression: No Cancer: No Cardiovascular Problems: Yes Chemotherapy: No Cerebrovascular Accident: No Diminished Hearing: No Endocrine: No Gastrointestinal Disorders: No Genitourinary: No Headaches: Yes Immune Disorder: No Inguinal Hernia: Yes Implanted Vascular Access Dvce: No Musculoskeletal: No Neurologic: Yes ("BLEED IN BRAIN" 2015) Psychiatric: Yes Reproductive: No Respiratory: No Immunizations Current: No Migraines: No Radiation Therapy: No Schizophrenia: Yes Seizures: Yes Past Surgical History Abdominal Surgery: Yes (HERNIA SURGERY 2016 ) Cardiac Surgery: No Ear Surgery: No Endocrine Surgery: No Eye Surgery: No Genitourinary Surgery: No Gynecologic Surgery: No Oral Surgery: No Thoracic Surgery: No Other Surgery: Yes (LEFT GROIN HERNIA REPAIR WITH MESH) Social History Alcohol Use: Yes (BEER) Tobacco Use: Yes (1 PPD) Substance Use: No Allergies-Medications (Allergen,Severity, Reaction): Coded Allergies: No Known Allergies (Verified Adverse Reaction, Unknown, 07/20/17) Reported Meds & Prescriptions Reported Meds & Active Scripts Active Keppra (Levetiracetam) 1,000 Mg Tab 1,000 Mg PO BID Keppra (Levetiracetam) 1,000 Mg Tab 1,000 Mg PO TID Reported Aspirin DR (Aspirin) 81 Mg Tabdr 81 Mg PO DAILY Review of Systems Except as stated in HPI: all other systems reviewed are Neg Eyes: No: Blurred Vision HENT: Positive: Headaches Gastrointestinal: Positive: Nausea, Vomiting Physical Exam Narrative GENERAL: Awake and alert and in no acute distress. He smells a little of alcohol. SKIN: Warm and dry. HEAD: Normocephalic/atraumatic. Positive scalp tenderness. EYES: Pupils are equal. Extraocular movements are intact. NECK: Normal range of motion. CARDIOVASCULAR: Regular rate and rhythm. RESPIRATORY: Nonlabored respirations. MUSCULOSKELETAL: Atraumatic. NEUROLOGICAL: A and O 3. Cranial nerves are grossly intact. Diesel Locomotive Firer/Fireman strengths are full and equal. [id number] exam is intact. Speech is normal. PSYCHIATRIC: Appropriate mood and affect. Data Data Last Documented VS Vital Signs Date Time Temp Pulse Resp B/P (MAP) Pulse Ox O2 Delivery O2 Flow Rate FiO2 09/08/17 02:00 98.1 90 18 120/78 (92) 98 Room Air Orders Orders Sodium Chlor 0.9% 1000 Ml Inj (Ns 1000 M (09/08/17 02:15) Lorazepam Inj (Ativan Inj) (09/08/17 02:15) Levetiracetam Inj (Keppra Inj) (09/08/17 02:15) MDM Medical Decision Making Medical Screen Exam Complete: Yes Emergency Medical Condition: Yes Medical Record Reviewed: Yes (This patient has been seen here multiple times for similar complaints.) Differential Diagnosis Differential diagnosis of seizure includes but is not limited to epilepsy, electrolyte abnormality, previous stroke, closed head injury Narrative Course This patient presents stating that he feels like he is going to have a seizure. He has not actually had a seizure. He reports compliance with his Keppra except that he vomited the last dose about an hour prior to presentation. He reports the onset of the prodrome 30 minutes ago. I will treat him with IV Ativan and Keppra. He states he feels like he is dehydrated so I will give him a liter of fluid. Diagnosis Primary Impression: Seizure disorder Additional Impression: Alcohol abuse Patient Instructions: General Instructions, Recurrent Seizures in Adults (ED) Disposition: 01 DISCHARGE HOME Condition: Stable Nathalie Hammer MD Sep 08, 2017 02:08
[2017-09-08] MEDS ORDERED: LORazepam 2 MG/ML VIAL IV PUSH ONE (02:15)
[2017-09-08] MEDS ORDERED: SODIUM CHLOR 0.9% 1000 ML INJ 1,000 ML IV ONE (02:15)
[2017-09-08] MEDS ORDERED: levETIRAcetam INJ 100 ML IV ONE (02:15)
[2017-09-08 03:13] VITALS: BP 112/69; PULSE 80; RESP 16; O2SAT 98
== END 2017-09-08 03:22 | disposition home or self-care (01) ==
LOC: NEPE 01:48
DX: G40.909 Epilepsy, unspecified, not intractable, without status epilepticus (principal); F10.10 Alcohol abuse, uncomplicated; R51 Headache; R11.10 Vomiting, unspecified; J45.909 Unspecified asthma, uncomplicated; Z72.0 Tobacco use
CPT/HCPCS: 96374; 96375; 99284; J1953; J2060; J7030

== ENCOUNTER 2017-09-26 14:06 | Emergency (ER) | payer SELFPAY ==
[~2017-09-26] VITALS: Ht 180.3 cm; Wt 80.0 kg
[2017-09-26 14:17] VITALS: BP 133/100; PULSE 95; RESP 16; TEMP 98.8; O2SAT 97
[2017-09-26] MEDS ORDERED: LORazepam 2 MG/ML VIAL IVS ONE (14:30)
[2017-09-26] MEDS ORDERED: SODIUM CHLOR 0.9% 1000 ML INJ 1,000 ML IV ONE (14:30)
[2017-09-26 15:07] LABS: AUTOMATED NEUTROPHIL # 1.4 TH/MM3 (1.8-7.7); BASOPHIL # 0.1 TH/MM3 (0-0.2); BASOPHIL % 2.8 % (0.0-2.0); EOSINOPHIL # 0.1 TH/MM3 (0-0.4); EOSINOPHIL % 4.6 % (0.0-4.0); HEMOGLOBIN 13.1 GM/DL (13.0-17.0); LYMPH % 31.2 % (9.0-44.0); LYMPHOCYTE # 0.9 TH/MM3 (1.0-4.8); MEAN CELL VOLUME 102.1 FL (80.0-100.0); MEAN CORPUSCULAR HEMOGLOBIN 35.3 PG (27.0-34.0); MEAN CORPUSCULAR HGB CONC 34.6 % (32.0-36.0); MONO % 10.5 % (0.0-8.0); MONOCYTE # 0.3 TH/MM3 (0-0.9); NEUT % 50.9 % (16.0-70.0); PLATELET COUNT 103 TH/MM3 (150-450); RED BLOOD COUNT 3.72 MIL/MM3 (4.50-5.90); RED CELL DISTRIBUTION WIDTH 12.5 % (11.6-17.2); WHITE BLOOD COUNT 2.7 TH/MM3 (4.0-11.0)
--- NOTE | 2017-09-26 15:08 | PD ---
HPI Chief Complaint: Seizure Time Seen by Provider: 14:21 Travel History International Travel<30 days: No Contact w/Intl Traveler<30days: No Traveled to known affect area: No History of Present Illness HPI Patient is a 37-year-old male with history of seizures from a traumatic brain injury currently taking Keppra, presents the emergency room for evaluation of seizure activity. Patient reports that prior to coming to the emergency room, he had an aura that he was going to have a seizure. Patient reports that he laid himself down the ground and had a seizure which lasted for about 15 minutes. Patient reports that he was aware of his seizure activity during the whole event, he did call EMS for help. Patient reports that he does have history of a TBI which led to his seizures, he has been compliant with his Keppra and did take his dose of Keppra this morning. Patient reports that he is also an alcoholic, reports that his last drink was yesterday. Patient at this time denies any headache or dizziness, denies any chest pain or shortness of breath. Patient does endorse that he does feel shaky. PFSH Past Medical History Hx Anticoagulant Therapy: Yes (81MG) Asthma: Yes Bipolar Disorder: Yes (non compliant with meds) Anxiety: No Depression: No Cancer: No Cardiovascular Problems: Yes Chemotherapy: No Cerebrovascular Accident: No Diminished Hearing: No Endocrine: No Gastrointestinal Disorders: No Genitourinary: No Headaches: Yes Immune Disorder: No Inguinal Hernia: Yes Implanted Vascular Access Dvce: No Musculoskeletal: No Neurologic: Yes ("BLEED IN BRAIN" 2015) Psychiatric: Yes Reproductive: No Respiratory: No Immunizations Current: No Migraines: No Radiation Therapy: No Schizophrenia: Yes Seizures: Yes Past Surgical History Abdominal Surgery: Yes (HERNIA SURGERY 2016 ) Cardiac Surgery: No Ear Surgery: No Endocrine Surgery: No Eye Surgery: No Genitourinary Surgery: No Gynecologic Surgery: No Oral Surgery: No Thoracic Surgery: No Other Surgery: Yes (LEFT GROIN HERNIA REPAIR WITH MESH) Social History Alcohol Use: Yes (4-6 BEERS DAILY) Tobacco Use: Yes (1 PPD) Substance Use: No Allergies-Medications (Allergen,Severity, Reaction): Coded Allergies: No Known Allergies (Verified Adverse Reaction, Unknown, 09/26/17) Reported Meds & Prescriptions Reported Meds & Active Scripts Active Keppra (Levetiracetam) 1,000 Mg Tab 1,000 Mg PO BID Keppra (Levetiracetam) 1,000 Mg Tab 1,000 Mg PO TID Reported Aspirin DR (Aspirin) 81 Mg Tabdr 81 Mg PO DAILY Review of Systems General / Constitutional: No: Fever Eyes: No: Visual changes HENT: No: Headaches Cardiovascular: No: Chest Pain or Discomfort Respiratory: No: Shortness of Breath Gastrointestinal: No: Abdominal Pain Genitourinary: No: Dysuria Musculoskeletal: No: Pain Skin: No Rash Neurologic: Positive: Seizures, No: Weakness Psychiatric: No: Depression Endocrine: No: Polydipsia Hematologic/Lymphatic: No: Easy Bruising Physical Exam Narrative GENERAL: Mild distress SKIN: Focused skin assessment warm/dry. HEAD: Atraumatic. Normocephalic. EYES: Pupils equal and round. No scleral icterus. No injection or drainage. ENT: No nasal bleeding or discharge. Mucous membranes pink and moist. NECK: Trachea midline. No JVD. CARDIOVASCULAR: Regular rate and rhythm. No murmur appreciated. RESPIRATORY: No accessory muscle use. Clear to auscultation. Breath sounds equal bilaterally. GASTROINTESTINAL: Abdomen soft, non-tender, nondistended. Hepatic and splenic margins not palpable. MUSCULOSKELETAL: No obvious deformities. No clubbing. No cyanosis. No edema. NEUROLOGICAL: Awake and alert. No obvious cranial nerve deficits. Motor grossly within normal limits. Normal speech. PSYCHIATRIC: Appropriate mood and affect; insight and judgment normal. Data Data Last Documented VS Vital Signs Date Time Temp Pulse Resp B/P (MAP) Pulse Ox O2 Delivery O2 Flow Rate FiO2 09/26/17 16:21 75 16 132/91 (105) 98 Room Air 09/26/17 14:17 98.8 Orders Orders Complete Blood Count With Diff (09/26/17 14:26) Alcohol (Ethanol) (09/26/17 14:26) Drug Screen, Random Urine (09/26/17 14:26) Ct Brain W/O Iv Contrast(Rout) (09/26/17 ) Blood Glucose (09/26/17 14:26) Ecg Monitoring (09/26/17 14:26) Iv Access Insert/Monitor (09/26/17 14:26) Oximetry (09/26/17 14:26) Comprehensive Metabolic Panel (09/26/17 14:26) Lorazepam Inj (Ativan Inj) (09/26/17 14:30) Ua Includes Microscopic (09/26/17 14:26) Sodium Chlor 0.9% 1000 Ml Inj (Ns 1000 M (09/26/17 14:30) Ondansetron Inj (Zofran Inj) (09/26/17 15:15) Labs Laboratory Tests Test 09/26/17 14:30 White Blood Count 2.7 TH/MM3 Red Blood Count 3.72 MIL/MM3 Hemoglobin 13.1 GM/DL Hematocrit 38.0 % Mean Corpuscular Volume 102.1 FL Mean Corpuscular Hemoglobin 35.3 PG Mean Corpuscular Hemoglobin Concent 34.6 % Red Cell Distribution Width 12.5 % Platelet Count 103 TH/MM3 Mean Platelet Volume 8.0 FL Neutrophils (%) (Auto) 50.9 % Lymphocytes (%) (Auto) 31.2 % Monocytes (%) (Auto) 10.5 % Eosinophils (%) (Auto) 4.6 % Basophils (%) (Auto) 2.8 % Neutrophils # (Auto) 1.4 TH/MM3 Lymphocytes # (Auto) 0.9 TH/MM3 Monocytes # (Auto) 0.3 TH/MM3 Eosinophils # (Auto) 0.1 TH/MM3 Basophils # (Auto) 0.1 TH/MM3 CBC Comment DIFF FINAL Differential Comment Blood Urea Nitrogen 6 MG/DL Creatinine 0.74 MG/DL Random Glucose 76 MG/DL Total Protein 7.7 GM/DL Albumin 3.6 GM/DL Calcium Level 8.4 MG/DL Alkaline Phosphatase 74 U/L Aspartate Amino Transf (AST/SGOT) 138 U/L Alanine Aminotransferase (ALT/SGPT) 82 U/L Total Bilirubin 0.5 MG/DL Sodium Level 141 MEQ/L Potassium Level 4.0 MEQ/L Chloride Level 106 MEQ/L Carbon Dioxide Level 23.3 MEQ/L Anion Gap 12 MEQ/L Estimat Glomerular Filtration Rate 143 ML/MIN Ethyl Alcohol Level 38 MG/DL MDM Medical Decision Making Medical Screen Exam Complete: Yes Emergency Medical Condition: Yes Medical Record Reviewed: Yes Interpretation(s) Vital Signs Date Time Temp Pulse Resp B/P (MAP) Pulse Ox O2 Delivery O2 Flow Rate FiO2 09/26/17 14:17 98.8 95 16 133/100 (111) 97 Differential Diagnosis Intracranial hemorrhage, seizure, alcohol related seizure, electrolyte abnormality Narrative Course During the course of the patients emergency department visit, the patients history, examination, and differential diagnosis were reviewed with the patient. The patient was placed on a chief executive or managing director with oximetry and frequent blood pressure monitoring. The patient had an IV access obtained and blood work sent for analysis. The patient was initially provided IVF, IV ativan The patients laboratory studies were reviewed and remarkable for CBC & BMP Diagram 09/26/17 14:30 Total Protein 7.7, Albumin 3.6, Calcium Level 8.4 L, Alkaline Phosphatase 74, Aspartate Amino Transf (AST/SGOT) 138 H, Alanine Aminotransferase (ALT/SGPT) 82 H, Total Bilirubin 0.5 Radiology studies were reviewed and remarkable for Last Impressions Head CT 09/26/17 0000 Signed Impressions: Service Date/Time: Tuesday, September 26, 2017 15:32 - CONCLUSION: Moderate left maxillary sinus disease, otherwise negative Leandro De La Paz MD FACR All labs and all findings as well as incidental findings reviewed with patient. Discussed need for him to go to alcoholic anonymous meetings, will have him return to the ER as needed. Diagnosis Primary Impression: Seizure disorder Additional Impression: Thrombocytopenia Patient Instructions: General Instructions Additional Instructions: Please provide patient with a copy of their lab work and studies at discharge* * Please follow up with your primary care doctor in 2-3 days Return to the ER if symptoms worsen or progress Return to the ER as needed Please follow up with your neurologist as soon as possible Please take your Keppra as directed Stop drinking alcohol Do not drive or operate heavy machinery Disposition: 01 DISCHARGE HOME Condition: Stable Bing Bennett DO September 26, 2017 15:08
[2017-09-26] MEDS ORDERED: ONDANSETRON HCL 4 MG/2 ML VIAL IV PUSH ONE (15:15)
[2017-09-26 15:19] LABS: ALBUMIN 3.6 GM/DL (3.4-5.0); ALT (GPT) 82 U/L (12-78); AST (GOT) 138 U/L (15-37); BICARBONATE 23.3 MEQ/L (21.0-32.0); BLOOD UREA NITROGEN 6 MG/DL (7-18); CALCIUM 8.4 MG/DL (8.5-10.1); CHLORIDE 106 MEQ/L (98-107); CREATININE 0.74 MG/DL (0.60-1.30); GLOMERULAR FILTRATION RATE 143 ML/MIN (>89); GLUCOSE,RANDOM 76 MG/DL (74-106); SODIUM (NA) 141 MEQ/L (136-145)
[2017-09-26 15:22] LABS: ALKALINE PHOSPHATASE 74 U/L (45-117); TOTAL BILIRUBIN ADULT 0.5 MG/DL (0.2-1.0); TOTAL PROTEIN 7.7 GM/DL (6.4-8.2)
--- NOTE | 2017-09-26 15:47 | RADRPT ---
EXAM DATE/TIME: 09/26/2017 15:32 [facility] COMPARISON: CT BRAIN W/O CONTRAST, May 21, 2017, 16:14. INDICATIONS : Syncope. Possible seizure. RADIATION DOSE: 45.25 CTDIvol (mGy) MEDICAL HISTORY : Cardiovascular disease. Seizures. SURGICAL HISTORY : None. ENCOUNTER: Initial ACUITY: 1 day PAIN SCALE: 5/10 LOCATION: Bilateral cranial TECHNIQUE: Multiple contiguous axial images were obtained of the head. Using automated exposure control and adj ustment of the mA and/or kV according to patient size, radiation dose was kept as low as reasonably a chievable to obtain optimal diagnostic quality images. DICOM format image data is available electro nically for review and comparison. FINDINGS: CEREBRUM: The ventricles are normal for age. No evidence of midline shift, mass lesion, hemorrhage or acute in farction. No extra-axial fluid collections are seen. POSTERIOR FOSSA: The cerebellum and brainstem are intact. The 4th ventricle is midline. The cerebellopontine angle i s unremarkable. EXTRACRANIAL: The visualized portion of the orbits is intact. SKULL: The calvaria is intact. No evidence of skull fracture. Moderate left maxillary sinus disease CONCLUSION: Moderate left maxillary sinus disease, otherwise negative Leandro De La Paz MD FACR on September 26, 2017 at 15:44 Board Certified Radiologist. This report was verified electronically.
[2017-09-26 16:21] VITALS: BP 132/91; PULSE 75; RESP 16; O2SAT 98
== END 2017-09-26 17:49 | disposition home or self-care (01) ==
LOC: NEPE 14:06
DX: G40.909 Epilepsy, unspecified, not intractable, without status epilepticus (principal); D69.6 Thrombocytopenia, unspecified; J32.0 Chronic maxillary sinusitis; J45.909 Unspecified asthma, uncomplicated; F31.9 Bipolar disorder, unspecified; F20.9 Schizophrenia, unspecified; F17.200 Nicotine dependence, unspecified, uncomplicated; Z79.82 Long term (current) use of aspirin; Z87.820 Personal history of traumatic brain injury
CPT/HCPCS: 70450; 80053; 80307; 85025; 96361; 96374; 96375; 99284; J2060; J2405; J7030

== ENCOUNTER 2017-09-28 22:16 | Emergency (ER) | payer SELFPAY ==
[2017-09-28 22:21] VITALS: BP 131/89; PULSE 76; RESP 16; TEMP 97.9; O2SAT 97
[2017-09-28 22:34] VITALS: O2SAT 98
--- NOTE | 2017-09-28 22:39 | PD ---
HPI Chief Complaint: Seizure Time Seen by Provider: 22:29 Travel History International Travel<30 days: No Contact w/Intl Traveler<30days: No Traveled to known affect area: No History of Present Illness HPI The patient is a 37 year old male who presents to the [facility] emergency department with a history of feeling anxious because of symptoms related to an aura that he began to experience prior to arrival. The patient reports that he has similar symptoms prior to having a seizure. He reports that he does not have a neurologist. He reports that he is taking Keppra 1000 mg 3 times a day. He last took a dose between 430 and 5 PM. He reports that his work consists of tingling sensations in the left upper and left lower extremity with a metallic taste in his mouth. The patient reports that he was last seen related to seizures in the emergency department on September 26. The patient underwent a CAT scan of his brain at that time. The patient reports that he has been told that alcohol could be contributing to his seizures. He reports that he has a history of daily alcohol intake, however he has been drinking less than usual. He reports that he only drank one beer today, however he normally drinks between 4-6 beers daily. The patient reports that he was first diagnosed with a seizure disorder after a head injury and intracranial hemorrhage that required no operative intervention. According to the record the patient was seen by a neurologist in the hospital, Dr. Arenas during his admission in April 2017. At that time Dr. Arenas recommended that he follow up with him in his office 2-3 weeks following that admission. Otherwise on review of systems, the patient denies having any known recent fevers, cough or congestion , neck pain, chest pain, shortness of breath, abdominal pain, vomiting, diarrhea , urinary symptoms, or other neurologic symptoms. [facility] Past Medical History Narrative Medical The patient's past medical history is significant for seizure disorder, alcohol abuse, thrombocytopenia, history of intracranial hemorrhage. Hx Anticoagulant Therapy: Yes (81MG) Asthma: Yes Bipolar Disorder: Yes (non compliant with meds) Anxiety: No Depression: No Cancer: No Cardiovascular Problems: Yes Chemotherapy: No Cerebrovascular Accident: No Diminished Hearing: No Endocrine: No Gastrointestinal Disorders: No Genitourinary: No Headaches: Yes Immune Disorder: No Inguinal Hernia: Yes Implanted Vascular Access Dvce: No Musculoskeletal: No Neurologic: Yes ("BLEED IN BRAIN" 2016) Psychiatric: Yes Reproductive: No Respiratory: No Immunizations Current: No Migraines: No Radiation Therapy: No Schizophrenia: Yes Seizures: Yes Past Surgical History Narrative Surgical The patient's past surgical history is significant for hernia repair, right shoulder repair peer Abdominal Surgery: Yes (HERNIA SURGERY 2016 ) Cardiac Surgery: No Ear Surgery: No Endocrine Surgery: No Eye Surgery: No Genitourinary Surgery: No Gynecologic Surgery: No Oral Surgery: No Thoracic Surgery: No Other Surgery: Yes (LEFT GROIN HERNIA REPAIR WITH MESH) Social History Alcohol Use: Yes (4-6 BEERS DAILY) Tobacco Use: Yes (1 PPD) Substance Use: No Allergies-Medications (Allergen,Severity, Reaction): Coded Allergies: No Known Allergies (Verified Adverse Reaction, Unknown, 09/28/17) Reported Meds & Prescriptions Reported Meds & Active Scripts Active Keppra (Levetiracetam) 1,000 Mg Tab 1,000 Mg PO BID Keppra (Levetiracetam) 1,000 Mg Tab 1,000 Mg PO TID Reported Aspirin DR (Aspirin) 81 Mg Tabdr 81 Mg PO DAILY Review of Systems Except as stated in HPI: all other systems reviewed are Neg General / Constitutional: No: Fever Eyes: No: Visual changes HENT: No: Headaches Cardiovascular: No: Chest Pain or Discomfort Respiratory: No: Shortness of Breath Gastrointestinal: No: Abdominal Pain Genitourinary: No: Dysuria Musculoskeletal: No: Pain Skin: No Rash Neurologic: Positive: Paresthesia, No: Weakness, Focal Abnormalities, Change in Mentation, Slurred Speech, Sensory Disturbance Psychiatric: No: Depression Endocrine: No: Polydipsia Hematologic/Lymphatic: No: Easy Bruising Physical Exam Narrative General: The patient is a well-developed well-nourished male in no acute distress. Head and Neck exam: Head is normocephalic atraumatic. Eyes: EOMI, pupils are equal round and reactive to light. Nose: Midline septum with pink mucous membranes Mouth: Dentition unremarkable. Moist mucus membranes. Posterior oropharynx is not erythematous. No tonsillar hypertrophy. Uvula midline. Airway patent. Neck: No palpable lymphadenopathy. No nuchal rigidity. No thyromegaly. Cardiovascular: Regular rate and rhythm without murmurs, gallops, or rubs. No pulse deficit to the extremities on simultaneous auscultation and palpation of his radial artery. Lungs: Clear to auscultation bilaterally. No wheezes, rhonchi, or rales. Abdomen: Soft, without tenderness to palpation in all 4 quadrants of the abdomen. No guarding, rebound, or rigidity. Normal bowel sounds are audible. No tenderness on palpation of McBurney's point. Negative Arizmendi sign Extremities: No clubbing, cyanosis, or edema. 2+ pulses in all 4 extremities. No calf tenderness on palpation. Back: No spinous process tenderness to palpation. No costovertebral angle tenderness to palpation. Neurologic Exam: Cranial nerves 2-12 were intact on exam. Strength is 5/5 in all 4 extremities. No sensory deficits noted. Skin Exam: No rash noted. Intact skin that is warm and dry. Data Data Last Documented VS Vital Signs Date Time Temp Pulse Resp B/P (MAP) Pulse Ox O2 Delivery O2 Flow Rate FiO2 09/28/17 22:34 98 Room Air 09/28/17 22:21 97.9 76 16 131/89 (103) Orders Orders Complete Blood Count With Diff (09/28/17 22:32) Comprehensive Metabolic Panel (09/28/17 22:32) Prothrombin Time / Inr (Pt) (09/28/17 22:32) Act Partial Throm Time (Ptt) (09/28/17 22:32) Urinalysis - C+S If Indicated (09/28/17 22:32) Magnesium (Mg) (09/28/17 22:32) Iv Access Insert/Monitor (09/28/17 22:32) Ecg Monitoring (09/28/17 22:32) Oximetry (09/28/17 22:32) Labs Laboratory Tests Test 09/28/17 22:45 09/28/17 22:50 White Blood Count 3.7 TH/MM3 Red Blood Count 3.57 MIL/MM3 Hemoglobin 12.9 GM/DL Hematocrit 36.7 % Mean Corpuscular Volume 102.9 FL Mean Corpuscular Hemoglobin 36.1 PG Mean Corpuscular Hemoglobin Concent 35.1 % Red Cell Distribution Width 12.7 % Platelet Count 135 TH/MM3 Mean Platelet Volume 9.0 FL Neutrophils (%) (Auto) 42.6 % Lymphocytes (%) (Auto) 39.8 % Monocytes (%) (Auto) 11.7 % Eosinophils (%) (Auto) 5.4 % Basophils (%) (Auto) 0.5 % Neutrophils # (Auto) 1.6 TH/MM3 Lymphocytes # (Auto) 1.5 TH/MM3 Monocytes # (Auto) 0.4 TH/MM3 Eosinophils # (Auto) 0.2 TH/MM3 Basophils # (Auto) 0.0 TH/MM3 CBC Comment DIFF FINAL Differential Comment Prothrombin Time 10.3 SEC Prothromb Time International Ratio 1.0 RATIO Activated Partial Thromboplast Time 22.1 SEC Blood Urea Nitrogen 4 MG/DL Creatinine 0.62 MG/DL Random Glucose 81 MG/DL Total Protein 7.8 GM/DL Albumin 3.6 GM/DL Calcium Level 8.2 MG/DL Magnesium Level 1.9 MG/DL Alkaline Phosphatase 78 U/L Aspartate Amino Transf (AST/SGOT) 236 U/L Alanine Aminotransferase (ALT/SGPT) 115 U/L Total Bilirubin 0.3 MG/DL Sodium Level 145 MEQ/L Potassium Level 4.8 MEQ/L Chloride Level 113 MEQ/L Carbon Dioxide Level 21.7 MEQ/L Anion Gap 10 MEQ/L Estimat Glomerular Filtration Rate 176 ML/MIN Urine Color YELLOW Urine Turbidity CLEAR Urine pH 5.0 Urine Specific [place] 1.014 Urine Protein 30 mg/dL Urine Glucose (UA) NEG mg/dL Urine Ketones NEG mg/dL Urine Occult Blood SMALL Urine Nitrite NEG Urine Bilirubin NEG Urine Urobilinogen LESS THAN 2.0 MG/DL Urine Leukocyte Esterase NEG Urine RBC LESS THAN 1 /hpf Urine WBC LESS THAN 1 /hpf Urine Mucus FEW /lpf Microscopic Urinalysis Comment CULT NOT INDICATED MDM Medical Decision Making Medical Screen Exam Complete: Yes Emergency Medical Condition: Yes Medical Record Reviewed: Yes Differential Diagnosis Seizure activity, versus alcohol withdrawal syndrome, versus electrolyte derangement Narrative Course During the course of the patient's emergency department visit, the patient's history, examination, and differential diagnosis were reviewed with the patient. The patient was placed on a environmental health and safety intern with oximetry and frequent blood pressure monitoring. The patient had IV access obtained and blood work sent for analysis. The patient was initially provided Keppra 1 g p.o. 1 as he is due for his evening dose. The 1 g p.o. 3 times daily was confirmed to be the regimen that was recommended by Dr. Arenas during his evaluation in April The patient's laboratory studies were reviewed and remarkable for a white count of 3.7, hemoglobin 12.9, platelets 135 and a patient with a history of thrombocytopenia, monocytosis at 11.7, CMP is remarkable for chloride of 113, BUN 4, calcium 8.2, AST 236, ALT 115. The patient's LFTs have been similarly elevated in the past thought to be related to alcohol abuse. PT 10.3, PTT 22.1. As the patient recently underwent CT on September 26, repeat CT scan is not indicated at this time due to the similarity of his symptoms and no history of recent trauma. The patient is instructed to follow-up with Dr. Arenas, the neurologist regarding his current medication regimen. The patient is resting comfortably and feels better, is alert and in no distress. The patient's results and examination findings were discussed with the patient. The repeat examination is unremarkable and benign. The history, exam, diagnostic testing, and current condition do not suggest any significant pathology to warrant further testing, continued ED treatment, admission, or surgical evaluation at this point. The vital signs have been stable. The patient does not have uncontrollable pain, intractable vomiting, or other significant symptoms. The patient's condition is stable and appropriate for discharge. The patient will pursue further outpatient evaluation with a primary care physician or other designated or consulting physician as indicated in the discharge instructions. The patient expressed understanding and was agreeable with this plan. Diagnosis Primary Impression: Seizure disorder Referrals: Higinio Arenas MD PhD call for appointment Primary Care Physician 2 days Patient Instructions: General Instructions Med/Other Pt SpecificInfo: No Change to Meds Disposition: 01 DISCHARGE HOME Condition: Stable Azra Nelson MD September 28, 2017 22:39
[2017-09-28 23:00] LABS: AUTOMATED NEUTROPHIL # 1.6 TH/MM3 (1.8-7.7); BASOPHIL % 0.5 % (0.0-2.0); EOSINOPHIL # 0.2 TH/MM3 (0-0.4); EOSINOPHIL % 5.4 % (0.0-4.0); HEMATOCRIT 36.7 % (39.0-51.0); HEMOGLOBIN 12.9 GM/DL (13.0-17.0); LYMPH % 39.8 % (9.0-44.0); LYMPHOCYTE # 1.5 TH/MM3 (1.0-4.8); MEAN CELL VOLUME 102.9 FL (80.0-100.0); MEAN CORPUSCULAR HEMOGLOBIN 36.1 PG (27.0-34.0); MEAN CORPUSCULAR HGB CONC 35.1 % (32.0-36.0); MONO % 11.7 % (0.0-8.0); MONOCYTE # 0.4 TH/MM3 (0-0.9); NEUT % 42.6 % (16.0-70.0); PLATELET COUNT 135 TH/MM3 (150-450); RED BLOOD COUNT 3.57 MIL/MM3 (4.50-5.90); RED CELL DISTRIBUTION WIDTH 12.7 % (11.6-17.2); WHITE BLOOD COUNT 3.7 TH/MM3 (4.0-11.0)
[2017-09-28 23:07] LABS: BILIRUBIN, URINE NEG (NEG); BLOOD, URINE SMALL (NEG); GLUCOSE,URINE NEG (NEG); KETONE, URINE NEG (NEG); MUCUS URINE FEW /lpf (OCC); NITRITE,URINE NEG (NEG); URINE COLOR YELLOW (YELLW/STRAW); URINE LEUKOCYTE ESTERASE NEG (NEG)
[2017-09-28 23:16] LABS: PROTHROMBIN TIME - PATIENT 10.3 SEC (9.8-11.6)
[2017-09-28 23:24] LABS: ALBUMIN 3.6 GM/DL (3.4-5.0); ALT (GPT) 115 U/L (12-78); AST (GOT) 236 U/L (15-37); BICARBONATE 21.7 MEQ/L (21.0-32.0); BLOOD UREA NITROGEN 4 MG/DL (7-18); CALCIUM 8.2 MG/DL (8.5-10.1); CHLORIDE 113 MEQ/L (98-107); CREATININE 0.62 MG/DL (0.60-1.30); GLOMERULAR FILTRATION RATE 176 ML/MIN (>89); GLUCOSE,RANDOM 81 MG/DL (74-106); MAGNESIUM 1.9 MG/DL (1.5-2.5); SODIUM (NA) 145 MEQ/L (136-145)
[2017-09-28 23:26] LABS: ALKALINE PHOSPHATASE 78 U/L (45-117); TOTAL BILIRUBIN ADULT 0.3 MG/DL (0.2-1.0); TOTAL PROTEIN 7.8 GM/DL (6.4-8.2)
[2017-09-29] MEDS ORDERED: levETIRAcetam 500 MG TAB PO ONE (01:00)
[2017-09-29 01:13] VITALS: BP 122/83
== END 2017-09-29 01:14 | disposition home or self-care (01) ==
LOC: NEPC 22:16
DX: G40.909 Epilepsy, unspecified, not intractable, without status epilepticus (principal); F17.200 Nicotine dependence, unspecified, uncomplicated; D69.6 Thrombocytopenia, unspecified; Z79.899 Other long term (current) drug therapy
CPT/HCPCS: 80053; 81001; 83735; 85025; 85610; 85730; 99283

== ENCOUNTER 2017-10-29 13:21 | Emergency (ER) | payer SELFPAY ==
[~2017-10-29] VITALS: Ht 180.3 cm; Wt 77.0 kg
[2017-10-29 13:25] VITALS: BP 150/104; PULSE 69; RESP 18; TEMP 99; O2SAT 98
[2017-10-29 13:35] VITALS: BP 151/84; PULSE 68; RESP 18; TEMP 98.1; O2SAT 99
--- NOTE | 2017-10-29 13:43 | PD ---
HPI Chief Complaint: Seizure Time Seen by Provider: 13:34 Travel History International Travel<30 days: No Contact w/Intl Traveler<30days: No Traveled to known affect area: No History of Present Illness HPI 29-year-old -[place] male with known seizure disorder presents emergency department with question of impending seizure with aura, metallic taste in his mouth, and tingling in the left arm and leg which is typical prior to him having seizures in the past. Patient states he normally takes Keppra 1000 mg 3 times daily, and is currently down to his last pill. He was here 1 month ago with similar complaints with refills of his Keppra given at that time. Patient states he is having difficulty getting in with a local primary care physician. He denies any other acute medical issues. He has no known drug allergies. PFSH Past Medical History Hx Anticoagulant Therapy: Yes (81MG) Asthma: Yes Bipolar Disorder: Yes (non compliant with meds) Anxiety: No Depression: No Cancer: No Cardiovascular Problems: Yes Chemotherapy: No Cerebrovascular Accident: No Diminished Hearing: No Endocrine: No Gastrointestinal Disorders: No Genitourinary: No Headaches: Yes Immune Disorder: No Inguinal Hernia: Yes Implanted Vascular Access Dvce: No Musculoskeletal: No Neurologic: Yes ("BLEED IN BRAIN" 2015) Psychiatric: Yes Reproductive: No Respiratory: No Immunizations Current: No Migraines: No Radiation Therapy: No Schizophrenia: Yes Seizures: Yes Past Surgical History Abdominal Surgery: Yes (HERNIA SURGERY 2016 ) Cardiac Surgery: No Ear Surgery: No Endocrine Surgery: No Eye Surgery: No Genitourinary Surgery: No Gynecologic Surgery: No Oral Surgery: No Thoracic Surgery: No Other Surgery: Yes (LEFT GROIN HERNIA REPAIR WITH MESH) Social History Alcohol Use: Yes (4-6 BEERS DAILY) Tobacco Use: Yes (1 PPD) Substance Use: No Allergies-Medications (Allergen,Severity, Reaction): Coded Allergies: No Known Allergies (Verified Adverse Reaction, Unknown, 09/28/17) Reported Meds & Prescriptions Reported Meds & Active Scripts Active Keppra (Levetiracetam) 1,000 Mg Tab 1,000 Mg PO BID Keppra (Levetiracetam) 1,000 Mg Tab 1,000 Mg PO TID Reported Aspirin DR (Aspirin) 81 Mg Tabdr 81 Mg PO DAILY Review of Systems Except as stated in HPI: all other systems reviewed are Neg General / Constitutional: No: Fever Eyes: No: Visual changes HENT: No: Headaches Cardiovascular: No: Chest Pain or Discomfort Respiratory: No: Shortness of Breath Gastrointestinal: No: Abdominal Pain Genitourinary: No: Dysuria Musculoskeletal: No: Pain Skin: No Rash Neurologic: Positive: Paresthesia, Seizures, Sensory Disturbance (See history of present illness), No: Weakness Psychiatric: Positive: Anxiety, No: Depression Endocrine: No: Polydipsia Hematologic/Lymphatic: No: Easy Bruising Physical Exam Narrative GENERAL: Patient appears moderately anxious but otherwise in no acute distress. SKIN: Warm and dry. Normal color. Normal turgor. No signs of trauma HEAD: Atraumatic. Normocephalic. EYES: Pupils equal and round. No scleral icterus. No injection or drainage. ENT: No nasal bleeding or discharge. Mucous membranes pink and moist. Pharynx is clear. Airways patent NECK: Trachea midline. Supple and nontender. CARDIOVASCULAR: Regular rate and rhythm. RESPIRATORY: No accessory muscle use. Clear to auscultation. Breath sounds equal bilaterally. GASTROINTESTINAL: Abdomen soft, non-tender, nondistended. Hepatic and splenic margins not palpable. MUSCULOSKELETAL: Extremities without clubbing, cyanosis, or edema. No obvious deformities. NEUROLOGICAL: Awake and alert. No obvious cranial nerve deficits. Motor grossly within normal limits. Five out of 5 muscle strength in the arms and legs. Normal speech. PSYCHIATRIC: Appropriate mood and affect; insight and judgment normal. Data Data Last Documented VS Vital Signs Date Time Temp Pulse Resp B/P (MAP) Pulse Ox O2 Delivery O2 Flow Rate FiO2 10/29/17 13:35 77 18 100 Room Air 10/29/17 13:35 98.1 151/84 (106) Orders Orders Lorazepam Inj (Ativan Inj) (10/29/17 13:45) Levetiracetam (Keppra) (10/29/17 13:45) [facility] Medical Decision Making Medical Screen Exam Complete: Yes Emergency Medical Condition: Yes Medical Record Reviewed: Yes Differential Diagnosis Seizure disorder. Anxiety. Need for medication refill. Narrative Course Patient is given 1 mg lorazepam IM. Now. Patient is given Keppra 1000 mg p.o. now. Patient is monitored here in the department for 1 hour. Further medical workup is not felt warranted. Patient is given a refill of his Keppra 1000 mg 3 times daily #90. Patient is given information regarding [facility] for further primary care needs. Diagnosis Primary Impression: Medication refill Additional Impression: Seizure disorder Referrals: [facility] Patient Instructions: Epilepsy (DC), General Instructions Additional Instructions: Patient is given a refill of his Keppra 1000 mg 3 times daily #90. Patient is given information regarding [facility] for further primary care needs. Med/Other Pt SpecificInfo: Prescription(s) given Disposition: DISCHARGE HOME Condition: Stable Maurilio Ventura Oct 29, 2017 13:42
[2017-10-29] MEDS ORDERED: levETIRAcetam 500 MG TAB PO ONE (13:45)
[2017-10-29] MEDS ORDERED: LORazepam 2 MG/ML VIAL IM ONE (13:45)
[2017-10-29] MEDS ORDERED: KEPP10002 PO (14:09)
== END 2017-10-29 16:25 | disposition home or self-care (01) ==
LOC: NEPD 13:21
DX: G40.909 Epilepsy, unspecified, not intractable, without status epilepticus (principal); F17.200 Nicotine dependence, unspecified, uncomplicated; Z76.0 Encounter for issue of repeat prescription
CPT/HCPCS: 96372; 99283; J2060

== ENCOUNTER 2017-11-10 13:56 | Emergency (ER) | payer SELFPAY ==
[~2017-11-10] VITALS: Ht 180.3 cm; Wt 80.0 kg
[~2017-11-10 13:56] MED LIST changes: -ECASA81 PO
[2017-11-10 14:05] VITALS: BP 145/103; PULSE 68; RESP 16; TEMP 99.6; O2SAT 96
[2017-11-10] MEDS ORDERED: SODIUM CHLOR 0.9% 1000 ML INJ 1,000 ML IV SCH (14:56)
[2017-11-10 15:00] VITALS: BP 166/74; PULSE 71; RESP 19; O2SAT 97
[2017-11-10] MEDS ORDERED: SODIUM CHLORIDE 0.9% FLUSH 10 ML FLUSH IV FLUSH PRN (15:00)
[2017-11-10 15:26] LABS: AUTOMATED NEUTROPHIL # 2.2 TH/MM3 (1.8-7.7); BASOPHIL % 0.6 % (0.0-2.0); EOSINOPHIL # 0.1 TH/MM3 (0-0.4); HEMOGLOBIN 12.7 GM/DL (13.0-17.0); LYMPH % 25.7 % (9.0-44.0); LYMPHOCYTE # 0.9 TH/MM3 (1.0-4.8); MEAN CELL VOLUME 104.7 FL (80.0-100.0); MEAN CORPUSCULAR HEMOGLOBIN 35.9 PG (27.0-34.0); MEAN CORPUSCULAR HGB CONC 34.3 % (32.0-36.0); MEAN PLATELET VOLUME 7.3 FL (7.0-11.0); MONO % 11.7 % (0.0-8.0); MONOCYTE # 0.4 TH/MM3 (0-0.9); PLATELET COUNT 166 TH/MM3 (150-450); RED BLOOD COUNT 3.54 MIL/MM3 (4.50-5.90); RED CELL DISTRIBUTION WIDTH 12.8 % (11.6-17.2); WHITE BLOOD COUNT 3.6 TH/MM3 (4.0-11.0)
[2017-11-10] MEDS ORDERED: IBUPROFEN 800 MG TAB PO ONE (15:30)
[2017-11-10] MEDS ORDERED: ONDANSETRON ODT 4 MG TAB PO ONE (15:30)
[2017-11-10] MEDS ORDERED: KETOROLAC TROMETHAMINE 30 MG/ML (IVP) VIAL IV PUSH ONE (15:30)
[2017-11-10 15:46] LABS: ALBUMIN 3.7 GM/DL (3.4-5.0); BICARBONATE 24.3 MEQ/L (21.0-32.0); BLOOD UREA NITROGEN 5 MG/DL (7-18); CALCIUM 8.7 MG/DL (8.5-10.1); CHLORIDE 106 MEQ/L (98-107); CREATININE 0.81 MG/DL (0.60-1.30); GLOMERULAR FILTRATION RATE 129 ML/MIN (>89); GLUCOSE,RANDOM 93 MG/DL (74-106); MAGNESIUM 1.3 MG/DL (1.5-2.5); PROTHROMBIN TIME - PATIENT 10.2 SEC (9.8-11.6); SODIUM (NA) 138 MEQ/L (136-145)
[2017-11-10 15:57] LABS: ALKALINE PHOSPHATASE 67 U/L (45-117); ALT (GPT) 53 U/L (12-78); AST (GOT) 40 U/L (15-37); TOTAL BILIRUBIN ADULT 0.5 MG/DL (0.2-1.0); TOTAL PROTEIN 7.8 GM/DL (6.4-8.2)
[2017-11-10 18:21] VITALS: BP 143/82; PULSE 54; RESP 14; O2SAT 100
--- NOTE | 2017-11-10 18:30 | PD ---
HPI Chief Complaint: Seizure Time Seen by Provider: 14:40 Travel History International Travel<30 days: No Contact w/Intl Traveler<30days: No Traveled to known affect area: No History of Present Illness HPI 37-year-old male, with history of seizures, presents to emergency department via EMS with complaint of having a seizure while on the bus today. He says he was sitting in the chair and did not fall to the floor. Says he is compliant with his Keppra 1000 mg 3 times daily, and did take it this morning. He said the seizure lasted approximately 5 minutes. He denies tongue biting. Says he has a headache. Reports nausea without vomiting. Denies illicit drug use. Reports alcohol use daily, and last drink last night. Denies chest pain, shortness breath, abdominal pain. Says he takes an aluminum taste in his mouth prior to onset of the seizure. No known aggravating or relieving factors. Duration chronic. No primary care provider. History of seizures and asthma and hypertension. No known allergies. Has no other medical complaints. No other modifying factors or associated signs and symptoms. PFSH Past Medical History Hx Anticoagulant Therapy: Yes (81MG) Asthma: Yes Bipolar Disorder: Yes (non compliant with meds) Anxiety: No Depression: No Cancer: No Cardiovascular Problems: Yes Chemotherapy: No Cerebrovascular Accident: No Diminished Hearing: No Endocrine: No Gastrointestinal Disorders: No Genitourinary: No Headaches: Yes Immune Disorder: No Inguinal Hernia: Yes Implanted Vascular Access Dvce: No Musculoskeletal: No Neurologic: Yes ("BLEED IN BRAIN" 2015) Psychiatric: Yes Reproductive: No Respiratory: No Immunizations Current: No Migraines: No Radiation Therapy: No Schizophrenia: Yes Seizures: Yes Past Surgical History Abdominal Surgery: Yes (HERNIA SURGERY 2016 ) Cardiac Surgery: No Ear Surgery: No Endocrine Surgery: No Eye Surgery: No Genitourinary Surgery: No Gynecologic Surgery: No Oral Surgery: No Thoracic Surgery: No Other Surgery: Yes (LEFT GROIN HERNIA REPAIR WITH MESH) Social History Alcohol Use: Yes (4-6 BEERS DAILY) Tobacco Use: Yes (1 PPD) Substance Use: No Allergies-Medications (Allergen,Severity, Reaction): Coded Allergies: No Known Allergies (Verified Adverse Reaction, Unknown, 11/10/17) Reported Meds & Prescriptions Reported Meds & Active Scripts Active Keppra (Levetiracetam) 1,000 Mg Tab 1,000 Mg PO TID Review of Systems Except as stated in HPI: all other systems reviewed are Neg Physical Exam Narrative GENERAL: Well-nourished, well-developed black male patient, in no acute distress SKIN: Warm and dry. HEAD: Atraumatic. Normocephalic. No facial droop noted. Tongue midline. Shoulder shrug equal. Finger to nose test normal. EYES: Pupils equal and round at 3 mm with brisk reaction. No scleral icterus. No injection or drainage. PERRLA. EOMI. ENT: Mucosa pink and moist. Airway patent. NECK: Trachea midline. No lymphadenopathy. CARDIOVASCULAR: Regular rate. RESPIRATORY: No accessory muscle use. GASTROINTESTINAL: Flat. MUSCULOSKELETAL: No obvious deformities. No clubbing. No cyanosis. No edema. NEUROLOGICAL: Awake and alert. Oriented 4. No obvious cranial nerve deficits. Motor grossly within normal limits. Normal speech. No ataxia. No mid -line drift. No upper or lower extremity drift. Operating Room Surgical Technician strength equal bilaterally. Sensory intact and equal bilaterally. Moves all extremities. Active plantar and dorsiflexion and strength equal bilaterally. 5/5 strength to all extremities. PSYCHIATRIC: Appropriate mood and affect; insight and judgment normal. Data Data Last Documented VS Vital Signs Date Time Temp Pulse Resp B/P (MAP) Pulse Ox O2 Delivery O2 Flow Rate FiO2 11/10/17 19:10 11/10/17 18:21 54 14 100 11/10/17 15:00 Room Air 11/10/17 14:05 99.6 Orders Orders Complete Blood Count With Diff (11/10/17 14:56) Comprehensive Metabolic Panel (11/10/17 14:56) Prothrombin Time / Inr (Pt) (11/10/17 14:56) Act Partial Throm Time (Ptt) (11/10/17 14:56) Urinalysis - C+S If Indicated (11/10/17 14:56) Sodium Chlor 0.9% 1000 Ml Inj (Ns 1000 M (11/10/17 14:56) Sodium Chloride 0.9% Flush (Ns Flush) (11/10/17 15:00) Magnesium (Mg) (11/10/17 14:56) Ondansetron Odt (Zofran Odt) (11/10/17 15:30) Ibuprofen (Motrin) (11/10/17 15:30) Ketorolac Inj (Toradol Inj) (11/10/17 15:30) Magnesium Oxide (Mag-Ox) (11/10/17 18:45) Ed Discharge Order (11/10/17 18:59) Labs Laboratory Tests Test 11/10/17 15:15 White Blood Count 3.6 TH/MM3 Red Blood Count 3.54 MIL/MM3 Hemoglobin 12.7 GM/DL Hematocrit 37.0 % Mean Corpuscular Volume 104.7 FL Mean Corpuscular Hemoglobin 35.9 PG Mean Corpuscular Hemoglobin Concent 34.3 % Red Cell Distribution Width 12.8 % Platelet Count 166 TH/MM3 Mean Platelet Volume 7.3 FL Neutrophils (%) (Auto) 60.0 % Lymphocytes (%) (Auto) 25.7 % Monocytes (%) (Auto) 11.7 % Eosinophils (%) (Auto) 2.0 % Basophils (%) (Auto) 0.6 % Neutrophils # (Auto) 2.2 TH/MM3 Lymphocytes # (Auto) 0.9 TH/MM3 Monocytes # (Auto) 0.4 TH/MM3 Eosinophils # (Auto) 0.1 TH/MM3 Basophils # (Auto) 0.0 TH/MM3 CBC Comment DIFF FINAL Differential Comment Prothrombin Time 10.2 SEC Prothromb Time International Ratio 1.0 RATIO Activated Partial Thromboplast Time 30.1 SEC Blood Urea Nitrogen 5 MG/DL Creatinine 0.81 MG/DL Random Glucose 93 MG/DL Total Protein 7.8 GM/DL Albumin 3.7 GM/DL Calcium Level 8.7 MG/DL Magnesium Level 1.3 MG/DL Alkaline Phosphatase 67 U/L Aspartate Amino Transf (AST/SGOT) 40 U/L Alanine Aminotransferase (ALT/SGPT) 53 U/L Total Bilirubin 0.5 MG/DL Sodium Level 138 MEQ/L Potassium Level 4.0 MEQ/L Chloride Level 106 MEQ/L Carbon Dioxide Level 24.3 MEQ/L Anion Gap 8 MEQ/L Estimat Glomerular Filtration Rate 129 ML/MIN MDM Medical Decision Making Medical Screen Exam Complete: Yes Emergency Medical Condition: Yes Medical Record Reviewed: Yes Differential Diagnosis Seizure, alcohol withdrawal, electrolyte imbalance Narrative Course 37-year-old male with seizure disorder arrives via EMS after having a seizure on the bus today. He takes Keppra 1000 mg 3 times daily and is compliant. He did not fall or hit his head during the event. His neuro exam is unremarkable. He is alert and oriented. He had head CT on September 26, 2017 which was unremarkable. I discussed the patient with Dr. Le and she agrees with my plan of care. 1828: CBC with signs of anemia and is consistent with past findings. Coags unremarkable. Magnesium 1.3. CMP unremarkable. Mag-Ox 400 mg p.o. ordered and administered in the ER. I discussed the patient with Dr. Sharma and he agrees with my plan for outpatient follow-up patient disposition. Instructed patient to continue Keppra as prescribed. Instructed patient to follow-up with neurologist. Instructed patient to follow up with primary care provider. Patient verbalizes understanding and agreement with treatment plan. Patient is medically cleared and stable for discharge. Discussed reasons to return to the emergency department. Patient agrees with treatment plan. The patients vital signs are stable and the patient is stable for outpatient follow-up and treatment. Patient discharged home, stable and in no acute distress. Diagnosis Primary Impression: Seizure disorder Referrals: [facility] Neurologist Primary Care Physician Patient Instructions: General Instructions, Recurrent Seizures in Adults (ED) Additional Instructions: Limit/avoid alcohol intake Avoid known triggers Continue to take antiseizure medication as prescribed avoid adding new prescriptions, [id number] medications, dietary supplements, or herbal remedies without consulting your PCP or neurologist Keep a seizure diary and take to PCP and neurologist Follow-up with neurologist Follow-up with primary care provider within 1-2 days Return immediately to the emergency department, particularly if seizure lasting more than 5 minutes, high fever >100.4, sustained injury during seizure Med/Other Pt SpecificInfo: No Change to Meds, No Meds Exist/No RX given Disposition: 01 DISCHARGE HOME Condition: Stable Lizabeth Flores Nov 10, 2017 18:30
[2017-11-10] MEDS ORDERED: MAGNESIUM OXIDE 400 MG TAB PO ONE (18:45)
== END 2017-11-10 19:16 | disposition home or self-care (01) ==
LOC: NEPD 13:56
DX: G40.909 Epilepsy, unspecified, not intractable, without status epilepticus (principal); D64.9 Anemia, unspecified; R51 Headache; R11.0 Nausea; I10 Essential (primary) hypertension; F17.200 Nicotine dependence, unspecified, uncomplicated; Z79.82 Long term (current) use of aspirin; Z87.09 Personal history of other diseases of the respiratory system; Z86.59 Personal history of other mental and behavioral disorders; Z86.79 Personal history of other diseases of the circulatory system; Z86.69 Personal history of other diseases of the nervous system and sense organs
CPT/HCPCS: 80053; 83735; 85025; 85610; 85730; 96361; 96374; 99284; J1885; J7030